=== PATIENT | female | born 1975 | race Caucasian/White ===

== ENCOUNTER 2016-08-25 08:22 | Emergency (ER) | payer BC ==
[2016-08-25] MEDS ORDERED: HYDROmorphone 1 MG/ML 1 ML SYRINGE IVP STA ×2 (08:36→09:08)
[2016-08-25] MEDS ORDERED: ONDANSETRON 4 MG/2 ML VIAL IVP STA (08:36)
[2016-08-25] MEDS ORDERED: RX INFO: IV CONTRAST WAS GIVEN 1 EACH MISC MISCELLANE PRN (08:36)
[2016-08-25] MEDS ORDERED: SODIUM CHLORIDE 0.9% 1,000 ML IV STA (08:36)
--- NOTE | 2016-08-25 08:42 | ED ---
Abdominal Pain HPI - General Chief Complaint: Abdominal Pain Stated Complaint: abdominal pain Time Seen by Provider: 08/25/16 08:30 Source: patient, family, RN notes reviewed Mode of arrival: wheelchair Limitations: no limitations - History of Present Illness Initial Comments: 41-year-old female presents emergency Department chief complaint of abdominal pain that started yesterday. Patient states it's in her low mid abdominal area there it's up to her upper mid abdominal region. Patient states it sharp and feels like increased pressure. She states she does wax and wane. Patient denies any nausea, vomiting diarrhea constipation. Denies any dysuria hematuria. Patient had a prior hernia repair with compilations and states that she has another hernia. Patient's had hysterectomy and left oophorectomy. Patient denies fever, chills. Denies any chest pain or shortness of breath when she does state when she takes deep inspiration she is increased pain in her abdomen. Patient states that her surgeon is Dr. Gerard. Patient states nothing makes the pain feel better at this time. - Related Data Home Medications Medication Instructions Recorded Confirmed DULoxetine HCL [Cymbalta] 60 mg PO DAILY 01/11/14 08/25/16 SUMAtriptan SUCCINATE [Imitrex] 100 mg PO DAILY PRN 01/11/14 08/25/16 clonazePAM [KlonoPIN] 0.5 mg PO DAILY 10/04/15 08/25/16 Losartan/Hydrochlorothiazide 1 tab PO DAILY 12/26/15 08/25/16 [Hyzaar 100-25 Tablet] Hydrocodone/Acetaminophen [Dozier 1 tab PO BID PRN 08/25/16 08/25/16 5-325] Previous Rx's Medication Instructions Recorded Dicyclomine [Bentyl] 20 mg PO TID #30 tablet 08/25/16 HYDROcodone/APAP 7.5-325MG [Dozier 1 tab PO Q6HR PRN #20 tab 08/25/16 7.5-325] Allergies Allergy/AdvReac Type Severity Reaction Status Date / Time doxycycline Allergy Nausea & Verified 08/25/16 08:42 Vomiting hydroxyzine [From Vistaril] Allergy Rash/Hives Verified 08/25/16 08:42 oxybutynin [From Ditropan] Allergy Rapid Verified 08/25/16 08:42 Heart Rate pregabalin [From Lyrica] Allergy SWELLING Verified 08/25/16 08:42 AND HIVES tramadol HCl [From Ultram] Allergy MIGRAINE Verified 08/25/16 08:42 ketorolac tromethamine AdvReac Unknown Verified 08/25/16 08:42 [From Toradol] levofloxacin [From Levaquin] AdvReac Swelling Verified 08/25/16 08:42 morphine AdvReac MIGRAINE Verified 08/25/16 08:42 naproxen sodium [From Aleve] AdvReac Unknown Verified 08/25/16 08:42 Penicillins AdvReac Swelling Verified 08/25/16 08:42 Review of Systems ROS Statement: Those systems with pertinent positive or pertinent negative responses have been documented in the HPI. ROS Other: All systems not noted in ROS Statement are negative. Past Medical History Past Medical History: Pneumonia, Respiratory Disorder Additional Past Medical History / Comment(s): LUNG ABSCESS IS INSIDE THE LUNG. OTHER HX INCLUDES: Migraine headache. CHRONIC ABDOMINAL PAIN, HERNIAS History of Any Multi-Drug Resistant Organisms: None Reported Past Surgical History: Adenoidectomy, Back Surgery, Breast Surgery, Cholecystectomy, Hernia Repair, Hysterectomy, Orthopedic Surgery, Tonsillectomy Additional Past Surgical History / Comment(s): bilateral KNEE arthroscopic, LOW BACK SURGERY, L BREAST LUMPECTOMY that was without evidence of cancer. She' s had a partial hysterectomy, adenoidectomy with tonsillectomy years ago. She also recalls a cholecystectomy. Past Anesthesia/Blood Transfusion Reactions: Postoperative Nausea & Vomiting ( PONV) Additional Past Anesthesia/Blood Transfusion Reaction / Comment(s): PT HAS NEVER RECIEVED BLOOD. Past Psychological History: Anxiety Additional Psychological History / Comment(s): PT LIVES WITH OF 23 YRS AND THEIR 2 CHILDREN AGES 12 AND 15YRS. PT IS A HOMEMAKER. PT DRIVES A CAR. They do live on a farm with which he may have farm animals. In the summer. This past summer they had a cow and 4 sheep. 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 She did help another family with their she also. 1 of the animals did have " pneumonia.". She has no experience. No international travels. she is lifelong nonsmoker with no significant recreational drug use. Smoking Status: Never smoker Past Alcohol Use History: None Reported, Rare Past Drug Use History: None Reported - Past Family History Mother Family Medical History: Cancer Additional Family Medical History / Comment(s): breast ca Father Family Medical History: AFIB General Exam Limitations: no limitations General appearance: alert, in no apparent distress Head exam: Present: atraumatic, normocephalic, normal inspection Neck exam: Present: normal inspection. Absent: tenderness, meningismus, lymphadenopathy Respiratory exam: Present: normal lung sounds bilaterally. Absent: respiratory distress, wheezes, rales, rhonchi, stridor Cardiovascular Exam: Present: normal rhythm, tachycardia, normal heart sounds. Absent: systolic murmur, diastolic murmur, rubs, gallop, clicks GI/Abdominal exam: Present: soft, tenderness (Diffuse tenderness with moderate mid to low abdominal tenderness), normal bowel sounds. Absent: distended, guarding, rebound, rigid Back exam: Absent: CVA tenderness (R), CVA tenderness (L) Neurological exam: Present: alert, oriented X3, CN II-XII intact Skin exam: Present: warm, dry, intact, normal color. Absent: rash Course Vital Signs 08/25/16 08:25 Temperature 98.9 F Pulse Rate 120 H Respiratory 16 Rate Blood Pressure 130/80 O2 Sat by Pulse 97 Oximetry Medical Decision Making - Medical Decision Making 41-year-old female presents emergency from for abdominal pain. Patient has colitis noted on CT. She also has residual seroma from her prior surgery. Patient will follow-up with Dr. Agrawal call her surgeon. Return parameters were discussed. Patiently given pain medication. - Lab Data Result diagrams: 08/25/16 08:45 08/25/16 08:45 Lab Results 08/25/16 08/25/16 08/25/16 Range/Units 08:35 08:45 08:45 WBC 13.6 H (3.8-10.6) k/uL RBC 4.34 (3.80-5.40) m/uL Hgb 12.1 (11.4-16.0) gm/dL Hct 36.5 (34.0-46.0) % MCV 84.0 (80.0-100.0) fL MCH 27.8 (25.0-35.0) pg MCHC 33.1 (31.0-37.0) g/dL RDW 14.1 (11.5-15.5) % Plt Count 298 (150-450) k/uL Neutrophils % 85 % Lymphocytes % 12 % Monocytes % 2 % Eosinophils % 0 % Basophils % 0 % Neutrophils # 11.5 H (1.3-7.7) k/uL Lymphocytes # 1.6 (1.0-4.8) k/uL Monocytes # 0.3 (0-1.0) k/uL Eosinophils # 0.0 (0-0.7) k/uL Basophils # 0.1 (0-0.2) k/uL PT (9.0-12.0) sec INR (<1.1) APTT (22.0-30.0) sec Sodium 139 (137-145) mmol/L Potassium 3.4 L (3.5-5.1) mmol/L Chloride 99 (98-107) mmol/L Carbon Dioxide 28 (22-30) mmol/L Anion Gap 12 mmol/L BUN 10 (7-17) mg/dL Creatinine 0.83 (0.52-1.04) mg/dL Est GFR (MDRD) Af Amer >60 (>60 ml/min/1.73 sqM) Est GFR (MDRD) Non-Af >60 (>60 ml/min/1.73 sqM) Glucose 124 H (74-99) mg/dL Plasma Lactic Acid Kaleb (0.7-2.0) mmol/L Calcium 9.2 (8.4-10.2) mg/dL Total Bilirubin 0.7 (0.2-1.3) mg/dL AST 19 (14-36) U/L ALT 46 (9-52) U/L Alkaline Phosphatase 101 (38-126) U/L Total Protein 7.1 (6.3-8.2) g/dL Albumin 3.9 (3.5-5.0) g/dL Amylase 36 (30-110) U/L Lipase 17 L (23-300) U/L Urine Color Dark Yellow Urine Appearance Cloudy H (Clear) Urine pH 6.5 (5.0-8.0) Ur Specific [place] 1.029 (1.001-1.035) Urine Protein 1+ H (Negative) Urine Glucose (UA) Negative (Negative) Urine Ketones Negative (Negative) Urine Blood Negative (Negative) Urine Nitrite Negative (Negative) Urine Bilirubin 1+ H (Negative) Urine Urobilinogen 3.0 (<2.0) mg/dL Ur Leukocyte Esterase Small H (Negative) Urine RBC 4 (0-5) /hpf Urine WBC 1 (0-5) /hpf Ur Squamous Epith Cells 6 H (0-4) /hpf Urine Bacteria Occasional H (None) /hpf Urine Mucus Rare H (None) /hpf 08/25/16 08/25/16 Range/Units 08:45 08:45 WBC (3.8-10.6) k/uL RBC (3.80-5.40) m/uL Hgb (11.4-16.0) gm/dL Hct (34.0-46.0) % MCV (80.0-100.0) fL MCH (25.0-35.0) pg MCHC (31.0-37.0) g/dL RDW (11.5-15.5) % Plt Count (150-450) k/uL Neutrophils % % Lymphocytes % % Monocytes % % Eosinophils % % Basophils % % Neutrophils # (1.3-7.7) k/uL Lymphocytes # (1.0-4.8) k/uL Monocytes # (0-1.0) k/uL Eosinophils # (0-0.7) k/uL Basophils # (0-0.2) k/uL PT 10.1 (9.0-12.0) sec INR 1.0 (<1.1) APTT 24.8 (22.0-30.0) sec Sodium (137-145) mmol/L Potassium (3.5-5.1) mmol/L Chloride (98-107) mmol/L Carbon Dioxide (22-30) mmol/L Anion Gap mmol/L BUN (7-17) mg/dL Creatinine (0.52-1.04) mg/dL Est GFR (MDRD) Af Amer (>60 ml/min/1.73 sqM) Est GFR (MDRD) Non-Af (>60 ml/min/1.73 sqM) Glucose (74-99) mg/dL Plasma Lactic Acid Kaleb 1.9 (0.7-2.0) mmol/L Calcium (8.4-10.2) mg/dL Total Bilirubin (0.2-1.3) mg/dL AST (14-36) U/L ALT (9-52) U/L Alkaline Phosphatase (38-126) U/L Total Protein (6.3-8.2) g/dL Albumin (3.5-5.0) g/dL Amylase (30-110) U/L Lipase (23-300) U/L Urine Color Urine Appearance (Clear) Urine pH (5.0-8.0) Ur Specific [place] (1.001-1.035) Urine Protein (Negative) Urine Glucose (UA) (Negative) Urine Ketones (Negative) Urine Blood (Negative) Urine Nitrite (Negative) Urine Bilirubin (Negative) Urine Urobilinogen (<2.0) mg/dL Ur Leukocyte Esterase (Negative) Urine RBC (0-5) /hpf Urine WBC (0-5) /hpf Ur Squamous Epith Cells (0-4) /hpf Urine Bacteria (None) /hpf Urine Mucus (None) /hpf Disposition Clinical Impression: Colitis, Seroma Disposition: HOME SELF-CARE Condition: Stable Instructions: Colitis (ED) Additional Instructions: Please return to the Emergency Department if symptoms worsen or any other concerns. Prescriptions: Dicyclomine [Bentyl] 20 mg PO TID #30 tablet HYDROcodone/APAP 7.5-325MG [Dozier 7.5-325] 1 tab PO Q6HR PRN #20 tab PRN Reason: Pain Referrals: Levi Dougherty MD [Primary Care Provider] - 1-2 days Anahy Gerard MD [STAFF PHYSICIAN] - 1-2 days Time of Disposition: 09:47
[2016-08-25 09:11] LABS: Partial Thromboplastin Time 24.8 sec (22.0-30.0); Prothrombin Time 10.1 sec (9.0-12.0)
[2016-08-25 09:14] LABS: Basophils # (A) 0.1 k/uL (0-0.2); Basophils % (A) 0 %; CHCM 33.5; Eosinophils % (A) 0 %; HCT 36.5 % (34.0-46.0); HDW 2.74; HGB 12.1 gm/dL (11.4-16.0); Luc # (Auto) 0.12; Luc % (Auto) 1; Lymphocytes # (A) 1.6 k/uL (1.0-4.8); Lymphocytes % (A) 12 %; MCH 27.8 pg (25.0-35.0); MCHC 33.1 g/dL (31.0-37.0); Mean Platelet Volume 7.1; Monocytes # (A) 0.3 k/uL (0-1.0); Monocytes % (A) 2 %; Neutrophils # (A) 11.5 k/uL (1.3-7.7); Neutrophils % (A) 85 %; RBC 4.34 m/uL (3.80-5.40); RDW 14.1 % (11.5-15.5); WBC 13.6 k/uL (3.8-10.6); WBC (Perox) 13.78
[2016-08-25 09:17] LABS: Appearance,Urine Cloudy (Clear); Bacteria,Urine Occasional /hpf; Bilirubin,Urine 1+ (Negative); Glucose,Urine (UA) Negative (Negative); Ketones,Urine Negative (Negative); Leukocyte Esterase,Urine Small (Negative); Mucus,Urine Rare /hpf; Nitrite,Urine Negative (Negative); PH, Urine 6.5 (5.0-8.0); Particle Count 3450; Protein,Urine 1+ (Negative); RBC,Urine 4 /hpf (0-5); Specific Gravity,Urine 1.029 (1.001-1.035); Squamous Epithelial Cell,Urine 6 /hpf (0-4); UA Billing (MACRO vs. MICRO) MICRO; WBC,Urine 1 /hpf (0-5)
[2016-08-25 09:19] LABS: ALT 46 U/L (9-52); AST 19 U/L (14-36); Alkaline Phosphatase 101 U/L (38-126); Amylase 36 U/L (30-110); Anion Gap 12 mmol/L; Blood Urea Nitrogen 10 mg/dL (7-17); Calcium 9.2 mg/dL (8.4-10.2); Carbon Dioxide 28 mmol/L (22-30); Chloride 99 mmol/L (98-107); Glucose 124 mg/dL (74-99); Non-African American GFR(MDRD) >60 (>60 ml/min/1.73 sqM); Potassium 3.4 mmol/L (3.5-5.1); Sodium 139 mmol/L (137-145); Total Bilirubin 0.7 mg/dL (0.2-1.3); Total Protein 7.1 g/dL (6.3-8.2)
--- NOTE | 2016-08-25 09:38 | CT ---
EXAMINATION TYPE: CT abdomen pelvis w con DATE OF EXAM: 08/25/2016 9:32 AM COMPARISON: NONE HISTORY: Pelvic pain CT DLP: 3734.3 mGycm CONTRAST: CT scan of the abdomen and pelvis is performed without Oral Contrast and with IV Contrast, patient in jected with 100 mL of Omnipaque 300. FINDINGS: LUNG BASES-: No visible nodule. No infiltrate. LIVER/GB: Cholecystectomy clips are in place. No space occupying hepatic lesion. Biliary tree is o f normal caliber. PANCREAS: No inflammation. No distinct mass. SPLEEN: No splenic enlargement. No lesion seen. ADRENALS: No nodule. No thickening. KIDNEYS/BLADDER: No hydronephrosis. No nephrolithiasis. No disctinct renal mass. Urinary bladder g rossly unremarkable. BOWEL: Moderate wall thickening involving the cecum, ascending colon and proximal transverse colon co mpatible with nonspecific colitis. Correlate for infectious and or inflammatory causes and less likel y vascular. Normal appendix. Small bowel is of normal caliber. GENITAL ORGANS: No gross abnormality. LYMPH NODES: No greater than 1cm abdominal or pelvic lymph nodes are appreciated. AORTA: No significant abnormality. OSSEOUS STRUCTURES: No significant abnormality is seen. OTHER: Anterior abdominal wall with seroma measuring 4.5 cm. IMPRESSION: 1. Findings compatible with colitis. 2. Anterior abdominal wall seroma.
[2016-08-25 09:50] VITALS: BP 121/74; PULSE 100; RESP 18; TEMP 98.8
== END 2016-08-25 10:05 | disposition home or self-care (01) ==
LOC: EC 08:22
DX: K91.873 Postprocedural seroma of a digestive system organ or structure following other procedure (principal); K52.9 Noninfective gastroenteritis and colitis, unspecified; F41.9 Anxiety disorder, unspecified; Z79.899 Other long term (current) drug therapy; Z88.6 Allergy status to analgesic agent; Z88.8 Allergy status to other drugs, medicaments and biological substances; Z88.1 Allergy status to other antibiotic agents; Z88.5 Allergy status to narcotic agent; Z88.0 Allergy status to penicillin; Z98.890 Other specified postprocedural states; Z90.49 Acquired absence of other specified parts of digestive tract; Z90.710 Acquired absence of both cervix and uterus; Z90.89 Acquired absence of other organs; Y83.8 Other surgical procedures as the cause of abnormal reaction of the patient, or of later complication, without mention of misadventure at the time of the procedure
CPT/HCPCS: 36415; 80053; 82150; 83605; 83690; 85025; 85610; 85730; 81001; 74177; 99284; 96374; 96375; 96376; J2405; J1170; Q9967

== ENCOUNTER 2016-10-27 08:48 | Day surgery (SDC) | payer BC ==
[2016-10-27 09:11] VITALS: TEMP 98.2
[2016-10-27 10:07] VITALS: BP 128/72; PULSE 68; RESP 16
--- NOTE | 2016-10-27 10:31 | US ---
Therapeutic fine-needle aspiration of anterior abdominal wall subcutaneous seroma DATE OF EXAM: 10/27/2016 CLINICAL HISTORY: Soft tissue seroma anterior subcutaneous tissues request for FNA The procedure was discussed with the patient. The risks, complications, benefits, and alternatives we re discussed and any questions were answered. Informed consent was obtained. The patient was placed s upine on the ultrasound table and prepped and draped in the usual sterile fashion. All elements of maximal barrier and sterile technique were utilized. Under ultrasound guidance, acce ss into the subcutaneous collection was obtained, and there is removal of approximately 5 to 10 cc of yellow serous fluid. The patient was stable throughout the procedure and remained stable upon discharge from Department of Radiology. IMPRESSION: Successful FNA subcutaneous seroma..
== END 2016-10-27 10:00 | disposition home or self-care (01) ==
LOC: RADPROMAIN 08:48
PROVIDERS: ATTEND Surgery Plastic and Reconstructive Surgery
DX: L76.34 Postprocedural seroma of skin and subcutaneous tissue following other procedure (principal)
CPT/HCPCS: 10022; 10030; 76942

== ENCOUNTER → 2016-12-02 | Outpatient (CLI) | payer BC | END | disposition home or self-care (01) | LOC: LABPAT 11:54 | PROVIDERS: ATTEND Surgery Plastic and Reconstructive Surgery | DX: Z01.812 Encounter for preprocedural laboratory examination (principal); I10 Essential (primary) hypertension; K43.2 Incisional hernia without obstruction or gangrene | CPT/HCPCS: 36415; 84132; 86850; 86900; 86901 ==

== ENCOUNTER 2016-12-03 08:36 | Day surgery (SDC) | payer BC ==
[2016-11-25 11:29] VITALS: BMI 47.2
--- NOTE | 2016-12-03 06:50 | P.GSHP ---
History of Present Illness H&P Date: 12/03/16 CHIEF COMPLAINT: Incisional hernia. HISTORY OF PRESENT ILLNESS: The patient is a 41-year-old female who presents with a history of swelling along the upper abdomen from previous ventral hernia. Findings were consistent with recurrent incisional hernia initial presentation. Now she presents for further evaluation and management. PAST MEDICAL HISTORY: Please see list. PAST SURGICAL HISTORY: Please see list. MEDICATIONS: Please see list. ALLERGIES: Please see list. SOCIAL HISTORY: No illicit drug use FAMILY HISTORY: No reports of Crohn disease or ulcerative colitis. REVIEW OF ORGAN SYSTEMS: CONSTITUTIONAL: No reports of fevers or chills. GI: Denies any blood in stools or constipation. PHYSICAL EXAM: VITAL SIGNS: Stable GENERAL: Well-developed pleasant female in no acute distress. HEENT: No scleral icterus. Extraocular movements grossly intact. Moist buccal mucosa. NECK: Supple without lymphadenopathy. CHEST: Unlabored respirations. Equal bilateral excursions. CARDIOVASCULAR: Regular rate and rhythm. Distal 2+ pulses. ABDOMEN: Soft, nondistended. Palpable defect of the epigastrium over 8 cm. MUSCULOSKELETAL: No clubbing, cyanosis, or edema. ASSESSMENT: 1. Incisional ventral hernia, recurrent. PLAN: 1. Recommend proceeding with a robotic assisted laparoscopic ventral hernia repair with mesh possible open. 2. Benefits and risks of surgical intervention was discussed including possibility of open technique. 3. May need overnight observation. 4. DVT prophylaxis. 5. Antibiotic prophylaxis. Past Medical History Past Medical History: Hypertension, Pneumonia, Respiratory Disorder Additional Past Medical History / Comment(s): LUNG ABSCESS 2013. Migraine headache. HX ABD HERNIAS. History of Any Multi-Drug Resistant Organisms: None Reported Past Surgical History: Adenoidectomy, Back Surgery, Breast Surgery, Cholecystectomy, Hernia Repair, Hysterectomy, Orthopedic Surgery, Tonsillectomy Additional Past Surgical History / Comment(s): TYRA KNEE arthroscopic. LOW BACK SURGERY. L BREAST LUMPECTOMY, BENIGN. Colonoscopy-Colitis September 2016. Past Anesthesia/Blood Transfusion Reactions: Postoperative Nausea & Vomiting ( PONV) Additional Past Anesthesia/Blood Transfusion Reaction / Comment(s): PT HAS NEVER RECIEVED BLOOD. Smoking Status: Never smoker - Past Family History Mother Family Medical History: Cancer Additional Family Medical History / Comment(s): breast ca Father Family Medical History: AFIB Medications and Allergies Home Medications Medication Instructions Recorded Confirmed Type DULoxetine HCL [Cymbalta] 60 mg PO DAILY 01/11/14 11/25/16 History SUMAtriptan SUCCINATE [Imitrex] 100 mg PO DAILY PRN 01/11/14 11/25/16 History clonazePAM [KlonoPIN] 0.5 mg PO DAILY 10/04/15 11/25/16 History Losartan/Hydrochlorothiazide 1 tab PO DAILY 12/26/15 11/25/16 History [Hyzaar 100-25 Tablet] Zolpidem [Ambien] 10 mg PO HS 10/27/16 11/25/16 History Acetaminophen Tab [Tylenol Tab] 650 mg PO Q4H PRN 11/25/16 11/25/16 History Ibuprofen [Motrin] 200 - 400 mg PO Q6HR PRN 11/25/16 11/25/16 History Allergies Allergy/AdvReac Type Severity Reaction Status Date / Time doxycycline Allergy Nausea & Verified 11/25/16 10:52 Vomiting hydroxyzine [From Vistaril] Allergy Rash/Hives Verified 11/25/16 10:52 oxybutynin [From Ditropan] Allergy Rapid Verified 11/25/16 10:52 Heart Rate pregabalin [From Lyrica] Allergy SWELLING Verified 11/25/16 10:52 AND HIVES tramadol HCl [From Ultram] Allergy MIGRAINE Verified 11/25/16 10:52 ketorolac tromethamine AdvReac Unknown Verified 11/25/16 10:52 [From Toradol] levofloxacin [From Levaquin] AdvReac Swelling Verified 11/25/16 10:52 morphine AdvReac MIGRAINE Verified 11/25/16 10:52 naproxen sodium [From Aleve] AdvReac Unknown Verified 11/25/16 10:52 Penicillins AdvReac Swelling Verified 11/25/16 10:52
[~2016-12-03 08:36] MED LIST: ACETAMINOPHEN IV (For NPO) 1,000 MG in EMPTY BAG 1 BAG IVPB ONE; CLINDAMYCIN 900 MG in DEXTROSE 5% IN WATER 50 ML IVPB ONE; DEXAMETHASONE SOD PHOSPHATE 10 MG/ML 1 ML VIAL IV ONE; HEPARIN SODIUM,PORCINE 5,000 UNIT/ML 1 ML VIAL SQ ONE; HYDROmorphone 1 MG/ML 1 ML SYRINGE IVP PRN; LACTATED RINGERS 1,000 ML IV SCH; MIDAZOLAM 2 MG/2 ML VIAL IV PRN; ONDANSETRON 4 MG/2 ML VIAL IVP ONE; Pre Op ABX Message 1 EACH MISC MISCELLANE ONE; SCOPOLAMINE 1.5MG/72HR PATCH TRANSDERM ONE; ceFAZolin 3 GM in SODIUM CHLORIDE 0.9% 100 ML IVPB ONE
[2016-12-03 09:16] LABS: Basophils # (A) 0.1 k/uL (0-0.2); Basophils % (A) 1 %; CH 28.9; CHCM 33.8; Eosinophils # (A) 0.2 k/uL (0-0.7); Eosinophils % (A) 2 %; HCT 39.2 % (34.0-46.0); HDW 2.63; HGB 12.6 gm/dL (11.4-16.0); Luc # (Auto) 0.14; Luc % (Auto) 1; Lymphocytes # (A) 3.7 k/uL (1.0-4.8); Lymphocytes % (A) 37 %; MCH 27.7 pg (25.0-35.0); MCHC 32.3 g/dL (31.0-37.0); MCV 85.8 fL (80.0-100.0); Mean Platelet Volume 6.9; Monocytes # (A) 0.4 k/uL (0-1.0); Monocytes % (A) 4 %; Neutrophils # (A) 5.5 k/uL (1.3-7.7); Neutrophils % (A) 55 %; RBC 4.57 m/uL (3.80-5.40); RDW 14.7 % (11.5-15.5); WBC (Perox) 9.92
[2016-12-03] MEDS ORDERED: GLYCOPYRROLATE 0.2 MG/ML 2 ML VIAL ONE (09:29)
[2016-12-03] MEDS ORDERED: fentaNYL (PF) 50 MCG/ML 2 ML AMP ONE (09:29)
[2016-12-03] MEDS ORDERED: PROPOFOL 10 MG/ML 20 ML VIAL IV ONE (09:29)
[2016-12-03] MEDS ORDERED: NEOSTIGMINE 1 MG/ML 10 ML VIAL ONE (09:29)
[2016-12-03] MEDS ORDERED: HYDROmorphone (PF) 1 MG/ML ONE (09:29)
[2016-12-03] MEDS ORDERED: VECURONIUM 10 MG VIAL IV ONE (09:29)
[2016-12-03] MEDS ORDERED: SUCCINYLCHOLINE CHLORIDE 100 MG/5 ML SYR IV ONE (09:29)
[2016-12-03] MEDS ORDERED: LIDOCAINE 1% INJ 10MG/ML (20 ML MDV) ONE (09:29)
[2016-12-03] MEDS ORDERED: BUPIVACAINE (PF) 0.25% 30 ML VIAL SQ ONE (10:03)
[2016-12-03] MEDS ORDERED: LACTATED RINGERS 1,000 ML IV ONE ×2 (10:31→12:20)
--- NOTE | 2016-12-03 11:14 | P.PCN ---
Date of Procedure: 12/03/16 Preoperative Diagnosis: Incarcerated ventral hernia Postoperative Diagnosis: Recurrent incarcerated ventral hernia, 3 cm; left lower pelvic adhesions small bowel to the peritoneal wall Procedure(s) Performed: Laparoscopic repair of incarcerated recurrent ventral hernia, [address] mesh Implants: Anesthesia: GETA, local Surgeon: Charity Upton Estimated Blood Loss (ml): 5 Pathology: other (Incarcerated ventral hernia) Condition: stable Disposition: same day Indications for Procedure: Operative Findings: 1. Severe left lower quadrant peritoneal adhesions small bowel to the lower pelvic wall 2. Incarcerated recurrent ventral hernia 3 cm, epigastrium 3. 9 inches and 6 inch V-LOC used Description of Procedure:
[2016-12-03] MEDS ORDERED: NALOXONE 0.4 MG/ML 1 ML VIAL IV PRN (11:20)
[2016-12-03] MEDS ORDERED: ONDANSETRON 4 MG/2 ML VIAL IVP PRN (11:20)
[2016-12-03] MEDS ORDERED: ACETAMINOPHEN TAB 325 MG TAB PO PRN (11:21)
[2016-12-03] MEDS ORDERED: SUMAtriptan SUCCINATE 50 MG TAB PO PRN (11:21)
[2016-12-03] MEDS: HYDROmorphone 1 MG/ML 1 ML SYRINGE IVP ONE ×2 (11:25→13:52)
[2016-12-03] MEDS ORDERED: HYDROmorphone 1 MG/ML 1 ML SYRINGE IVP ONE ×6 (11:32→14:05)
[2016-12-03] MEDS ORDERED: diphenhydrAMINE 50 MG/ML 1 ML VIAL IVP ONE ×2 (11:33)
[2016-12-03] MEDS ORDERED: MIDAZOLAM 2 MG/2 ML VIAL IVP ONE ×2 (11:45→11:52)
[2016-12-03] MEDS ORDERED: fentaNYL (PF) 50 MCG/ML 2 ML AMP IVP ONE ×4 (12:01→12:45)
[2016-12-03 14:52] VITALS: RESP 12; TEMP 98.9
--- NOTE | 2016-12-03 15:09 | P.PN ---
Progress Note - Text Patient seen and evaluated this afternoon. She reported moderate difficulty with abdominal pain following her surgery. Her pain had been from her poorly filling abdominal binder. After discontinuing her binder, her abdominal pain has moderately improved. She reports taking Percocet and Edon at home. She tolerates Percocet. I discussed with the patient okay for discharge home as long as she is ambulating and her pain is controlled which she was agreeable.
[2016-12-03 16:06] VITALS: BP 116/71; PULSE 76
[2016-12-03] MEDS ORDERED: ZOLPIDEM 5 MG TAB PO PRN (21:00)
[2016-12-04] MEDS ORDERED: DULoxetine HCL 60 MG CAPSULE.DR PO SCH (09:00)
[2016-12-04] MEDS ORDERED: clonazePAM 0.5 MG TAB PO SCH (09:00)
--- NOTE | 2017-01-07 07:56 | P.OP ---
Date of Procedure: 12/03/16 Description of Procedure: SURGEON: TEOFILO UPTON MD MATHEMATICS LECTURER: Kathleen Garzon PREOPERATIVE DIAGNOSES: 1. Incarcerated recurrent umbilical ventral hernia. 2. Morbid obesity due to excess calories. 3. Body mass index 27.2. 4. Chronic abdominal pain. 5. Chronic back pain. 6. Chronic pain syndrome. 7. Personal history of multiple abdominal surgeries. 8. History of peritoneal adhesions. 9. Migraine headaches. 10. Essential hypertension. 11. Personal history of postoperative nausea and vomiting. POSTOPERATIVE DIAGNOSES: 1. Incarcerated recurrent umbilical ventral hernia. 2. Morbid obesity due to excess calories. 3. Body mass index 27.2. 4. Chronic abdominal pain. 5. Chronic back pain. 6. Chronic pain syndrome. 7. Personal history of multiple abdominal surgeries. 8. History of peritoneal adhesions. 9. Migraine headaches. 10. Essential hypertension. 11. Personal history of postoperative nausea and vomiting. 12. Recurrent incarcerated ventral hernia, 3 cm 13. 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 Robotic-assisted laparoscopic reduction of incarcerated recurrent umbilical ventral hernia, 3 cm. 2. Robotic-assisted laparoscopic repair of incarcerated recurrent umbilical hernia repair with Bard Ventralight ST mesh 11.4 cm ANESTHESIA: General with local anesthetic. ESTIMATED BLOOD LOSS: 5 mL. Pathology: other (Incarcerated ventral hernia) COMPLICATIONS: None. Condition: stable Disposition: same day INDICATIONS: The patient is a 41-year-old female who presents with previous history of open abdominal wall ventral hernia repair less than 1 year ago. She had postoperative complications including a large abdominal wall seroma requiring open drainage. She reports a previous history of severe peritoneal adhesions whereby her left ovary was incorporated in her hernia requiring additional surgeries. Since her last surgery, she reports persistent epigastric and periumbilical pain. Additional diagnostic studies were consistent with an incarcerated fat-containing umbilical ventral hernia. Given her symptoms, surgical options were reviewed. As her body habitus is over 40 and to decrease risk of additional adhesions, laparoscopic versus robotic and open techniques were reviewed. Placement of mesh was also reviewed. Benefits and risks were thoroughly described. Informed consent was obtained. DESCRIPTION OF PROCEDURE: The patient was brought into the operating room and laid in supine position. After general induction, the abdomen had been prepped and draped in standard sterile fashion. Ioban draping was also placed. Prior to incision, a timeout protocol was confirmed with surgical team regarding the patient's name including procedures to be performed. The robot was primed prior to the procedure. Initial incision was made with an #11 blade along the left upper quadrant. A 0 degree 5 mm laparoscopic trocar entry was performed. Diagnostic laparoscopy demonstrated an incarcerated hernia along the epigastrium involving the umbilicus. Separately, severe peritoneal adhesions involving the greater omentum including small bowel was found along the left pelvis. The adhesions along the left pelvis were undisturbed. Along the anterior abdominal wall, a defect was identified along the umbilicus. An 8 mm port was placed along the left lower quadrant under direct localization avoiding the adhesions identified. The 5-mm port was exchanged for a 12 mm robotic port. A 8 mm port was placed along the epigastrium. The ports were placed in an inward "C" configuration approximately 15 to 20 cm away from the target anatomy. Placements of the ports were 10 to 12 cm apart. A third robotic arm with 8 mm port was position over the right lateral abdominal wall. Next, an 11.[address] mesh was entered into abdominal cavity under direct visualization with 2-0 VLOC 9-inch sutures placed. The da Srinivas SI robot was previously primed, prepped and draped then docked along the right side of the patient. I then sat at the robot Da Srinivas SI console where working arms of the robot including Bovie cautery connected to robotic scissors and graspers placed by the carpenter assistant. Initial attention was brought to the anterior abdominal wall. Using dissecting grasper as well as scissors connected to electro-Bovie cautery, the peritoneum was scored. Then with downward manual pressure over the abdominal wall provided by the carpenter assistant, an incarcerated fat-containing hernia was delivered from the umbilical ventral hernia. The size of the defect was 3 cm after measurement with a ruler. The fascia was cleaned of peritoneal fat to allow for 3 to 5 cm margin. The hernia defect was resected using a vessel sealer. The peritoneal defect was closed using 0-VLOC suture, 9 inch length. Next, hemostasis was checked with cautery. Ventralight ST 11.4 cm, circular mesh was previously prepared along the back table. The rough side of the mesh was placed toward the anterior abdominal wall. The smooth side was placed towards the bowel. Starting from 12 o'clock position to the 6 o'clock position, 2-0 V-Loc suture was ran in a peritoneum to fascia to the mesh approach. Similarly another V-Loc stitch was run from 6 o'clock to 12 o'clock completely adhering the mesh to the anterior abdominal wall. A final endoscopic imaging was obtained. All instruments and pneumoperitoneum were evacuated from the abdominal cavity. The da Srinivas SI robot was undocked from the patient. I re-scrubbed into the case for closure of incisions. The fascia of the 12-mm port was probed and was closed using 0 Vicryl and Clifford Medina. The incisions were reapproximated using 4-0 Monocryl in an interrupted subcuticular fashion. Dermabond was applied to the skin. At the end of the procedure, needle, sponge, and instrument count had been verified correct by director medical surgical. The patient was taken to the postanesthesia care unit in stable condition with abdominal binder. Operative Findings: 1. Severe left lower quadrant peritoneal adhesions small bowel to the lower pelvic wall 2. Incarcerated recurrent ventral hernia 3 cm, epigastrium 3. 9 inches and 6 inch V-LOC used. 4. Multiport, 3 arm technique. Plan - Discharge Summary New Discharge Prescriptions: No Action SUMAtriptan SUCCINATE [Imitrex] 100 mg PO DAILY PRN PRN Reason: Headache DULoxetine HCL [Cymbalta] 60 mg PO DAILY clonazePAM [KlonoPIN] 0.5 mg PO DAILY PRN PRN Reason: Anxiety Losartan/Hydrochlorothiazide [Hyzaar 100-25 Tablet] 1 tab PO DAILY Zolpidem [Ambien] 10 mg PO HS Ciprofloxacin HCl [Cipro] 500 mg PO Q12HR #20 tablet metroNIDAZOLE [Flagyl] 500 mg PO TID #30 tab oxyCODONE-APAP 5-325MG [Percocet 5-325 mg] 1 tab PO Q6HR PRN PRN Reason: Pain Discharge Medication List DULoxetine HCL [Cymbalta] 60 mg PO DAILY 01/11/14 [History] SUMAtriptan SUCCINATE [Imitrex] 100 mg PO DAILY PRN 01/11/14 [History] clonazePAM [KlonoPIN] 0.5 mg PO DAILY PRN 10/04/15 [History] Losartan/Hydrochlorothiazide [Hyzaar 100-25 Tablet] 1 tab PO DAILY 12/26/15 [ History] Zolpidem [Ambien] 10 mg PO HS 10/27/16 [History] Ciprofloxacin HCl [Cipro] 500 mg PO Q12HR #20 tablet 12/30/16 [Rx] metroNIDAZOLE [Flagyl] 500 mg PO TID #30 tab 12/30/16 [Rx] oxyCODONE-APAP 5-325MG [Percocet 5-325 mg] 1 tab PO Q6HR PRN 01/06/17 [History] Follow up Appointment(s)/Referral(s): Teofilo Upton MD [STAFF PHYSICIAN] - 12/07/16 1:20 pm Patient Instructions/Handouts: *Surgery [facility] - (Anesthesia) Discharge Instructions Outpatient Surgery, Ventral Hernia Repair (GEN) Activity/Diet/Wound Care/Special Instructions: No lifting, pushing, pulling over 4 pounds(gallon of milk) in 4 weeks[address] while taking pain medication. May shower. No bath tub soaks, hot tubs , or pools until instructed by physician. Continue diet as tolerated (small meals more frequently to start out). Call with any questions comments concerns or worsening symptoms, (101.1 fever or higher, not tolerating diet, pain that is not controlled by pain medication prescribed, oozing or foul smelling drainage from incision sites) Discharge Disposition: HOME SELF-CARE
== END 2016-12-03 16:48 | disposition home or self-care (01) ==
LOC: OR 08:36 → 6PED 11:21 → OR 16:48
PROVIDERS: ATTEND Surgery Plastic and Reconstructive Surgery
DX: K43.0 Incisional hernia with obstruction, without gangrene (principal); K42.0 Umbilical hernia with obstruction, without gangrene; N73.6 Female pelvic peritoneal adhesions (postinfective); G89.18 Other acute postprocedural pain; R10.9 Unspecified abdominal pain; I10 Essential (primary) hypertension; J98.9 Respiratory disorder, unspecified; G43.909 Migraine, unspecified, not intractable, without status migrainosus; E66.01 Morbid (severe) obesity due to excess calories; Z68.27 Body mass index [BMI] 27.0-27.9, adult; M54.9 Dorsalgia, unspecified; G89.4 Chronic pain syndrome; Z98.890 Other specified postprocedural states; F41.9 Anxiety disorder, unspecified; F32.9 Major depressive disorder, single episode, unspecified; Z79.899 Other long term (current) drug therapy; Z88.1 Allergy status to other antibiotic agents; Z88.5 Allergy status to narcotic agent; Z88.8 Allergy status to other drugs, medicaments and biological substances
CPT/HCPCS: 49653; 85025; 88302; C1781; J2250; J1200; J1644; J1100; J2710; J0690; J2405; J2001; J3010; J1170; J0131; J0330; J2704; 86850; 86900; 86901

== ENCOUNTER 2016-12-30 11:08 | Emergency (ER) | payer BC ==
[2016-12-30 11:25] VITALS: RESP 18
[2016-12-30] MEDS ORDERED: MORPHINE SULFATE 4 MG/ML SYRINGE IV STA (11:45)
[2016-12-30] MEDS ORDERED: SODIUM CHLORIDE 0.9% 500 ML IV STA (11:45)
[2016-12-30] MEDS ORDERED: ONDANSETRON 4 MG/2 ML VIAL IVP STA (11:45)
[2016-12-30] MEDS ORDERED: RX INFO: IV CONTRAST WAS GIVEN 1 EACH MISC MISCELLANE PRN (11:45)
[2016-12-30] MEDS ORDERED: metroNIDAZOLE-NS PMX 500 MG in SALINE 1 100ML.BAG IVPB STA (11:45)
[2016-12-30 12:23] LABS: Partial Thromboplastin Time 23.4 sec (22.0-30.0); Prothrombin Time 10.1 sec (9.0-12.0)
[2016-12-30] MEDS ORDERED: HYDROmorphone 1 MG/ML 1 ML SYRINGE IVP STA ×2 (12:24→14:36)
[2016-12-30 12:25] LABS: ALT 42 U/L (9-52); AST 25 U/L (14-36); Alkaline Phosphatase 82 U/L (38-126); Amylase <30 U/L (30-110); Anion Gap 13 mmol/L; Blood Urea Nitrogen 21 mg/dL (7-17); Calcium 9.8 mg/dL (8.4-10.2); Carbon Dioxide 20 mmol/L (22-30); Chloride 106 mmol/L (98-107); Glucose 97 mg/dL (74-99); Non-African American GFR(MDRD) 45 (>60 ml/min/1.73 sqM); Potassium 4.3 mmol/L (3.5-5.1); Sodium 139 mmol/L (137-145); Total Bilirubin 0.5 mg/dL (0.2-1.3); Total Protein 7.2 g/dL (6.3-8.2)
[2016-12-30 12:27] LABS: Basophils # (A) 0.1 k/uL (0-0.2); Basophils % (A) 1 %; CH 28.3; Eosinophils # (A) 0.4 k/uL (0-0.7); Eosinophils % (A) 4 %; HCT 38.2 % (34.0-46.0); HDW 2.74; HGB 13.1 gm/dL (11.4-16.0); Luc # (Auto) 0.18; Luc % (Auto) 2; Lymphocytes # (A) 3.4 k/uL (1.0-4.8); Lymphocytes % (A) 40 %; MCH 28.6 pg (25.0-35.0); MCHC 34.1 g/dL (31.0-37.0); MCV 83.8 fL (80.0-100.0); Monocytes # (A) 0.3 k/uL (0-1.0); Monocytes % (A) 4 %; Neutrophils # (A) 4.2 k/uL (1.3-7.7); Neutrophils % (A) 49 %; RBC 4.56 m/uL (3.80-5.40); RDW 13.5 % (11.5-15.5); WBC 8.5 k/uL (3.8-10.6); WBC (Perox) 8.49
[2016-12-30 12:51] LABS: Appearance,Urine Cloudy (Clear); Bilirubin,Urine Negative (Negative); Glucose,Urine (UA) Negative (Negative); Ketones,Urine Negative (Negative); Leukocyte Esterase,Urine Negative (Negative); Mucus,Urine Rare /hpf; Nitrite,Urine Negative (Negative); Particle Count 932; Protein,Urine Negative (Negative); RBC,Urine <1 /hpf (0-5); Specific Gravity,Urine 1.009 (1.001-1.035); Squamous Epithelial Cell,Urine 1 /hpf (0-4); UA Billing (MACRO vs. MICRO) MICRO; Urobilinogen,Urine <2.0 mg/dL (<2.0); WBC,Urine 2 /hpf (0-5)
--- NOTE | 2016-12-30 13:21 | CT ---
EXAMINATION TYPE: CT abdomen pelvis w con DATE OF EXAM: 12/30/2016 HISTORY: LLQ pain, history of recent ventral wall hernia surgical repair CT DLP: 2056mGycm Automated Exposure Control for Dose Reduction was Utilized. CONTRAST: CT scan of the abdomen and pelvis is performed without oral but with IV Contrast, patient injected wi th 80 mL of Visipaque 320. COMPARISON: CT abdomen and pelvis August 25, 2016.. FINDINGS: LUNG BASES: Some linear scarring in the right lower lobe remains present.. LIVER/GB: Cholecystectomy clips are redemonstrated. PANCREAS: No significant abnormality is seen. SPLEEN: No significant abnormality is seen. ADRENALS: No significant abnormality is seen. KIDNEYS: There is symmetric cortical medullary uptake but no visualized excretion in both kidneys. Fi nding could be product of acute renal failure. IV contrast was given by ER doctor against radiologist recommendation. There is stable 1.0 cm simple appearing cyst medially lower pole level left kidney. No hydronephrosis is evident bilaterally. BOWEL: Evaluation bowel is suboptimal secondary to lack of enteric contrast. There is no suspicious d ilatation of stomach or duodenal sweep. There is no suspicious small or large bowel dilatation. Areas of mild wall thickening in the left and sigmoid colon could reflect spasm or product of underdistent ion, mild colitis is felt less likely but not excluded. Appendix is felt within normal limits seen be st on coronal images 39 and 40. UTERUS/ADNEXA: Uterus is surgically absent or markedly atrophic in appearance. Remnant right ovary is seen stable in size on axial image 81. Remnant left ovary is not clearly identified and likely surgi kelsie absent. LYMPH NODES: No greater than 1cm abdominal or pelvic lymph nodes are appreciated. OSSEOUS STRUCTURES: There is postsurgical change in the lower lumbar spine with left-sided laminectom y defects. There is stable posterior soft tissue fluid over the lower lumbar spine, nonspecific findi ng. OTHER: Tiny fat-containing umbilical hernia is less prominent than prior study. There is persistent l ower anterior abdominal fluid collection with irregular wall slightly diminished in size measuring 2. 7 x 0.8 cm on axial image 81 versus prior exam anterior to rectus muscles. There is no suspicious new ventral wall hernia. Just above umbilicus posterior to rectus muscles there is new curvilinear density seen on axial image 54 presumed to reflect mesh type material. Posterior to this there is new thin-walled fluid collecti on extending below level of umbilicus measuring 9.0 cm transversely by 4.0 cm AP diameter on axial im age 59 x 6.8 cm craniocaudal dimension on coronal image 19. This does not layer dependently into the peritoneal cavity. Suspect postsurgical seroma, other etiologies not excluded. IMPRESSION: 1. New moderate sized thin-walled fluid collection centered in the mid abdomen anteriorly posterior t o the rectus muscles and sheath, nonspecific, suspect postsurgical seroma. Other etiologies not exclu ded. No new suspicious ventral wall hernia identified. Otherwise no significant new or acute finding is seen to account for patient's symptoms.
--- NOTE | 2016-12-30 13:58 | ED ---
Abdominal Pain HPI - General Chief Complaint: Abdominal Pain Stated Complaint: lower abdominal pain post op x 3 weeks Time Seen by Provider: 12/30/16 11:36 Source: patient Mode of arrival: wheelchair Limitations: no limitations - History of Present Illness Initial Comments: Patient complains of abdominal pain. She states she was recently diagnosed with diverticulitis. Her pain is in the left lower quadrant. She also recently had a ventral hernia repair. Patient has no chest pain or shortness of breath. She has no lightheadedness or dizziness. She has no neck pain or stiffness. She was prescribed antibiotics for diverticulitis, but has not gone the prescriptions filled it. - Related Data Home Medications Medication Instructions Recorded Confirmed DULoxetine HCL [Cymbalta] 60 mg PO DAILY 01/11/14 12/30/16 SUMAtriptan SUCCINATE [Imitrex] 100 mg PO DAILY PRN 01/11/14 12/30/16 clonazePAM [KlonoPIN] 0.5 mg PO DAILY PRN 10/04/15 12/30/16 Losartan/Hydrochlorothiazide 1 tab PO DAILY 12/26/15 12/30/16 [Hyzaar 100-25 Tablet] Zolpidem [Ambien] 10 mg PO HS 10/27/16 12/30/16 Previous Rx's Medication Instructions Recorded Ciprofloxacin HCl [Cipro] 500 mg PO Q12HR #20 tablet 12/30/16 metroNIDAZOLE [Flagyl] 500 mg PO TID #30 tab 12/30/16 Allergies Allergy/AdvReac Type Severity Reaction Status Date / Time doxycycline Allergy Nausea & Verified 12/30/16 11:58 Vomiting hydroxyzine [From Vistaril] Allergy Rash/Hives Verified 12/30/16 11:58 oxybutynin [From Ditropan] Allergy Rapid Verified 12/30/16 11:58 Heart Rate pregabalin [From Lyrica] Allergy SWELLING Verified 12/30/16 11:58 AND HIVES tramadol HCl [From Ultram] Allergy MIGRAINE Verified 12/30/16 11:58 ketorolac tromethamine AdvReac Unknown Verified 12/30/16 11:58 [From Toradol] levofloxacin [From Levaquin] AdvReac Swelling Verified 12/30/16 11:58 morphine AdvReac MIGRAINE Verified 12/30/16 11:58 naproxen sodium [From Aleve] AdvReac Unknown Verified 12/30/16 11:58 Penicillins AdvReac Swelling Verified 12/30/16 11:58 Review of Systems ROS Statement: Those systems with pertinent positive or pertinent negative responses have been documented in the HPI. ROS Other: All systems not noted in ROS Statement are negative. Past Medical History Past Medical History: Hypertension, Pneumonia, Respiratory Disorder Additional Past Medical History / Comment(s): LUNG ABSCESS 2013. Migraine headache. HX ABD HERNIAS, diverticulitis History of Any Multi-Drug Resistant Organisms: None Reported Past Surgical History: Adenoidectomy, Back Surgery, Breast Surgery, Cholecystectomy, Hernia Repair, Hysterectomy, Orthopedic Surgery, Tonsillectomy Additional Past Surgical History / Comment(s): TYRA KNEE arthroscopic. LOW BACK SURGERY. L BREAST LUMPECTOMY, BENIGN. Colonoscopy-Colitis September 2016. Past Anesthesia/Blood Transfusion Reactions: Postoperative Nausea & Vomiting ( PONV) Additional Past Anesthesia/Blood Transfusion Reaction / Comment(s): PT HAS NEVER RECIEVED BLOOD. Past Psychological History: Anxiety, Depression Smoking Status: Never smoker Past Alcohol Use History: None Reported Past Drug Use History: None Reported - Past Family History Mother Family Medical History: Cancer Additional Family Medical History / Comment(s): breast ca Father Family Medical History: AFIB General Exam Limitations: no limitations General appearance: alert, in no apparent distress Head exam: Present: atraumatic, normocephalic, normal inspection Eye exam: Present: normal appearance, PERRL, EOMI. Absent: scleral icterus, conjunctival injection, periorbital swelling ENT exam: Present: normal exam, mucous membranes moist Neck exam: Present: normal inspection. Absent: tenderness, meningismus, lymphadenopathy Respiratory exam: Present: normal lung sounds bilaterally. Absent: respiratory distress, wheezes, rales, rhonchi, stridor Cardiovascular Exam: Present: regular rate, normal rhythm, normal heart sounds. Absent: systolic murmur, diastolic murmur, rubs, gallop, clicks GI/Abdominal exam: Present: soft, tenderness, normal bowel sounds. Absent: distended, guarding, rebound, rigid Extremities exam: Present: normal inspection, full ROM, normal capillary refill. Absent: tenderness, pedal edema, joint swelling, calf tenderness Back exam: Present: normal inspection Neurological exam: Present: alert, oriented X3, CN II-XII intact Psychiatric exam: Present: normal affect, normal mood Skin exam: Present: warm, dry, intact, normal color. Absent: rash Course Vital Signs 12/30/16 11:18 Temperature 97.3 F L Pulse Rate 52 L Respiratory 18 Rate Blood Pressure 131/78 O2 Sat by Pulse 97 Oximetry Medical Decision Making - Medical Decision Making Patient complains of abdominal pain. Laboratory studies are all normal per my interpretation. I obtained a CT which does not show any evidence of an acute emergency. Patient does have a postsurgical seroma which does not require emergent drainage. She tells me that she had a CAT scan done recently which was consistent with diverticulitis, and I gave her IV ceftriaxone and Flagyl in the emerge department here. I will prescribe these medications as I'm concern for a subclinical diverticulitis and wanted to make sure that she is getting better. At this time she is tolerating oral intake and is stable for outpatient follow-up.I - Lab Data Result diagrams: 12/30/16 11:56 12/30/16 11:56 Lab Results 12/30/16 12/30/16 12/30/16 Range/Units 11:56 11:56 11:56 WBC 8.5 (3.8-10.6) k/uL RBC 4.56 (3.80-5.40) m/uL Hgb 13.1 (11.4-16.0) gm/dL Hct 38.2 (34.0-46.0) % MCV 83.8 (80.0-100.0) fL MCH 28.6 (25.0-35.0) pg MCHC 34.1 (31.0-37.0) g/dL RDW 13.5 (11.5-15.5) % Plt Count 381 (150-450) k/uL Neutrophils % 49 % Lymphocytes % 40 % Monocytes % 4 % Eosinophils % 4 % Basophils % 1 % Neutrophils # 4.2 (1.3-7.7) k/uL Lymphocytes # 3.4 (1.0-4.8) k/uL Monocytes # 0.3 (0-1.0) k/uL Eosinophils # 0.4 (0-0.7) k/uL Basophils # 0.1 (0-0.2) k/uL PT 10.1 (9.0-12.0) sec INR 1.0 (<1.2) APTT 23.4 (22.0-30.0) sec Sodium 139 (137-145) mmol/L Potassium 4.3 (3.5-5.1) mmol/L Chloride 106 (98-107) mmol/L Carbon Dioxide 20 L (22-30) mmol/L Anion Gap 13 mmol/L BUN 21 H (7-17) mg/dL Creatinine 1.30 H (0.52-1.04) mg/dL Est GFR (MDRD) Af Amer 55 (>60 ml/min/1.73 sqM) Est GFR (MDRD) Non-Af 45 (>60 ml/min/1.73 sqM) Glucose 97 (74-99) mg/dL Calcium 9.8 (8.4-10.2) mg/dL Total Bilirubin 0.5 (0.2-1.3) mg/dL AST 25 (14-36) U/L ALT 42 (9-52) U/L Alkaline Phosphatase 82 (38-126) U/L Troponin I (0.000-0.034) ng/mL Total Protein 7.2 (6.3-8.2) g/dL Albumin 4.2 (3.5-5.0) g/dL Amylase <30 L (30-110) U/L Lipase 56 (23-300) U/L Urine Color Urine Appearance (Clear) Urine pH (5.0-8.0) Ur Specific [place] (1.001-1.035) Urine Protein (Negative) Urine Glucose (UA) (Negative) Urine Ketones (Negative) Urine Blood (Negative) Urine Nitrite (Negative) Urine Bilirubin (Negative) Urine Urobilinogen (<2.0) mg/dL Ur Leukocyte Esterase (Negative) Urine RBC (0-5) /hpf Urine WBC (0-5) /hpf Ur Squamous Epith Cells (0-4) /hpf Urine Mucus (None) /hpf 12/30/16 12/30/16 Range/Units 11:56 12:07 WBC (3.8-10.6) k/uL RBC (3.80-5.40) m/uL Hgb (11.4-16.0) gm/dL Hct (34.0-46.0) % MCV (80.0-100.0) fL MCH (25.0-35.0) pg MCHC (31.0-37.0) g/dL RDW (11.5-15.5) % Plt Count (150-450) k/uL Neutrophils % % Lymphocytes % % Monocytes % % Eosinophils % % Basophils % % Neutrophils # (1.3-7.7) k/uL Lymphocytes # (1.0-4.8) k/uL Monocytes # (0-1.0) k/uL Eosinophils # (0-0.7) k/uL Basophils # (0-0.2) k/uL PT (9.0-12.0) sec INR (<1.2) APTT (22.0-30.0) sec Sodium (137-145) mmol/L Potassium (3.5-5.1) mmol/L Chloride (98-107) mmol/L Carbon Dioxide (22-30) mmol/L Anion Gap mmol/L BUN (7-17) mg/dL Creatinine (0.52-1.04) mg/dL Est GFR (MDRD) Af Amer (>60 ml/min/1.73 sqM) Est GFR (MDRD) Non-Af (>60 ml/min/1.73 sqM) Glucose (74-99) mg/dL Calcium (8.4-10.2) mg/dL Total Bilirubin (0.2-1.3) mg/dL AST (14-36) U/L ALT (9-52) U/L Alkaline Phosphatase (38-126) U/L Troponin I <0.012 (0.000-0.034) ng/mL Total Protein (6.3-8.2) g/dL Albumin (3.5-5.0) g/dL Amylase (30-110) U/L Lipase (23-300) U/L Urine Color Light Yellow Urine Appearance Cloudy H (Clear) Urine pH 5.0 (5.0-8.0) Ur Specific [place] 1.009 (1.001-1.035) Urine Protein Negative (Negative) Urine Glucose (UA) Negative (Negative) Urine Ketones Negative (Negative) Urine Blood Negative (Negative) Urine Nitrite Negative (Negative) Urine Bilirubin Negative (Negative) Urine Urobilinogen <2.0 (<2.0) mg/dL Ur Leukocyte Esterase Negative (Negative) Urine RBC <1 (0-5) /hpf Urine WBC 2 (0-5) /hpf Ur Squamous Epith Cells 1 (0-4) /hpf Urine Mucus Rare H (None) /hpf 12/30/16 13:57 Twelve-lead EKG is obtained, interpreted by me as showing ventricular rate 54 bpm, normal MI interval and QRS complex is, no ST elevation or depression, interpreted by me as sinus bradycardia without acute ischemia. Disposition Clinical Impression: Diverticulitis Disposition: HOME SELF-CARE Condition: Good Instructions: Diverticulitis (ED) Prescriptions: Ciprofloxacin HCl [Cipro] 500 mg PO Q12HR #20 tablet metroNIDAZOLE [Flagyl] 500 mg PO TID #30 tab Referrals: Nonstaff,Physician [Primary Care Provider] - 1-2 days
--- NOTE | 2016-12-30 14:38 | P.PN ---
Progress Note - Text Patient seen and reevaluated. Patient was seen in the office one week ago with a computed tomography scan done at an outside institution. She has history of chronic pain where she takes Soma and schedule IV narcotics. A repeat CT of the abdomen pelvis has been obtained and I personally reviewed. Findings consistent with abdominal wall seroma. Separately, patient has underlying history of diverticulitis from previous CT of the abdomen and pelvis 1 week ago at [facility]. A prescription of Cipro and Flagyl has been sent since yesterday to her pharmacy of choice. Recommend outpatient ultrasound guided cyst aspiration of abdominal wall seroma. Patient is scheduled to follow-up in the office next week. All questions were answered and addressed. Referral to pain clinic has been sent from my office. I personally discussed the plan with Dr. Sierra.
[2016-12-30 15:06] VITALS: BP 113/68; PULSE 51; TEMP 97.4
== END 2016-12-30 15:12 | disposition home or self-care (01) ==
LOC: EC 11:08
DX: K57.92 Diverticulitis of intestine, part unspecified, without perforation or abscess without bleeding (principal); I10 Essential (primary) hypertension; F32.9 Major depressive disorder, single episode, unspecified; F41.9 Anxiety disorder, unspecified; Z79.899 Other long term (current) drug therapy; Z88.0 Allergy status to penicillin; Z88.1 Allergy status to other antibiotic agents; Z88.5 Allergy status to narcotic agent; Z88.6 Allergy status to analgesic agent; Z88.8 Allergy status to other drugs, medicaments and biological substances; Z90.49 Acquired absence of other specified parts of digestive tract; Z90.710 Acquired absence of both cervix and uterus
CPT/HCPCS: 36415; 93005; 80053; 82150; 83690; 84484; 85025; 85610; 85730; 81001; 74177; 99284; 96365; 96366; 96367; 96375 ×2; 96376; Q9967; J2405; J0696; J1170

== ENCOUNTER 2017-03-13 12:58 | Emergency (ER) | payer BC ==
[2017-03-13 13:17] LABS: Appearance,Urine Clear (Clear); Bilirubin,Urine Negative (Negative); Glucose,Urine (UA) Negative (Negative); Ketones,Urine Negative (Negative); Leukocyte Esterase,Urine Negative (Negative); Nitrite,Urine Negative (Negative); PH, Urine 5.5 (5.0-8.0); Protein,Urine Negative (Negative); Specific Gravity,Urine 1.011 (1.001-1.035); UA Billing (MACRO vs. MICRO) CHEM; Urobilinogen,Urine <2.0 mg/dL (<2.0)
[2017-03-13] MEDS ORDERED: ONDANSETRON 4 MG/2 ML VIAL IVP STA (13:21)
[2017-03-13] MEDS ORDERED: RX INFO: IV CONTRAST WAS GIVEN 1 EACH MISC MISCELLANE PRN (13:21)
[2017-03-13] MEDS ORDERED: HYDROmorphone 1 MG/ML 1 ML SYRINGE IVP STA ×2 (13:31→16:07)
--- NOTE | 2017-03-13 13:34 | ED ---
General Adult HPI - General Chief complaint: Abdominal Pain Stated complaint: Abd Pain Time Seen by Provider: 03/13/17 13:10 Source: patient Mode of arrival: ambulatory Limitations: no limitations - History of Present Illness Initial comments: Joanne a 42-year-old female with past medical history of diverticulitis as well as multiple abdominal surgeries who presents to the ED today for evaluation of abdominal pain. Patient reports pain began approximately 3 days ago, and sharp, located in the left lower quadrant and suprapubic area. Pain is worse with palpation or movement. Pain improves somewhat with rest. At its worst the pain is 10 out of 10 in severity. It is associated with waves of nausea with no vomiting. As well as nonbloody diarrhea. Patient reports the symptoms are similar to previous episode of diverticulitis which he experienced a few months ago. Patient reports that she has a prescription for Cipro and Flagyl home, because she became concerned that she may be having diverticulitis she started taking the Cipro yesterday and reports that she has taken 2 doses. She has not taken any doses of Flagyl. Patient denies any fevers, chills, chest pain, shortness of breath, palpitations or lightheadedness. She denies any dysuria or hematuria. She is status post hysterectomy. - Related Data Home Medications Medication Instructions Recorded Confirmed DULoxetine HCL [Cymbalta] 60 mg PO DAILY 01/11/14 03/13/17 SUMAtriptan SUCCINATE [Imitrex] 100 mg PO DAILY PRN 01/11/14 03/13/17 clonazePAM [KlonoPIN] 0.5 mg PO DAILY PRN 10/04/15 03/13/17 Losartan/Hydrochlorothiazide 1 tab PO DAILY 12/26/15 03/13/17 [Hyzaar 100-25 Tablet] Zolpidem [Ambien] 10 mg PO HS 10/27/16 03/13/17 oxyCODONE HCL/ACETAMINOPHEN 1 tab PO Q6HR PRN 01/17/17 03/13/17 [Percocet 5-325 mg] Ciprofloxacin HCl [Cipro] 500 mg PO Q12HR 03/13/17 03/13/17 Allergies Allergy/AdvReac Type Severity Reaction Status Date / Time doxycycline Allergy Nausea & Verified 03/13/17 13:45 Vomiting hydroxyzine [From Vistaril] Allergy Rash/Hives Verified 03/13/17 13:45 oxybutynin [From Ditropan] Allergy Rapid Verified 03/13/17 13:45 Heart Rate pregabalin [From Lyrica] Allergy SWELLING Verified 03/13/17 13:45 AND HIVES tramadol HCl [From Ultram] Allergy MIGRAINE Verified 03/13/17 13:45 ketorolac tromethamine AdvReac Unknown Verified 03/13/17 13:45 [From Toradol] levofloxacin [From Levaquin] AdvReac Swelling Verified 03/13/17 13:45 morphine AdvReac MIGRAINE Verified 03/13/17 13:45 naproxen sodium [From Aleve] AdvReac Unknown Verified 03/13/17 13:45 Penicillins AdvReac Swelling Verified 03/13/17 13:45 Review of Systems ROS Statement: Those systems with pertinent positive or pertinent negative responses have been documented in the HPI. ROS Other: All systems not noted in ROS Statement are negative. Constitutional: Denies: fever, chills ENT: Denies: throat pain Respiratory: Denies: cough, dyspnea Cardiovascular: Denies: chest pain, palpitations Endocrine: Reports: fatigue Gastrointestinal: Reports: abdominal pain, nausea, diarrhea. Denies: vomiting, constipation, hematemesis, melena, hematochezia Genitourinary: Denies: urgency, dysuria Musculoskeletal: Denies: back pain Skin: Denies: rash, lesions Neurological: Denies: headache Hematological/Lymphatic: Denies: easy bleeding, easy bruising Past Medical History Past Medical History: Hypertension, Pneumonia, Respiratory Disorder Additional Past Medical History / Comment(s): LUNG ABSCESS 2013. Migraine headache. HX ABD HERNIAS, diverticulitis History of Any Multi-Drug Resistant Organisms: None Reported Past Surgical History: Adenoidectomy, Back Surgery, Breast Surgery, Cholecystectomy, Hernia Repair, Hysterectomy, Orthopedic Surgery, Tonsillectomy Additional Past Surgical History / Comment(s): TYRA KNEE arthroscopic. LOW BACK SURGERY. L BREAST LUMPECTOMY, BENIGN. Colonoscopy-Colitis September 2016. hernia surgery x2 with mesh, diverticulitis Past Anesthesia/Blood Transfusion Reactions: Postoperative Nausea & Vomiting ( PONV) Additional Past Anesthesia/Blood Transfusion Reaction / Comment(s): PT HAS NEVER RECIEVED BLOOD. Past Psychological History: Anxiety, Depression Smoking Status: Never smoker Past Alcohol Use History: None Reported Past Drug Use History: None Reported - Past Family History Mother Family Medical History: Cancer Additional Family Medical History / Comment(s): breast ca Father Family Medical History: AFIB General Exam Limitations: no limitations General appearance: alert, obese, other (appears uncomfortable) Head exam: Present: atraumatic, normocephalic Eye exam: Present: normal appearance, PERRL ENT exam: Present: mucous membranes dry Neck exam: Present: normal inspection Respiratory exam: Present: normal lung sounds bilaterally. Absent: respiratory distress, wheezes Cardiovascular Exam: Present: regular rate, normal rhythm GI/Abdominal exam: Present: soft, tenderness, normal bowel sounds, other ( multiple healed surgical scars over abdomen). Absent: distended, guarding, rebound, rigid, organomegaly Extremities exam: Present: normal inspection, full ROM, normal capillary refill. Absent: pedal edema, calf tenderness Back exam: Present: normal inspection Neurological exam: Present: alert, oriented X3 Psychiatric exam: Present: normal affect, normal mood Skin exam: Present: warm, dry, intact, normal color Course Vital Signs 03/13/17 03/13/17 13:00 14:11 Temperature 97.3 F L Pulse Rate 79 71 Respiratory 16 16 Rate Blood Pressure 132/84 121/67 O2 Sat by Pulse 100 100 Oximetry Medical Decision Making - Medical Decision Making Patient was seen and evaluated, history obtained from patient and review of medical record Patient with history of diverticulitis, most recent 2-3 months ago, presenting with low LLQ and suprapubic abdominal pain similar to previous episode Patient has started partial antibiotics at home, 2 doses of PO Cipro prior to arrival Labs and CT imaging ordered Zofran for nausea, due to patients reported morphine allergy, dilaudid ordered for analgesia Nausea subsided after zofran Patient with no episodes of diarrhea in the ER CT scan reveals recurrent seroma vs hematoma in midline inferior to umbilicus, in addition a right ovarian cyst identified, CT results discussed with patient who states pain is now isolated to RLQ Offered patient an US to evaluate right ovary, patient agreeable. PAtient with continued crampy abdominal pain, reports dilaudid did not help. IM Bentyl ordered. US with simple cyst and good blood flow to ovary Patient re-evalauted, still with pain, no improvement after bentyl. Repeat dose of dilaudid ordered. Patient re-evaluated, reports significant improvement in pain after repeat dose of dilaudid. Patient with no vomiting or diarrhea in ER. Patient requesting discharge home as her pain is managed at this point. Patient was advised to follow up with PCP and surgeon to discuss CT findings or return to the ER for any recurrence or worsening of her symptoms. All questions pertaining to care were answered to the best of my ability and the patient was discharged home in stable condition. - Lab Data Result diagrams: 03/13/17 13:30 03/13/17 13:30 Lab Results 03/13/17 03/13/17 03/13/17 Range/Units 13:09 13:09 13:30 WBC 12.3 H (3.8-10.6) k/uL RBC 4.49 (3.80-5.40) m/uL Hgb 12.8 (11.4-16.0) gm/dL Hct 39.1 (34.0-46.0) % MCV 87.2 (80.0-100.0) fL MCH 28.5 (25.0-35.0) pg MCHC 32.7 (31.0-37.0) g/dL RDW 13.9 (11.5-15.5) % Plt Count 360 (150-450) k/uL Neutrophils % 67 % Lymphocytes % 25 % Monocytes % 4 % Eosinophils % 2 % Basophils % 0 % Neutrophils # 8.3 H (1.3-7.7) k/uL Lymphocytes # 3.1 (1.0-4.8) k/uL Monocytes # 0.5 (0-1.0) k/uL Eosinophils # 0.3 (0-0.7) k/uL Basophils # 0.0 (0-0.2) k/uL Sodium (137-145) mmol/L Potassium (3.5-5.1) mmol/L Chloride (98-107) mmol/L Carbon Dioxide (22-30) mmol/L Anion Gap mmol/L BUN (7-17) mg/dL Creatinine (0.52-1.04) mg/dL Est GFR (MDRD) Af Amer (>60 ml/min/1.73 sqM) Est GFR (MDRD) Non-Af (>60 ml/min/1.73 sqM) Glucose (74-99) mg/dL Calcium (8.4-10.2) mg/dL Total Bilirubin (0.2-1.3) mg/dL AST (14-36) U/L ALT (9-52) U/L Alkaline Phosphatase (38-126) U/L Total Protein (6.3-8.2) g/dL Albumin (3.5-5.0) g/dL Urine Color Light Yellow Urine Appearance Clear (Clear) Urine pH 5.5 (5.0-8.0) Ur Specific [place] 1.011 (1.001-1.035) Urine Protein Negative (Negative) Urine Glucose (UA) Negative (Negative) Urine Ketones Negative (Negative) Urine Blood Negative (Negative) Urine Nitrite Negative (Negative) Urine Bilirubin Negative (Negative) Urine Urobilinogen <2.0 (<2.0) mg/dL Ur Leukocyte Esterase Negative (Negative) Urine HCG, Qual Not Detected (Not Detectd) 03/13/17 Range/Units 13:30 WBC (3.8-10.6) k/uL RBC (3.80-5.40) m/uL Hgb (11.4-16.0) gm/dL Hct (34.0-46.0) % MCV (80.0-100.0) fL MCH (25.0-35.0) pg MCHC (31.0-37.0) g/dL RDW (11.5-15.5) % Plt Count (150-450) k/uL Neutrophils % % Lymphocytes % % Monocytes % % Eosinophils % % Basophils % % Neutrophils # (1.3-7.7) k/uL Lymphocytes # (1.0-4.8) k/uL Monocytes # (0-1.0) k/uL Eosinophils # (0-0.7) k/uL Basophils # (0-0.2) k/uL Sodium 138 (137-145) mmol/L Potassium 3.7 (3.5-5.1) mmol/L Chloride 103 (98-107) mmol/L Carbon Dioxide 24 (22-30) mmol/L Anion Gap 11 mmol/L BUN 21 H (7-17) mg/dL Creatinine 1.20 H (0.52-1.04) mg/dL Est GFR (MDRD) Af Amer 60 (>60 ml/min/1.73 sqM) Est GFR (MDRD) Non-Af 49 (>60 ml/min/1.73 sqM) Glucose 104 H (74-99) mg/dL Calcium 9.9 (8.4-10.2) mg/dL Total Bilirubin 0.4 (0.2-1.3) mg/dL AST 16 (14-36) U/L ALT 37 (9-52) U/L Alkaline Phosphatase 69 (38-126) U/L Total Protein 7.0 (6.3-8.2) g/dL Albumin 4.1 (3.5-5.0) g/dL Urine Color Urine Appearance (Clear) Urine pH (5.0-8.0) Ur Specific [place] (1.001-1.035) Urine Protein (Negative) Urine Glucose (UA) (Negative) Urine Ketones (Negative) Urine Blood (Negative) Urine Nitrite (Negative) Urine Bilirubin (Negative) Urine Urobilinogen (<2.0) mg/dL Ur Leukocyte Esterase (Negative) Urine HCG, Qual (Not Detectd) Disposition Clinical Impression: Abdominal pain Disposition: HOME SELF-CARE Condition: Good Instructions: Abdominal Pain (ED) Referrals: Levi Dougherty MD [Primary Care Provider] - 1-2 days Anahy Willoughby MD [STAFF PHYSICIAN] - 1-2 days Time of Disposition: 17:36
[2017-03-13 13:37] LABS: Basophils % (A) 0 %; CH 29.2; CHCM 33.6; Eosinophils # (A) 0.3 k/uL (0-0.7); Eosinophils % (A) 2 %; HCT 39.1 % (34.0-46.0); HDW 2.62; HGB 12.8 gm/dL (11.4-16.0); Luc # (Auto) 0.12; Luc % (Auto) 1; Lymphocytes # (A) 3.1 k/uL (1.0-4.8); Lymphocytes % (A) 25 %; MCH 28.5 pg (25.0-35.0); MCHC 32.7 g/dL (31.0-37.0); MCV 87.2 fL (80.0-100.0); Mean Platelet Volume 7.4; Monocytes # (A) 0.5 k/uL (0-1.0); Monocytes % (A) 4 %; Neutrophils # (A) 8.3 k/uL (1.3-7.7); Neutrophils % (A) 67 %; RBC 4.49 m/uL (3.80-5.40); RDW 13.9 % (11.5-15.5); WBC 12.3 k/uL (3.8-10.6); WBC (Perox) 12.47
[2017-03-13 13:46] LABS: Calcium 9.9 mg/dL (8.4-10.2); Potassium 3.7 mmol/L (3.5-5.1); Total Bilirubin 0.4 mg/dL (0.2-1.3)
[2017-03-13] MEDS ORDERED: SODIUM CHLORIDE 0.9% 1,000 ML IV ONE (14:04)
--- NOTE | 2017-03-13 14:28 | CT ---
EXAMINATION TYPE: CT abdomen pelvis w con DATE OF EXAM: 03/13/2017 COMPARISON: 12/30/2016 HISTORY: Patient complains of RUQ pain, nausea, and diarrhea. CT DLP: 1863.9 mGycm Automated exposure control for dose reduction was used. TECHNIQUE: Helical acquisition of images was performed from the lung bases through the pelvis. CONTRAST: Performed without Oral Contrast and with IV Contrast, patient injected with 100 mL of Omnipaque 300. FINDINGS: Lung bases are clear. There is no pleural effusion. Heart size is normal. Liver spleen pancreas appear normal. There are clips from cholecystectomy. Bile ducts are not dilated . There is no adrenal mass. Kidneys show satisfactory contrast opacification. There is no hydronephrosi s. I see no retroperitoneal adenopathy. There is a 6 x 4 cm cyst in the pelvis on the right side. The re is no ascites. Bladder distends smoothly. Hysterectomy is noted. I see no bony destructive process . I see no intestinal wall thickening. There are no dilated loops. There is a 5 x 2 cm area of thicke yash on the anterior abdominal wall below the umbilicus that could relate to surgery. Appendix appears normal. IMPRESSION: NEW RIGHT-SIDED CYSTIC PELVIC MASS COMPARED TO OLD EXAM. PROBABLY IS OVARIAN CYST. THICKENING OF THE ANTERIOR ABDOMINAL WALL BELOW THE UMBILICUS COULD RELATE TO RECURRENT VENTRAL HERNI A and COULD BE HEMATOMA OR SEROMA.
[2017-03-13] MEDS ORDERED: DICYCLOMINE 10 MG/ML 2 ML AMP IM STA ×2 (14:49→14:55)
--- NOTE | 2017-03-13 15:36 | US ---
EXAMINATION TYPE: US pelvis complete w/ doppler DATE OF EXAM: 03/13/2017 COMPARISON: 10/25/2014 CLINICAL HISTORY: Pain recently history of endometriosis, ovarian cysts, and diverticulosis. Left oo phorectomy due to adhesions found with hernia surgery and hysterectomy in 2006. TECHNIQUE: Transabdominal (TA) Date of LMP: 2006 (hysterectomy) EXAM MEASUREMENTS: Uterus: SA Endometrial Stripe: SA Right Ovary: 5.9 x 4.8 x 4.9 cm the cyst is new compared to old ultrasound exam of 10/25/2014. Left Ovary: SA Limited due to bowel gas. 1. Uterus: SA 2. Endometrium: SA 3. Right Ovary: Hypoechoic area noted likely simple cyst measuring approximately 4.1 x 3.9 x 3.9 cm 4. Left Ovary: SA Spectral, color and waveform doppler imaging shows good arterial and venous flow within the Right o vary; there is no evidence for ovarian torsion. 5. Bilateral Adnexa: Appears wnl 6. Posterior cul-de-sac: Appears wnl IMPRESSION: There is a simple large right ovarian cyst. No evidence of ovarian torsion. Hysterecto my noted. Cyst is new compared to old exam of 10/25/2014.
[2017-03-13 17:51] VITALS: BP 119/66; PULSE 84; RESP 18; TEMP 98.8
== END 2017-03-13 17:51 | disposition home or self-care (01) ==
LOC: EC 12:58
DX: R10.32 Left lower quadrant pain (principal); R11.0 Nausea; I10 Essential (primary) hypertension; F32.9 Major depressive disorder, single episode, unspecified; F41.9 Anxiety disorder, unspecified; Z87.19 Personal history of other diseases of the digestive system; Z79.899 Other long term (current) drug therapy; Z88.0 Allergy status to penicillin; Z88.1 Allergy status to other antibiotic agents; Z88.5 Allergy status to narcotic agent; Z88.6 Allergy status to analgesic agent; Z88.8 Allergy status to other drugs, medicaments and biological substances; Z90.49 Acquired absence of other specified parts of digestive tract; Z90.710 Acquired absence of both cervix and uterus
CPT/HCPCS: 36415; 80053; 85025; 81003; 81025; 93976; 76856; 74177; 99284; 96374; 96375; 96376; 96361 ×4; 96372; J0500; J2405; J1170; Q9967

== ENCOUNTER 2017-07-02 17:08 | Emergency (ER) | payer BC ==
[2017-07-02 17:20] VITALS: TEMP 97.8
[2017-07-02] MEDS ORDERED: SODIUM CHLORIDE 0.9% 1,000 ML IV STA (18:50)
[2017-07-02] MEDS ORDERED: MORPHINE SULFATE 4 MG/ML SYRINGE IVP STA ×2 (18:50→20:54)
[2017-07-02] MEDS ORDERED: diphenhydrAMINE 50 MG/ML 1 ML VIAL IVP STA (18:50)
[2017-07-02] MEDS ORDERED: RX INFO: IV CONTRAST WAS GIVEN 1 EACH MISC MISCELLANE PRN (18:59)
--- NOTE | 2017-07-02 19:05 | ED ---
Abdominal Pain HPI - General Chief Complaint: Abdominal Pain Stated Complaint: abd pain Time Seen by Provider: 07/02/17 18:33 Source: patient Mode of arrival: ambulatory Limitations: no limitations - History of Present Illness Initial Comments: 42-year-old female patient presents to the emergency department today for complaints of right lower quadrant abdominal pain. Patient states that the pain started yesterday. She states that the pain is constant but does have episodes where the pain becomes severe. She states occasionally the pain will wrap around into her back. Patient states that she has had no appetite today. She denies any fevers or chills. She denies any nausea or vomiting. She denies any constipation or diarrhea. Patient does have a history of diverticulitis, colitis, cholecystectomy, and multiple hernia repairs. She denies any hematemesis, hematochezia, or melena. She denies any hematuria, dysuria, urinary urgency, urinary frequency. Patient denies any recent rash, shortness breath, chest pain, back pain, numbness, tingling, dizziness, weakness , headache, visual changes, or any other complaints. - Related Data Home Medications Medication Instructions Recorded Confirmed DULoxetine HCL [Cymbalta] 60 mg PO DAILY 01/11/14 07/02/17 SUMAtriptan SUCCINATE [Imitrex] 100 mg PO DAILY PRN 01/11/14 07/02/17 clonazePAM [KlonoPIN] 0.5 mg PO DAILY PRN 10/04/15 07/02/17 Losartan/Hydrochlorothiazide 1 tab PO DAILY 12/26/15 07/02/17 [Hyzaar 100-25 Tablet] Zolpidem [Ambien] 10 mg PO HS 10/27/16 07/02/17 Ibuprofen [Motrin Ib] 200 - 400 mg PO Q6H PRN 07/02/17 07/02/17 oxyCODONE-APAP 10-325MG [Percocet 1 tab PO BID PRN 07/02/17 07/02/17 10-325 mg] Previous Rx's Medication Instructions Recorded Hydrocodone/Acetaminophen [[place] 1 tab PO Q6HR PRN #12 tab 07/02/17 5-325] Sulfamethox-Tmp 800-160Mg [Bactrim 1 tab PO Q12HR #20 tab 07/02/17 DS 800-160 mg] Allergies Allergy/AdvReac Type Severity Reaction Status Date / Time doxycycline Allergy Nausea & Verified 07/02/17 18:55 Vomiting hydroxyzine [From Vistaril] Allergy Rash/Hives Verified 07/02/17 18:55 oxybutynin [From Ditropan] Allergy Rapid Verified 07/02/17 18:55 Heart Rate pregabalin [From Lyrica] Allergy SWELLING Verified 03 18:55 AND HIVES tramadol HCl [From Ultram] Allergy MIGRAINE Verified 07/02/17 18:55 ketorolac tromethamine AdvReac Unknown Verified 07/02/17 18:55 [From Toradol] levofloxacin [From Levaquin] AdvReac Swelling Verified 07/02/17 18:55 morphine AdvReac MIGRAINE Verified 07/02/17 18:55 naproxen sodium [From Aleve] AdvReac Unknown Verified 07/02/17 18:55 Penicillins AdvReac Swelling Verified 03 18:55 Review of Systems ROS Statement: Those systems with pertinent positive or pertinent negative responses have been documented in the HPI. ROS Other: All systems not noted in ROS Statement are negative. Past Medical History Past Medical History: Hypertension, Pneumonia, Respiratory Disorder Additional Past Medical History / Comment(s): LUNG ABSCESS 2013. Migraine headache. HX ABD HERNIAS, diverticulitis History of Any Multi-Drug Resistant Organisms: None Reported Past Surgical History: Adenoidectomy, Back Surgery, Breast Surgery, Cholecystectomy, Hernia Repair, Hysterectomy, Orthopedic Surgery, Tonsillectomy Additional Past Surgical History / Comment(s): TYRA KNEE arthroscopic. LOW BACK SURGERY. L BREAST LUMPECTOMY, BENIGN. Colonoscopy-Colitis September 2016. hernia surgery x2 with mesh, diverticulitis Past Anesthesia/Blood Transfusion Reactions: Postoperative Nausea & Vomiting ( PONV) Additional Past Anesthesia/Blood Transfusion Reaction / Comment(s): PT HAS NEVER RECIEVED BLOOD. Past Psychological History: Anxiety, Depression Smoking Status: Never smoker Past Alcohol Use History: None Reported Past Drug Use History: None Reported - Past Family History Mother Family Medical History: Cancer Additional Family Medical History / Comment(s): breast ca Father Family Medical History: AFIB General Exam Limitations: no limitations General appearance: alert, in no apparent distress, other (This is a well- developed, well-nourished, obese female patient in no acute distress signs upon presentation are temperature 97.8F, pulse 84, respirations 20, blood pressure 163/93, pulse ox 96% on room air.) Eye exam: Present: normal appearance, PERRL, EOMI. Absent: scleral icterus, conjunctival injection, periorbital swelling ENT exam: Present: normal exam, normal oropharynx, mucous membranes moist Respiratory exam: Present: normal lung sounds bilaterally. Absent: respiratory distress, wheezes, rales, rhonchi, stridor Cardiovascular Exam: Present: regular rate, normal rhythm, normal heart sounds. Absent: systolic murmur, diastolic murmur, rubs, gallop, clicks GI/Abdominal exam: Present: soft, tenderness (Right lower quadrant abdominal tenderness), normal bowel sounds. Absent: distended, guarding, rebound, rigid Neurological exam: Present: alert, oriented X3, CN II-XII intact Psychiatric exam: Present: normal affect, normal mood Skin exam: Present: warm, dry, intact, normal color. Absent: rash Course Vital Signs 07/02/17 17:19 Temperature 97.8 F Pulse Rate 84 Respiratory 20 Rate Blood Pressure 163/93 O2 Sat by Pulse 96 Oximetry Medical Decision Making - Medical Decision Making 42-year-old female patient presents to the emergency department today for evaluation of right lower quadrant abdominal pain. Physical examination did reveal right lower quadrant tenderness. No rebound tenderness or referred pain. Labs reviewed and did show white blood cell count of 11.7. Potassium was 3.2. Urinalysis was negative. CT of the abdomen and pelvis did show scattered colonic diverticula. A tiny fluid collection in the anterior pelvis, not changed from previous exam. Patient is afebrile. She did have improvement of symptoms with the administration of fluids and pain medication. I did discuss findings with the patient. I did discuss with her that her symptoms could be related to a mild diverticulitis. She'll be given antibiotics and pain medication to take home. She is instructed to follow-up with her primary care physician for recheck in 1-2 days which is instructed to return here immediately for any new, worsening, or concerning symptoms. She verbalizes understanding and agrees this plan. - Lab Data Result diagrams: 07/02/17 19:10 07/02/17 19:10 Lab Results 07/02/17 07/02/17 07/02/17 Range/Units 19:10 19:10 19:10 WBC 11.7 H (3.8-10.6) k/uL RBC 4.04 (3.80-5.40) m/uL Hgb 11.6 (11.4-16.0) gm/dL Hct 34.5 (34.0-46.0) % MCV 85.3 (80.0-100.0) fL MCH 28.6 (25.0-35.0) pg MCHC 33.5 (31.0-37.0) g/dL RDW 13.4 (11.5-15.5) % Plt Count 341 (150-450) k/uL Neutrophils % 63 % Lymphocytes % 30 % Monocytes % 4 % Eosinophils % 2 % Basophils % 0 % Neutrophils # 7.4 (1.3-7.7) k/uL Lymphocytes # 3.5 (1.0-4.8) k/uL Monocytes # 0.5 (0-1.0) k/uL Eosinophils # 0.2 (0-0.7) k/uL Basophils # 0.0 (0-0.2) k/uL Sodium 139 (137-145) mmol/L Potassium 3.2 L (3.5-5.1) mmol/L Chloride 101 (98-107) mmol/L Carbon Dioxide 27 (22-30) mmol/L Anion Gap 11 mmol/L BUN 21 H (7-17) mg/dL Creatinine 0.80 (0.52-1.04) mg/dL Est GFR (CKD-EPI)AfAm >90 (>60 ml/min/1.73 sqM) Est GFR (CKD-EPI)NonAf >90 (>60 ml/min/1.73 sqM) Glucose 102 H (74-99) mg/dL Calcium 9.5 (8.4-10.2) mg/dL Total Bilirubin 0.3 (0.2-1.3) mg/dL AST 17 (14-36) U/L ALT 26 (9-52) U/L Alkaline Phosphatase 70 (38-126) U/L Total Protein 7.0 (6.3-8.2) g/dL Albumin 4.0 (3.5-5.0) g/dL Amylase 42 (30-110) U/L Lipase 45 (23-300) U/L Urine Color Light Yellow Urine Appearance Clear (Clear) Urine pH 6.5 (5.0-8.0) Ur Specific [place] 1.012 (1.001-1.035) Urine Protein Negative (Negative) Urine Glucose (UA) Negative (Negative) Urine Ketones Negative (Negative) Urine Blood Negative (Negative) Urine Nitrite Negative (Negative) Urine Bilirubin Negative (Negative) Urine Urobilinogen <2.0 (<2.0) mg/dL Ur Leukocyte Esterase Negative (Negative) - Radiology Data Radiology results: report reviewed, image reviewed CT of the abdomen and pelvis was obtained with contrast. Report was reviewed in its entirety. Although show suboptimal secondary to lack of enteric contrast. Appendix is within normal limits or bases cecum. There are occasional colonic diverticula. There is no CT evidence for acute diverticulitis. Impression by Dr. Carlson shows no CT evidence for acute appendicitis. No significant new finding is seen to account for patient's clinical symptoms. There was a small tiny fluid collection in the anterior abdominal wall on the upper pelvis with minimal surrounding fat stranding however has not changed from prior study. Patient has had evacuation of seroma in the past. Disposition Clinical Impression: Lower abdominal pain, Diverticulitis Disposition: HOME SELF-CARE Condition: Good Instructions: Diverticulitis (ED), Abdominal Pain (ED) Additional Instructions: Take medications as directed. Follow-up with your primary care physician for recheck in 1-2 days. Return here immediately for any new, worsening, or concerning symptoms. Prescriptions: Hydrocodone/Acetaminophen [[place] 5-325] 1 tab PO Q6HR PRN #12 tab PRN Reason: Pain Sulfamethox-Tmp 800-160Mg [Bactrim DS 800-160 mg] 1 tab PO Q12HR #20 tab Referrals: Levi Dougherty MD [Primary Care Provider] - 1-2 days Time of Disposition: 21:24
[2017-07-02 19:19] LABS: Appearance,Urine Clear (Clear); Bilirubin,Urine Negative (Negative); Blood,Urine Negative (Negative); Color,Urine Light Yellow; Glucose,Urine (UA) Negative (Negative); Ketones,Urine Negative (Negative); Leukocyte Esterase,Urine Negative (Negative); Nitrite,Urine Negative (Negative); PH, Urine 6.5 (5.0-8.0); Protein,Urine Negative (Negative); Specific Gravity,Urine 1.012 (1.001-1.035); Urobilinogen,Urine <2.0 mg/dL (<2.0)
[2017-07-02 19:21] LABS: Basophils % (A) 0 %; Eosinophils # (A) 0.2 k/uL (0-0.7); Eosinophils % (A) 2 %; HCT 34.5 % (34.0-46.0); HGB 11.6 gm/dL (11.4-16.0); Lymphocytes # (A) 3.5 k/uL (1.0-4.8); Lymphocytes % (A) 30 %; MCH 28.6 pg (25.0-35.0); MCHC 33.5 g/dL (31.0-37.0); MCV 85.3 fL (80.0-100.0); Mean Platelet Volume 7.3; Monocytes # (A) 0.5 k/uL (0-1.0); Monocytes % (A) 4 %; Neutrophils # (A) 7.4 k/uL (1.3-7.7); Neutrophils % (A) 63 %; Platelet Count 341 k/uL (150-450); RBC 4.04 m/uL (3.80-5.40); RDW 13.4 % (11.5-15.5); WBC 11.7 k/uL (3.8-10.6)
[2017-07-02 19:29] LABS: ALT 26 U/L (9-52); AST 17 U/L (14-36); Alkaline Phosphatase 70 U/L (38-126); Amylase 42 U/L (30-110); Anion Gap 11 mmol/L; Blood Urea Nitrogen 21 mg/dL (7-17); Calcium 9.5 mg/dL (8.4-10.2); Carbon Dioxide 27 mmol/L (22-30); Chloride 101 mmol/L (98-107); Glucose 102 mg/dL (74-99); Lipase 45 U/L (23-300); Potassium 3.2 mmol/L (3.5-5.1); Sodium 139 mmol/L (137-145); Total Bilirubin 0.3 mg/dL (0.2-1.3)
--- NOTE | 2017-07-02 20:26 | CT ---
EXAMINATION TYPE: CT abdomen pelvis w con DATE OF EXAM: 07/02/2017 HISTORY: RLQ abd pain. CT DLP: 2293.1mGycm Automated Exposure Control for Dose Reduction was Utilized. CONTRAST: CT scan of the abdomen and pelvis is performed without oral but with IV Contrast, patient injected wi th 100ml mL of Omnipaque 300. COMPARISON: CT abdomen and pelvis March 13, 2017 FINDINGS: LUNG BASES: No significant abnormality is appreciated. LIVER/GB: Cholecystectomy clips are redemonstrated. PANCREAS: No significant abnormality is seen. SPLEEN: No significant abnormality is seen. ADRENALS: No significant abnormality is seen. KIDNEYS: There is 1.2 cm simple appearing cyst medially lower pole of the left kidney axial image 42 redemonstrated. BOWEL: Evaluation bowel slightly suboptimal secondary to lack of enteric contrast. Appendix is within normal limits from base of cecum. There are occasional colonic diverticula. There is no CT evidence for acute diverticulitis UTERUS/ADNEXA: Uterus is surgically absent. Right ovary is diminished in size on axial image 77. LYMPH NODES: No greater than 1cm abdominal or pelvic lymph nodes are appreciated. OSSEOUS STRUCTURES: No significant abnormality is seen. OTHER: There is persistent nonspecific tiny fluid collection anterior abdominal wall of the upper pel vis with surrounding fat stranding not significantly changed from prior study Axial image 73. Differe ntial includes abscess, seroma, and/or hematoma. IMPRESSION: No CT evidence for acute appendicitis. No significant new finding is seen to account for patient's clinical symptoms.
[2017-07-02] MEDS ORDERED: DICYCLOMINE 10 MG/ML 2 ML AMP IM STA (20:54)
[2017-07-02] MEDS ORDERED: SULFAMETHOX-TMP 800-160MG 1 EACH TAB PO STA (21:26)
[2017-07-02 21:33] VITALS: BP 123/67; PULSE 72; RESP 18
== END 2017-07-02 21:41 | disposition home or self-care (01) ==
LOC: EC 17:08
DX: K57.92 Diverticulitis of intestine, part unspecified, without perforation or abscess without bleeding (principal); I10 Essential (primary) hypertension; F41.9 Anxiety disorder, unspecified; F32.9 Major depressive disorder, single episode, unspecified; Z87.19 Personal history of other diseases of the digestive system; Z90.49 Acquired absence of other specified parts of digestive tract; Z79.899 Other long term (current) drug therapy; Z88.1 Allergy status to other antibiotic agents; Z88.8 Allergy status to other drugs, medicaments and biological substances; Z88.6 Allergy status to analgesic agent; Z88.5 Allergy status to narcotic agent; Z88.0 Allergy status to penicillin
CPT/HCPCS: 36415; 80053; 82150; 83690; 85025; 81003; 87040; 74177; 99284; 96374; 96375; 96376; 96361; 96372; J2270; J1200; J0500; Q9967

== ENCOUNTER 2017-09-02 18:45 | Emergency (ER) | payer BC ==
[2017-09-02] MEDS ORDERED: KETOROLAC 30 MG/ML 1 ML VIAL IVP ONE (19:56)
[2017-09-02] MEDS ORDERED: SODIUM CHLORIDE 0.9% 1,000 ML IV ONE (20:09)
[2017-09-02] MEDS ORDERED: diphenhydrAMINE 50 MG/ML 1 ML VIAL IVP STA (20:09)
[2017-09-02] MEDS ORDERED: METOCLOPRAMIDE 5 MG/ML 2 ML VIAL IVP STA (20:09)
[2017-09-02 20:30] LABS: Basophils % (A) 0 %; Eosinophils # (A) 0.2 k/uL (0-0.7); Eosinophils % (A) 2 %; HCT 40.4 % (34.0-46.0); HGB 13.2 gm/dL (11.4-16.0); Lymphocytes # (A) 3.5 k/uL (1.0-4.8); Lymphocytes % (A) 36 %; MCH 27.8 pg (25.0-35.0); MCHC 32.7 g/dL (31.0-37.0); MCV 84.9 fL (80.0-100.0); Monocytes # (A) 0.5 k/uL (0-1.0); Monocytes % (A) 5 %; Neutrophils # (A) 5.4 k/uL (1.3-7.7); Neutrophils % (A) 56 %; Platelet Count 330 k/uL (150-450); RBC 4.76 m/uL (3.80-5.40); RDW 12.7 % (11.5-15.5); WBC 9.7 k/uL (3.8-10.6)
[2017-09-02 20:42] LABS: ALT 35 U/L (9-52); AST 33 U/L (14-36); Albumin 4.4 g/dL (3.5-5.0); Alkaline Phosphatase 77 U/L (38-126); Anion Gap 11 mmol/L; Blood Urea Nitrogen 18 mg/dL (7-17); Calcium 9.8 mg/dL (8.4-10.2); Carbon Dioxide 28 mmol/L (22-30); Chloride 101 mmol/L (98-107); Glucose 88 mg/dL (74-99); Potassium 4.2 mmol/L (3.5-5.1); Sodium 140 mmol/L (137-145); Total Bilirubin 0.6 mg/dL (0.2-1.3); Total Protein 7.4 g/dL (6.3-8.2)
[2017-09-02] MEDS ORDERED: MORPHINE SULFATE 4 MG/ML SYRINGE IVP STA (21:59)
--- NOTE | 2017-09-02 22:33 | ED ---
General Adult HPI - General Chief complaint: Headache Stated complaint: Migraine Time Seen by Provider: 09/02/17 19:56 Source: patient Mode of arrival: ambulatory Limitations: no limitations - History of Present Illness Initial comments: Joanne is a 42-year-old obese female with a past medical history of chronic migraines who presents the emergency department today for evaluation of a migraine that she's had for 5 days duration. Patient reports her migraine started late on Tuesday and has persisted since that time. She reports that this migraine is identical in character to previous headaches, however her headaches usually resolve with medications. She states that she has taken one Imitrex daily since Tuesday with no improvement in her migraine. She describes a migraine as a pressure-like sensation, associated with photophobia and phonophobia. She reports a resting in a dark room is the most comfortable position she can be in however she still experiences headache. Patient states she has taken [id number] Tylenol, Motrin, she states she cannot take Excedrin because it makes it worse. She states that she does not usually ingest any caffeine some Excedrin earlier exacerbates her headaches. She is also taking the Imitrex as prescribed with no relief. Patient states that usually when her headaches are this bad she comes the emergency department and gets IV Dilaudid because that the only thing that works for her headaches. Patient denies any fevers, chills, nausea, vomiting, chest pain, palpitations or shortness of breath. She does report decreased appetite, decreased activity level which she attributes to the headache and wanting to lay quietly in a dark room. - Related Data Home Medications Medication Instructions Recorded Confirmed DULoxetine HCL [Cymbalta] 60 mg PO DAILY 01/11/14 09/02/17 SUMAtriptan SUCCINATE [Imitrex] 100 mg PO BID PRN 01/11/14 09/02/17 Losartan/Hydrochlorothiazide 1 tab PO DAILY 12/26/15 09/02/17 [Hyzaar 100-25 Tablet] Zolpidem [Ambien] 10 mg PO HS PRN 09/02/17 09/02/17 clonazePAM [KlonoPIN] 1 mg PO DAILY 09/02/17 09/02/17 Allergies Allergy/AdvReac Type Severity Reaction Status Date / Time doxycycline Allergy Nausea & Verified 09/02/17 19:39 Vomiting hydroxyzine [From Vistaril] Allergy Rash/Hives Verified 09/02/17 19:39 oxybutynin [From Ditropan] Allergy Rapid Verified 09/02/17 19:39 Heart Rate pregabalin [From Lyrica] Allergy SWELLING Verified 09/02/17 19:39 AND HIVES tramadol HCl [From Ultram] Allergy MIGRAINE Verified 09/02/17 19:39 ketorolac tromethamine AdvReac Unknown Verified 09/02/17 19:39 [From Toradol] levofloxacin [From Levaquin] AdvReac Swelling Verified 09/02/17 19:39 morphine AdvReac MIGRAINE Verified 09/02/17 19:39 naproxen sodium [From Aleve] AdvReac Unknown Verified 09/02/17 19:39 Penicillins AdvReac Swelling Verified 09/02/17 19:39 Review of Systems ROS Statement: Those systems with pertinent positive or pertinent negative responses have been documented in the HPI. ROS Other: All systems not noted in ROS Statement are negative. Past Medical History Past Medical History: Hypertension, Pneumonia, Respiratory Disorder Additional Past Medical History / Comment(s): LUNG ABSCESS 2013. Migraine headache. HX ABD HERNIAS, diverticulitis History of Any Multi-Drug Resistant Organisms: None Reported Past Surgical History: Adenoidectomy, Back Surgery, Breast Surgery, Cholecystectomy, Hernia Repair, Hysterectomy, Orthopedic Surgery, Tonsillectomy Additional Past Surgical History / Comment(s): TYRA KNEE arthroscopic. LOW BACK SURGERY. L BREAST LUMPECTOMY, BENIGN. Colonoscopy-Colitis September 2016. hernia surgery x2 with mesh, diverticulitis Past Anesthesia/Blood Transfusion Reactions: Postoperative Nausea & Vomiting ( PONV) Additional Past Anesthesia/Blood Transfusion Reaction / Comment(s): PT HAS NEVER RECIEVED BLOOD. Past Psychological History: Anxiety, Depression Smoking Status: Never smoker Past Alcohol Use History: None Reported Past Drug Use History: None Reported - Past Family History Mother Family Medical History: Cancer Additional Family Medical History / Comment(s): breast ca Father Family Medical History: AFIB General Exam Limitations: no limitations General appearance: alert, other (Appears uncomfortable, resting with a towel over her head in a darkened room with no television on.) Head exam: Present: atraumatic, normocephalic Eye exam: Present: normal appearance, PERRL, EOMI. Absent: scleral icterus, conjunctival injection, nystagmus ENT exam: Present: normal exam, mucous membranes moist Neck exam: Present: normal inspection. Absent: tenderness, meningismus Respiratory exam: Present: normal lung sounds bilaterally. Absent: respiratory distress Cardiovascular Exam: Present: regular rate, normal rhythm GI/Abdominal exam: Absent: soft, distended, tenderness Rectal exam: Present: deferred Neurological exam: Present: alert, oriented X3 Psychiatric exam: Present: normal affect, normal mood Skin exam: Present: warm, dry Course Vital Signs 09/02/17 09/02/17 09/02/17 19:14 20:44 22:12 Temperature 98.5 F 98.3 F Pulse Rate 79 70 64 Respiratory 18 15 18 Rate Blood Pressure 122/83 105/60 100/55 O2 Sat by Pulse 99 98 99 Oximetry 09/02/17 09/02/17 09/02/17 22:37 22:58 23:46 Temperature 98.7 F Pulse Rate 59 L 62 74 Respiratory 15 18 18 Rate Blood Pressure 89/55 91/56 117/63 O2 Sat by Pulse 99 100 98 Oximetry Medical Decision Making - Medical Decision Making Patient was seen and evaluated, history was obtained from the patient as well as her at bedside. Patient with persistent migraine despite being with her [id number] and prescription medications Patient reports history of similar migraines, states that she usually needs to be treated with IV Dilaudid. I advised the patient this time we have a shortage of IV narcotics and we'll attempt to treat her with oral medications as well as Reglan and Benadryl which she usually takes. Patient was reevaluated after Reglan, Benadryl and see within were given. She reports absolutely no improvement in her headache though she appeared to be resting more comfortably. Dose of IV morphine was ordered. Patient was reevaluated after IV morphine and reports complete resolution of her headache and is eager for discharge home. - Lab Data Result diagrams: 09/02/17 20:18 09/02/17 20:18 Lab Results 09/02/17 09/02/17 Range/Units 20:18 20:18 WBC 9.7 (3.8-10.6) k/uL RBC 4.76 (3.80-5.40) m/uL Hgb 13.2 (11.4-16.0) gm/dL Hct 40.4 (34.0-46.0) % MCV 84.9 (80.0-100.0) fL MCH 27.8 (25.0-35.0) pg MCHC 32.7 (31.0-37.0) g/dL RDW 12.7 (11.5-15.5) % Plt Count 330 (150-450) k/uL Neutrophils % 56 % Lymphocytes % 36 % Monocytes % 5 % Eosinophils % 2 % Basophils % 0 % Neutrophils # 5.4 (1.3-7.7) k/uL Lymphocytes # 3.5 (1.0-4.8) k/uL Monocytes # 0.5 (0-1.0) k/uL Eosinophils # 0.2 (0-0.7) k/uL Basophils # 0.0 (0-0.2) k/uL Sodium 140 (137-145) mmol/L Potassium 4.2 (3.5-5.1) mmol/L Chloride 101 (98-107) mmol/L Carbon Dioxide 28 (22-30) mmol/L Anion Gap 11 mmol/L BUN 18 H (7-17) mg/dL Creatinine 0.76 (0.52-1.04) mg/dL Est GFR (CKD-EPI)AfAm >90 (>60 ml/min/1.73 sqM) Est GFR (CKD-EPI)NonAf >90 (>60 ml/min/1.73 sqM) Glucose 88 (74-99) mg/dL Calcium 9.8 (8.4-10.2) mg/dL Total Bilirubin 0.6 (0.2-1.3) mg/dL AST 33 (14-36) U/L ALT 35 (9-52) U/L Alkaline Phosphatase 77 (38-126) U/L Total Protein 7.4 (6.3-8.2) g/dL Albumin 4.4 (3.5-5.0) g/dL Disposition Clinical Impression: Migraine Disposition: HOME SELF-CARE Condition: Good Instructions: Migraine Headache (ED) Is patient prescribed a controlled substance at d/c from ED?: No If prescribed controlled substance>3 days was MAPS reviewed?: No When asked, does pt state using other controlled substances?: No Referrals: Levi Dougherty MD [Primary Care Provider] - 1-2 days Time of Disposition: 23:01
[2017-09-02 23:00] VITALS: RESP 18
[2017-09-02 23:47] VITALS: BP 117/63; PULSE 74; TEMP 98.7
== END 2017-09-02 23:47 | disposition home or self-care (01) ==
LOC: EC 18:45
DX: G43.909 Migraine, unspecified, not intractable, without status migrainosus (principal); I10 Essential (primary) hypertension; F32.9 Major depressive disorder, single episode, unspecified; F41.9 Anxiety disorder, unspecified; E66.9 Obesity, unspecified; Z68.41 Body mass index [BMI] 40.0-44.9, adult; Z79.899 Other long term (current) drug therapy; Z88.0 Allergy status to penicillin; Z88.1 Allergy status to other antibiotic agents; Z88.5 Allergy status to narcotic agent; Z88.6 Allergy status to analgesic agent; Z88.8 Allergy status to other drugs, medicaments and biological substances
CPT/HCPCS: 36415; 80053; 85025; 99283; 96374; 96375; 96376; 96361; J2270; J1200; J2765

== ENCOUNTER 2018-01-22 12:23 | Emergency (ER) | payer BC ==
[2018-01-22] MEDS ORDERED: SODIUM CHLORIDE 0.9% 500 ML IV STA (12:58)
[2018-01-22] MEDS ORDERED: MORPHINE SULFATE 4 MG/ML SYRINGE IVP STA ×2 (12:59→15:05)
--- NOTE | 2018-01-22 13:14 | ED ---
General Adult HPI - General Chief complaint: Abdominal Pain Stated complaint: Abd Pain Time Seen by Provider: 01/22/18 12:51 Source: patient, RN notes reviewed, old records reviewed Mode of arrival: ambulatory Limitations: no limitations - History of Present Illness Initial comments: 42-year-old female presenting with chief complaint of abdominal pain. Patient' s pain has been present for the past several months. It has been steadily worsening. She reports increased urinary frequency, dysuria, and pink urine. She has history of cholecystectomy, hysterectomy, and multiple abdominal surgeries for both hernias as well as surgical complications. She denies vomiting over the past 2 months but has had some nausea. Denies fever. Patient states her bowels fluctuated between diarrhea and constipation. - Related Data Home Medications Medication Instructions Recorded Confirmed DULoxetine HCL [Cymbalta] 60 mg PO DAILY 01/11/14 09/02/17 SUMAtriptan SUCCINATE [Imitrex] 100 mg PO BID PRN 01/11/14 09/02/17 Losartan/Hydrochlorothiazide 1 tab PO DAILY 12/26/15 09/02/17 [Hyzaar 100-25 Tablet] Zolpidem [Ambien] 10 mg PO HS PRN 09/02/17 09/02/17 clonazePAM [KlonoPIN] 1 mg PO DAILY 09/02/17 09/02/17 Allergies Allergy/AdvReac Type Severity Reaction Status Date / Time doxycycline Allergy Nausea & Verified 01/22/18 12:31 Vomiting hydroxyzine [From Vistaril] Allergy Rash/Hives Verified 01/22/18 12:31 oxybutynin [From Ditropan] Allergy Rapid Verified 01/22/18 12:31 Heart Rate pregabalin [From Lyrica] Allergy SWELLING Verified 01/22/18 12:31 AND HIVES tramadol HCl [From Ultram] Allergy MIGRAINE Verified 01/22/18 12:31 ketorolac tromethamine AdvReac Unknown Verified 01/22/18 12:31 [From Toradol] levofloxacin [From Levaquin] AdvReac Swelling Verified 01/22/18 12:31 naproxen sodium [From Aleve] AdvReac Unknown Verified 01/22/18 12:31 Penicillins AdvReac Swelling Verified 01/22/18 12:31 Review of Systems ROS Statement: Those systems with pertinent positive or pertinent negative responses have been documented in the HPI. ROS Other: All systems not noted in ROS Statement are negative. Past Medical History Past Medical History: Hypertension, Pneumonia, Respiratory Disorder Additional Past Medical History / Comment(s): LUNG ABSCESS 2013. Migraine headache. HX ABD HERNIAS, diverticulitis History of Any Multi-Drug Resistant Organisms: None Reported Past Surgical History: Adenoidectomy, Back Surgery, Breast Surgery, Cholecystectomy, Hernia Repair, Hysterectomy, Orthopedic Surgery, Tonsillectomy Additional Past Surgical History / Comment(s): TYRA KNEE arthroscopic. LOW BACK SURGERY. L BREAST LUMPECTOMY, BENIGN. Colonoscopy-Colitis September 2016. hernia surgery x2 with mesh, diverticulitis Past Anesthesia/Blood Transfusion Reactions: Postoperative Nausea & Vomiting ( PONV) Additional Past Anesthesia/Blood Transfusion Reaction / Comment(s): PT HAS NEVER RECIEVED BLOOD. Past Psychological History: Anxiety, Depression Smoking Status: Never smoker Past Alcohol Use History: None Reported Past Drug Use History: None Reported - Past Family History Mother Family Medical History: Cancer Additional Family Medical History / Comment(s): breast ca Father Family Medical History: AFIB General Exam Limitations: no limitations General appearance: alert, in no apparent distress Head exam: Present: atraumatic, normocephalic Eye exam: Present: normal appearance, PERRL ENT exam: Present: normal exam. Absent: normal oropharynx Neck exam: Present: normal inspection. Absent: tenderness, meningismus Respiratory exam: Present: normal lung sounds bilaterally. Absent: respiratory distress, wheezes Cardiovascular Exam: Present: regular rate, normal rhythm GI/Abdominal exam: Present: soft, tenderness (Mild bilateral lower abdominal tenderness). Absent: distended, guarding, rebound Extremities exam: Present: normal inspection, normal capillary refill. Absent: pedal edema Neurological exam: Present: alert, oriented X3, CN II-XII intact. Absent: motor sensory deficit Psychiatric exam: Present: normal affect, normal mood Skin exam: Present: warm, dry, intact. Absent: cyanosis, diaphoretic Course Vital Signs 01/22/18 12:28 Temperature 98.1 F Pulse Rate 80 Respiratory 16 Rate Blood Pressure 108/62 O2 Sat by Pulse 98 Oximetry Medical Decision Making - Medical Decision Making 42-year-old female presenting with 2 months of abdominal pain and dysuria. Patient does have signs of urinary tract infection with large leukocyte esterase , rare bacteria, 21 white cells. Urine culture is pending, patient is started on nitrofurantoin. Regarding her chronic abdominal pain, patient has had multiple abdominal surgeries including ventral hernia hysterectomy, cholecystectomy. CT is obtained in the emergency department, shows concern for an incarcerated ventral hernia, no signs of obstruction. Patient is moving her bowels. No vomiting. No clinical signs of small bowel obstruction. Patient's laboratory studies are within normal limits, normal CBC, normal CMP, case is discussed with the physician covering this patient's general surgeon Dr. Booth, given the duration of symptoms it is advised that the patient follow-up in the next 24-48 hours with her surgeon. This information has been relayed to the patient. She will present with any change in her symptoms, the development of vomiting, lack of flatus or bowel movements, develop a fever, or worsening pain. - Lab Data Result diagrams: 01/22/18 12:52 01/22/18 12:52 Lab Results 01/22/18 01/22/18 01/22/18 Range/Units 12:52 12:52 12:52 WBC 10.4 (3.8-10.6) k/uL RBC 4.31 (3.80-5.40) m/uL Hgb 12.4 (11.4-16.0) gm/dL Hct 37.5 (34.0-46.0) % MCV 87.1 (80.0-100.0) fL MCH 28.7 (25.0-35.0) pg MCHC 33.0 (31.0-37.0) g/dL RDW 12.9 (11.5-15.5) % Plt Count 333 (150-450) k/uL Neutrophils % 61 % Lymphocytes % 31 % Monocytes % 5 % Eosinophils % 2 % Basophils % 1 % Neutrophils # 6.3 (1.3-7.7) k/uL Lymphocytes # 3.2 (1.0-4.8) k/uL Monocytes # 0.5 (0-1.0) k/uL Eosinophils # 0.2 (0-0.7) k/uL Basophils # 0.1 (0-0.2) k/uL PT 9.8 (9.0-12.0) sec INR 1.0 (<1.2) APTT 23.7 (22.0-30.0) sec Sodium 140 (137-145) mmol/L Potassium 3.4 L (3.5-5.1) mmol/L Chloride 102 (98-107) mmol/L Carbon Dioxide 28 (22-30) mmol/L Anion Gap 10 mmol/L BUN 20 H (7-17) mg/dL Creatinine 0.85 (0.52-1.04) mg/dL Est GFR (CKD-EPI)AfAm >90 (>60 ml/min/1.73 sqM) Est GFR (CKD-EPI)NonAf 85 (>60 ml/min/1.73 sqM) Glucose 103 H (74-99) mg/dL Calcium 9.5 (8.4-10.2) mg/dL Total Bilirubin 0.2 (0.2-1.3) mg/dL AST 15 (14-36) U/L ALT 25 (9-52) U/L Alkaline Phosphatase 56 (38-126) U/L Total Protein 7.0 (6.3-8.2) g/dL Albumin 4.0 (3.5-5.0) g/dL Amylase 44 (30-110) U/L Lipase 55 (23-300) U/L Urine Color Urine Appearance (Clear) Urine pH (5.0-8.0) Ur Specific [place] (1.001-1.035) Urine Protein (Negative) Urine Glucose (UA) (Negative) Urine Ketones (Negative) Urine Blood (Negative) Urine Nitrite (Negative) Urine Bilirubin (Negative) Urine Urobilinogen (<2.0) mg/dL Ur Leukocyte Esterase (Negative) Urine RBC (0-5) /hpf Urine WBC (0-5) /hpf Ur Squamous Epith Cells (0-4) /hpf Urine Bacteria (None) /hpf Urine Mucus (None) /hpf 01/22/18 Range/Units 13:02 WBC (3.8-10.6) k/uL RBC (3.80-5.40) m/uL Hgb (11.4-16.0) gm/dL Hct (34.0-46.0) % MCV (80.0-100.0) fL MCH (25.0-35.0) pg MCHC (31.0-37.0) g/dL RDW (11.5-15.5) % Plt Count (150-450) k/uL Neutrophils % % Lymphocytes % % Monocytes % % Eosinophils % % Basophils % % Neutrophils # (1.3-7.7) k/uL Lymphocytes # (1.0-4.8) k/uL Monocytes # (0-1.0) k/uL Eosinophils # (0-0.7) k/uL Basophils # (0-0.2) k/uL PT (9.0-12.0) sec INR (<1.2) APTT (22.0-30.0) sec Sodium (137-145) mmol/L Potassium (3.5-5.1) mmol/L Chloride (98-107) mmol/L Carbon Dioxide (22-30) mmol/L Anion Gap mmol/L BUN (7-17) mg/dL Creatinine (0.52-1.04) mg/dL Est GFR (CKD-EPI)AfAm (>60 ml/min/1.73 sqM) Est GFR (CKD-EPI)NonAf (>60 ml/min/1.73 sqM) Glucose (74-99) mg/dL Calcium (8.4-10.2) mg/dL Total Bilirubin (0.2-1.3) mg/dL AST (14-36) U/L ALT (9-52) U/L Alkaline Phosphatase (38-126) U/L Total Protein (6.3-8.2) g/dL Albumin (3.5-5.0) g/dL Amylase (30-110) U/L Lipase (23-300) U/L Urine Color Yellow Urine Appearance Clear (Clear) Urine pH 7.0 (5.0-8.0) Ur Specific [place] 1.016 (1.001-1.035) Urine Protein Negative (Negative) Urine Glucose (UA) Negative (Negative) Urine Ketones Negative (Negative) Urine Blood Negative (Negative) Urine Nitrite Negative (Negative) Urine Bilirubin Negative (Negative) Urine Urobilinogen <2.0 (<2.0) mg/dL Ur Leukocyte Esterase Large H (Negative) Urine RBC 2 (0-5) /hpf Urine WBC 21 H (0-5) /hpf Ur Squamous Epith Cells 2 (0-4) /hpf Urine Bacteria Rare H (None) /hpf Urine Mucus Rare H (None) /hpf Disposition Clinical Impression: Ventral hernia without obstruction or gangrene, Abdominal pain Disposition: HOME SELF-CARE Condition: Good Instructions: Abdominal Pain (ED), Ventral Hernia (ED) Is patient prescribed a controlled substance at d/c from ED?: No Referrals: Levi Dougherty MD [Primary Care Provider] - 1-2 days Charity Upton MD [STAFF PHYSICIAN] - 1-2 days Time of Disposition: 15:09
[2018-01-22 13:27] LABS: Basophils # (A) 0.1 k/uL (0-0.2); Basophils % (A) 1 %; Eosinophils # (A) 0.2 k/uL (0-0.7); Eosinophils % (A) 2 %; HCT 37.5 % (34.0-46.0); HGB 12.4 gm/dL (11.4-16.0); Lymphocytes # (A) 3.2 k/uL (1.0-4.8); Lymphocytes % (A) 31 %; MCH 28.7 pg (25.0-35.0); MCV 87.1 fL (80.0-100.0); Mean Platelet Volume 6.8; Monocytes # (A) 0.5 k/uL (0-1.0); Monocytes % (A) 5 %; Neutrophils # (A) 6.3 k/uL (1.3-7.7); Neutrophils % (A) 61 %; Platelet Count 333 k/uL (150-450); RBC 4.31 m/uL (3.80-5.40); RDW 12.9 % (11.5-15.5); WBC 10.4 k/uL (3.8-10.6)
[2018-01-22 13:34] LABS: Appearance,Urine Clear (Clear); Bacteria,Urine Rare /hpf; Bilirubin,Urine Negative (Negative); Blood,Urine Negative (Negative); Color,Urine Yellow; Glucose,Urine (UA) Negative (Negative); Ketones,Urine Negative (Negative); Leukocyte Esterase,Urine Large (Negative); Mucus,Urine Rare /hpf; Nitrite,Urine Negative (Negative); Protein,Urine Negative (Negative); RBC,Urine 2 /hpf (0-5); Specific Gravity,Urine 1.016 (1.001-1.035); Squamous Epithelial Cell,Urine 2 /hpf (0-4); Urobilinogen,Urine <2.0 mg/dL (<2.0); WBC,Urine 21 /hpf (0-5)
[2018-01-22 13:41] LABS: ALT 25 U/L (9-52); AST 15 U/L (14-36); Alkaline Phosphatase 56 U/L (38-126); Amylase 44 U/L (30-110); Anion Gap 10 mmol/L; Blood Urea Nitrogen 20 mg/dL (7-17); Calcium 9.5 mg/dL (8.4-10.2); Carbon Dioxide 28 mmol/L (22-30); Chloride 102 mmol/L (98-107); Glucose 103 mg/dL (74-99); Lipase 55 U/L (23-300); Partial Thromboplastin Time 23.7 sec (22.0-30.0); Potassium 3.4 mmol/L (3.5-5.1); Prothrombin Time 9.8 sec (9.0-12.0); Sodium 140 mmol/L (137-145); Total Bilirubin 0.2 mg/dL (0.2-1.3)
--- NOTE | 2018-01-22 13:44 | XR ---
EXAMINATION TYPE: XR KUB , 2 VIEWS DATE OF EXAM ORDERED: 01/22/2018 HISTORY: abdominal pain. COMPARISON: Previous study dated 09/10/2014. FINDINGS: The lung bases are clear. Within the abdomen, the abdominal gas pattern is normal. There is no evidence of obstruction or free air. No unusual calcifications are identified. IMPRESSION: NO ACUTE INTRA-ABDOMINAL ABNORMALITY.
--- NOTE | 2018-01-22 14:31 | CT ---
EXAMINATION TYPE: CT abdomen pelvis w con DATE OF EXAM: 01/22/2018 COMPARISON: 07/02/2017 HISTORY: Abdominal pain for 2-3 months with increasing pain CT DLP: 2047.40 mGycm Automated exposure control for dose reduction was used. TECHNIQUE: Helical acquisition of images was performed from the lung bases through the pelvis. CONTRAST: Performed with Oral Contrast and with IV Contrast, patient injected with 100 ml mL of Isovue 300. FINDINGS: Lung bases are clear. There is no pleural effusion. Liver spleen pancreas appear normal. There are cl ips from cholecystectomy. Bile ducts are not dilated. Stomach appears normal. There is no adrenal mass. Kidneys show satisfactory contrast opacification. There is no hydronephrosi s. There is 1.5 cm cyst lower pole left kidney. There is no retroperitoneal adenopathy. There is no m esenteric adenopathy or edema. There is incarcerated ventral hernia that contains small bowel and ome ntal fat. The opening is 3 cm. I see no evidence of a bowel obstruction. Bladder distends smoothly. There is no free fluid in the pelvis. There is no inguinal hernia or adeno yoko. There is no ascites. There is no sign of free air. The appendix appears normal. I see no bony destructive process. Bony pelvis appears intact. IMPRESSION: INCARCERATED VENTRAL HERNIA HAS INCREASED IN SIZE COMPARED TO LAST EXAM. THIS IS 8 CM BELOW THE UMBIL ICUS. THERE IS MILD FAT STRANDING OF THE SUBCUTANEOUS FAT OVERLYING THE HERNIA ON THE COULD RELATE TO LOCAL IZED INFLAMMATORY PROCESS.
[2018-01-22] MEDS ORDERED: NITROFURANTOIN MONOHYD/M-CRYST 100 MG CAP PO STA (15:05)
[2018-01-22 15:14] VITALS: BP 122/69; PULSE 65; RESP 18; TEMP 98.4
== END 2018-01-22 15:19 | disposition home or self-care (01) ==
LOC: EC 12:23
DX: K43.9 Ventral hernia without obstruction or gangrene (principal); R30.0 Dysuria; R35.0 Frequency of micturition; I10 Essential (primary) hypertension; G43.909 Migraine, unspecified, not intractable, without status migrainosus; F32.9 Major depressive disorder, single episode, unspecified; F41.9 Anxiety disorder, unspecified; Z79.899 Other long term (current) drug therapy; Z88.0 Allergy status to penicillin; Z88.1 Allergy status to other antibiotic agents; Z88.5 Allergy status to narcotic agent; Z88.6 Allergy status to analgesic agent; Z88.8 Allergy status to other drugs, medicaments and biological substances; Z90.49 Acquired absence of other specified parts of digestive tract; Z90.710 Acquired absence of both cervix and uterus
CPT/HCPCS: 36415; 80053; 82150; 83690; 85025; 85610; 85730; 81001; 87086; 74018; 74177; 99285; 96374; 96376; 96361; J2270; Q9967

== ENCOUNTER → 2018-02-16 | Outpatient (CLI) | payer BC ==
[2018-02-16 17:35] LABS: HCT 38.3 % (34.0-46.0); HGB 12.5 gm/dL (11.4-16.0); MCH 28.7 pg (25.0-35.0); MCHC 32.7 g/dL (31.0-37.0); MCV 87.9 fL (80.0-100.0); Mean Platelet Volume 6.9; Platelet Count 406 k/uL (150-450); RBC 4.36 m/uL (3.80-5.40); RDW 13.5 % (11.5-15.5); WBC 12.9 k/uL (3.8-10.6)
[2018-02-16 17:36] LABS: Appearance,Urine Cloudy (Clear); Bacteria,Urine Rare /hpf; Bilirubin,Urine Negative (Negative); Blood,Urine Negative (Negative); Color,Urine Yellow; Glucose,Urine (UA) Negative (Negative); Hyaline Casts,Urine 4 /lpf (0-2); Ketones,Urine Negative (Negative); Leukocyte Esterase,Urine Trace (Negative); Nitrite,Urine Negative (Negative); Protein,Urine Trace (Negative); RBC,Urine <1 /hpf (0-5); Specific Gravity,Urine 1.033 (1.001-1.035); Squamous Epithelial Cell,Urine 2 /hpf (0-4); Urobilinogen,Urine <2.0 mg/dL (<2.0); WBC,Urine 2 /hpf (0-5)
[2018-02-16 17:44] LABS: Potassium 3.7 mmol/L (3.5-5.1)
== END | disposition home or self-care (01) ==
LOC: LABPAT 16:19
PROVIDERS: ATTEND Surgery Plastic and Reconstructive Surgery
DX: Z01.818 Encounter for other preprocedural examination (principal); Z01.812 Encounter for preprocedural laboratory examination; K43.9 Ventral hernia without obstruction or gangrene
CPT/HCPCS: 80051; 81001; 85027; 93005

== ENCOUNTER 2018-02-24 08:40 | Day surgery (SDC) | payer BC ==
[2018-02-16 10:27] VITALS: BMI 44.6
--- NOTE | 2018-02-24 05:32 | P.GSHP ---
History of Present Illness H&P Date: 02/24/18 CHIEF COMPLAINT: Incisional hernia, recurrent HISTORY OF PRESENT ILLNESS: The patient is a 42-year-old female who presents with a history of swelling along the lower abdomen. Findings were consistent with incisional hernia. Now she presents for further evaluation and management. PAST MEDICAL HISTORY: Please see list. PAST SURGICAL HISTORY: Please see list. MEDICATIONS: Please see list. ALLERGIES: Please see list. SOCIAL HISTORY: No illicit drug use FAMILY HISTORY: No reports of Crohn disease or ulcerative colitis. REVIEW OF ORGAN SYSTEMS: CONSTITUTIONAL: No reports of fevers or chills. GI: Denies any blood in stools or constipation. PHYSICAL EXAM: VITAL SIGNS: Stable GENERAL: Well-developed pleasant female in no acute distress. HEENT: No scleral icterus. Extraocular movements grossly intact. Moist buccal mucosa. NECK: Supple without lymphadenopathy. CHEST: Unlabored respirations. Equal bilateral excursions. CARDIOVASCULAR: Regular rate and rhythm. Distal 2+ pulses. ABDOMEN: Soft, nondistended. Tender along the lower abdomen. Protuberant. MUSCULOSKELETAL: No clubbing, cyanosis, or edema. ASSESSMENT: 1. Incisional ventral hernia. 2. Morbid obesity, BMI 44.6 PLAN: 1. Recommend proceeding with robotic ventral hernia repair with mesh. 2. Benefits and risks of surgical intervention was discussed including possibility of open technique. 3. DVT prophylaxis. 4. Antibiotic prophylaxis. Past Medical History Past Medical History: Hypertension, Respiratory Disorder Additional Past Medical History / Comment(s): LUNG ABSCESS 2013. Migraine headache. HX ABD HERNIAS, diverticulitis, PCOS History of Any Multi-Drug Resistant Organisms: None Reported Past Surgical History: Adenoidectomy, Back Surgery, Breast Surgery, Cholecystectomy, Hernia Repair, Hysterectomy, Orthopedic Surgery, Tonsillectomy Additional Past Surgical History / Comment(s): TYRA KNEE arthroscopic. LOW BACK SURGERY. L BREAST LUMPECTOMY, BENIGN. Colonoscopy-Colitis September 2016. hernia surgery x2 with mesh, diverticulitis Past Anesthesia/Blood Transfusion Reactions: Postoperative Nausea & Vomiting ( PONV) Additional Past Anesthesia/Blood Transfusion Reaction / Comment(s): PT HAS NEVER RECIEVED BLOOD. Smoking Status: Never smoker - Past Family History Mother Family Medical History: Cancer Additional Family Medical History / Comment(s): breast ca Father Family Medical History: AFIB Medications and Allergies Home Medications Medication Instructions Recorded Confirmed Type DULoxetine HCL [Cymbalta] 60 mg PO DAILY 01/11/14 02/16/18 History SUMAtriptan SUCCINATE [Imitrex] 100 mg PO BID PRN 01/11/14 02/16/18 History Losartan/Hydrochlorothiazide 1 tab PO DAILY 12/26/15 02/16/18 History [Hyzaar 100-25 Tablet] Zolpidem [Ambien] 10 mg PO HS PRN 09/02/17 02/16/18 History clonazePAM [KlonoPIN] 1 mg PO DAILY 09/02/17 02/16/18 History Allergies Allergy/AdvReac Type Severity Reaction Status Date / Time doxycycline Allergy Nausea & Verified 02/16/18 10:22 Vomiting hydroxyzine [From Vistaril] Allergy Rash/Hives Verified 02/16/18 10:22 oxybutynin [From Ditropan] Allergy Rapid Verified 02/16/18 10:22 Heart Rate pregabalin [From Lyrica] Allergy SWELLING Verified 02/16/18 10:22 AND HIVES tramadol HCl [From Ultram] Allergy MIGRAINE Verified 02/16/18 10:22 ketorolac tromethamine AdvReac MIGRAINE Verified 02/16/18 10:22 [From Toradol] levofloxacin [From Levaquin] AdvReac Swelling Verified 02/16/18 10:22 naproxen sodium [From Aleve] AdvReac MIGRAINES Verified 02/16/18 10:22 Penicillins AdvReac Swelling Verified 02/16/18 10:22
[~2018-02-24 08:40] MED LIST changes: -HYDROmorphone 1 MG/ML 1 ML SYRINGE IVP PRN; -Pre Op ABX Message 1 EACH MISC MISCELLANE ONE; +VANCOMYCIN 1,750 MG in SODIUM CHLORIDE 0.9% 500 ML IVPB ONE; -ceFAZolin 3 GM in SODIUM CHLORIDE 0.9% 100 ML IVPB ONE; +fentaNYL (PF) 50 MCG/ML 2 ML AMP IV PRN
[2018-02-24] MEDS ORDERED: LIDOCAINE 1% 20 ML VIAL (10MG/ML) FOR IV START INTRADERMA ONE (09:17)
--- NOTE | 2018-02-24 10:01 | P.ONQ ---
Anesthesiology Proc Note - PNB - Peripheral Nerve Block Performed Bilateral Rectus Abdominis Single Time Out Performed: Yes Procedure Start Time: :45 Procedure Stop Time: :55 Indication: Acute Post-Operative Pain, Requested by physician Sedation Type: Sedate with meaningful contact maintained Preparation: Sterile Prep Position: Supine Needle Size: 50mm (2") Needle Gauge: 21 Technique: Ultrasound Injectate: 0.5% Ropivacaine (see comment for volume) (ropi .5% 15cc each side) Blood Aspirated: No Pain Paresthesia on Injection Noted: No Resistance on Injection: Normal Events: Uneventful and Well Tolerated
[2018-02-24] MEDS ORDERED: NEOSTIGMINE 1 MG/ML 10 ML VIAL ONE (10:30)
[2018-02-24] MEDS ORDERED: ROCURONIUM BROMIDE 10 MG/ML 10 ML VIAL IV ONE (10:30)
[2018-02-24] MEDS ORDERED: SUCCINYLCHOLINE CHLORIDE 100 MG/5 ML SYR IV ONE (10:30)
[2018-02-24] MEDS ORDERED: PROPOFOL 10 MG/ML 20 ML VIAL IV ONE (10:30)
[2018-02-24] MEDS ORDERED: ROPIVACAINE 5 MG/ML 30 ML VIAL ONE (10:30)
[2018-02-24] MEDS ORDERED: PHENYLEPHRINE-0.9% NACL SYG 1 MG/10 ML SYRINGE ONE (10:30)
[2018-02-24] MEDS ORDERED: LIDOCAINE 1% INJ 10MG/ML (20 ML MDV) ONE (10:30)
[2018-02-24] MEDS ORDERED: GLYCOPYRROLATE 0.2 MG/ML 2 ML VIAL ONE ×2 (10:30)
[2018-02-24] MEDS ORDERED: MIDAZOLAM 2 MG/2 ML VIAL ONE (10:30)
[2018-02-24] MEDS ORDERED: fentaNYL (PF) 50 MCG/ML 2 ML AMP ONE (10:30)
[2018-02-24] MEDS ORDERED: BUPIVACAIN-EPI 0.25%-1:200,000 30 ML VIAL SQ ONE (11:41)
[2018-02-24] MEDS ORDERED: LACTATED RINGERS 1,000 ML IV ONE (12:22)
--- NOTE | 2018-02-24 12:28 | P.OP ---
Date of Procedure: 02/24/18 Description of Procedure: SURGEON: TEOFILO GASPAR MD PREOPERATIVE DIAGNOSES: 1. Multiple recurrent abdominal wall hernias, lower abdomen 2. Morbid obesity due to excess calories, BMI 44.6 3. Chronic abdominal pain 4. Abdominal wall seromas 5. Gastroesophageal reflux disease 6. Multiple drug ALLERGIES 7. Hypertensive heart disease 8. Generalized anxiety disorder 9. Depressive disorder POSTOPERATIVE DIAGNOSES: 1. Multiple recurrent abdominal wall hernias, lower abdomen 2. Morbid obesity due to excess calories, BMI 44.6 3. Chronic abdominal pain 4. Abdominal wall seromas 5. Gastroesophageal reflux disease 6. Multiple drug ALLERGIES 7. Hypertensive heart disease 8. Generalized anxiety disorder 9. Depressive disorder 10. Severe intra-abdominal, pelvic and peritoneal adhesions OPERATION: 1. Robotic-assisted da Srinivas Xi laparoscopic reduction and repair of recurrent incarcerated incisional hernia lower midline without mesh 2. Robotic-assisted da Srinivas Xi laparoscopic lysis of adhesions over 45 minutes Anesthesia: GETA, regional, local Estimated Blood Loss (ml): 5 Pathology: none sent Condition: stable Disposition: same day COMPLICATIONS: None. Operative Findings: 1. Severe intra-abdominal peritoneal adhesions greater omentum to abdominal wall at previous mesh repair at the epigastrium 2. Severe pelvic adhesions involving small bowel and bilateral lower pelvis addressed with sharp lysis of adhesions using scissors without enterotomies 3. Repair performed with fascial imbrication 2 without mesh secondary to severe adhesions from previous mesh repair 4. Patient has history of recurrent abdominal incisional infections hence vancomycin used 5. Double dock technique performed for adhesionolysis from the right abdomen and repair of hernia done from upper abdominal incisions 6. Console time: 57 minutes INDICATIONS: The patient is a 43-year-old female who presents with pain along the mid to lower abdomen. She has history of multiple recurrent abdominal wall hernias including chronic abdominal pain and adhesions. Surgical intervention with laparoscopic versus robotic and open techniques were reviewed. Placement of mesh was also reviewed. Benefits and risks were thoroughly described. Informed consent was obtained. DESCRIPTION OF PROCEDURE: The patient was brought into the operating room and laid in supine position. After general induction, the abdomen had been prepped and draped in standard sterile fashion. Ioban draping was also placed. Prior to incision, a timeout protocol was confirmed with surgical team regarding the patient's name including procedures to be performed. The robot was primed prior to the procedure. A field block using local anesthetic was placed along hernia site including the proposed port sites. Initial incision was made with a #11 blade along the left upper quadrant. A 0 degree 5 mm laparoscopic trocar entry was performed. Diagnostic laparoscopy demonstrated moderate peritoneal adhesions involving the entire abdomen consistent with her previous mesh repair and prior multiple abdominal surgeries. Separately an incarcerated incisional hernia of the lower abdomen was identified at the inferior portion of her prior mesh repair. Three robotic 8-mm ports were initially placed along the right lateral abdominal wall as the 5-mm port of the left upper quadrant was exchanged for an 8 mm port. Additional two 8-mm ports were placed along the epigastrium. Placements of the ports were 15 cm from the target anatomy and approximately 10 cm apart. The [employer] robot was previously primed, prepped and draped then docked along the right side of the patient. I then sat at the robot Da Srinivas Xi console where working arms of the robot including Bovie cautery connected to robotic scissors, needle show horse driver, vessel sealer and graspers were exchanged by the behavioral assistant. She had very dense adhesions of the epigastrium, pelvis, and midline involving the greater omentum to the mesh of the abdominal wall that were addressed with a combination of sharp and blunt dissection. Next the robot was re-docked along the upper abdomen with 8-mm trocars placed at the epigastrium and left upper quadrant. The bed was repositioned in steep Trendelenburg to address the rest of the adhesions of the lower abdomen. Next, additional extensive lysis of adhesions occurred to reduce the small bowel from the abdominal wall and intraloop adhesions without enterotomies. Complete lysis of adhesions occurred for over 45 minutes. The fascial defect of 4 x 5 cm of the lower abdomen was identified. The incarcerated contents was reduced. The hernia defect was oversewn using #1 Stratafix with fascial imbrication x 2 to close and reinforce the defect. Insufflation was adjusted down to 8 mmHg pressure to accommodate repair. Repair was performed with fascial imbrication without mesh secondary to severe adhesions from previous mesh repair. A final endoscopic imaging was obtained. All instruments and pneumoperitoneum were evacuated from the abdominal cavity. The da Srinivas Xi robot was undocked from the patient. I re-scrubbed into the case for closure of incisions. The incisions were reapproximated using 4-0 Monocryl in an interrupted subcuticular fashion. Liquid glue was applied to the skin after cleansing the skin with normal saline and dilute hydrogen peroxide. An abdominal binder was placed. At the end of the procedure, needle, sponge, and instrument count had been verified correct by surgical orderly. The patient was taken to the postanesthesia care unit in stable condition.
[2018-02-24 12:37] VITALS: TEMP 97.4
[2018-02-24] MEDS ORDERED: HYDROmorphone 1 MG/ML 1 ML SYRINGE IVP ONE ×2 (12:48→12:53)
[2018-02-24] MEDS ORDERED: MEPERIDINE 50 MG/ML SYRINGE IVP ONE (13:06)
[2018-02-24 13:14] VITALS: RESP 16
[2018-02-24] MEDS ORDERED: HYDROcodone/APAP 7.5-325MG 1 EACH TAB PO ONE (13:48)
[2018-02-24 13:59] VITALS: BP 99/67; PULSE 82
== END 2018-02-24 14:36 | disposition home or self-care (01) ==
LOC: OR 08:40
PROVIDERS: ATTEND Surgery Plastic and Reconstructive Surgery
DX: K43.0 Incisional hernia with obstruction, without gangrene (principal); K66.0 Peritoneal adhesions (postprocedural) (postinfection); E66.01 Morbid (severe) obesity due to excess calories; Z68.41 Body mass index [BMI] 40.0-44.9, adult; I10 Essential (primary) hypertension; E28.2 Polycystic ovarian syndrome; I11.9 Hypertensive heart disease without heart failure; F41.1 Generalized anxiety disorder; F32.9 Major depressive disorder, single episode, unspecified; Z79.899 Other long term (current) drug therapy; Z88.6 Allergy status to analgesic agent; Z88.1 Allergy status to other antibiotic agents; Z88.5 Allergy status to narcotic agent; Z88.0 Allergy status to penicillin
CPT/HCPCS: 49657; S2900; 64488

== ENCOUNTER 2018-05-01 13:49 | Emergency (ER) | payer BC ==
--- NOTE | 2018-05-01 18:02 | ED ---
General Adult HPI - General Chief complaint: Back Pain/Injury Stated complaint: Back & leg pain Source: patient, RN notes reviewed, old records reviewed Mode of arrival: wheelchair Limitations: no limitations - History of Present Illness Initial comments: 43-year-old female patient past medical history of chronic back pain, lumbar laminectomy, diverticulitis, hysterectomy, presents to ED with exacerbation of chronic back pain. Patient states that she has had chronic back pain for approximately 20 years. Patient chronic back pain is treated by her primary care provider with by mouth analgesic. Patient states that for approximately last month. Chronic back pain has worsened. Patient states that previously her back pain radiated down her left leg, however at times her back pain radiates down the posterior aspect of both legs. Patient states that this is not constant rather episodic. Patient states that pain is worse with exertion. Patient denies any recent trauma. Patient denies IV drug use, fever chills, nausea vomiting diarrhea, lower extremity weakness, loss of bowel or bladder control, saddle anesthesia. Patient is ambulatory. Patient denies all other complaints. Systemic: Pt denies fatigue, fever/chills, rash. Pt denies weakness, night sweats, weight loss. Neuro: Pt denies headache, visual disturbances, syncope or pre-syncope. HEENT: Pt denies ocular discharge or irritation, otalgia, rhinorrhea, pharyngitis or notable lymphadenopathy. Cardiopulmonary: Pt denies chest pain, SOB, heart palpitations, dyspnea on exertion. Abdominal/GI: Pt denies abdominal pain, n/v/d. : Pt denies dysuria, burning w/ urination, frequency/urgency. Denies new onset urinary or bowel incontinence. MSK: Pt denies myalgia, loss of strength or function in extremities. Neuro: Pt denies new onset weakness, paresthesias. - Related Data Home Medications Medication Instructions Recorded Confirmed DULoxetine HCL [Cymbalta] 60 mg PO DAILY 01/11/14 02/16/18 SUMAtriptan SUCCINATE [Imitrex] 100 mg PO BID PRN 01/11/14 02/16/18 Losartan/Hydrochlorothiazide 1 tab PO DAILY 12/26/15 02/16/18 [Hyzaar 100-25 Tablet] Zolpidem [Ambien] 10 mg PO HS PRN 09/02/17 02/16/18 clonazePAM [KlonoPIN] 1 mg PO DAILY 09/02/17 02/16/18 Previous Rx's Medication Instructions Recorded HYDROcodone/APAP 7.5-325MG [[place] 1 tab PO Q4H PRN 3 Days #18 tab 02/24/18 7.5-325] Ibuprofen [Motrin] 600 mg PO Q8HR PRN #30 tab 02/24/18 Allergies Allergy/AdvReac Type Severity Reaction Status Date / Time doxycycline Allergy Nausea & Verified 05/01/18 14:46 Vomiting hydroxyzine [From Vistaril] Allergy Rash/Hives Verified 05/01/18 14:46 oxybutynin [From Ditropan] Allergy Rapid Verified 05/01/18 14:46 Heart Rate pregabalin [From Lyrica] Allergy SWELLING Verified 05/01/18 14:46 AND HIVES tramadol HCl [From Ultram] Allergy MIGRAINE Verified 05/01/18 14:46 ketorolac tromethamine AdvReac MIGRAINE Verified 05/01/18 14:46 [From Toradol] levofloxacin [From Levaquin] AdvReac Swelling Verified 05/01/18 14:46 naproxen sodium [From Aleve] AdvReac MIGRAINES Verified 05/01/18 14:46 Penicillins AdvReac Swelling Verified 05/01/18 14:46 Review of Systems ROS Statement: Those systems with pertinent positive or pertinent negative responses have been documented in the HPI. ROS Other: All systems not noted in ROS Statement are negative. Past Medical History Past Medical History: Hypertension, Respiratory Disorder Additional Past Medical History / Comment(s): LUNG ABSCESS 2013. Migraine headache. HX ABD HERNIAS, diverticulitis, PCOS History of Any Multi-Drug Resistant Organisms: None Reported Past Surgical History: Adenoidectomy, Back Surgery, Breast Surgery, Cholecystectomy, Hernia Repair, Hysterectomy, Orthopedic Surgery, Tonsillectomy Additional Past Surgical History / Comment(s): TYRA KNEE arthroscopic. LOW BACK SURGERY. L BREAST LUMPECTOMY, BENIGN. Colonoscopy-Colitis September 2016. hernia surgery x2 with mesh, diverticulitis Past Anesthesia/Blood Transfusion Reactions: Postoperative Nausea & Vomiting ( PONV) Additional Past Anesthesia/Blood Transfusion Reaction / Comment(s): PT HAS NEVER RECIEVED BLOOD. Past Psychological History: Anxiety, Depression Smoking Status: Never smoker - Past Family History Mother Family Medical History: Cancer Additional Family Medical History / Comment(s): breast ca Father Family Medical History: AFIB General Exam - General Exam Comments Initial Comments: Constitutional: NAD, AOX3, Pt has pleasant affect. HEENT: NC/AT, trachea midline, neck supple, no lymphadenopathy. Posterior pharynx non erythematous, without exudates. External ears appear normal, without discharge. Mucous membranes moist. Eyes PERRLA, EOM intact. There is no scleral icterus. No pallor noted. Cardiopulmonary: RRR, no murmurs, rubs or gallops, no JVD noted. Lungs CTAB in anterior and posterior rhodes. No peripheral edema. Abdominal exam: Abdomen soft and non-distended. Abdomen non-tender to palpation in all 4 quadrants. Bowel sounds active in LLQ. No hepatosplenomegaly. No ecchymosis Neuro: CN II-XII intact. No nuchal rigidity. MSK: Psoas and quadriceps strength 5/5 bilaterally. Achillies and patellar reflex 2/4 bilaterally. Sensation intact. Ambulation intact. No midline cervical , thoracic or lumbar tenderness to palpation. Mild R perilumbar tenderness to palpation. No posterior calf tenderness bilaterally, homans sign negative bilaterally. R straight leg raise positive. Posterior tibialis and radial pulse +2 bilaterally. Sensation intact in upper and lower extremities. Full active ROM in upper and lower extremities, 5/5 stregnth. Limitations: no limitations Course Vital Signs 05/01/18 05/01/18 14:44 21:00 Temperature 98.1 F 97.6 F Pulse Rate 91 88 Respiratory 18 16 Rate Blood Pressure 106/71 112/58 O2 Sat by Pulse 97 98 Oximetry Medical Decision Making - Medical Decision Making 43-year-old female patient past medical history of chronic back pain,lumbar laminectomy, diverticulitis, hysterectomy, presents to ED with exacerbation of chronic back pain. Patient states that for approximately last month. Chronic back pain has worsened. Patient states that previously her back pain radiated down her left leg, however at times her back pain radiates down the posterior aspect of both legs. Patient states that this is not constant rather episodic. Patient states that pain is worse with exertion. Patient denies recent trauma , IV drug use, fever chills, lower extremity weakness, loss of bowel or bladder control, saddle anesthesia. Patient is ambulatory. Pt VSS. Physical exam displayed: Psoas and quadriceps strength 5/5 bilaterally. Achillies and patellar reflex 2/4 bilaterally. Sensation intact. Ambulation intact. No midline cervical, thoracic or lumbar tenderness to palpation. Mild R perilumbar tenderness to palpation. R straight leg raise positive. No posterior calf tenderness bilaterally, homans sign negative bilaterally. Posterior tibialis and radial pulse +2 bilaterally. Sensation intact in upper and lower extremities. Full active ROM in upper and lower extremities, 5/5 stregnth. Laboratory investigations revealed nonimpressive UA, negative hcg. CT of lumbar spine displayed no new fracture or dislocation, redemonstration of post surgical and degenerative change in lower lumbar spine. Patient administered home dose of Percocet in ED. Patient not driving home. Pt dx with exacerbation of chronic lumbar back pain. Findings explained to patient at length. Patient unable to take steroids secondary to ALLERGY. Patient to follow up with PCP for continued evaluation 1-2 days. Patient provided orthopedic consult, to follow-up in 1-2 days. Patient to return to ED if new signs or symptoms develop or if condition worsens in any way. Case discussed in depth with Dr. Mustafa. - Lab Data Lab Results 05/01/18 05/01/18 Range/Units 19:20 19:20 Urine Color Yellow Urine Appearance Cloudy H (Clear) Urine pH 5.5 (5.0-8.0) Ur Specific [place] 1.013 (1.001-1.035) Urine Protein Negative (Negative) Urine Glucose (UA) Negative (Negative) Urine Ketones Negative (Negative) Urine Blood Negative (Negative) Urine Nitrite Negative (Negative) Urine Bilirubin Negative (Negative) Urine Urobilinogen <2.0 (<2.0) mg/dL Ur Leukocyte Esterase Negative (Negative) Urine RBC <1 (0-5) /hpf Urine WBC <1 (0-5) /hpf Ur Squamous Epith Cells 5 H (0-4) /hpf Urine Bacteria Rare H (None) /hpf Urine HCG, Qual Not Detected (Not Detectd) Disposition Clinical Impression: Lumbar back pain Disposition: HOME SELF-CARE Condition: Fair Instructions: Acute Low Back Pain (ED), Chronic Back Pain (ED) Additional Instructions: Patient to adhere to previously discussed treatment plan and will take medication(s) as directed. Patient to follow up with PCP in 1-2 days. Patient to return to ED if symptoms do not improve. Is patient prescribed a controlled substance at d/c from ED?: No Referrals: Levi Dougherty MD [Primary Care Provider] - 1-2 days Renny Carlos MD [Medical Doctor] - 1-2 days Time of Disposition: 20:53
[2018-05-01] MEDS ORDERED: oxyCODONE-APAP 5-325MG 1 EACH TAB PO STA (19:09)
--- NOTE | 2018-05-01 19:18 | CT ---
EXAMINATION TYPE: CT lumbar spine wo con DATE OF EXAM: 05/01/2018 6:43 PM COMPARISON: CT abdomen pelvis January 22, 2018 HISTORY: Low back pain radiating to legs. CT DLP: 1587 mGycm Automated exposure control for dose reduction was used. Unenhanced CT of the lumbar spine was performed. Bone and soft tissue window settings are submitted as well as coronal and sagittal reconstructions. There are 5 lumbar-type vertebra redemonstrated. The re is slight grade 1 anterolisthesis of L3 on L4. There are old vertical fracture deformities through the L4 and L5 spinous processes redemonstrated unchanged from 2017 CT. No new acute fracture or disl ocation is seen. Mild disc space narrowing L3-L4 level is redemonstrated. No large posterior disc her niations are present. Review of axial images show spondylolisthesis with broad-based posterior disc protrusion and moderate facet degenerative changes L3-L4 level. There is effacement of the anterior thecal sac and mild to m oderate bilateral anterior inferior neural foraminal narrowing redemonstrated. Axial images at the L4-L5 level redemonstrated left-sided laminectomy defect. There is moderate facet degenerative changes bilaterally. There is central disc protrusion. There is effacement of anterior thecal sac. There is mild to moderate bilateral anterior inferior neural foraminal narrowing. Axial images at L5-S1 level show mild facet degenerative changes bilaterally. There is left-sided thao inectomy defect. Spinal canal is preserved. Bilateral neural foramina are patent. No suspicious new incidental retroperitoneal findings are seen. IMPRESSION: Redemonstration of postsurgical and degenerative change in the lower lumbar spine. No new acute fracture or dislocation is seen.
[2018-05-01 19:47] LABS: Appearance,Urine Cloudy (Clear); Bacteria,Urine Rare /hpf; Bilirubin,Urine Negative (Negative); Blood,Urine Negative (Negative); Color,Urine Yellow; Glucose,Urine (UA) Negative (Negative); Ketones,Urine Negative (Negative); Leukocyte Esterase,Urine Negative (Negative); Nitrite,Urine Negative (Negative); PH, Urine 5.5 (5.0-8.0); Protein,Urine Negative (Negative); RBC,Urine <1 /hpf (0-5); Specific Gravity,Urine 1.013 (1.001-1.035); Squamous Epithelial Cell,Urine 5 /hpf (0-4); Urobilinogen,Urine <2.0 mg/dL (<2.0)
[2018-05-01 21:03] VITALS: BP 112/58; PULSE 88; RESP 16; TEMP 97.6
== END 2018-05-01 21:00 | disposition home or self-care (01) ==
LOC: EC 13:49
DX: M54.5 Low back pain (principal); M47.816 Spondylosis without myelopathy or radiculopathy, lumbar region; G89.29 Other chronic pain; M79.605 Pain in left leg; M79.604 Pain in right leg; I10 Essential (primary) hypertension; F32.9 Major depressive disorder, single episode, unspecified; F41.9 Anxiety disorder, unspecified; Z88.0 Allergy status to penicillin; Z88.1 Allergy status to other antibiotic agents; Z88.5 Allergy status to narcotic agent; Z88.6 Allergy status to analgesic agent; Z88.8 Allergy status to other drugs, medicaments and biological substances; Z79.899 Other long term (current) drug therapy; Z86.69 Personal history of other diseases of the nervous system and sense organs; Z87.19 Personal history of other diseases of the digestive system; Z98.890 Other specified postprocedural states; Z90.710 Acquired absence of both cervix and uterus
CPT/HCPCS: 72131; 81001; 81025; 99284

== ENCOUNTER 2018-08-05 23:17 | Emergency (ER) | payer BC ==
[2018-08-05] MEDS ORDERED: SODIUM CHLORIDE 0.9% 2,000 ML IV STA (23:35)
[2018-08-06] MEDS ORDERED: MORPHINE SULFATE 4 MG/ML SYRINGE IVP STA (00:09)
[2018-08-06] MEDS ORDERED: ONDANSETRON 4 MG/2 ML VIAL IVP STA (00:10)
[2018-08-06 00:21] LABS: Appearance,Urine Turbid (Clear); Bilirubin,Urine Negative (Negative); Blood,Urine Large (Negative); Color,Urine Light Red; Glucose,Urine (UA) Negative (Negative); Ketones,Urine Negative (Negative); Leukocyte Esterase,Urine Large (Negative); Mucus,Urine Occasional /hpf; Nitrite,Urine Negative (Negative); Protein,Urine 2+ (Negative); RBC,Urine >182 /hpf (0-5); Specific Gravity,Urine 1.034 (1.001-1.035); Squamous Epithelial Cell,Urine 18 /hpf (0-4); Urobilinogen,Urine <2.0 mg/dL (<2.0); WBC,Urine >182 /hpf (0-5)
[2018-08-06 00:23] LABS: Basophils # (A) 0.1 k/uL (0-0.2); Basophils % (A) 1 %; Eosinophils # (A) 0.4 k/uL (0-0.7); Eosinophils % (A) 3 %; HCT 36.3 % (34.0-46.0); HGB 12.3 gm/dL (11.4-16.0); Lymphocytes # (A) 4.1 k/uL (1.0-4.8); Lymphocytes % (A) 33 %; MCH 28.5 pg (25.0-35.0); MCV 83.9 fL (80.0-100.0); Mean Platelet Volume 6.7; Monocytes # (A) 0.5 k/uL (0-1.0); Monocytes % (A) 4 %; Neutrophils # (A) 7.2 k/uL (1.3-7.7); Neutrophils % (A) 58 %; Platelet Count 414 k/uL (150-450); RBC 4.33 m/uL (3.80-5.40); RDW 13.8 % (11.5-15.5); WBC 12.3 k/uL (3.8-10.6)
[2018-08-06 00:27] LABS: Albumin 4.2 g/dL (3.5-5.0); Calcium 9.6 mg/dL (8.4-10.2); Potassium 3.2 mmol/L (3.5-5.1); Total Bilirubin 0.5 mg/dL (0.2-1.3)
[2018-08-06 00:57] LABS: Amylase 43 U/L (30-110); Lipase 91 U/L (23-300)
[2018-08-06] MEDS ORDERED: POTASSIUM CHLORIDE ER 20 MEQ TAB.ER PO STA (01:01)
--- NOTE | 2018-08-06 01:10 | CT ---
EXAM: CT Abdomen and Pelvis Without Intravenous Contrast CLINICAL HISTORY: ITS.REASON CT Reason: Pain TECHNIQUE: Axial computed tomography images of the abdomen and pelvis without intravenous contrast. CTDI is 19 mGy and DLP is 1145 mGy-cm. This CT exam was performed using one or more of the following dose reduction techniques: automated exposure control, adjustment of the mA and/or kV according to patient size, and/or use of iterative reconstruction technique. COMPARISON: No relevant prior studies available. FINDINGS: Lung bases: Unremarkable. No mass. No consolidation. ABDOMEN: Liver: No suspicious mass. Gallbladder and bile ducts: No abnormal ductal dilation or stones. Pancreas: Unremarkable. No ductal dilation. Spleen: Unremarkable. No splenomegaly. Adrenals: Unremarkable. No mass. Kidneys and ureters: No obstructing stones. No hydronephrosis. Stomach and bowel: Fluid levels throughout the colon. No obstruction or wall thickening. PELVIS: Appendix: No findings to suggest acute appendicitis. Bladder: Unremarkable. No stones. Reproductive: Hysterectomy ABDOMEN and PELVIS: Intraperitoneal space: Unremarkable. No free air. No significant fluid collection. Bones/joints: No acute fracture. No dislocation. Soft tissues: Unremarkable. Vasculature: No abdominal aortic aneurysm. Lymph nodes: Unremarkable. No enlarged lymph nodes. IMPRESSION: Fluid levels throughout the colon. No obstruction or wall thickening. Likely mild illness.
--- NOTE | 2018-08-06 01:47 | ED ---
General Adult HPI - General Source: patient, family, RN notes reviewed Mode of arrival: ambulatory Limitations: no limitations <Nino Rivera P - Last Filed: 08/06/18 01:30> <Mey Ramirez P - Last Filed: 08/06/18 21:35> - General Chief complaint: Abdominal Pain Stated complaint: UTI, Kidney pain Time Seen by Provider: 08/05/18 23:34 - History of Present Illness Initial comments: 43-year-old female With a past medical history hypertension, lung abscess, migraine, diverticulitis, PCOS, hysterectomy presents to the emergency department for a chief complaint of right flank pain. Patient states this has been ongoing since yesterday. Patient states she has had increased frequency of urination for about one week. States she has also noticed some blood in her urine. Denies fevers or chills. States she is able to eat and drink. Patient has no other complaints at this time including shortness of breath, chest pain, nausea or vomiting, headache, or visual changes. (Nino Rivera) - Related Data Home Medications Medication Instructions Recorded Confirmed DULoxetine HCL [Cymbalta] 60 mg PO DAILY 01/11/14 02/16/18 SUMAtriptan SUCCINATE [Imitrex] 100 mg PO BID PRN 01/11/14 02/16/18 Losartan/Hydrochlorothiazide 1 tab PO DAILY 12/26/15 02/16/18 [Hyzaar 100-25 Tablet] Zolpidem [Ambien] 10 mg PO HS PRN 09/02/17 02/16/18 clonazePAM [KlonoPIN] 1 mg PO DAILY 09/02/17 02/16/18 Previous Rx's Medication Instructions Recorded HYDROcodone/APAP 7.5-325MG [[place] 1 tab PO Q4H PRN 3 Days #18 tab 02/24/18 7.5-325] Ibuprofen [Motrin] 600 mg PO Q8HR PRN #30 tab 02/24/18 Nystatin 100,000 Unit/gm Powd 1 applic TOPICAL TID 14 Days gm 08/06/18 [Mycostatin Powder] Sulfamethox-Tmp 800-160Mg [Bactrim 1 tab PO Q12HR 14 Days tab 08/06/18 DS 800-160 mg] Allergies Allergy/AdvReac Type Severity Reaction Status Date / Time doxycycline Allergy Nausea & Verified 08/05/18 23:28 Vomiting hydroxyzine [From Vistaril] Allergy Rash/Hives Verified 08/05/18 23:28 oxybutynin [From Ditropan] Allergy Rapid Verified 08/05/18 23:28 Heart Rate pregabalin [From Lyrica] Allergy SWELLING Verified 08/05/18 23:28 AND HIVES tramadol HCl [From Ultram] Allergy MIGRAINE Verified 08/05/18 23:28 ketorolac tromethamine AdvReac MIGRAINE Verified 08/05/18 23:28 [From Toradol] levofloxacin [From Levaquin] AdvReac Swelling Verified 08/05/18 23:28 naproxen sodium [From Aleve] AdvReac MIGRAINES Verified 08/05/18 23:28 Penicillins AdvReac Swelling Verified 08/05/18 23:28 Review of Systems ROS Other: All systems not noted in ROS Statement are negative. <Nino Rivera P - Last Filed: 08/06/18 01:30> ROS Other: All systems not noted in ROS Statement are negative. <Mey Ramirez P - Last Filed: 08/06/18 21:35> ROS Statement: Those systems with pertinent positive or pertinent negative responses have been documented in the HPI. Past Medical History Past Medical History: Hypertension, Respiratory Disorder Additional Past Medical History / Comment(s): LUNG ABSCESS 2013. Migraine headache. HX ABD HERNIAS, diverticulitis, PCOS History of Any Multi-Drug Resistant Organisms: None Reported Past Surgical History: Adenoidectomy, Back Surgery, Breast Surgery, Cholecystectomy, Hernia Repair, Hysterectomy, Orthopedic Surgery, Tonsillectomy Additional Past Surgical History / Comment(s): TYRA KNEE arthroscopic. LOW BACK SURGERY. L BREAST LUMPECTOMY, BENIGN. Colonoscopy-Colitis September 2016. hernia surgery x2 with mesh, diverticulitis Past Anesthesia/Blood Transfusion Reactions: Postoperative Nausea & Vomiting (PONV) Additional Past Anesthesia/Blood Transfusion Reaction / Comment(s): PT HAS NEVER RECIEVED BLOOD. Past Psychological History: Anxiety, Depression Smoking Status: Never smoker Past Alcohol Use History: None Reported Past Drug Use History: None Reported - Past Family History Mother Family Medical History: Cancer Additional Family Medical History / Comment(s): breast ca Father Family Medical History: AFIB <Nino Rivera P - Last Filed: 08/06/18 01:30> General Exam Limitations: no limitations General appearance: alert, in no apparent distress Head exam: Present: atraumatic, normocephalic, normal inspection Eye exam: Present: normal appearance, PERRL, EOMI. Absent: scleral icterus, conjunctival injection, periorbital swelling ENT exam: Present: normal exam, mucous membranes moist Neck exam: Present: normal inspection, full ROM. Absent: tenderness, meningismus, lymphadenopathy Respiratory exam: Present: normal lung sounds bilaterally. Absent: respiratory distress, wheezes, rales, rhonchi, stridor Cardiovascular Exam: Present: regular rate, normal rhythm, normal heart sounds. Absent: systolic murmur, diastolic murmur, rubs, gallop, clicks GI/Abdominal exam: Present: soft, tenderness (minimal suprapubic tenderness without guarding), normal bowel sounds. Absent: distended, guarding, rebound, rigid External exam: Present: lesions (lesions present in the pelvic area with yellow [id number]-ndihdgla discharge noted). Absent: normal external exam Speculum exam: Present: normal speculum exam. Absent: erythema, vaginal discharge, cervical discharge, vaginal bleeding, foreign body, tissue, laceration By manual exam: Present: normal by manual exam. Absent: cervical motion tenderness, adnexal tenderness, adnexal mass, uterine enlargement Neurological exam: Present: alert, oriented X3, CN II-XII intact Psychiatric exam: Present: normal affect, normal mood <Nino Rivera P - Last Filed: 08/06/18 01:30> Course Vital Signs 08/05/18 08/06/18 23:24 02:04 Temperature 97.9 F 98.2 F Pulse Rate 79 71 Respiratory 20 18 Rate Blood Pressure 111/81 110/70 O2 Sat by Pulse 99 100 Oximetry Medical Decision Making - Lab Data Result diagrams: 08/06/18 00:04 08/06/18 00:04 <Nino Rivera P - Last Filed: 08/06/18 01:30> - Lab Data Result diagrams: 08/06/18 00:04 08/06/18 00:04 <Mey Ramirez P - Last Filed: 08/06/18 21:35> - Medical Decision Making 43-year-old female presents to the emergency department for chief cooking of right flank pain. This has been ongoing since yesterday. Patient also has had urinary urgency for the past week. Started on Cipro 24 hours ago. Vitals are stable, patient is afebrile, does not meet sepsis criteria. CBC does show a white count 12.3. Potassium 3.2, given 40 mEq orally. Cranial 1.32, given 2 L of fluids. Patient was given [address] does not show any evidence of renal obstruction. Patient has not been on antibiotics for enough time for improvement of symptoms. She will be discharged home with Bactrim. She is to return here if she has any worsening symptoms. These were discussed in depth with her. (Nino Rivera) I was available for consultation in the emergency department. The history and physical exam were done by the midlevel provider. I was consulted for this patient's care. I reviewed the case with the midlevel provider and based on their presentation of the patient, I agree with the assessment, medical decision making and plan of care as documented. (Mey Ramirez) - Lab Data Lab Results 08/06/18 08/06/18 08/06/18 Range/Units 00:04 00:04 00:04 WBC 12.3 H (3.8-10.6) k/uL RBC 4.33 (3.80-5.40) m/uL Hgb 12.3 (11.4-16.0) gm/dL Hct 36.3 (34.0-46.0) % MCV 83.9 (80.0-100.0) fL MCH 28.5 (25.0-35.0) pg MCHC 34.0 (31.0-37.0) g/dL RDW 13.8 (11.5-15.5) % Plt Count 414 (150-450) k/uL Neutrophils % 58 % Lymphocytes % 33 % Monocytes % 4 % Eosinophils % 3 % Basophils % 1 % Neutrophils # 7.2 (1.3-7.7) k/uL Lymphocytes # 4.1 (1.0-4.8) k/uL Monocytes # 0.5 (0-1.0) k/uL Eosinophils # 0.4 (0-0.7) k/uL Basophils # 0.1 (0-0.2) k/uL Sodium 143 (137-145) mmol/L Potassium 3.2 L (3.5-5.1) mmol/L Chloride 111 H (98-107) mmol/L Carbon Dioxide 20 L (22-30) mmol/L Anion Gap 12 mmol/L BUN 19 H (7-17) mg/dL Creatinine 1.32 H (0.52-1.04) mg/dL Est GFR (CKD-EPI)AfAm 57 (>60 ml/min/1.73 sqM) Est GFR (CKD-EPI)NonAf 50 (>60 ml/min/1.73 sqM) Glucose 102 H (74-99) mg/dL Calcium 9.6 (8.4-10.2) mg/dL Total Bilirubin 0.5 (0.2-1.3) mg/dL AST 22 (14-36) U/L ALT 40 (9-52) U/L Alkaline Phosphatase 78 (38-126) U/L Total Protein 7.0 (6.3-8.2) g/dL Albumin 4.2 (3.5-5.0) g/dL Amylase (30-110) U/L Lipase (23-300) U/L Urine Color Light Red Urine Appearance Turbid H (Clear) Urine pH 6.0 (5.0-8.0) Ur Specific [place] 1.034 (1.001-1.035) Urine Protein 2+ H (Negative) Urine Glucose (UA) Negative (Negative) Urine Ketones Negative (Negative) Urine Blood Large H (Negative) Urine Nitrite Negative (Negative) Urine Bilirubin Negative (Negative) Urine Urobilinogen <2.0 (<2.0) mg/dL Ur Leukocyte Esterase Large H (Negative) Urine RBC >182 H (0-5) /hpf Urine WBC >182 H (0-5) /hpf Ur Squamous Epith Cells 18 H (0-4) /hpf Urine Mucus Occasional H (None) /hpf Trichomonas Ag (Rapid) (Negative) 08/06/18 08/06/18 Range/Units 00:04 01:33 WBC (3.8-10.6) k/uL RBC (3.80-5.40) m/uL Hgb (11.4-16.0) gm/dL Hct (34.0-46.0) % MCV (80.0-100.0) fL MCH (25.0-35.0) pg MCHC (31.0-37.0) g/dL RDW (11.5-15.5) % Plt Count (150-450) k/uL Neutrophils % % Lymphocytes % % Monocytes % % Eosinophils % % Basophils % % Neutrophils # (1.3-7.7) k/uL Lymphocytes # (1.0-4.8) k/uL Monocytes # (0-1.0) k/uL Eosinophils # (0-0.7) k/uL Basophils # (0-0.2) k/uL Sodium (137-145) mmol/L Potassium (3.5-5.1) mmol/L Chloride (98-107) mmol/L Carbon Dioxide (22-30) mmol/L Anion Gap mmol/L BUN (7-17) mg/dL Creatinine (0.52-1.04) mg/dL Est GFR (CKD-EPI)AfAm (>60 ml/min/1.73 sqM) Est GFR (CKD-EPI)NonAf (>60 ml/min/1.73 sqM) Glucose (74-99) mg/dL Calcium (8.4-10.2) mg/dL Total Bilirubin (0.2-1.3) mg/dL AST (14-36) U/L ALT (9-52) U/L Alkaline Phosphatase (38-126) U/L Total Protein (6.3-8.2) g/dL Albumin (3.5-5.0) g/dL Amylase 43 (30-110) U/L Lipase 91 (23-300) U/L Urine Color Urine Appearance (Clear) Urine pH (5.0-8.0) Ur Specific [place] (1.001-1.035) Urine Protein (Negative) Urine Glucose (UA) (Negative) Urine Ketones (Negative) Urine Blood (Negative) Urine Nitrite (Negative) Urine Bilirubin (Negative) Urine Urobilinogen (<2.0) mg/dL Ur Leukocyte Esterase (Negative) Urine RBC (0-5) /hpf Urine WBC (0-5) /hpf Ur Squamous Epith Cells (0-4) /hpf Urine Mucus (None) /hpf Trichomonas Ag (Rapid) Negative (Negative) Disposition Is patient prescribed a controlled substance at d/c from ED?: No Time of Disposition: 01:32 <Nino Rivera P - Last Filed: 08/06/18 01:30> <Mey Ramirez P - Last Filed: 08/06/18 21:35> Clinical Impression: Pyelonephritis Disposition: HOME SELF-CARE Condition: Good Instructions (If sedation given, give patient instructions): Kidney Infection (ED) Additional Instructions: Please take antibiotic as directed. Please use nystatin powder in affected areas. Drink any fluids. Follow-up with primary care and [facility] in 1-2 days. Return here to the emergency department if you have any worsening symptoms. Prescriptions: Sulfamethox-Tmp 800-160Mg [Bactrim DS 800-160 mg] 1 tab PO Q12HR 14 Days tab Nystatin 100,000 Unit/gm Powd [Mycostatin Powder] 1 applic TOPICAL TID 14 Days gm Referrals: Levi Dougherty MD [Primary Care Provider] - 1-2 days
[2018-08-06 02:07] VITALS: BP 110/70; PULSE 71; RESP 18; TEMP 98.2
== END 2018-08-06 02:07 | disposition home or self-care (01) ==
LOC: EC 23:17
DX: N12 Tubulo-interstitial nephritis, not specified as acute or chronic (principal); I10 Essential (primary) hypertension; F41.9 Anxiety disorder, unspecified; F32.9 Major depressive disorder, single episode, unspecified; Z87.19 Personal history of other diseases of the digestive system; Z90.49 Acquired absence of other specified parts of digestive tract; Z90.710 Acquired absence of both cervix and uterus; Z98.890 Other specified postprocedural states; Z79.899 Other long term (current) drug therapy; Z88.1 Allergy status to other antibiotic agents; Z88.8 Allergy status to other drugs, medicaments and biological substances; Z88.5 Allergy status to narcotic agent; Z88.6 Allergy status to analgesic agent; Z88.0 Allergy status to penicillin
CPT/HCPCS: 36415; 80053; 82150; 83690; 85025; 81001; 87040; 87808; 87070; 87086; 87205; 74176; 99284; 96365; 96375 ×2; 96361 ×2; J2270; J2405; J0696

== ENCOUNTER 2019-01-04 13:39 | Emergency (ER) | payer BC ==
[2019-01-04 13:51] VITALS: TEMP 97.8
[2019-01-04] MEDS ORDERED: HYDROmorphone 0.5 MG/0.5 ML SYRINGE IVP STA ×3 (14:32→16:57)
[2019-01-04] MEDS ORDERED: ONDANSETRON 4 MG/2 ML VIAL IVP STA (14:33)
--- NOTE | 2019-01-04 15:09 | ED ---
Headache HPI - General Chief Complaint: Headache Stated Complaint: Migraine, back pain, wound on foot Time Seen by Provider: 01/04/19 13:53 Mode of arrival: ambulatory Limitations: no limitations - History of Present Illness Initial Comments: 43-year-old female presented for multiple complaints. Patient states that she has history of chronic migraines she states that she has a monthly injection as well as Imitrex. She states she has been receiving monthly injection for 2 mon ths as her headaches have been uncontrolled. Patient states she has been evaluated by neurology and has had imaging studies such as MRI outpatient. Patient states she has no known history of aneurysm. Patient states that the headaches are usually right sided behind the right eye she states they're sharp in nature and make her eyes feel like they're going to twitch. Patient states she also gets sensitive light sounds during the migraines and is experiencing this today. Patient denies any changes in characteristic she states she usually Aborted with Imitrex however was not able to today she states that she presented to ER patient other complaints she wanted addressed as well. Patient states that she has had a previous low back surgery. She states that for the past month she has had increasing irritation of the low back. Patient denies a midline tenderness she states is on both sides. Patient denies any urinary symptoms hematuria dysuria urgency frequency. Patient denies any fevers. She denies IV drug use. Patient denies any radiation of the pain down the legs she denies a loss of sensation or muscle weakness of the lower extremities denies any loss of bowel bladder control or direct trauma injury to the low back. Patient states the pain increases with twisting motions. Patient also states that about a week ago she scraped her dorsal aspect of her right foot on the b ottom of the pool she states that she applied Neosporin and bulky rash around it. Patient was unsure if the area was developing an infection. Because of all 3 complaints patient thought as best she presented to the emergency department. Patient denies a chest pain or shortness of breath denies any leg swelling, she denies any flulike symptoms, upper respiratory symptoms or neck stiffness. Mary ining review of system negative. Patient appears well upon arrival - Related Data Home Medications Medication Instructions Recorded Confirmed DULoxetine HCL [Cymbalta] 60 mg PO DAILY 01/11/14 02/16/18 SUMAtriptan SUCCINATE [Imitrex] 100 mg PO BID PRN 01/11/14 02/16/18 Losartan/Hydrochlorothiazide 1 tab PO DAILY 12/26/15 02/16/18 [Hyzaar 100-25 Tablet] Zolpidem [Ambien] 10 mg PO HS PRN 09/02/17 02/16/18 clonazePAM [KlonoPIN] 1 mg PO DAILY 09/02/17 02/16/18 Previous Rx's Medication Instructions Recorded HYDROcodone/APAP 7.5-325MG [[place] 1 tab PO Q4H PRN 3 Days #18 tab 02/24/18 7.5-325] Ibuprofen [Motrin] 600 mg PO Q8HR PRN #30 tab 02/24/18 Nystatin 100,000 Unit/gm Powd 1 applic TOPICAL TID 14 Days gm 08/06/18 [Mycostatin Powder] Sulfamethox-Tmp 800-160Mg [Bactrim 1 tab PO Q12HR 14 Days tab 08/06/18 DS 800-160 mg] Cephalexin [Keflex] 500 mg PO Q6HR 7 Days #28 cap 01/04/19 Allergies Allergy/AdvReac Type Severity Reaction Status Date / Time doxycycline Allergy Nausea & Verified 01/04/19 13:51 Vomiting hydroxyzine [From Vistaril] Allergy Rash/Hives Verified 01/04/19 13:51 oxybutynin [From Ditropan] Allergy Rapid Verified 01/04/19 13:51 Heart Rate pregabalin [From Lyrica] Allergy SWELLING Verified 01/04/19 13:51 AND HIVES tramadol HCl [From Ultram] Allergy MIGRAINE Verified 01/04/19 13:51 ketorolac tromethamine AdvReac MIGRAINE Verified 01/04/19 13:51 [From Toradol] levofloxacin [From Levaquin] AdvReac Swelling Verified 01/04/19 13:51 naproxen sodium [From Aleve] AdvReac MIGRAINES Verified 01/04/19 13:51 Penicillins AdvReac Swelling Verified 01/04/19 13:51 Review of Systems ROS Statement: Those systems with pertinent positive or pertinent negative responses have been documented in the HPI. ROS Other: All systems not noted in ROS Statement are negative. Past Medical History Past Medical History: Hypertension, Respiratory Disorder Additional Past Medical History / Comment(s): LUNG ABSCESS 2014. Migraine headache. HX ABD HERNIAS, diverticulitis, PCOS History of Any Multi-Drug Resistant Organisms: None Reported Past Surgical History: Adenoidectomy, Back Surgery, Breast Surgery, Cholecystectomy, Hernia Repair, Hysterectomy, Orthopedic Surgery, Tonsillectomy Additional Past Surgical History / Comment(s): TYRA KNEE arthroscopic. LOW BACK SURGERY. L BREAST LUMPECTOMY, BENIGN. Colonoscopy-Colitis September 2016. hernia surgery x2 with mesh, diverticulitis Past Anesthesia/Blood Transfusion Reactions: Postoperative Nausea & Vomiting (PONV) Additional Past Anesthesia/Blood Transfusion Reaction / Comment(s): PT HAS NEVER RECIEVED BLOOD. Past Psychological History: Anxiety, Depression Smoking Status: Never smoker Past Alcohol Use History: None Reported Past Drug Use History: None Reported - Past Family History Mother Family Medical History: Cancer Additional Family Medical History / Comment(s): breast ca Father Family Medical History: AFIB General Exam - General Exam Comments Initial Comments: General: The patient is awake and alert, in no distress, and does not appear acutely ill. Eye: +3 mm pupils are equal, round and reactive to light, extra-ocular movements are intact. No nystagmus. There is normal conjunctiva bilaterally. No signs of icterus. Ears, nose, mouth and throat: There are moist mucous membranes and no oral lesions. No nuchal rigidity. Neck: The neck is supple, there is no tenderness or JVD. Cardiovascular: There is a regular rate and rhythm. No murmur, rub or gallop is appreciated. Respiratory: Lungs are clear to auscultation, respirations are non-labored, breath sounds are equal. No wheezes, stridor, rales, or rhonchi. Gastrointestinal: Soft, non-distended, non-tender abdomen without masses or organomegaly noted. There is no rebound or guarding present. Musculoskeletal: Scar located at the upper lumbar spine no evidence of redness. No point localized tenderness midline of the cervical thoracic or lumbar spine. Full range motion of the cervical spine without any difficulty or limitations with the pain. Normal ROM, no tenderness. Strength 5/5 of the upper and lower extremities equal and comparison bilaterally. Sensation intact. Radial pulses equal bilaterally 2+. Neurological: A&O x 3. CN II-XII intact, There are no obvious motor or sensory deficits. Finger to nose, heel to albert smooth and coordinated b/l. Gait normal. No pronator drift. No APD. Speech is normal. Skin: Skin is warm and dry and no rashes or lesions are noted. Psychiatric: Cooperative, appropriate mood & affect, normal judgment. Limitations: no limitations Course Vital Signs 01/04/19 01/04/19 13:48 19:20 Temperature 97.8 F Pulse Rate 71 68 Respiratory 20 18 Rate Blood Pressure 134/88 112/86 O2 Sat by Pulse 99 100 Oximetry Medical Decision Making - Medical Decision Making Very well-appearing 43-year-old female presenting to the emergency department for migraine, abrasion of the right foot, back pain 1 month. Patient has had no history of fever. No midline tenderness on examination. No radicular symptoms or LE weakness. Patient has no focal neurological deficits. She states that there is no changes in characteristic migraine and the Dilaudid usually helps. Patient has no signs of meningeal irritation. I offered Toradol as Dilaudid did not seem to help alleviate symptoms. She states that she was given a tightness sometimes it makes her headache worse. This did increase headache. Patient is then given additional dose of Dilaudid. Patient the patient to the right foot does not appear infected, there is a dermatitis surrounding it most likely secondary to topical antibiotic ointment. No overt signs of cellulitis. No warmth no swelling. No purulent drainage or abscess. Patient has no leukocytosis. Upon reevaluation patient states that her headache is completely gone she is sitting up + stating she is ready to go home. This I do feel patient stable for discharge and discussed the case with him and carotid Dr. Hernandez who is agreeable to this care plan. Patient is to follow-up with her neurologist as well as primary care provider. I discussed return parameters in regards to the abrasion and signs of infection. As well as changing topical ointment from Neosporin to bacitracin. - Lab Data Result diagrams: 01/04/19 15:15 01/04/19 15:15 Lab Results 01/04/19 01/04/19 Range/Units 15:15 15:15 WBC 9.3 (3.8-10.6) k/uL RBC 4.39 (3.80-5.40) m/uL Hgb 12.4 (11.4-16.0) gm/dL Hct 37.8 (34.0-46.0) % MCV 86.1 (80.0-100.0) fL MCH 28.3 (25.0-35.0) pg MCHC 32.9 (31.0-37.0) g/dL RDW 14.9 (11.5-15.5) % Plt Count 389 (150-450) k/uL Neutrophils % 58 % Lymphocytes % 33 % Monocytes % 3 % Eosinophils % 3 % Basophils % 1 % Neutrophils # 5.4 (1.3-7.7) k/uL Lymphocytes # 3.1 (1.0-4.8) k/uL Monocytes # 0.3 (0-1.0) k/uL Eosinophils # 0.3 (0-0.7) k/uL Basophils # 0.1 (0-0.2) k/uL Sodium 140 (137-145) mmol/L Potassium 3.6 (3.5-5.1) mmol/L Chloride 105 (98-107) mmol/L Carbon Dioxide 27 (22-30) mmol/L Anion Gap 8 mmol/L BUN 19 H (7-17) mg/dL Creatinine 0.93 (0.52-1.04) mg/dL Est GFR (CKD-EPI)AfAm 88 (>60 ml/min/1.73 sqM) Est GFR (CKD-EPI)NonAf 76 (>60 ml/min/1.73 sqM) Glucose 94 (74-99) mg/dL Calcium 9.5 (8.4-10.2) mg/dL Total Bilirubin 0.3 (0.2-1.3) mg/dL AST 28 (14-36) U/L ALT 35 (9-52) U/L Alkaline Phosphatase 69 (38-126) U/L Total Protein 7.3 (6.3-8.2) g/dL Albumin 4.1 (3.5-5.0) g/dL Disposition Clinical Impression: Migraine, Abrasion, Acute exacerbation of chronic low back pain Disposition: HOME SELF-CARE Condition: Good Instructions (If sedation given, give patient instructions): Acute Headache (ED), Abrasion (ED) Additional Instructions: Please use medication as discussed. Please follow-up with family doctor in the next 2 days. Please return to emergency room if the symptoms increase or worsen or for any other concerns. Prescriptions: Cephalexin [Keflex] 500 mg PO Q6HR 7 Days #28 cap Is patient prescribed a controlled substance at d/c from ED?: No Referrals: Levi Dougherty MD [Primary Care Provider] - 1-2 days Time of Disposition: 17:54
[2019-01-04 15:30] LABS: Basophils # (A) 0.1 k/uL (0-0.2); Basophils % (A) 1 %; Eosinophils # (A) 0.3 k/uL (0-0.7); Eosinophils % (A) 3 %; HCT 37.8 % (34.0-46.0); HGB 12.4 gm/dL (11.4-16.0); Lymphocytes # (A) 3.1 k/uL (1.0-4.8); Lymphocytes % (A) 33 %; MCH 28.3 pg (25.0-35.0); MCHC 32.9 g/dL (31.0-37.0); MCV 86.1 fL (80.0-100.0); Mean Platelet Volume 7.2; Monocytes # (A) 0.3 k/uL (0-1.0); Monocytes % (A) 3 %; Neutrophils # (A) 5.4 k/uL (1.3-7.7); Neutrophils % (A) 58 %; Platelet Count 389 k/uL (150-450); RBC 4.39 m/uL (3.80-5.40); RDW 14.9 % (11.5-15.5); WBC 9.3 k/uL (3.8-10.6)
[2019-01-04] MEDS ORDERED: KETOROLAC 30 MG/ML 1 ML VIAL IVP STA (15:37)
[2019-01-04 15:43] LABS: Albumin 4.1 g/dL (3.5-5.0); Calcium 9.5 mg/dL (8.4-10.2); Potassium 3.6 mmol/L (3.5-5.1); Total Bilirubin 0.3 mg/dL (0.2-1.3); Total Protein 7.3 g/dL (6.3-8.2)
[2019-01-04] MEDS ORDERED: diphenhydrAMINE 50 MG/ML 1 ML VIAL IVP STA (15:57)
[2019-01-04] MEDS ORDERED: methylPREDNISolone SOD SUCCI 125 MG/2 ML VIAL IV STA (15:57)
[2019-01-04 22:34] VITALS: BP 112/86; PULSE 68; RESP 18
== END 2019-01-04 19:20 | disposition home or self-care (01) ==
LOC: EC 13:39
DX: G43.909 Migraine, unspecified, not intractable, without status migrainosus (principal); G89.29 Other chronic pain; M54.5 Low back pain; S90.811A Abrasion, right foot, initial encounter; F41.9 Anxiety disorder, unspecified; F32.9 Major depressive disorder, single episode, unspecified; I10 Essential (primary) hypertension; Z79.899 Other long term (current) drug therapy; Z88.0 Allergy status to penicillin; Z88.1 Allergy status to other antibiotic agents; Z88.5 Allergy status to narcotic agent; Z88.6 Allergy status to analgesic agent; Z88.8 Allergy status to other drugs, medicaments and biological substances
CPT/HCPCS: 36415; 80053; 85025; 99283; 96374; 96375 ×4; 96376; J1200; J2930; J2405; J1885; J1170

== ENCOUNTER 2019-01-26 11:00 | Emergency (ER) | payer BC ==
[2019-01-26 11:21] VITALS: TEMP 97.9
[2019-01-26] MEDS ORDERED: MORPHINE SULFATE 4 MG/ML SYRINGE IV STA (12:05)
[2019-01-26] MEDS ORDERED: SODIUM CHLORIDE 0.9% 1,000 ML IV STA (12:05)
[2019-01-26] MEDS ORDERED: ONDANSETRON 4 MG/2 ML VIAL IVP STA (12:05)
--- NOTE | 2019-01-26 12:11 | ED ---
Abdominal Pain HPI - General Chief Complaint: Abdominal Pain Stated Complaint: abd pain, nausea, diarrhea Time Seen by Provider: 01/26/19 11:28 Source: patient Mode of arrival: ambulatory Limitations: no limitations - History of Present Illness Initial Comments: Patient is a 43-year-old female presenting to the emergency Department with complaints of lower abdominal pain 3 days. Patient has past medical history of hypertension, lung abscess, migraine, diverticulitis, pCO2 last, hysterectomy, multiple hernia repairs. Patient reports nausea and vomiting that started last night. Patient states her pain started on the left lower quadrant but has now progressed to bilateral lower quadrants. Patient is also having diarrhea for 1 week. Patient had a prescription from Dr. Graves for Flagyl in case she started developing diverticulitis-type symptoms. Patient states she started Flagyl approximately 3 days ago without improvement in her symptoms. Patient states the pain was intermittent to began but now is constant. She is not able to eat or sleep. Patient admits to having fevers yesterday. Patient denies chest pain, shortness of breath, burning with urination, vaginal discharge. Patient has no other complaints at this time. Upon arrival to ER, vital signs are stable. - Related Data Home Medications Medication Instructions Recorded Confirmed DULoxetine HCL [Cymbalta] 60 mg PO DAILY 01/11/14 02/16/18 SUMAtriptan SUCCINATE [Imitrex] 100 mg PO BID PRN 01/11/14 02/16/18 Losartan/Hydrochlorothiazide 1 tab PO DAILY 12/26/15 02/16/18 [Hyzaar 100-25 Tablet] Zolpidem [Ambien] 10 mg PO HS PRN 09/02/17 02/16/18 clonazePAM [KlonoPIN] 1 mg PO DAILY 09/02/17 02/16/18 Previous Rx's Medication Instructions Recorded HYDROcodone/APAP 7.5-325MG [[place] 1 tab PO Q4H PRN 3 Days #18 tab 02/24/18 7.5-325] Ibuprofen [Motrin] 600 mg PO Q8HR PRN #30 tab 02/24/18 Nystatin 100,000 Unit/gm Powd 1 applic TOPICAL TID 14 Days gm 08/06/18 [Mycostatin Powder] Sulfamethox-Tmp 800-160Mg [Bactrim 1 tab PO Q12HR 14 Days tab 08/06/18 DS 800-160 mg] Cephalexin [Keflex] 500 mg PO Q6HR 7 Days #28 cap 01/04/19 Ondansetron Odt [Zofran Odt] 4 mg PO Q8HR PRN #10 tab 01/26/19 Allergies Allergy/AdvReac Type Severity Reaction Status Date / Time doxycycline Allergy Nausea & Verified 01/26/19 11:18 Vomiting hydroxyzine [From Vistaril] Allergy Rash/Hives Verified 01/26/19 11:18 oxybutynin [From Ditropan] Allergy Rapid Verified 01/26/19 11:18 Heart Rate pregabalin [From Lyrica] Allergy SWELLING Verified 01/26/19 11:18 AND HIVES tramadol HCl [From Ultram] Allergy MIGRAINE Verified 01/26/19 11:18 ketorolac tromethamine AdvReac MIGRAINE Verified 01/26/19 11:18 [From Toradol] levofloxacin [From Levaquin] AdvReac Swelling Verified 01/26/19 11:18 naproxen sodium [From Aleve] AdvReac MIGRAINES Verified 01/26/19 11:18 Penicillins AdvReac Swelling Verified 01/26/19 11:18 Review of Systems ROS Statement: Those systems with pertinent positive or pertinent negative responses have been documented in the HPI. ROS Other: All systems not noted in ROS Statement are negative. Past Medical History Past Medical History: Hypertension, Respiratory Disorder Additional Past Medical History / Comment(s): LUNG ABSCESS 2013. Migraine headache. HX ABD HERNIAS, diverticulitis, PCOS History of Any Multi-Drug Resistant Organisms: None Reported Past Surgical History: Adenoidectomy, Back Surgery, Breast Surgery, Cholecystectomy, Hernia Repair, Hysterectomy, Orthopedic Surgery, Tonsillectomy Additional Past Surgical History / Comment(s): TYAR KNEE arthroscopic. LOW BACK SURGERY. L BREAST LUMPECTOMY, BENIGN. Colonoscopy-Colitis September 2016. hernia surgery x2 with mesh, diverticulitis Past Anesthesia/Blood Transfusion Reactions: Postoperative Nausea & Vomiting (PONV) Additional Past Anesthesia/Blood Transfusion Reaction / Comment(s): PT HAS NEVER RECIEVED BLOOD. Past Psychological History: Anxiety, Depression Smoking Status: Never smoker Past Alcohol Use History: None Reported Past Drug Use History: None Reported - Past Family History Mother Family Medical History: Cancer Additional Family Medical History / Comment(s): breast ca Father Family Medical History: AFIB General Exam - General Exam Comments Initial Comments: GENERAL: Well-appearing, well-nourished and in no acute distress, although appears uncomfortable. HEAD: Atraumatic, normocephalic. EYES: Pupils equal round and reactive to light, extraocular movements intact, sclera anicteric, conjunctiva are normal. ENT: TMs normal, nares patent, oropharynx clear without exudates. Moist mucous membranes. NECK: Normal range of motion, supple without lymphadenopathy or JVD. LUNGS: Breath sounds clear to auscultation bilaterally and equal. No wheezes rales or rhonchi. HEART: Regular rate and rhythm without murmurs, rubs or gallops. ABDOMEN: Tender to palpation of the right and left lower quadrants, as well as suprapubic tenderness. Soft, normoactive bowel sounds. No guarding, no rebound. No masses appreciated. : Deferred EXTREMITIES: Normal range of motion, no pitting or edema. No clubbing or cyanosis. NEUROLOGICAL: Cranial nerves II through XII grossly intact. Normal speech, normal gait. PSYCH: Normal mood, normal affect. SKIN: Warm, Dry, normal turgor, no rashes or lesions noted. Limitations: no limitations Course Vital Signs 01/26/19 01/26/19 01/26/19 11:18 13:43 15:22 Temperature 97.9 F Pulse Rate 71 68 58 L Respiratory 16 18 18 Rate Blood Pressure 139/104 124/84 116/88 O2 Sat by Pulse 99 97 99 Oximetry Medical Decision Making - Medical Decision Making Patient is a 43-year-old female presenting with lower abdominal pain, nausea, vomiting, diarrhea 3 days. Upon arrival to ER, vital signs are stable, afebrile. Patient started on Flagyl 3 days ago without improvement in symptoms. Patient has history of hysterectomy and left ovary removal. On exam patient has tenderness suprapubic region as well as left and right lower quadrant. CBC shows slight white count at 13.1, likely reactive. CMP shows potassium 3.2, BUN/creatinine are 18, 1.20, similar to previous. Amylase lipase normal. UA is normal. CT of the abdomen shows possible jejunitis as well as 2.9 cm right ovarian cyst. Transvaginal ultrasound shows a simple right ovarian cyst. No concern for torsion. Patient was given fluids, Zofran, pain control and ports improvement in her symptoms. Patient declined vaginal exam at this time. Patient will be discharged home with Zofran for the nausea. Patient will follow up with [facility]. Patient is agreement with this plan of care. All questions were answered. Return parameters were discussed with the patient and she verbalized understanding. Case discussed with Dr. Kennedy. - Lab Data Result diagrams: 01/26/19 12:05 01/26/19 12:05 Lab Results 01/26/19 01/26/19 01/26/19 Range/Units 12:05 12:05 12:05 WBC 13.1 H (3.8-10.6) k/uL RBC 4.60 (3.80-5.40) m/uL Hgb 13.5 (11.4-16.0) gm/dL Hct 39.3 (34.0-46.0) % MCV 85.6 (80.0-100.0) fL MCH 29.3 (25.0-35.0) pg MCHC 34.3 (31.0-37.0) g/dL RDW 13.5 (11.5-15.5) % Plt Count 375 (150-450) k/uL Neutrophils % 60 % Lymphocytes % 30 % Monocytes % 5 % Eosinophils % 3 % Basophils % 0 % Neutrophils # 7.9 H (1.3-7.7) k/uL Lymphocytes # 3.9 (1.0-4.8) k/uL Monocytes # 0.7 (0-1.0) k/uL Eosinophils # 0.4 (0-0.7) k/uL Basophils # 0.0 (0-0.2) k/uL Sodium 139 (137-145) mmol/L Potassium 3.2 L (3.5-5.1) mmol/L Chloride 101 (98-107) mmol/L Carbon Dioxide 25 (22-30) mmol/L Anion Gap 13 mmol/L BUN 18 H (7-17) mg/dL Creatinine 1.20 H (0.52-1.04) mg/dL Est GFR (CKD-EPI)AfAm 64 (>60 ml/min/1.73 sqM) Est GFR (CKD-EPI)NonAf 56 (>60 ml/min/1.73 sqM) Glucose 108 H (74-99) mg/dL Calcium 10.1 (8.4-10.2) mg/dL Total Bilirubin 0.5 (0.2-1.3) mg/dL AST 24 (14-36) U/L ALT 28 (9-52) U/L Alkaline Phosphatase 64 (38-126) U/L Total Protein 8.2 (6.3-8.2) g/dL Albumin 4.7 (3.5-5.0) g/dL Amylase 58 (30-110) U/L Lipase 173 (23-300) U/L Urine Color Light Yellow Urine Appearance Clear (Clear) Urine pH 5.0 (5.0-8.0) Ur Specific [place] 1.010 (1.001-1.035) Urine Protein Negative (Negative) Urine Glucose (UA) Negative (Negative) Urine Ketones Negative (Negative) Urine Blood Negative (Negative) Urine Nitrite Negative (Negative) Urine Bilirubin Negative (Negative) Urine Urobilinogen <2.0 (<2.0) mg/dL Ur Leukocyte Esterase Negative (Negative) Disposition Clinical Impression: Right ovarian cyst, Diarrhea, Abdominal pain Disposition: HOME SELF-CARE Condition: Stable Instructions (If sedation given, give patient instructions): Ovarian Cyst (ED), Abdominal Pain (ED) Additional Instructions: Please return to the Emergency Department if symptoms worsen or any other concerns. Follow-up with [facility] as discussed. Prescriptions: Ondansetron Odt [Zofran Odt] 4 mg PO Q8HR PRN #10 tab PRN Reason: Nausea Is patient prescribed a controlled substance at d/c from ED?: No Referrals: Levi Dougherty MD [Primary Care Provider] - 1-2 days
[2019-01-26 12:23] LABS: Basophils % (A) 0 %; Eosinophils # (A) 0.4 k/uL (0-0.7); Eosinophils % (A) 3 %; HCT 39.3 % (34.0-46.0); HGB 13.5 gm/dL (11.4-16.0); Lymphocytes # (A) 3.9 k/uL (1.0-4.8); Lymphocytes % (A) 30 %; MCH 29.3 pg (25.0-35.0); MCHC 34.3 g/dL (31.0-37.0); MCV 85.6 fL (80.0-100.0); Mean Platelet Volume 6.3; Monocytes # (A) 0.7 k/uL (0-1.0); Monocytes % (A) 5 %; Neutrophils # (A) 7.9 k/uL (1.3-7.7); Neutrophils % (A) 60 %; Platelet Count 375 k/uL (150-450); RDW 13.5 % (11.5-15.5); WBC 13.1 k/uL (3.8-10.6)
[2019-01-26 12:28] LABS: Appearance,Urine Clear (Clear); Bilirubin,Urine Negative (Negative); Blood,Urine Negative (Negative); Color,Urine Light Yellow; Glucose,Urine (UA) Negative (Negative); Ketones,Urine Negative (Negative); Leukocyte Esterase,Urine Negative (Negative); Nitrite,Urine Negative (Negative); Protein,Urine Negative (Negative); Urobilinogen,Urine <2.0 mg/dL (<2.0)
[2019-01-26 12:54] LABS: Albumin 4.7 g/dL (3.5-5.0); Calcium 10.1 mg/dL (8.4-10.2); Potassium 3.2 mmol/L (3.5-5.1); Total Bilirubin 0.5 mg/dL (0.2-1.3); Total Protein 8.2 g/dL (6.3-8.2)
[2019-01-26 13:44] VITALS: RESP 18
--- NOTE | 2019-01-26 14:26 | CT ---
EXAMINATION TYPE: CT abdomen pelvis w con DATE OF EXAM: 01/26/2019 COMPARISON: 08/06/2018 INDICATION: Abdominal pain, nausea and diarrhea DLP: 2340.9 mGycm, Automated exposure control for dose reduction was used. CONTRAST: 100 ml mL of Isovue 300. Study performed without Oral Contrast TECHNIQUE: Axial images were obtained from above the diaphragm to the pubic rami in the axial plane a t 5 mm thick sections. Reconstructed images are reviewed on the computer in the coronal plane. FINDINGS: Limited CT sections are obtained the lung bases. The lung bases are clear. CT ABDOMEN: Liver: Normal Spleen: Normal Pancreas: Normal Adrenal glands: The adrenal glands are normal. Gallbladder: Surgically absent Kidneys: No masses are evident. No hydronephrosis is present. No cysts are present. Delayed images were obtained through the kidneys, which remain unremarkable. Aorta: Normal Inferior vena cava: Normal. CT PELVIS: Proximal jejunum has some mild thickening of the jejunal rush. No inflammatory changes adjacent. Mid jejunum appears normal and nondilated. Ileum appears unremarkable. Colon is unremarkable. Studies wi thout oral contrast limiting bowel evaluation. Appendix: Normal as visualized. Urinary bladder: Normal. Genitourinary structures: There is a 2.9 cm cyst at the right adnexa. Follow-up with ultrasound is re commended. Osseous structures: No suspicious lytic or sclerotic lesions. There appear to be fractures through th e spinous processes of L5 and L4 easily visualized on the lateral projection. Sclerotic borders are p resent suggesting these may be old. Correlate with location of patient's pain. Prior laminectomy is p resent at L4. IMPRESSIONS: 1. Jejunitis proximal jejunum. Clinical correlation recommended. 2. 2.9 cm right ovarian cyst. Follow-up with ultrasound is recommended. 3. Suspected spinous process fractures of L4 and L5
[2019-01-26 15:23] VITALS: BP 116/88; PULSE 58
[2019-01-26] MEDS ORDERED: HYDROmorphone 0.5 MG/0.5 ML SYRINGE IVP STA (15:24)
--- NOTE | 2019-01-26 15:24 | US ---
EXAMINATION TYPE: US transvaginal DATE OF EXAM: 01/26/2019 COMPARISON: NONE CLINICAL HISTORY: pain. pelvic pain, hysterectomy 16yrs ago, lt oophorectomy TECHNIQUE: TV. Transvaginal sonographic images Date of LMP: 16yrs ago EXAM MEASUREMENTS: Uterus: Surgically absent Endometrial Stripe: Surgically absent Right Ovary: 3.7 x 3.8 x 3.3 cm Left Ovary: Surgically absent 1. Uterus: Surgically absent 2. Endometrium: Surgically absent 3. Right Ovary: 2.9cm simple cyst 4. Left Ovary: Surgically absent Spectral, color and waveform doppler imaging shows good arterial and venous flow within the ovary; there is no evidence for ovarian torsion. 5. Bilateral Adnexa: wnl 6. Posterior cul-de-sac: wnl IMPRESSION: 1. Simple cyst right ovary. Follow-up is recommended.
[2019-01-26] MEDS ORDERED: ACET/COD 300 MG/30 MG STARTER PACK 6 TAB BTL PO STA (16:04)
== END 2019-01-26 16:17 | disposition home or self-care (01) ==
LOC: EC 11:00
DX: N83.201 Unspecified ovarian cyst, right side (principal); R19.7 Diarrhea, unspecified; R10.32 Left lower quadrant pain; R11.2 Nausea with vomiting, unspecified; I10 Essential (primary) hypertension; F32.9 Major depressive disorder, single episode, unspecified; F41.9 Anxiety disorder, unspecified; Z88.0 Allergy status to penicillin; Z88.1 Allergy status to other antibiotic agents; Z88.5 Allergy status to narcotic agent; Z88.6 Allergy status to analgesic agent; Z88.8 Allergy status to other drugs, medicaments and biological substances; Z79.899 Other long term (current) drug therapy; Z90.49 Acquired absence of other specified parts of digestive tract; Z90.710 Acquired absence of both cervix and uterus; Z90.721 Acquired absence of ovaries, unilateral
CPT/HCPCS: 36415; 80053; 82150; 83690; 85025; 81003; 93976; 76830; 74177; 99284; 96374; 96375 ×2; 96361 ×3; J2270; J2405; J1170; Q9967

== ENCOUNTER 2020-05-19 10:35 | Emergency (ER) | payer BC ==
[2020-05-19 10:43] VITALS: TEMP 98.5
[2020-05-19] MEDS ORDERED: ONDANSETRON 4 MG/2 ML VIAL IVP STA (11:07)
[2020-05-19] MEDS ORDERED: SODIUM CHLORIDE 0.9% 1,000 ML IV STA (11:07)
[2020-05-19] MEDS ORDERED: HYDROmorphone 0.5 MG/0.5 ML SYRINGE IVP STA ×2 (11:09→13:46)
--- NOTE | 2020-05-19 11:28 | ED ---
Abdominal Pain HPI - General Chief Complaint: Abdominal Pain Stated Complaint: abd pain Time Seen by Provider: 05/19/20 10:47 Source: patient Mode of arrival: wheelchair Limitations: no limitations - History of Present Illness Initial Comments: Patient is a 45-year-old female presenting to the emergency Department with complaints of left-sided abdominal pain that's been increasing over the past 3 days. She does have history of diverticuli and feels like this could be another flare. She's had many abdominal surgeries in the past including cholecyst ectomy, multiple hernia repairs, hysterectomy and a few laparoscopies. She also complaining of nausea, no vomiting, diarrhea. No hematochezia. She does admit to low-grade fevers in the been intermittent. She did not take any Tylenol or Motrin today. She did take some yesterday which did not help with her pain. She denies being secondary to hysterectomy. She denies any dysuria. She has no further complaints at this time. Upon arrival to the ER, her vital signs are stable. - Related Data Home Medications Medication Instructions Recorded Confirmed DULoxetine HCL [Cymbalta] 60 mg PO DAILY 01/11/14 05/19/20 SUMAtriptan SUCCINATE [Imitrex] 100 mg PO BID PRN 01/11/14 05/19/20 Zolpidem [Ambien] 10 mg PO HS 09/02/17 05/19/20 clonazePAM [KlonoPIN] 1 mg PO DAILY 09/02/17 05/19/20 Gabapentin [Neurontin] 100 mg PO DAILY 05/19/20 05/19/20 Losartan-Hctz 50-12.5 mg [Hyzaar 2 tab PO DAILY 05/19/20 05/19/20 50-12.5] buPROPion HCL [Wellbutrin XL] 150 mg PO DAILY 05/19/20 05/19/20 oxyCODONE-APAP 10-325MG [Percocet 1 tab PO BID PRN 05/19/20 05/19/20 10-325 mg] Allergies Allergy/AdvReac Type Severity Reaction Status Date / Time doxycycline Allergy Nausea & Verified 05/19/20 11:20 Vomiting hydroxyzine [From Vistaril] Allergy Rash/Hives Verified 05/19/20 11:20 oxybutynin [From Ditropan] Allergy Rapid Verified 05/19/20 11:20 Heart Rate pregabalin [From Lyrica] Allergy SWELLING Verified 05/19/20 11:20 AND HIVES tramadol HCl [From Ultram] Allergy MIGRAINE Verified 05/19/20 11:20 ketorolac tromethamine AdvReac MIGRAINE Verified 05/19/20 11:20 [From Toradol] levofloxacin [From Levaquin] AdvReac Swelling Verified 05/19/20 11:20 naproxen sodium [From Aleve] AdvReac MIGRAINES Verified 05/19/20 11:20 Penicillins AdvReac Swelling Verified 05/19/20 11:20 Review of Systems ROS Statement: Those systems with pertinent positive or pertinent negative responses have been documented in the HPI. ROS Other: All systems not noted in ROS Statement are negative. Past Medical History Past Medical History: Hypertension, Respiratory Disorder Additional Past Medical History / Comment(s): LUNG ABSCESS 2013. Migraine he adache. HX ABD HERNIAS, diverticulitis, PCOS History of Any Multi-Drug Resistant Organisms: None Reported Past Surgical History: Adenoidectomy, Back Surgery, Breast Surgery, Cholecystectomy, Hernia Repair, Hysterectomy, Orthopedic Surgery, Tonsillectomy Additional Past Surgical History / Comment(s): TYRA KNEE arthroscopic. LOW BACK SURGERY. L BREAST LUMPECTOMY, BENIGN. Colonoscopy-Colitis September 2016. hernia surgery x2 with mesh, diverticulitis Past Anesthesia/Blood Transfusion Reactions: Postoperative Nausea & Vomiting (PONV) Additional Past Anesthesia/Blood Transfusion Reaction / Comment(s): PT HAS NEVER RECIEVED BLOOD. Past Psychological History: Anxiety, Depression Smoking Status: Never smoker Past Alcohol Use History: None Reported Past Drug Use History: None Reported - Past Family History Mother Family Medical History: Cancer Additional Family Medical History / Comment(s): breast ca Father Family Medical History: AFIB General Exam - General Exam Comments Initial Comments: GENERAL: Patient is well-developed and well-nourished. Patient is nontoxic and in mild distress. HEAD: Atraumatic, normocephalic. EYES: Pupils equal round and reactive to light, extraocular movements intact, sclera anicteric, conjunctiva are normal. Eyelids were unremarkable. ENT: TMs normal, nares patent, oropharynx clear without exudates. Moist mucous membranes. NECK: Normal range of motion, supple without lymphadenopathy or JVD. LUNGS: Unlabored respirations. Breath sounds clear to auscultation bilaterally and equal. No wheezes rales or rhonchi. HEART: Regular rate and rhythm without murmurs, rubs or gallops. ABDOMEN: Tender to palpation of the left lower quadrant and left-sided abdomen. Soft, normoactive bowel sounds. No guarding, no rebound. No masses appreciated. : Deferred MUSCULOSKELETAL: Normal extremities with adequate strength and normal range of motion, no pitting or edema. No clubbing or cyanosis. NEUROLOGICAL: Patient is alert and oriented x 3. Motor and sensory are also intact. Cranial nerves II through XII grossly intact. Symmetrical smile. Normal speech, normal gait. PSYCH: Normal mood, normal affect. SKIN: Warm, Dry, normal turgor, no rashes or lesions noted. Limitations: no limitations Course Vital Signs 05/19/20 05/19/20 10:40 14:22 Temperature 98.5 F 98.5 F Pulse Rate 60 58 L Respiratory 18 19 Rate Blood Pressure 103/73 90/58 O2 Sat by Pulse 100 97 Oximetry Medical Decision Making - Medical Decision Making She is a 45-year-old female here for left lower quadrant pains been increasing the past 3 days. She does have history of diverticuli. She's had multiple abdominal surgeries in the past. Her vital signs are stable upon arrival. Labs show a normal white count, normal hemoglobin, lactic acid is normal. Lipase is also normal. Urine shows no evidence of infection. I did do a CT of the abdomen which showed no evidence for diverticulitis, no other acute abnormalities. There was May note of a right ovarian cyst, she is aware of this. She was given fluids, Zofran and pain medicine. She has been stable in the ER, she does report improvement in her symptoms. I discussed with patient this is most likely viral in nature or gas pains. Recommended following up with her regular physician. She is stable for discharge. She is in agreement with this plan of care. Return parameters were discussed with the patient she verbalized understanding. Case discussed Dr. Dumont. - Lab Data Result diagrams: 05/19/20 11:17 05/19/20 11:17 Lab Results 05/19/20 05/19/20 05/19/20 Range/Units 11:17 11:17 11:17 WBC 6.8 (3.8-10.6) k/uL RBC 4.29 (3.80-5.40) m/uL Hgb 12.6 (11.4-16.0) gm/dL Hct 38.2 (34.0-46.0) % MCV 88.9 (80.0-100.0) fL MCH 29.4 (25.0-35.0) pg MCHC 33.1 (31.0-37.0) g/dL RDW 13.1 (11.5-15.5) % Plt Count 325 (150-450) k/uL MPV 7.5 Neutrophils % 52 % Lymphocytes % 41 % Monocytes % 4 % Eosinophils % 2 % Basophils % 1 % Neutrophils # 3.5 (1.3-7.7) k/uL Lymphocytes # 2.8 (1.0-4.8) k/uL Monocytes # 0.2 (0-1.0) k/uL Eosinophils # 0.1 (0-0.7) k/uL Basophils # 0.0 (0-0.2) k/uL PT 10.0 (9.0-12.0) sec INR 0.9 (<1.2) APTT 22.4 (22.0-30.0) sec Sodium 139 (137-145) mmol/L Potassium 4.0 (3.5-5.1) mmol/L Chloride 101 (98-107) mmol/L Carbon Dioxide 29 (22-30) mmol/L Anion Gap 9 mmol/L BUN 19 H (7-17) mg/dL Creatinine 0.81 (0.52-1.04) mg/dL Est GFR (CKD-EPI)AfAm >90 (>60 ml/min/1.73 sqM) Est GFR (CKD-EPI)NonAf 89 (>60 ml/min/1.73 sqM) Glucose 102 H (74-99) mg/dL Plasma Lactic Acid [place] (0.7-2.0) mmol/L Calcium 9.3 (8.4-10.2) mg/dL Total Bilirubin 0.4 (0.2-1.3) mg/dL AST 23 (14-36) U/L ALT 25 (4-34) U/L Alkaline Phosphatase 53 (38-126) U/L Total Protein 7.0 (6.3-8.2) g/dL Albumin 4.0 (3.5-5.0) g/dL Amylase 68 (30-110) U/L Lipase 73 (23-300) U/L Urine Color Urine Appearance (Clear) Urine pH (5.0-8.0) Ur Specific [place] (1.001-1.035) Urine Protein (Negative) Urine Glucose (UA) (Negative) Urine Ketones (Negative) Urine Blood (Negative) Urine Nitrite (Negative) Urine Bilirubin (Negative) Urine Urobilinogen (<2.0) mg/dL Ur Leukocyte Esterase (Negative) 05/19/20 05/19/20 Range/Units 11:17 13:15 WBC (3.8-10.6) k/uL RBC (3.80-5.40) m/uL Hgb (11.4-16.0) gm/dL Hct (34.0-46.0) % MCV (80.0-100.0) fL MCH (25.0-35.0) pg MCHC (31.0-37.0) g/dL RDW (11.5-15.5) % Plt Count (150-450) k/uL MPV Neutrophils % % Lymphocytes % % Monocytes % % Eosinophils % % Basophils % % Neutrophils # (1.3-7.7) k/uL Lymphocytes # (1.0-4.8) k/uL Monocytes # (0-1.0) k/uL Eosinophils # (0-0.7) k/uL Basophils # (0-0.2) k/uL PT (9.0-12.0) sec INR (<1.2) APTT (22.0-30.0) sec Sodium (137-145) mmol/L Potassium (3.5-5.1) mmol/L Chloride (98-107) mmol/L Carbon Dioxide (22-30) mmol/L Anion Gap mmol/L BUN (7-17) mg/dL Creatinine (0.52-1.04) mg/dL Est GFR (CKD-EPI)AfAm (>60 ml/min/1.73 sqM) Est GFR (CKD-EPI)NonAf (>60 ml/min/1.73 sqM) Glucose (74-99) mg/dL Plasma Lactic Acid [place] 1.5 (0.7-2.0) mmol/L Calcium (8.4-10.2) mg/dL Total Bilirubin (0.2-1.3) mg/dL AST (14-36) U/L ALT (4-34) U/L Alkaline Phosphatase (38-126) U/L Total Protein (6.3-8.2) g/dL Albumin (3.5-5.0) g/dL Amylase (30-110) U/L Lipase (23-300) U/L Urine Color Colorless Urine Appearance Clear (Clear) Urine pH 7.5 (5.0-8.0) Ur Specific [place] 1.050 H (1.001-1.035) Urine Protein Negative (Negative) Urine Glucose (UA) Negative (Negative) Urine Ketones Negative (Negative) Urine Blood Negative (Negative) Urine Nitrite Negative (Negative) Urine Bilirubin Negative (Negative) Urine Urobilinogen <2.0 (<2.0) mg/dL Ur Leukocyte Esterase Negative (Negative) Disposition Clinical Impression: Abdominal pain Disposition: HOME SELF-CARE Condition: Stable Instructions (If sedation given, give patient instructions): Abdominal Pain (ED) Additional Instructions: Please return to the Emergency Department if symptoms worsen or any other concerns. Continue with Tylenol or Motrin for any discomfort. Please follow-up with your regular doctor. Is patient prescribed a controlled substance at d/c from ED?: No Referrals: Levi Dougherty MD [Primary Care Provider] - 1-2 days
[2020-05-19 11:37] LABS: Basophils % (A) 1 %; Eosinophils # (A) 0.1 k/uL (0-0.7); Eosinophils % (A) 2 %; HCT 38.2 % (34.0-46.0); HGB 12.6 gm/dL (11.4-16.0); Lymphocytes # (A) 2.8 k/uL (1.0-4.8); Lymphocytes % (A) 41 %; MCH 29.4 pg (25.0-35.0); MCHC 33.1 g/dL (31.0-37.0); MCV 88.9 fL (80.0-100.0); Mean Platelet Volume 7.5; Monocytes # (A) 0.2 k/uL (0-1.0); Monocytes % (A) 4 %; Neutrophils # (A) 3.5 k/uL (1.3-7.7); Neutrophils % (A) 52 %; Platelet Count 325 k/uL (150-450); RBC 4.29 m/uL (3.80-5.40); RDW 13.1 % (11.5-15.5); WBC 6.8 k/uL (3.8-10.6)
[2020-05-19 11:51] LABS: INR 0.9 (<1.2); Partial Thromboplastin Time 22.4 sec (22.0-30.0)
[2020-05-19 11:53] LABS: ALT 25 U/L (4-34); AST 23 U/L (14-36); African American GFR (CKD) >90 (>60 ml/min/1.73 sqM); Alkaline Phosphatase 53 U/L (38-126); Amylase 68 U/L (30-110); Anion Gap 9 mmol/L; Blood Urea Nitrogen 19 mg/dL (7-17); Calcium 9.3 mg/dL (8.4-10.2); Carbon Dioxide 29 mmol/L (22-30); Chloride 101 mmol/L (98-107); Glucose 102 mg/dL (74-99); Lipase 73 U/L (23-300); Non-African American GFR(CKD) 89 (>60 ml/min/1.73 sqM); Sodium 139 mmol/L (137-145); Total Bilirubin 0.4 mg/dL (0.2-1.3)
--- NOTE | 2020-05-19 12:12 | CT ---
EXAMINATION TYPE: CT abdomen pelvis w con DATE OF EXAM: 05/19/2020 COMPARISON: 06/16/2019 HISTORY: LLQ pain CT DLP: 1588.6 mGycm CONTRAST: CT scan of the abdomen and pelvis is performed without Oral Contrast and with IV Contrast, patient in jected with 100 mL of Isovue 300. FINDINGS: LUNG BASES-: No visible nodule. No infiltrate. LIVER/GB: The gallbladder surgically absent. No space occupying hepatic lesion. Biliary tree is of normal caliber. PANCREAS: No inflammation. No distinct mass. SPLEEN: No splenic enlargement. No lesion seen. ADRENALS: No nodule. No thickening. KIDNEYS/BLADDER: No hydronephrosis. No nephrolithiasis. No distinct renal mass. Urinary bladder g rossly unremarkable. BOWEL: Normal appendix. Normal bowel caliber. No inflammation. GENITAL ORGANS: Right ovarian cystic lesion measuring 3.2 cm enlarged from prior study. Correlate wi th pelvic ultrasound. The uterus is surgically absent. No left ovarian masses seen. LYMPH NODES: No greater than 1cm abdominal or pelvic lymph nodes are appreciated. AORTA: No significant abnormality. OSSEOUS STRUCTURES: No significant abnormality is seen. OTHER: No significant additional abnormality is seen. IMPRESSION: 1. Right ovarian cystic lesion measuring 3.2 cm enlarged from prior study. Correlate with pelvic ultr asound.
[2020-05-19 13:46] LABS: Appearance,Urine Clear (Clear); Bilirubin,Urine Negative (Negative); Blood,Urine Negative (Negative); Color,Urine Colorless; Glucose,Urine (UA) Negative (Negative); Ketones,Urine Negative (Negative); Leukocyte Esterase,Urine Negative (Negative); Nitrite,Urine Negative (Negative); PH, Urine 7.5 (5.0-8.0); Protein,Urine Negative (Negative); Urobilinogen,Urine <2.0 mg/dL (<2.0)
[2020-05-19 14:22] VITALS: BP 90/58; PULSE 58; RESP 19
== END 2020-05-19 14:26 | disposition home or self-care (01) ==
LOC: EC 10:35
DX: R10.9 Unspecified abdominal pain (principal); R50.9 Fever, unspecified; R11.0 Nausea; F41.9 Anxiety disorder, unspecified; F32.9 Major depressive disorder, single episode, unspecified; I10 Essential (primary) hypertension; G43.909 Migraine, unspecified, not intractable, without status migrainosus; Z79.899 Other long term (current) drug therapy; Z88.1 Allergy status to other antibiotic agents; Z88.6 Allergy status to analgesic agent; Z88.0 Allergy status to penicillin; Z88.8 Allergy status to other drugs, medicaments and biological substances; Z90.710 Acquired absence of both cervix and uterus; Z90.49 Acquired absence of other specified parts of digestive tract
CPT/HCPCS: 36415; 80053; 82150; 83605; 83690; 85025; 85610; 85730; 81003; 74177; 99284; 96374; 96375; 96376; 96361 ×3; J2405; J1170; Q9967

== ENCOUNTER 2020-12-12 13:34 | Observation (INO) | payer BC ==
[2020-12-12] MEDS ORDERED: SODIUM CHLORIDE 0.9% 1,000 ML IV STA (15:06)
[2020-12-12] MEDS ORDERED: MORPHINE SULFATE 4 MG/ML SYRINGE IV STA (15:06)
[2020-12-12] MEDS ORDERED: ONDANSETRON 4 MG/2 ML VIAL IVP STA (15:06)
--- NOTE | 2020-12-12 15:28 | ED ---
Abdominal Pain HPI - General Chief Complaint: Abdominal Pain Stated Complaint: abd pain Time Seen by Provider: 12/12/20 15:02 Source: patient Mode of arrival: ambulatory Limitations: no limitations - History of Present Illness Initial Comments: 45 year-old female patient presents to the emergency department for evaluation of lower abdominal pain and nausea. States the pain is radiating through to the back. Patient has history of diverticulosis, right ovary pain, and multiple abdominal surgeries including hysterectomy, cholecystectomy, and seroma dr parker. She denies any fever or chills. States she has been constipated. Denies any hematochezia, melena, hematemesis. Denies any hematuria, dysuria, urinary frequency, urinary urgency. Patient denies any recent rash, cough, shortness of breath, chest pain, numbness, tingling, dizziness, weakness, headache, visual changes, or any other complaints. - Related Data Home Medications Medication Instructions Recorded Confirmed DULoxetine HCL [Cymbalta] 60 mg PO DAILY 01/11/14 05/19/20 SUMAtriptan SUCCINATE [Imitrex] 100 mg PO BID PRN 01/11/14 05/19/20 Zolpidem [Ambien] 10 mg PO HS 09/02/17 05/19/20 clonazePAM [KlonoPIN] 1 mg PO DAILY 09/02/17 05/19/20 Gabapentin [Neurontin] 100 mg PO DAILY 05/19/20 05/19/20 Losartan-Hctz 50-12.5 mg [Hyzaar 2 tab PO DAILY 05/19/20 05/19/20 50-12.5] buPROPion HCL [Wellbutrin XL] 150 mg PO DAILY 05/19/20 05/19/20 oxyCODONE-APAP 10-325MG [Percocet 1 tab PO BID PRN 05/19/20 05/19/20 10-325 mg] Allergies Allergy/AdvReac Type Severity Reaction Status Date / Time doxycycline Allergy Nausea & Verified 12/12/20 14:33 Vomiting hydroxyzine [From Vistaril] Allergy Rash/Hives Verified 12/12/20 14:33 oxybutynin [From Ditropan] Allergy Rapid Verified 12/12/20 14:33 Heart Rate pregabalin [From Lyrica] Allergy SWELLING Verified 12/12/20 14:33 AND HIVES tramadol HCl [From Ultram] Allergy MIGRAINE Verified 12/12/20 14:33 ketorolac tromethamine AdvReac MIGRAINE Verified 12/12/20 14:33 [From Toradol] levofloxacin [From Levaquin] AdvReac Swelling Verified 12/12/20 14:33 naproxen sodium [From Aleve] AdvReac MIGRAINES Verified 12/12/20 14:33 Penicillins AdvReac Swelling Verified 12/12/20 14:33 Review of Systems ROS Statement: Those systems with pertinent positive or pertinent negative responses have been documented in the HPI. ROS Other: All systems not noted in ROS Statement are negative. Past Medical History Past Medical History: Hypertension, Respiratory Disorder Additional Past Medical History / Comment(s): LUNG ABSCESS 2013. Migraine headache. HX ABD HERNIAS, diverticulitis, PCOS History of Any Multi-Drug Resistant Organisms: None Reported Past Surgical History: Adenoidectomy, Back Surgery, Breast Surgery, Cholecystectomy, Hernia Repair, Hysterectomy, Orthopedic Surgery, Tonsillectomy Additional Past Surgical History / Comment(s): TYRA KNEE arthroscopic. LOW BACK SURGERY. L BREAST LUMPECTOMY, BENIGN. Colonoscopy-Colitis September 2016. hernia surgery x2 with mesh, diverticulitis Past Anesthesia/Blood Transfusion Reactions: Postoperative Nausea & Vomiting (PONV) Additional Past Anesthesia/Blood Transfusion Reaction / Comment(s): PT HAS NEVER RECIEVED BLOOD. Past Psychological History: Anxiety, Depression Smoking Status: Never smoker Past Alcohol Use History: None Reported Past Drug Use History: None Reported - Past Family History Mother Family Medical History: Cancer Additional Family Medical History / Comment(s): breast ca Father Family Medical History: AFIB General Exam Limitations: no limitations General appearance: alert, in no apparent distress, other (Physical well- developed, well-nourished adult female patient in mild distress related to pain. Vital signs upon presentation are temperature 98.1F, pulse 76, respirations 20, blood pressure 112/73, pulse ox 98% on room air.) ENT exam: Present: normal exam, normal oropharynx, mucous membranes moist Respiratory exam: Present: normal lung sounds bilaterally. Absent: respiratory distress, wheezes, rales, rhonchi, stridor Cardiovascular Exam: Present: regular rate, normal rhythm, normal heart sounds. Absent: systolic murmur, diastolic murmur, rubs, gallop, clicks GI/Abdominal exam: Present: soft, tenderness (Right upper quadrant, right lower quadrant, suprapubic), normal bowel sounds. Absent: distended, guarding, rebound, rigid Neurological exam: Present: alert, oriented X3, CN II-XII intact Psychiatric exam: Present: normal affect, normal mood Skin exam: Present: warm, dry, intact, normal color. Absent: rash Course Vital Signs 12/12/20 12/12/20 12/12/20 14:30 15:50 18:00 Temperature 98.1 F Pulse Rate 76 78 53 L Respiratory 20 18 20 Rate Blood Pressure 112/73 111/65 105/73 O2 Sat by Pulse 98 100 100 Oximetry Medical Decision Making - Medical Decision Making 45-year-old female patient presents to the emergency department today for evaluation of lower abdominal pain. Did endorse some constipation. Physical examination did reveal lower abdominal tenderness especially over the suprapubic, right lower quadrant, right upper quadrant. Labs reviewed and are unremarkable. CT abdomen and pelvis was obtained and did show evidence for rectal fecal impaction measuring 9 cm. There is also distention of the large bowel consistent with partial mechanical obstruction. Instructions are most likely related to the fecal impaction. She was given a milk and molasses enema did have a large bowel movement. Did report improvement of symptoms. Case was discussed with on-call surgery Dr. Og who also felt that the obstruction was most likely relieved by the bowel movement. He did however offer to admit patient for observation. I discussed option of observation admission with the patient, she would feel more comfortable staying in the hospital. She did agree to see Dr. Og from surgery. Case discussed with my attending Dr. Dumont. - Lab Data Result diagrams: 12/12/20 15:32 12/12/20 15:32 Lab Results 12/12/20 12/12/20 12/12/20 Range/Units 15:32 15:32 15:32 WBC 8.9 (3.8-10.6) k/uL RBC 4.22 (3.80-5.40) m/uL Hgb 13.0 (11.4-16.0) gm/dL Hct 39.0 (34.0-46.0) % MCV 92.4 (80.0-100.0) fL MCH 30.7 (25.0-35.0) pg MCHC 33.3 (31.0-37.0) g/dL RDW 12.8 (11.5-15.5) % Plt Count 288 (150-450) k/uL MPV 8.0 Neutrophils % 68 % Lymphocytes % 26 % Monocytes % 3 % Eosinophils % 1 % Basophils % 0 % Neutrophils # 6.1 (1.3-7.7) k/uL Lymphocytes # 2.3 (1.0-4.8) k/uL Monocytes # 0.3 (0-1.0) k/uL Eosinophils # 0.1 (0-0.7) k/uL Basophils # 0.0 (0-0.2) k/uL Sodium 137 (137-145) mmol/L Potassium 4.0 (3.5-5.1) mmol/L Chloride 104 (98-107) mmol/L Carbon Dioxide 25 (22-30) mmol/L Anion Gap 8 mmol/L BUN 19 H (7-17) mg/dL Creatinine 0.80 (0.52-1.04) mg/dL Est GFR (CKD-EPI)AfAm >90 (>60 ml/min/1.73 sqM) Est GFR (CKD-EPI)NonAf 90 (>60 ml/min/1.73 sqM) Glucose 101 H (74-99) mg/dL Plasma Lactic Acid Kaleb (0.7-2.0) mmol/L Calcium 9.6 (8.4-10.2) mg/dL Total Bilirubin 0.4 (0.2-1.3) mg/dL AST 31 (14-36) U/L ALT 38 H (4-34) U/L Alkaline Phosphatase 50 (38-126) U/L Total Protein 7.0 (6.3-8.2) g/dL Albumin 4.3 (3.5-5.0) g/dL Lipase 55 (23-300) U/L Urine Color Light Yellow Urine Appearance Clear (Clear) Urine pH 6.0 (5.0-8.0) Ur Specific [place] 1.009 (1.001-1.035) Urine Protein Negative (Negative) Urine Glucose (UA) Negative (Negative) Urine Ketones Negative (Negative) Urine Blood Trace (Negative) Urine Nitrite Negative (Negative) Urine Bilirubin Negative (Negative) Urine Urobilinogen 0.0 (<2.0) mg/dL Ur Leukocyte Esterase Negative (Negative) Urine RBC 2 (0-5) /hpf Urine WBC 1 (0-5) /hpf Ur Squamous Epith Cells 1 (0-4) /hpf 12/12/20 Range/Units 15:32 WBC (3.8-10.6) k/uL RBC (3.80-5.40) m/uL Hgb (11.4-16.0) gm/dL Hct (34.0-46.0) % MCV (80.0-100.0) fL MCH (25.0-35.0) pg MCHC (31.0-37.0) g/dL RDW (11.5-15.5) % Plt Count (150-450) k/uL MPV Neutrophils % % Lymphocytes % % Monocytes % % Eosinophils % % Basophils % % Neutrophils # (1.3-7.7) k/uL Lymphocytes # (1.0-4.8) k/uL Monocytes # (0-1.0) k/uL Eosinophils # (0-0.7) k/uL Basophils # (0-0.2) k/uL Sodium (137-145) mmol/L Potassium (3.5-5.1) mmol/L Chloride (98-107) mmol/L Carbon Dioxide (22-30) mmol/L Anion Gap mmol/L BUN (7-17) mg/dL Creatinine (0.52-1.04) mg/dL Est GFR (CKD-EPI)AfAm (>60 ml/min/1.73 sqM) Est GFR (CKD-EPI)NonAf (>60 ml/min/1.73 sqM) Glucose (74-99) mg/dL Plasma Lactic Acid Kaleb 1.0 (0.7-2.0) mmol/L Calcium (8.4-10.2) mg/dL Total Bilirubin (0.2-1.3) mg/dL AST (14-36) U/L ALT (4-34) U/L Alkaline Phosphatase (38-126) U/L Total Protein (6.3-8.2) g/dL Albumin (3.5-5.0) g/dL Lipase (23-300) U/L Urine Color Urine Appearance (Clear) Urine pH (5.0-8.0) Ur Specific [place] (1.001-1.035) Urine Protein (Negative) Urine Glucose (UA) (Negative) Urine Ketones (Negative) Urine Blood (Negative) Urine Nitrite (Negative) Urine Bilirubin (Negative) Urine Urobilinogen (<2.0) mg/dL Ur Leukocyte Esterase (Negative) Urine RBC (0-5) /hpf Urine WBC (0-5) /hpf Ur Squamous Epith Cells (0-4) /hpf - Radiology Data Radiology results: report reviewed, image reviewed CT abdomen and pelvis is obtained with contrast. Report was reviewed in its entirety. Impression by Dr. Delvalle shows rectal fecal impaction. This appears new compared to old exam. There is presacral edema also new compared to old exam. This could relate to some rectal inflammatory changes. Distended large bowel suggestive of partial mechanical obstruction. Disposition Clinical Impression: Partial bowel obstruction, Fecal impaction in rectum Disposition: ADMITTED IP TO THIS [facility] Condition: Serious Decision to Admit Reason: Admit from EC Decision Date: 12/12/20 Decision Time: 20:00
[2020-12-12 15:55] LABS: Basophils % (A) 0 %; Eosinophils # (A) 0.1 k/uL (0-0.7); Eosinophils % (A) 1 %; Lymphocytes # (A) 2.3 k/uL (1.0-4.8); Lymphocytes % (A) 26 %; MCH 30.7 pg (25.0-35.0); MCHC 33.3 g/dL (31.0-37.0); MCV 92.4 fL (80.0-100.0); Monocytes # (A) 0.3 k/uL (0-1.0); Monocytes % (A) 3 %; Neutrophils # (A) 6.1 k/uL (1.3-7.7); Neutrophils % (A) 68 %; Platelet Count 288 k/uL (150-450); RBC 4.22 m/uL (3.80-5.40); RDW 12.8 % (11.5-15.5); WBC 8.9 k/uL (3.8-10.6)
[2020-12-12 16:03] LABS: African American GFR (CKD) >90 (>60 ml/min/1.73 sqM); Anion Gap 8 mmol/L; Blood Urea Nitrogen 19 mg/dL (7-17); Calcium 9.6 mg/dL (8.4-10.2); Carbon Dioxide 25 mmol/L (22-30); Chloride 104 mmol/L (98-107); Glucose 101 mg/dL (74-99); Non-African American GFR(CKD) 90 (>60 ml/min/1.73 sqM); Sodium 137 mmol/L (137-145)
[2020-12-12 16:04] LABS: ALT 38 U/L (4-34); AST 31 U/L (14-36); Albumin 4.3 g/dL (3.5-5.0); Alkaline Phosphatase 50 U/L (38-126); Lipase 55 U/L (23-300); Total Bilirubin 0.4 mg/dL (0.2-1.3)
[2020-12-12 16:27] LABS: Appearance,Urine Clear (Clear); Bilirubin,Urine Negative (Negative); Blood,Urine Trace (Negative); Color,Urine Light Yellow; Glucose,Urine (UA) Negative (Negative); Ketones,Urine Negative (Negative); Protein,Urine Negative (Negative); Specific Gravity,Urine 1.009 (1.001-1.035)
[2020-12-12 16:28] LABS: Leukocyte Esterase,Urine Negative (Negative); Nitrite,Urine Negative (Negative); RBC,Urine 2 /hpf (0-5); Squamous Epithelial Cell,Urine 1 /hpf (0-4); WBC,Urine 1 /hpf (0-5)
--- NOTE | 2020-12-12 16:50 | CT ---
EXAMINATION TYPE: CT abdomen pelvis w con DATE OF EXAM: 12/12/2020 COMPARISON: 05/19/2020 HISTORY: Lower abdominal pain and nausea x2 days. CT DLP: 1441 mGycm Automated exposure control for dose reduction was used. CONTRAST: Performed with IV Contrast, patient injected with 100ml mL of Isovue 300. Images obtained from the diaphragm to the floor the pelvis with IV contrast. Lung bases are clear of infiltrate. There is no pleural effusion. Heart size is normal. There is no p ericardial effusion. Stomach is intact. There are clips from cholecystectomy. Liver spleen pancreas a ppear intact. Intrahepatic bile ducts are not dilated. Common bile duct measures 12 mm. There is no adrenal mass. Kidneys show satisfactory contrast opacification. There is no hydronephrosi s. Delayed images show normal renal excretion. There is no retroperitoneal adenopathy. Bladder disten ds smoothly. There is no inguinal hernia. There is hysterectomy. There is retained fecal material in the rectum. Rectum measures 9 cm. There is some mild presacral edema. There is no free fluid in the pelvis. There is no mesenteric edema. There is no ascites or free air. There is mild distended fluid-filled large bowel in the right abdomen. There is 2.8 cm cystic fluid c ollection in the pelvis on the right side consistent with ovarian cyst and unchanged. There is a mild degenerative first-degree L4-5 spondylolisthesis. There is also minimal subluxation a t L3-4. There is no spondylolysis. There is no lumbar compression fracture. Bony pelvis is intact. Th e hip joints are intact. There is no evidence of a fracture. IMPRESSION: Rectal fecal impaction. This appears new compared to old exam. There is presacral edema also new comp ared to old exam. This could relate to some rectal inflammatory changes. Distended large bowel sugges tive of a partial mechanical obstruction.
[2020-12-12] MEDS ORDERED: HYDROmorphone 1 MG/ML 1 ML SYRINGE IVP STA (17:40)
[2020-12-12] MEDS ORDERED: NALOXONE 0.4 MG/ML 1 ML VIAL IV PRN (19:58)
[2020-12-12] MEDS ORDERED: SUMAtriptan succinate 50 MG TAB PO PRN (22:12)
[2020-12-12] MEDS ORDERED: oxyCODONE-APAP 10-325MG 1 EACH TAB PO PRN (22:12)
[2020-12-12] MEDS: LOSARTAN-HCTZ 50-12.5 MG 1 EACH TAB PO SCH (22:32)
[2020-12-12] MEDS: HYDROmorphone 1 MG/ML 1 ML SYRINGE IVP PRN (22:36)
[2020-12-12] MEDS: SODIUM CHLORIDE 0.9% 1,000 ML IV SCH (22:38)
[2020-12-13] MEDS: clonazePAM 1 MG TAB PO SCH ×2 (00:07→21:36)
[2020-12-13] MEDS: ZOLPIDEM 5 MG TAB PO SCH ×2 (00:07→22:19)
[2020-12-13] MEDS: HYDROmorphone 1 MG/ML 1 ML SYRINGE IVP PRN ×7 (02:18→21:35)
[2020-12-13] MEDS: GABAPENTIN 100 MG CAP PO SCH ×2 (08:23→21:37)
[2020-12-13] MEDS: SODIUM CHLORIDE 0.9% 1,000 ML IV SCH (08:28)
--- NOTE | 2020-12-13 11:45 | P.GSHP ---
History of Present Illness H&P Date: 12/13/20 Chief Complaint: Fecal impaction 45-year-old female comes in the hospital yesterday complaining of lower abdominal pain and nausea. Pain radiates to the back. Patient has history of significant back pain and back issues. She also has history of diverticulosis. The patient says she feels like she has been constipated. She takes chronic narcotics. Normally she does not get constipated and if anything has loose stools. CAT scan was performed. CAT scan shows stool present in the rectal vault with mild rectal wall edema and perirectal inflammatory changes. She has not had good success with enemas thus far. - Review of Systems Comment: The patient denies any acute changes in vision or hearing, no dysphagia or odynophagia, no chest pain or shortness of breath, no dysuria or hematuria, no headache, no runny nose, no rectal bleeding or melena, no unexplained weight loss Past Medical History Past Medical History: Hypertension, Respiratory Disorder Additional Past Medical History / Comment(s): LUNG ABSCESS 2013. Migraine headache. HX ABD HERNIAS, diverticulitis, PCOS History of Any Multi-Drug Resistant Organisms: None Reported Past Surgical History: Adenoidectomy, Back Surgery, Breast Surgery, Chol ecystectomy, Hernia Repair, Hysterectomy, Orthopedic Surgery, Tonsillectomy Additional Past Surgical History / Comment(s): TYRA KNEE arthroscopic. LOW BACK SURGERY. L BREAST LUMPECTOMY, BENIGN. Colonoscopy-Colitis September 2016. hernia surgery x2 with mesh, diverticulitis Past Anesthesia/Blood Transfusion Reactions: Postoperative Nausea & Vomiting ( PONV) Additional Past Anesthesia/Blood Transfusion Reaction / Comment(s): PT HAS NEVER RECIEVED BLOOD. Past Psychological History: Anxiety, Depression Smoking Status: Never smoker Past Alcohol Use History: None Reported Past Drug Use History: None Reported - Past Family History Mother Family Medical History: Cancer Additional Family Medical History / Comment(s): breast ca Father Family Medical History: AFIB Medications and Allergies Home Medications Medication Instructions Recorded Confirmed Type DULoxetine HCL [Cymbalta] 60 mg PO DAILY 01/11/14 12/12/20 History SUMAtriptan SUCCINATE [Imitrex] 100 mg PO BID PRN 01/11/14 12/12/20 History Zolpidem [Ambien] 10 mg PO HS 09/02/17 12/12/20 History clonazePAM [KlonoPIN] 1 mg PO HS 09/02/17 12/12/20 History Gabapentin [Neurontin] 100 mg PO BID 05/19/20 12/12/20 History Losartan-Hctz 50-12.5 mg [Hyzaar 1 tab PO HS 05/19/20 12/12/20 History 50-12.5] oxyCODONE-APAP 10-325MG [Percocet 1 tab PO BID PRN 05/19/20 12/12/20 History 10-325 mg] Ibuprofen [Motrin Ib] 400 mg PO Q4-6H PRN 12/12/20 12/12/20 History Allergies Allergy/AdvReac Type Severity Reaction Status Date / Time doxycycline Allergy Nausea & Verified 12/12/20 14:33 Vomiting hydroxyzine [From Vistaril] Allergy Rash/Hives Verified 12/12/20 14:33 oxybutynin [From Ditropan] Allergy Rapid Verified 12/12/20 14:33 Heart Rate pregabalin [From Lyrica] Allergy SWELLING Verified 12/12/20 14:33 AND HIVES tramadol HCl [From Ultram] Allergy MIGRAINE Verified 12/12/20 14:33 ketorolac tromethamine AdvReac MIGRAINE Verified 12/12/20 14:33 [From Toradol] levofloxacin [From Levaquin] AdvReac Swelling Verified 12/12/20 14:33 naproxen sodium [From Aleve] AdvReac MIGRAINES Verified 12/12/20 14:33 Penicillins AdvReac Swelling Verified 12/12/20 14:33 Surgical - Exam Vital Signs Temp Pulse Resp BP Pulse Ox 98.1 F 76 20 112/73 98 12/12/20 14:30 12/12/20 14:30 12/12/20 14:30 12/12/20 14:30 12/12/20 14:30 Physical exam: General: Well-developed, well-nourished HEENT: Normocephalic, sclerae nonicteric Abdomen: Mild lower abdominal tenderness, nondistended Extremities: No edema Neuro: Alert and oriented Rectal: Firm stool present within the rectal vault, small external hemorrhoids without inflammatory change, patient not tolerating disimpaction Results - Labs 12/12/20 15:32 12/12/20 15:32 Abnormal Lab Results - Last 24 Hours (Table) 12/12/20 Range/Units 15:32 BUN 19 H (7-17) mg/dL Glucose 101 H (74-99) mg/dL ALT 38 H (4-34) U/L Diabetes panel 12/12/20 Range/Units 15:32 Sodium 137 (137-145) mmol/L Potassium 4.0 (3.5-5.1) mmol/L Chloride 104 (98-107) mmol/L Carbon Dioxide 25 (22-30) mmol/L BUN 19 H (7-17) mg/dL Creatinine 0.80 (0.52-1.04) mg/dL Glucose 101 H (74-99) mg/dL Calcium 9.6 (8.4-10.2) mg/dL AST 31 (14-36) U/L ALT 38 H (4-34) U/L Alkaline Phosphatase 50 (38-126) U/L Total Protein 7.0 (6.3-8.2) g/dL Albumin 4.3 (3.5-5.0) g/dL Calcium panel 12/12/20 Range/Units 15:32 Calcium 9.6 (8.4-10.2) mg/dL Albumin 4.3 (3.5-5.0) g/dL Pituitary panel 12/12/20 Range/Units 15:32 Sodium 137 (137-145) mmol/L Potassium 4.0 (3.5-5.1) mmol/L Chloride 104 (98-107) mmol/L Carbon Dioxide 25 (22-30) mmol/L BUN 19 H (7-17) mg/dL Creatinine 0.80 (0.52-1.04) mg/dL Glucose 101 H (74-99) mg/dL Calcium 9.6 (8.4-10.2) mg/dL Adrenal panel 12/12/20 Range/Units 15:32 Sodium 137 (137-145) mmol/L Potassium 4.0 (3.5-5.1) mmol/L Chloride 104 (98-107) mmol/L Carbon Dioxide 25 (22-30) mmol/L BUN 19 H (7-17) mg/dL Creatinine 0.80 (0.52-1.04) mg/dL Glucose 101 H (74-99) mg/dL Calcium 9.6 (8.4-10.2) mg/dL Total Bilirubin 0.4 (0.2-1.3) mg/dL AST 31 (14-36) U/L ALT 38 H (4-34) U/L Alkaline Phosphatase 50 (38-126) U/L Total Protein 7.0 (6.3-8.2) g/dL Albumin 4.3 (3.5-5.0) g/dL Assessment and Plan (1) Fecal impaction in rectum Narrative/Plan: Clinical scenario discussed with patient. She will see if she has any success going to the bathroom today. If not we'll proceed with flexible sigmoidoscopy and disimpaction under anesthesia and endoscopy tomorrow. Continue stool softeners. Current Visit: Yes Status: Acute Code(s): K56.41 - FECAL IMPACTION SNOMED Code(s): 92189762
[2020-12-13] MEDS: LOSARTAN-HCTZ 50-12.5 MG 1 EACH TAB PO SCH (21:36)
[2020-12-13] MEDS: DOCUSATE 100 MG CAP PO SCH (21:37)
[2020-12-14] MEDS: HYDROmorphone 1 MG/ML 1 ML SYRINGE IVP PRN ×8 (00:31→22:45)
[2020-12-14] MEDS: SODIUM CHLORIDE 0.9% 1,000 ML IV SCH ×2 (00:33→12:53)
[2020-12-14] MEDS: polyethylene glycoL 3350 17 GM POWD.PACK PO SCH (07:33)
[2020-12-14] MEDS: GABAPENTIN 100 MG CAP PO SCH ×2 (07:33→21:19)
[2020-12-14] MEDS: DOCUSATE 100 MG CAP PO SCH ×2 (07:33→21:20)
[2020-12-14] MEDS ORDERED: LIDOCAINE 1% INJ 10MG/ML (20 ML MDV) ONE (08:55)
[2020-12-14] MEDS ORDERED: PROPOFOL 10 MG/ML 20 ML VIAL IV ONE (08:55)
[2020-12-14] MEDS ORDERED: IV FLUID CONTINUATION 1,000 ML IV ONE ×2 (08:58)
--- NOTE | 2020-12-14 09:12 | P.PCN ---
Date of Procedure: 12/14/20 Procedure(s) Performed: PREOPERATIVE DIAGNOSIS: Fecal impaction, proctitis POSTOPERATIVE DIAGNOSIS: Same PROCEDURE: Flexible sigmoidoscopy with fecal disimpaction ANESTHESIA: [facility] – [place] SURGEON: Andrea Booth M.D. SPECIMENS: None ENDOSCOPIC PROCEDURE: The patient was placed on the endoscopy table in the left decubitus position. Manually the fecal impaction was evacuated. I would estimate approximately 12-15 ounces of solid stool was removed manually. The rectal vault was completely empty at that point. The flexible sigmoidoscope was inserted into the anus. I was able advanced to the proximal rectum. Additional stool was present there that had a smaller diameter. There were mild inflammatory changes in the rectum without ulceration or active bleeding. No evidence of ischemia. No biopsies were taken. The patient was taken to the recovery room in stable condition per anesthesia guidelines. RECOMMENDATIONS: Resume diet. Begin oral cathartics today.
[2020-12-14] MEDS ORDERED: PEG 3350-NA SULF,BICARB,CL/KCL 4,000 ML BOTTLE PO ONE (09:15)
[2020-12-14] MEDS: LOSARTAN-HCTZ 50-12.5 MG 1 EACH TAB PO SCH (21:19)
[2020-12-14] MEDS: ZOLPIDEM 5 MG TAB PO SCH (21:19)
[2020-12-14] MEDS: clonazePAM 1 MG TAB PO SCH (21:19)
[2020-12-14] MEDS: IBUPROFEN 200 MG TAB PO PRN (21:20)
[2020-12-14 22:14] VITALS: RESP 16
[2020-12-15] MEDS: HYDROmorphone 1 MG/ML 1 ML SYRINGE IVP PRN ×2 (01:57→05:31)
[2020-12-15] MEDS: IBUPROFEN 200 MG TAB PO PRN (01:57)
[2020-12-15 08:27] VITALS: BP 97/65; PULSE 60; TEMP 97.6
[2020-12-15] MEDS: GABAPENTIN 100 MG CAP PO SCH (08:48)
[2020-12-15] MEDS: DOCUSATE 100 MG CAP PO SCH (08:49)
[2020-12-15] MEDS: polyethylene glycoL 3350 17 GM POWD.PACK PO SCH (08:50)
--- NOTE | 2020-12-15 10:58 | P.DS ---
<Sultana Narayan - Last Filed: 12/15/20 10:55> Providers Expected date of discharge: 12/15/20 Hospital Course: Discharge diagnosis 1. Fecal impaction, proctitis. Status post flexible sigmoidoscopy with fecal disimpaction Hospital course This is a 45-year-old female comes in the hospital yesterday complaining of lower abdominal pain and nausea. Pain radiates to the back. Patient has history of significant back pain and back issues. She also has history of diverticulosis. The patient says she feels like she has been constipated. She takes chronic narcotics. Normally she does not get constipated and if anything has loose stools. CAT scan was performed. CAT scan shows stool present in the rectal vault with mild rectal wall edema and perirectal inflammatory changes. Patient is status post flexible sigmoidoscopy with fecal disimpaction. Patient has had multiple bowel movements. She reports improvement in her abdominal pain. She is tolerating diet. Afebrile. She is stable for discharge. Please refer to chart for any further details. Physician Social Psychologist note has been reviewed by physician. Signing provider agrees with the documented findings, assessment, and plan of care. Patient Condition at Discharge: Stable Plan - Discharge Summary Discharge Rx Participant: No New Discharge Prescriptions: New Docusate [Colace] 100 mg PO BID #60 cap Continue SUMAtriptan SUCCINATE [Imitrex] 100 mg PO BID PRN PRN Reason: Headache DULoxetine HCL [Cymbalta] 60 mg PO DAILY clonazePAM [KlonoPIN] 1 mg PO HS Zolpidem [Ambien] 10 mg PO HS Losartan-Hctz 50-12.5 mg [Hyzaar 50-12.5] 1 tab PO HS oxyCODONE-APAP 10-325MG [Percocet 10-325 mg] 1 tab PO BID PRN PRN Reason: Pain Gabapentin [Neurontin] 100 mg PO BID Ibuprofen [Motrin Ib] 400 mg PO Q4-6H PRN PRN Reason: Pain Discharge Medication List DULoxetine HCL [Cymbalta] 60 mg PO DAILY 01/11/14 [History] SUMAtriptan SUCCINATE [Imitrex] 100 mg PO BID PRN 01/11/14 [History] Zolpidem [Ambien] 10 mg PO HS 09/02/17 [History] clonazePAM [KlonoPIN] 1 mg PO HS 09/02/17 [History] Gabapentin [Neurontin] 100 mg PO BID 05/19/20 [History] Losartan-Hctz 50-12.5 mg [Hyzaar 50-12.5] 1 tab PO HS 05/19/20 [History] oxyCODONE-APAP 10-325MG [Percocet 10-325 mg] 1 tab PO BID PRN 05/19/20 [History] Ibuprofen [Motrin Ib] 400 mg PO Q4-6H PRN 12/12/20 [History] Docusate [Colace] 100 mg PO BID #60 cap 12/15/20 [Rx] Follow up Appointment(s)/Referral(s): Nonstaff,Physician [REFERRING] - 1 Week (Please call to schedule an appointment in [address] Steiner at [phone].) Patient Instructions/Handouts: Flexible Sigmoidoscopy (DC), Fecal Impaction (GEN) Discharge Disposition: HOME SELF-CARE <Andrea Booth - Last Filed: 12/15/20 11:58> Providers Date of admission: 12/12/20 20:01 Attending physician: Andrea Booth Primary care physician: Levi Dougherty MD - Discharge Diagnosis(es) (1) Fecal impaction in rectum Current Visit: Yes Status: Acute Hospital Course: As above. Patient doing better today. She is having good bowel function. May discharge. Follow-up with primary care in the next 24-48 hours.
== END 2020-12-15 13:26 | disposition home or self-care (01) ==
LOC: EC 13:34 → INTOOBSV 20:01 → 4SSUR 20:01 → UNDODISIN 12-15 13:26
PROVIDERS: ADMIT Surgery; ATTEND Surgery
PROC: 0DCP7ZZ Extirpation of Matter from Rectum, Via Natural or Artificial Opening (ICD-10-PCS; 2020-12-14)
PROC: 0DJD8ZZ Inspection of Lower Intestinal Tract, Via Natural or Artificial Opening Endoscopic (ICD-10-PCS; principal; 2020-12-14 08:30)
DX: K56.41 Fecal impaction (principal); K62.89 Other specified diseases of anus and rectum; K59.00 Constipation, unspecified; K56.600 Partial intestinal obstruction, unspecified as to cause; K57.90 Diverticulosis of intestine, part unspecified, without perforation or abscess without bleeding; G43.909 Migraine, unspecified, not intractable, without status migrainosus; M43.16 Spondylolisthesis, lumbar region; E28.2 Polycystic ovarian syndrome; F41.9 Anxiety disorder, unspecified; F32.9 Major depressive disorder, single episode, unspecified; Z79.899 Other long term (current) drug therapy; Z88.0 Allergy status to penicillin; Z88.1 Allergy status to other antibiotic agents; Z88.5 Allergy status to narcotic agent; Z88.6 Allergy status to analgesic agent; Z88.8 Allergy status to other drugs, medicaments and biological substances; Z90.49 Acquired absence of other specified parts of digestive tract; Z90.710 Acquired absence of both cervix and uterus; Z87.09 Personal history of other diseases of the respiratory system; Z87.19 Personal history of other diseases of the digestive system; Z98.890 Other specified postprocedural states; Z80.3 Family history of malignant neoplasm of breast; Z82.49 Family history of ischemic heart disease and other diseases of the circulatory system
CPT/HCPCS: 96376 ×3; 96361 ×3; 96374; 96375; 99285; 36415; 80053; 83605; 83690; 85025; 81001; 74177; 45330; G0378 ×4; J2270; J2405; J2001; J1170 ×4; J2704; Q9967

== ENCOUNTER 2021-06-12 15:36 | Emergency (ER) | payer BC ==
[2021-06-12 15:51] VITALS: TEMP 98.5
--- NOTE | 2021-06-12 16:24 | XR ---
EXAMINATION TYPE: XR hand complete RT, XR wrist complete RT DATE OF EXAM: 06/12/2021 COMPARISON: None available INDICATION: 46-year-old female, pain/injury TECHNIQUE: Standard 3 views of the right hand and 4 views of the right wrist joint FINDINGS: Tiny osteophytosis of the first interphalangeal joint. Slight widening at the distal radioulnar artic ulation, underlying mild subluxation or ligamentous injury cannot be excluded, please correlate clini kelsie. Soft tissue swelling at the dorsum of the wrist joint. No definite acute fracture line identif ied. IMPRESSION: No definite fracture line identified. Soft tissue swelling of the dorsum of the wrist joint. Widening at the distal radioulnar articulation as described above, mild subluxation or ligamentous injury can not be excluded.
[2021-06-12] MEDS ORDERED: HYDROcodone/APAP 5-325MG 1 EACH TAB PO STA (16:58)
[2021-06-12] MEDS ORDERED: DIPH,PERTUS(ACELL)TETVAC-LF 0.5 ML VIAL IM ONE (17:28)
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
[2021-06-12 18:00] VITALS: BP 116/72; PULSE 80; RESP 18
== END 2021-06-12 17:58 | disposition home or self-care (01) ==
LOC: EC 15:36
DX: S63.501A Unspecified sprain of right wrist, initial encounter (principal); I10 Essential (primary) hypertension; G43.909 Migraine, unspecified, not intractable, without status migrainosus; F41.9 Anxiety disorder, unspecified; F32.A Depression, unspecified; Z23 Encounter for immunization; W23.0XXA Caught, crushed, jammed, or pinched between moving objects, initial encounter
CPT/HCPCS: 29125; 90471; 90715; 99283

== ENCOUNTER 2021-07-16 08:10 | Inpatient (IN) | payer BC ==
[2021-07-16] MEDS ORDERED: HYDROmorphone 0.5 MG/0.5 ML SYRINGE IVP STA (08:41)
[2021-07-16] MEDS ORDERED: SODIUM CHLORIDE 0.9% 1,000 ML IV STA ×2 (08:41)
[2021-07-16] MEDS: ONDANSETRON 4 MG/2 ML VIAL IVP STA (08:48)
[2021-07-16 09:05] LABS: Basophils # (A) 0.1 k/uL (0-0.2); Basophils % (A) 0 %; Eosinophils # (A) 0.2 k/uL (0-0.7); Eosinophils % (A) 1 %; HCT 39.9 % (34.0-46.0); HGB 13.8 gm/dL (11.4-16.0); Lymphocytes # (A) 4.1 k/uL (1.0-4.8); Lymphocytes % (A) 32 %; MCH 30.5 pg (25.0-35.0); MCHC 34.5 g/dL (31.0-37.0); MCV 88.4 fL (80.0-100.0); Mean Platelet Volume 7.5; Monocytes # (A) 0.4 k/uL (0-1.0); Monocytes % (A) 4 %; Neutrophils # (A) 7.7 k/uL (1.3-7.7); Neutrophils % (A) 61 %; Platelet Count 409 k/uL (150-450); RBC 4.52 m/uL (3.80-5.40); WBC 12.6 k/uL (3.8-10.6)
[2021-07-16 09:16] LABS: ALT 15 U/L (4-34); African American GFR (CKD) >90 (>60 ml/min/1.73 sqM); Amylase 54 U/L (30-110); Anion Gap 9 mmol/L; Blood Urea Nitrogen 23 mg/dL (7-17); Calcium 9.9 mg/dL (8.4-10.2); Carbon Dioxide 20 mmol/L (22-30); Chloride 107 mmol/L (98-107); Glucose 112 mg/dL (74-99); Lipase 50 U/L (23-300); Non-African American GFR(CKD) >90 (>60 ml/min/1.73 sqM); Sodium 136 mmol/L (137-145); Total Bilirubin 0.8 mg/dL (0.2-1.3)
[2021-07-16 09:19] LABS: AST 25 U/L (14-36); Albumin 4.4 g/dL (3.5-5.0); Alkaline Phosphatase 39 U/L (38-126); Potassium 4.5 mmol/L (3.5-5.1); Total Protein 7.9 g/dL (6.3-8.2)
[2021-07-16 09:36] LABS: Partial Thromboplastin Time 24.8 sec (22.0-30.0); Prothrombin Time 10.5 sec (9.0-12.0)
--- NOTE | 2021-07-16 09:43 | ED ---
Abdominal Pain HPI - General Source: patient, RN notes reviewed Mode of arrival: wheelchair Limitations: no limitations <Deborah Suarez - Last Filed: 07/16/21 11:22> <Allison Bustos - Last Filed: 07/19/21 10:36> - General Chief Complaint: Abdominal Pain Stated Complaint: Abd Pain Time Seen by Provider: 07/16/21 08:15 - History of Present Illness Initial Comments: 46-year-old female presents to the ER for 15 hours of epigastric abdominal pain rating to bilateral lower quadrants. Patient reports that symptoms started in the evening. Patient reports also having vomiting this morning. Denies diarrhea. Last bowel movement was yesterday and was soft, but she has not passed gas since then. Denies bloody stools. Denies dysuria or hematuria. Patient's had a history of diverticulitis. She said history of bowel obstruction, hernias [place] [address] Upton. (Deborah Suarez) - Related Data Home Medications Medication Instructions Recorded Confirmed DULoxetine HCL [Cymbalta] 60 mg PO DAILY 01/11/14 07/16/21 SUMAtriptan SUCCINATE [Imitrex] 100 mg PO TID PRN 01/11/14 07/16/21 Zolpidem [Ambien] 10 mg PO HS 09/02/17 07/16/21 clonazePAM [KlonoPIN] 1 mg PO HS 09/02/17 07/16/21 Gabapentin [Neurontin] 100 mg PO DAILY 05/19/20 07/16/21 Losartan-Hctz 50-12.5 mg [Hyzaar 1 tab PO DAILY 05/19/20 07/16/21 50-12.5] oxyCODONE-APAP 10-325MG [Percocet 1 tab PO BID 05/19/20 07/16/21 10-325 mg] Albuterol Sulfate [Albuterol 2 puff INHALATION RT-Q4H PRN 07/16/21 07/16/21 Sulfate Hfa] Azithromycin [Zithromax Z-pack (6 See Taper PO DIRECTED 07/16/21 07/16/21 tabs)] Allergies Allergy/AdvReac Type Severity Reaction Status Date / Time hydroxyzine [From Vistaril] Allergy Rash/Hives Verified 07/17/21 09:12 ketorolac tromethamine Allergy Rash/Hives Verified 07/17/21 09:12 [From Toradol] & Migraines naproxen sodium [From Aleve] Allergy Rash/Hives Verified 07/17/21 09:12 & Migraines Penicillins Allergy Swelling Verified 07/17/21 09:12 at suture site pregabalin [From Lyrica] Allergy Swelling Verified 07/17/21 09:12 from knees to feet & hives tramadol HCl [From Ultram] Allergy Rash/Hives Verified 07/17/21 09:12 & Migraines acetaminophen [From Ofirmev] AdvReac Rash/Hives Verified 07/17/21 09:12 doxycycline AdvReac Nausea & Verified 07/17/21 09:12 Vomiting levofloxacin [From Levaquin] AdvReac Swelling Verified 07/17/21 09:12 from knees to feet morphine AdvReac Lowers BP Verified 07/17/21 09:12 oxybutynin [From Ditropan] AdvReac Rapid Verified 07/17/21 09:12 Heart Rate Review of Systems ROS Other: All systems not noted in ROS Statement are negative. <Deborah Suarez - Last Filed: 07/16/21 11:22> ROS Other: All systems not noted in ROS Statement are negative. <Allison Bustos - Last Filed: 07/19/21 10:36> ROS Statement: Those systems with pertinent positive or pertinent negative responses have been documented in the HPI. Past Medical History Past Medical History: Hypertension, Respiratory Disorder Additional Past Medical History / Comment(s): LUNG ABSCESS 2013. Migraine headache. HX ABD HERNIAS, diverticulitis, PCOS History of Any Multi-Drug Resistant Organisms: None Reported Past Surgical History: Adenoidectomy, Back Surgery, Breast Surgery, Cholecystectomy, Hernia Repair, Hysterectomy, Orthopedic Surgery, Tonsillectomy Additional Past Surgical History / Comment(s): TYRA KNEE arthroscopic. LOW BACK SURGERY. L BREAST LUMPECTOMY, BENIGN. Colonoscopy-Colitis September 2016. hernia surgery x2 with mesh, diverticulitis Past Anesthesia/Blood Transfusion Reactions: Postoperative Nausea & Vomiting (PONV) Additional Past Anesthesia/Blood Transfusion Reaction / Comment(s): PT HAS NEVER RECIEVED BLOOD. Past Psychological History: Anxiety, Depression Smoking Status: Never smoker Past Alcohol Use History: None Reported Past Drug Use History: None Reported - Past Family History Mother Family Medical History: Cancer Additional Family Medical History / Comment(s): breast ca Father Family Medical History: AFIB <KiahDeborah lombardo - Last Filed: 07/16/21 11:22> General Exam Limitations: no limitations General appearance: alert, in no apparent distress Head exam: Present: atraumatic, normocephalic, normal inspection Eye exam: Present: normal appearance, PERRL, EOMI. Absent: scleral icterus, conjunctival injection, periorbital swelling ENT exam: Present: normal exam, mucous membranes moist Neck exam: Present: normal inspection. Absent: tenderness, meningismus, lymphadenopathy Respiratory exam: Present: normal lung sounds bilaterally. Absent: respiratory distress, wheezes, rales, rhonchi, stridor Cardiovascular Exam: Present: regular rate, normal rhythm, normal heart sounds. Absent: systolic murmur, diastolic murmur, rubs, gallop, clicks GI/Abdominal exam: Present: soft, tenderness (periumbilcal tenderness to RLQ and LLQ ), normal bowel sounds. Absent: distended, guarding, rebound, rigid Back exam: Present: normal inspection Neurological exam: Present: alert, oriented X3, CN II-XII intact Psychiatric exam: Present: normal affect, normal mood Skin exam: Present: warm, dry, intact, normal color. Absent: rash <ErickDeborah - Last Filed: 07/16/21 11:22> - General Exam Comments Initial Comments: 46 year old female, moderate discomfort. (Deborah Suarez) Course Vital Signs 07/16/21 07/16/21 07/16/21 08:11 10:15 16:30 Temperature 97.2 F L 97.7 F 97.7 F Pulse Rate 78 66 66 Respiratory 18 18 18 Rate Blood Pressure 150/90 127/90 127/90 O2 Sat by Pulse 98 100 100 Oximetry Medical Decision Making - Lab Data Result diagrams: 07/16/21 08:54 07/16/21 08:54 - Radiology Data Radiology results: report reviewed <Deborah Suarez - Last Filed: 07/16/21 11:22> - Lab Data Result diagrams: 07/18/21 05:37 07/19/21 04:55 <Allison Bustos - Last Filed: 07/19/21 10:36> - Medical Decision Making 46-year-old female presents emergency department today with 15 hours of lower abdominal pain leading from the periumbilical area to bilateral lower quadrants. Patient had episodes of vomiting. History of ventral hernia repair in 2017. History small bowel instructions. Patient at this time was given IV fluids labwork obtained. Laboratory was reviewed and otherwise unremarkable. Computed tomography scan was completed due to significant abdominal tenderness. CT r eading shows concern for small bowel obstruction and possible early small bowel ischemia. I discussed the case Dr. Upton who agrees to admission. Patient has had no further active vomiting in the ER after nausea medication. (Deborah Suarez) I was available for consultation in the emergency department. The history and physical exam were done by the midlevel provider. I was consulted for this patients care. I reviewed the case with the midlevel provider and based on their presentation of the patient, I agree with the assessment, medical decision making and plan of care as documented. Chart was dictated using [employer] dictation software. Attempts were made to freya ect any dictation errors however some typographical errors may persist. Patient was seen during a national state of emergency due to the Covid-19 pandemic. (Allison Bustos) - Lab Data Lab Results 07/16/21 07/16/21 07/16/21 Range/Units 08:54 08:54 08:54 WBC 12.6 H (3.8-10.6) k/uL RBC 4.52 (3.80-5.40) m/uL Hgb 13.8 (11.4-16.0) gm/dL Hct 39.9 (34.0-46.0) % MCV 88.4 (80.0-100.0) fL MCH 30.5 (25.0-35.0) pg MCHC 34.5 (31.0-37.0) g/dL RDW 13.0 (11.5-15.5) % Plt Count 409 (150-450) k/uL MPV 7.5 Neutrophils % 61 % Lymphocytes % 32 % Monocytes % 4 % Eosinophils % 1 % Basophils % 0 % Neutrophils # 7.7 (1.3-7.7) k/uL Lymphocytes # 4.1 (1.0-4.8) k/uL Monocytes # 0.4 (0-1.0) k/uL Eosinophils # 0.2 (0-0.7) k/uL Basophils # 0.1 (0-0.2) k/uL PT 10.5 (9.0-12.0) sec INR 1.0 (<1.2) APTT 24.8 (22.0-30.0) sec Sodium (137-145) mmol/L Potassium (3.5-5.1) mmol/L Chloride (98-107) mmol/L Carbon Dioxide (22-30) mmol/L Anion Gap mmol/L BUN (7-17) mg/dL Creatinine (0.52-1.04) mg/dL Est GFR (CKD-EPI)AfAm (>60 ml/min/1.73 sqM) Est GFR (CKD-EPI)NonAf (>60 ml/min/1.73 sqM) Glucose (74-99) mg/dL Plasma Lactic Acid Kaleb (0.7-2.0) mmol/L Calcium (8.4-10.2) mg/dL Total Bilirubin (0.2-1.3) mg/dL AST (14-36) U/L ALT (4-34) U/L Alkaline Phosphatase (38-126) U/L Total Protein (6.3-8.2) g/dL Albumin (3.5-5.0) g/dL Amylase (30-110) U/L Lipase (23-300) U/L Urine Color Yellow Urine Appearance Clear (Clear) Urine pH 6.0 (5.0-8.0) Ur Specific [place] 1.046 H (1.001-1.035) Urine Protein Trace H (Negative) Urine Glucose (UA) Negative (Negative) Urine Ketones Negative (Negative) Urine Blood Negative (Negative) Urine Nitrite Negative (Negative) Urine Bilirubin Negative (Negative) Urine Urobilinogen <2.0 (<2.0) mg/dL Ur Leukocyte Esterase Negative (Negative) 07/16/21 07/16/21 Range/Units 08:54 08:54 WBC (3.8-10.6) k/uL RBC (3.80-5.40) m/uL Hgb (11.4-16.0) gm/dL Hct (34.0-46.0) % MCV (80.0-100.0) fL MCH (25.0-35.0) pg MCHC (31.0-37.0) g/dL RDW (11.5-15.5) % Plt Count (150-450) k/uL MPV Neutrophils % % Lymphocytes % % Monocytes % % Eosinophils % % Basophils % % Neutrophils # (1.3-7.7) k/uL Lymphocytes # (1.0-4.8) k/uL Monocytes # (0-1.0) k/uL Eosinophils # (0-0.7) k/uL Basophils # (0-0.2) k/uL PT (9.0-12.0) sec INR (<1.2) APTT (22.0-30.0) sec Sodium 136 L (137-145) mmol/L Potassium 4.5 (3.5-5.1) mmol/L Chloride 107 (98-107) mmol/L Carbon Dioxide 20 L (22-30) mmol/L Anion Gap 9 mmol/L BUN 23 H (7-17) mg/dL Creatinine 0.68 (0.52-1.04) mg/dL Est GFR (CKD-EPI)AfAm >90 (>60 ml/min/1.73 sqM) Est GFR (CKD-EPI)NonAf >90 (>60 ml/min/1.73 sqM) Glucose 112 H (74-99) mg/dL Plasma Lactic Acid Kaleb 1.7 (0.7-2.0) mmol/L Calcium 9.9 (8.4-10.2) mg/dL Total Bilirubin 0.8 (0.2-1.3) mg/dL AST 25 (14-36) U/L ALT 15 (4-34) U/L Alkaline Phosphatase 39 (38-126) U/L Total Protein 7.9 (6.3-8.2) g/dL Albumin 4.4 (3.5-5.0) g/dL Amylase 54 (30-110) U/L Lipase 50 (23-300) U/L Urine Color Urine Appearance (Clear) Urine pH (5.0-8.0) Ur Specific [place] (1.001-1.035) Urine Protein (Negative) Urine Glucose (UA) (Negative) Urine Ketones (Negative) Urine Blood (Negative) Urine Nitrite (Negative) Urine Bilirubin (Negative) Urine Urobilinogen (<2.0) mg/dL Ur Leukocyte Esterase (Negative) - Radiology Data The above-described findings are suggestive of acute mechanical small bowel obstruction likely secondary to pelvic adhesions a transition point in the pelvis. Early bowel ischemia cannot be excluded. Endometriosis cannot be excluded. No evidence of pneumonitis. Free peritoneal air or portal venous gas. Recommended surgical consultation. (Deborah Suarez) Disposition Is patient prescribed a controlled substance at d/c from ED?: No Time of Disposition: 11:25 <Deborah Suarez - Last Filed: 07/16/21 11:22> <Allison Bustos - Last Filed: 07/19/21 10:36> Clinical Impression: SBO (small bowel obstruction), Abdominal pain Disposition: ADMITTED IP TO THIS HOSP Condition: Stable
[2021-07-16 09:46] LABS: Appearance,Urine Clear (Clear); Bilirubin,Urine Negative (Negative); Blood,Urine Negative (Negative); Color,Urine Yellow; Glucose,Urine (UA) Negative (Negative); Ketones,Urine Negative (Negative); Leukocyte Esterase,Urine Negative (Negative); Nitrite,Urine Negative (Negative); Protein,Urine Trace (Negative); Urobilinogen,Urine <2.0 mg/dL (<2.0)
[2021-07-16 09:59] LABS: Specific Gravity,Urine 1.046 (1.001-1.035)
--- NOTE | 2021-07-16 10:03 | CT ---
EXAMINATION TYPE: CT abdomen pelvis w con DATE OF EXAM: 07/16/2021 COMPARISON: CT dated 12/12/2020 HISTORY: Epigastric lower abdominal pain, history of diverticulitis CT DLP: 1427.5 mGycm Automated exposure control for dose reduction was used. TECHNIQUE: Helical acquisition of images was performed from the lung bases through the pelvis. CONTRAST: Performed without Oral Contrast and with IV Contrast, patient injected with 100 ml mL of Isovue 300. FINDINGS: LUNG BASES: No significant abnormality is appreciated. LIVER/GB: Previous cholecystectomy. Dilated central intrahepatic biliary tree and CBD likely related to post cholecystectomy status and stable. No definite hepatic focal lesion. PANCREAS: No significant abnormality is seen. SPLEEN: No significant abnormality is seen. ADRENALS: No significant abnormality is seen. KIDNEYS: No significant abnormality is seen. FREE AIR: No free air is visualized. RETROPERITONEAL ADENOPATHY: None visualized REPRODUCTIVE ORGANS: Previous hysterectomy. Right ovarian/adnexal cyst measuring 5.7 cm compared to 2 .8 cm previously. No left adnexal mass. URINARY BLADDER: Nondistended. PELVIC ADENOPATHY: None visualized. OSSEOUS STRUCTURES: Grade 1 anterolisthesis of L4 over L5, likely degenerative. No aggressive bone l esion. BOWEL: Dependent density seen within the gastric fundus, please correlate with recent food intake. U nremarkable remainder of the stomach and duodenum. Dilated proximal and mid jejunal loops measuring u p to 3 mm with multiple air-fluid level. Thickened edematous small bowel loop is seen in the pelvis f orming a [place] with sharp angulation just proximal to a definite transition point (image #[id number], series 202). This is suggestive of mechanical small bowel obstruction possibly secondary to adhesion at silvio t location. The small bowel loops distal to the transition point are completely collapsed. The transi tion point is seen close to the right ovarian/adnexal cyst. No evidence of oscar pneumatosis, free pe ritoneal air or portal venous gas. Bowel ischemia cannot be excluded. Small amount of fluid is seen a round the liver and the spleen. Small amount of pelvic fluid is also noted. OTHER: Unremarkable abdominal aorta and IVC. Soft tissue thickening and surgical scar is seen along t he inferior aspect of the anterior abdominal wall. IMPRESSION: The above-described findings are suggestive of acute mechanical small bowel obstruction likely second alexandra to pelvic adhesions at a transition point in the pelvis as described above. Early bowel ischemia cannot be excluded. Endometriosis is also can't be excluded. No evidence of pneumatosis, free periton eal air or portal venous gas. Recommend surgical consultation. Other findings as detailed above.
[2021-07-16] MEDS ORDERED: HYDROmorphone 1 MG/ML 1 ML SYRINGE IVP STA (10:58)
[2021-07-16] MEDS ORDERED: NALOXONE 0.4 MG/ML 1 ML VIAL IV PRN (10:58)
[2021-07-16] MEDS: SODIUM CHLORIDE 0.9% 1,000 ML IV SCH ×2 (11:23→17:20)
--- NOTE | 2021-07-16 11:48 | XR ---
EXAMINATION TYPE: XR chest 1V confirm line [facility] DATE OF EXAM: 07/16/2021 COMPARISON: NONE HISTORY: NG tube placement TECHNIQUE: Single frontal view of the chest is obtained. FINDINGS: NG tube is seen extending into the abdomen likely within the gastric body. Only the lower lung rhodes are included with Limited inspiration and no obvious consolidation or pleural effusion. H eart size normal. IMPRESSION: NG tube is seen coursing the abdomen likely within the gastric body
[2021-07-16] MEDS: ACETAMINOPHEN IV (For NPO) 1,000 MG in EMPTY BAG 1 BAG IVPB SCH ×4 (13:33→22:23)
--- NOTE | 2021-07-16 14:09 | P.GSCN ---
History of Present Illness Consult date: 07/16/21 History of present illness: CHIEF COMPLAINT: Abdominal pain, nausea and vomiting HISTORY OF PRESENT ILLNESS: Is a 46-year-old female who presented to the emergency department with complaints of abdominal pain with nausea and vomiting. She has a past medical history of hypertension and migraines. Significant surgical history including adenoidectomy, back surgery, breast surgery, cholecystectomy, recurrent hernia with repairs, hysterectomy, orthopedic surgery, tonsillectomy, and lysis of adhesions Patient states he abdominal pain started yesterday at 5 PM and progressively has gotten worse been leading to nausea and vomiting. Patient had a CT of the abdomen and pelvis that showed acute mechanical obstruction. Patient has had a history of multiple recurrent abdominal wall hernias with last repair done February 2018 as well as lysis of a dhesions at that time to him by Dr. Upton. She is also underwent flexible sigmoidoscopy with fecal disimpaction on 12/14/[address] Booth for constipation. She states she still has abdominal pain although somewhat better than when she came in. She had a NG tube placed and has had no further vomiting. Approximately 100 ml bilous output. States last bowel movement was yesterday, however has not passed any gas today. States that is not unusual for her not to pass flatus. WBC 12.6 hemoglobin 13.8, she is afebrile. PAST MEDICAL HISTORY: See list. PAST SURGICAL HISTORY: See list. MEDICATIONS: See list. ALLERGIES: See list. SOCIAL HISTORY: No illicit drug use. REVIEW OF SYSTEMS: CONSTITUTIONAL: Denies fever or chills. HEENT: Denies blurred vision, vision changes, or eye pain. Denies hemoptysis ENDOCRINE: Denies heat or cold intolerance. CARDIOVASCULAR: Denies chest pain or pressure. RESPIRATORY: No shortness of breath. GASTROINTESTINAL: Abdominal pain mostly periumbilical, nausea with vomiting. No hematemesis. History of constipation. NEURO: Denies history of seizures. PSYCH: No depression or suicidal ideation HEMATOLOGIC: Denies bleeding disorders. LYMPHATIC: The patient denies any lumps and bumps around the neck. GENITOURINARY: Denies any blood in urine or increased urinary frequency. MUSCULOSKELETAL: Denies myalgias. Denies joint swelling. Denies decreased range of motion beyond patients baseline. SKIN: Denies pruitis. Denies rash. PHYSICAL EXAM: VITAL SIGNS: Reviewed GENERAL: Well-developed in no acute distress. HEENT: No sclera icterus. Extraocular movements grossly intact. Moist buccal mucosa. Head is atraumatic, normocephalic. Hears conversational speech. No nasal drainage. NECK: Supple without lymphadenopathy. CHEST: Non-labored respirations and equal bilateral excursions. CARDIOVASCULAR: Palpable 2+ radial pulses. ABDOMEN: Soft. Mildly distended, tender to palpation. MUSCULOSKELETAL: No clubbing or cyanosis. NEUROLOGIC: No focal or lateralizing signs. Cranial nerves II through XII grossly intact. PSYCH: Appropriate affect. Alert and oriented to person, place and time. SKIN: Well perfused. Good skin turgor. LABORATORY DATA: WBC 12.6 hemoglobin 13.8 hematocrit 39 platelet count 409,000 INR 1.0 Sodium 136 potassium 4.5 BUN 23 creatinine 0.68 glucose 112 total bilirubin 0.8 AST 25 and 5015 alk phos 39 amylase 54 lipase 50 IMAGING: CT abdomen and pelvis without contrast reports dependent density seen within the gastric fundus correlate with recent food intake. Unremarkable remainder of stomach and duodenum. Dilated proximal and mid jejunal loops measuring up to 3 mm with multiple air-fluid level. Thickened edematous small bowel loop seen in the pelvis forming a pala with sharp angulation just proximal to a definite transition point. This is suggestive of mechanical small bowel obstruction possibly secondary to adhesions at that location. The small bowel loops distal to the transition point are completely collapsed. No evidence of oscar pneumatosis, free peritoneal air or portal venous gas. Bowel ischemia cannot be excluded. Small amount of fluid seen around the liver and spleen. Small amount of pelvic fluid also noted. ASSESSMENT: 1. Small bowel obstruction 2. Abdominal pain 3. Nausea and vomiting 4. History of multiple abdominal surgeries 5. Hypertension PLAN: 1. Keep nothing by mouth 2. Continue NG tube with intermittent suction 3. Continue pain medication as needed 4. Acetaminophen IV every 6 hours scheduled added for pain 5. Tentatively scheduled for robotic lysis of adhesions tomorrow 6. Repeat CBC, BMP in the morning 7. Protonix GI prophylaxis Thank you for this consultation, we will continue to follow. The impression and plan of care has been dictated as directed. I performed a history and examination of this patient, discussed the same with the dictator. I agree with the dictator's note ,documented as a scribe. Any additional findings or plans will be noted. Please see separate history and physical exam performed by me with additional documentation provided Past Medical History Past Medical History: Hypertension, Respiratory Disorder Additional Past Medical History / Comment(s): LUNG ABSCESS 2013. Migraine headache. HX ABD HERNIAS, diverticulitis, PCOS History of Any Multi-Drug Resistant Organisms: None Reported Past Surgical History: Adenoidectomy, Back Surgery, Breast Surgery, Cholecystectomy, Hernia Repair, Hysterectomy, Orthopedic Surgery, Tonsillectomy Additional Past Surgical History / Comment(s): TYRA KNEE arthroscopic. LOW BACK SURGERY. L BREAST LUMPECTOMY, BENIGN. Colonoscopy-Colitis September 2016. hernia surgery x2 with mesh, diverticulitis Past Anesthesia/Blood Transfusion Reactions: Postoperative Nausea & Vomiting (PONV) Additional Past Anesthesia/Blood Transfusion Reaction / Comm: PT HAS NEVER RECIEVED BLOOD. Past Psychological History: Anxiety, Depression Smoking Status: Never smoker Past Alcohol Use History: None Reported Past Drug Use History: None Reported - Past Family History Mother Family Medical History: Cancer Additional Family Medical History / Comment(s): breast ca Father Family Medical History: AFIB Medications and Allergies Home Medications Medication Instructions Recorded Confirmed Type DULoxetine HCL [Cymbalta] 60 mg PO DAILY 01/11/14 07/16/21 History SUMAtriptan SUCCINATE [Imitrex] 100 mg PO TID PRN 01/11/14 07/16/21 History Zolpidem [Ambien] 10 mg PO HS 09/02/17 07/16/21 History clonazePAM [KlonoPIN] 1 mg PO HS 09/02/17 07/16/21 History Gabapentin [Neurontin] 100 mg PO DAILY 05/19/20 07/16/21 History Losartan-Hctz 50-12.5 mg [Hyzaar 1 tab PO DAILY 05/19/20 07/16/21 History 50-12.5] oxyCODONE-APAP 10-325MG [Percocet 1 tab PO BID 05/19/20 07/16/21 History 10-325 mg] Albuterol Sulfate [Albuterol 2 puff INHALATION RT-Q4H PRN 07/16/21 07/16/21 History Sulfate Hfa] Azithromycin [Zithromax Z-pack (6 See Taper PO DIRECTED 07/16/21 07/16/21 History tabs)] Allergies Allergy/AdvReac Type Severity Reaction Status Date / Time hydroxyzine [From Vistaril] Allergy Rash/Hives Verified 07/16/21 11:06 ketorolac tromethamine Allergy Rash/Hives Verified 07/16/21 11:06 [From Toradol] & Migraines naproxen sodium [From Aleve] Allergy Rash/Hives Verified 07/16/21 11:06 & Migraines Penicillins Allergy Swelling Verified 07/16/21 11:06 at suture site pregabalin [From Lyrica] Allergy Swelling Verified 07/16/21 11:06 from knees to feet & hives tramadol HCl [From Ultram] Allergy Rash/Hives Verified 07/16/21 11:06 & Migraines doxycycline AdvReac Nausea & Verified 07/16/21 11:06 Vomiting levofloxacin [From Levaquin] AdvReac Swelling Verified 07/16/21 11:06 from knees to feet morphine AdvReac Lowers BP Verified 07/16/21 11:06 oxybutynin [From Ditropan] AdvReac Rapid Verified 07/16/21 11:06 Heart Rate Surgical - Exam Vital Signs Temp Pulse Resp BP Pulse Ox 97.2 F L 78 18 150/90 98 07/16/21 08:11 07/16/21 08:11 07/16/21 08:11 07/16/21 08:11 07/16/21 08:11 Results - Labs 07/16/21 08:54 07/16/21 08:54 Abnormal Lab Results - Last 24 Hours (Table) 07/16/21 07/16/21 07/16/21 Range/Units 08:54 08:54 08:54 WBC 12.6 H (3.8-10.6) k/uL Sodium 136 L (137-145) mmol/L Carbon Dioxide 20 L (22-30) mmol/L BUN 23 H (7-17) mg/dL Glucose 112 H (74-99) mg/dL Ur Specific [place] 1.046 H (1.001-1.035) Urine Protein Trace H (Negative) Diabetes panel 07/16/21 Range/Units 08:54 Sodium 136 L (137-145) mmol/L Potassium 4.5 (3.5-5.1) mmol/L Chloride 107 (98-107) mmol/L Carbon Dioxide 20 L (22-30) mmol/L BUN 23 H (7-17) mg/dL Creatinine 0.68 (0.52-1.04) mg/dL Glucose 112 H (74-99) mg/dL Calcium 9.9 (8.4-10.2) mg/dL AST 25 (14-36) U/L ALT 15 (4-34) U/L Alkaline Phosphatase 39 (38-126) U/L Total Protein 7.9 (6.3-8.2) g/dL Albumin 4.4 (3.5-5.0) g/dL Calcium panel 07/16/21 Range/Units 08:54 Calcium 9.9 (8.4-10.2) mg/dL Albumin 4.4 (3.5-5.0) g/dL Pituitary panel 07/16/21 Range/Units 08:54 Sodium 136 L (137-145) mmol/L Potassium 4.5 (3.5-5.1) mmol/L Chloride 107 (98-107) mmol/L Carbon Dioxide 20 L (22-30) mmol/L BUN 23 H (7-17) mg/dL Creatinine 0.68 (0.52-1.04) mg/dL Glucose 112 H (74-99) mg/dL Calcium 9.9 (8.4-10.2) mg/dL Adrenal panel 07/16/21 Range/Units 08:54 Sodium 136 L (137-145) mmol/L Potassium 4.5 (3.5-5.1) mmol/L Chloride 107 (98-107) mmol/L Carbon Dioxide 20 L (22-30) mmol/L BUN 23 H (7-17) mg/dL Creatinine 0.68 (0.52-1.04) mg/dL Glucose 112 H (74-99) mg/dL Calcium 9.9 (8.4-10.2) mg/dL Total Bilirubin 0.8 (0.2-1.3) mg/dL AST 25 (14-36) U/L ALT 15 (4-34) U/L Alkaline Phosphatase 39 (38-126) U/L Total Protein 7.9 (6.3-8.2) g/dL Albumin 4.4 (3.5-5.0) g/dL
[2021-07-16] MEDS: HYDROmorphone 0.5 MG/0.5 ML SYRINGE IVP PRN ×3 (14:40→20:53)
[2021-07-16] MEDS: ONDANSETRON 4 MG/2 ML VIAL IVP PRN (17:19)
--- NOTE | 2021-07-16 20:18 | P.GSHP ---
History of Present Illness H&P Date: 07/16/21 CHIEF COMPLAINT: Abdominal pain HISTORY OF PRESENT ILLNESS: The patient is a 46 year old female with long- standing chronic abdominal pain including chronic pain syndrome. She had multiple abdominal surgeries including previous ventral hernia in 2017 followed by extensive lysis of adhesions in 2018. Her last hospitalization include 7 months ago for fecal impaction. Patient reports minimal passage of flatus chronically. She was reports chronic lower abdominal pain. Yesterday, she reports moderate to severe lower abdominal pain that started yesterday. She had additional diagnostic studies demonstrating bowel obstruction. Patient is admitted due to bowel obstruction and abdominal pain. PAST MEDICAL HISTORY: See list and reviewed PAST SURGICAL HISTORY: See list and reviewed MEDICATIONS: See list and reviewed ALLERGIES: See list and reviewed SOCIAL HISTORY: See list and reviewed FAMILY HISTORY: See list and reviewed REVIEW OF ORGAN SYSTEMS: CONSTITUTIONAL: No fevers or chills. Obesity, BMI 32.6. EYES: Denies any trouble with vision. No glasses. HEENT: No difficulties with hearing. No nosebleeds. No difficulty swallowing. RESPIRATORY: Has asthma. CARDIOVASCULAR: Has hypertensive heart disease. GASTROINTESTINAL: Has chronic constipation including chronic abdominal pain. History of diverticulitis. History of colitis and fecal impaction. Has postoperative nausea and vomiting. GENITOURINARY: Denies any blood in urine or increased urinary frequency. NEUROLOGICAL: Denies any numbness or tingling along the distal extremities. Has headaches. MUSCULOSKELETAL: Has back pain, stiffness or joint arthritis. Has chronic pain syndrome. SKIN: No current skin cancer. No rash. PSYCHIATRIC: Has depressive disorder. Has generalized anxiety disorder. ENDOCRINE: Denies current thyroid disorders. Denies any blood sugar glucose intolerance. HEME/LYMPHATIC: Denies any lumps and bumps around the neck. No recent deep venous thrombosis. ALLERGY/IMMUNOLOGY: No immunoglobulin therapy. No immune deficiencies. BREAST: Denies current breast lumps, pain or nipple discharge. PHYSICAL EXAM: VITALS: Reviewed CONSTITUTIONAL: Well developed. EYES: Conjuctivae without sclera icterus. Extraocular movements grossly intact. HEAD, EARS, NOSE, THROAT: Moist buccal mucosa. Head is atraumatic, normocephalic. Hears conversational speech. No nasal drainage. NECK: Supple. No JV distention. No thyroidomegaly. RESPIRATORY: Non-labored respirations and equal bilateral excursions. No gross wheezes. CARDIOVASCULAR: Regular rate and rhythm. Extremities without moderate edema. Palpable 2+ radial pulses. ABDOMEN: Tender lower abdomen. LYMPH: No neck lymphadenopathy. MUSCULOSKELETAL: No clubbing cyanosis or edema. SKIN: Warm and well perfused with good skin turgor. NEUROLOGIC: Cranial nerves II through XII grossly intact. No focal or lateralizing signs. PSYCH: Alert and oriented to person, place and time. CLINCAL LABS: Reviewed. WBC elevated at 12.6. IMAGING: Independently reviewed CT of the abdomen and pelvis demonstrating small bowel mildly distended to the mid lower abdomen. Gas and air within colon. No moderate free fluid. No pneumoperitoneum. This is my independent interpretation. RADIOLOGY: Report reviewed a CT of the abdomen and pelvis demonstrates a transition point along right lower quadrant at ovary. Presence of mechanical small bowel obstruction with dilation of small bowel 3 cm. RECORDS: Previous old records reviewed from November 2016 with colonoscopy and fecal impaction. Prior operative reports from 2017 in 2018 reviewed with moderate lesions of the lower pelvis. ASSESSMENT: 1. Small bowel obstruction due to peritoneal adhesions 2. Chronic pain syndrome 3. Obesity due to excess calories, BMI 32.6 4. History of peritoneal adhesions 5. Generalized anxiety disorder 6. Depressive disorder 7. Leukocytosis 8. Chronic narcotic use PLAN: 1. Recommend IV fluid hydration 2. Placement of nasogastric tube to low intermittent wall suction 3. Surgical intervention with lysis of adhesions described and possible bowel resection due to mechanical bowel obstruction identified. 4. Scheduled nonnarcotic pain management also reviewed with intravenous Tylenol 5. Inpatient hospitalization described for over 2 nights ADVANCE DIRECTIVE: Past Medical History Past Medical History: Hypertension, Respiratory Disorder Additional Past Medical History / Comment(s): Bowel obstructions, diverticulitis, colitis, fecal impaction, abdominal hernias, pneumonia/lung abscess, chronic low back pain, FALLS, PCOS History of Any Multi-Drug Resistant Organisms: None Reported Past Surgical History: Adenoidectomy, Back Surgery, Breast Surgery, Cholecystectomy, Hernia Repair, Hysterectomy, Orthopedic Surgery, Tonsillectomy Additional Past Surgical History / Comment(s): Ventral hernia repairs/lysis of adhesions then seroma and surgery for that, colonoscopy, sigmoidoscopy, bro nchoscopy, low back surgery, bilateral knee arthroscopies, L berast benign lumpectomy. Past Anesthesia/Blood Transfusion Reactions: Postoperative Nausea & Vomiting (PONV) Additional Past Anesthesia/Blood Transfusion Reaction / Comment(s): PT HAS NEVER RECIEVED BLOOD. Smoking Status: Never smoker - Past Family History Mother Family Medical History: Cancer Additional Family Medical History / Comment(s): breast ca Father Family Medical History: AFIB Medications and Allergies Home Medications Medication Instructions Recorded Confirmed Type DULoxetine HCL [Cymbalta] 60 mg PO DAILY 01/11/14 07/16/21 History SUMAtriptan SUCCINATE [Imitrex] 100 mg PO TID PRN 01/11/14 07/16/21 History Zolpidem [Ambien] 10 mg PO HS 09/02/17 07/16/21 History clonazePAM [KlonoPIN] 1 mg PO HS 09/02/17 07/16/21 History Gabapentin [Neurontin] 100 mg PO DAILY 05/19/20 07/16/21 History Losartan-Hctz 50-12.5 mg [Hyzaar 1 tab PO DAILY 05/19/20 07/16/21 History 50-12.5] oxyCODONE-APAP 10-325MG [Percocet 1 tab PO BID 05/19/20 07/16/21 History 10-325 mg] Albuterol Sulfate [Albuterol 2 puff INHALATION RT-Q4H PRN 07/16/21 07/16/21 History Sulfate Hfa] Azithromycin [Zithromax Z-pack (6 See Taper PO DIRECTED 07/16/21 07/16/21 History tabs)] Allergies Allergy/AdvReac Type Severity Reaction Status Date / Time hydroxyzine [From Vistaril] Allergy Rash/Hives Verified 07/16/21 11:06 ketorolac tromethamine Allergy Rash/Hives Verified 07/16/21 11:06 [From Toradol] & Migraines naproxen sodium [From Aleve] Allergy Rash/Hives Verified 07/16/21 11:06 & Migraines Penicillins Allergy Swelling Verified 07/16/21 11:06 at suture site pregabalin [From Lyrica] Allergy Swelling Verified 07/16/21 11:06 from knees to feet & hives tramadol HCl [From Ultram] Allergy Rash/Hives Verified 07/16/21 11:06 & Migraines doxycycline AdvReac Nausea & Verified 07/16/21 11:06 Vomiting levofloxacin [From Levaquin] AdvReac Swelling Verified 07/16/21 11:06 from knees to feet morphine AdvReac Lowers BP Verified 07/16/21 11:06 oxybutynin [From Ditropan] AdvReac Rapid Verified 07/16/21 11:06 Heart Rate Surgical - Exam Vital Signs Temp Pulse Resp BP Pulse Ox 97.2 F L 78 18 150/90 98 07/16/21 08:11 07/16/21 08:11 07/16/21 08:11 07/16/21 08:11 07/16/21 08:11 Results - Labs 07/16/21 08:54 07/16/21 08:54 Abnormal Lab Results - Last 24 Hours (Table) 07/16/21 07/16/21 07/16/21 Range/Units 08:54 08:54 08:54 WBC 12.6 H (3.8-10.6) k/uL Sodium 136 L (137-145) mmol/L Carbon Dioxide 20 L (22-30) mmol/L BUN 23 H (7-17) mg/dL Glucose 112 H (74-99) mg/dL Ur Specific [place] 1.046 H (1.001-1.035) Urine Protein Trace H (Negative) Diabetes panel 07/16/21 Range/Units 08:54 Sodium 136 L (137-145) mmol/L Potassium 4.5 (3.5-5.1) mmol/L Chloride 107 (98-107) mmol/L Carbon Dioxide 20 L (22-30) mmol/L BUN 23 H (7-17) mg/dL Creatinine 0.68 (0.52-1.04) mg/dL Glucose 112 H (74-99) mg/dL Calcium 9.9 (8.4-10.2) mg/dL AST 25 (14-36) U/L ALT 15 (4-34) U/L Alkaline Phosphatase 39 (38-126) U/L Total Protein 7.9 (6.3-8.2) g/dL Albumin 4.4 (3.5-5.0) g/dL Calcium panel 07/16/21 Range/Units 08:54 Calcium 9.9 (8.4-10.2) mg/dL Albumin 4.4 (3.5-5.0) g/dL Pituitary panel 07/16/21 Range/Units 08:54 Sodium 136 L (137-145) mmol/L Potassium 4.5 (3.5-5.1) mmol/L Chloride 107 (98-107) mmol/L Carbon Dioxide 20 L (22-30) mmol/L BUN 23 H (7-17) mg/dL Creatinine 0.68 (0.52-1.04) mg/dL Glucose 112 H (74-99) mg/dL Calcium 9.9 (8.4-10.2) mg/dL Adrenal panel 07/16/21 Range/Units 08:54 Sodium 136 L (137-145) mmol/L Potassium 4.5 (3.5-5.1) mmol/L Chloride 107 (98-107) mmol/L Carbon Dioxide 20 L (22-30) mmol/L BUN 23 H (7-17) mg/dL Creatinine 0.68 (0.52-1.04) mg/dL Glucose 112 H (74-99) mg/dL Calcium 9.9 (8.4-10.2) mg/dL Total Bilirubin 0.8 (0.2-1.3) mg/dL AST 25 (14-36) U/L ALT 15 (4-34) U/L Alkaline Phosphatase 39 (38-126) U/L Total Protein 7.9 (6.3-8.2) g/dL Albumin 4.4 (3.5-5.0) g/dL Assessment and Plan (1) Chronic pain syndrome Current Visit: Yes Status: Acute Code(s): G89.4 - CHRONIC PAIN SYNDROME SNOMED Code(s): 075148927 (2) Obesity Current Visit: Yes Status: Acute Code(s): E66.9 - OBESITY, UNSPECIFIED SNOMED Code(s): 977858374 (3) Narcotic drug use Current Visit: Yes Status: Acute Code(s): F11.90 - OPIOID USE, UNSPECIFIED, UNCOMPLICATED SNOMED Code(s): 25292986 (4) Peritoneal adhesions Current Visit: Yes Status: Acute Code(s): K66.0 - PERITONEAL ADHESIONS (POSTPROCEDURAL) (POSTINFECTION) SNOMED Code(s): 51458049 (5) Peritoneal adhesions with obstruction Current Visit: Yes Status: Acute Code(s): K56.50 - INTESTNL ADHESIONS, UNSP TO PARTIAL VERSUS COMPLETE OBST SNOMED Code(s): 91568167 (6) SBO (small bowel obstruction) Current Visit: Yes Status: Acute Code(s): K56.609 - UNSP INTESTNL OBST, UNSP TO PARTIAL VERSUS COMPLETE OBST SNOMED Code(s): 162150375
[2021-07-17] MEDS: HYDROmorphone 0.5 MG/0.5 ML SYRINGE IVP PRN ×5 (00:07→23:44)
[2021-07-17] MEDS: ONDANSETRON 4 MG/2 ML VIAL IVP PRN (00:10)
[2021-07-17] MEDS: SODIUM CHLORIDE 0.9% 1,000 ML IV SCH ×3 (02:25→19:44)
[2021-07-17] MEDS: ACETAMINOPHEN IV (For NPO) 1,000 MG in EMPTY BAG 1 BAG IVPB SCH (08:02)
[2021-07-17 09:04] LABS: Basophils # (A) 0.04 X 10*3/uL (0.00-0.10); Basophils % (A) 0.3 %; Eosinophils # (A) 0.12 X 10*3/uL (0.04-0.35); HCT 33.4 % (37.2-46.3); HGB 11.1 g/dL (12.0-15.0); Immature Grans, Automated 0.3 %; Lymphocytes # (A) 2.28 X 10*3/uL (0.90-5.00); Lymphocytes % (A) 19.5 %; MCH 29.6 pg (27.0-32.0); MCHC 33.2 g/dL (32.0-37.0); MCV 89.1 fL (80.0-97.0); Mean Platelet Volume 10.5 fL (9.5-12.2); NRBC Per 100 WBC 0 /100 WBCS (0.0-0.0); Neutrophils # (A) 8.55 X 10*3/uL (1.80-7.70); Neutrophils % (A) 72.9 %; Platelet Count 307 X 10*3/uL (140-440); RBC 3.75 X 10*6/uL (4.10-5.20); RDW 12.2 % (11.5-14.5); WBC 11.72 X 10*3/uL (4.50-10.00)
[2021-07-17] MEDS ORDERED: LACTATED RINGERS 1,000 ML IV ONE ×3 (09:09→16:33)
[2021-07-17 09:23] LABS: African American GFR (CKD) 126.7 (60.0-200.0); Albumin 3.8 g/dL (3.8-4.9); Albumin/Globulin Ratio 1.81 (1.60-3.17); Anion Gap 10.3 mmol/L (10.00-18.00); BUN/Creat Ratio 27.33 Ratio (12.00-20.00); Blood Urea Nitrogen 16.4 mg/dL (9.0-27.0); Calcium 8.6 mg/dL (8.7-10.3); Carbon Dioxide 20.7 mmol/L (20.0-27.5); Globulin 2.1 g/dL (1.6-3.3); Magnesium 2.1 mg/dL (1.5-2.4); Non-African American GFR(CKD) 109.3 (60.0-200.0); Potassium 3.7 mmol/L (3.5-5.5); Total Bilirubin 0.3 mg/dL (0.30-1.20); Total Protein 5.9 g/dL (6.2-8.2)
[2021-07-17] MEDS ORDERED: SCOPOLAMINE 1.5MG/72HR PATCH TRANSDERM ONE (10:09)
[2021-07-17] MEDS ORDERED: DEXAMETHASONE SOD PHOSPHATE 4 MG/ML 1 ML VIAL IV ONE (10:09)
[2021-07-17] MEDS: ONDANSETRON 4 MG/2 ML VIAL IVP STA (10:10)
[2021-07-17] MEDS ORDERED: MIDAZOLAM 2 MG/2 ML VIAL IV ONE (10:11)
[2021-07-17 12:00] VITALS: BMI 32.5
[2021-07-17] MEDS ORDERED: fentaNYL (PF) 50 MCG/ML 2 ML AMP IV ONE (13:43)
[2021-07-17] MEDS ORDERED: PROPOFOL 10 MG/ML 20 ML VIAL IV ONE (16:07)
[2021-07-17] MEDS ORDERED: LIDOCAINE 1% INJ 10MG/ML (20 ML MDV) ONE (16:07)
[2021-07-17] MEDS ORDERED: fentaNYL (PF) 50 MCG/ML 2 ML AMP ONE (16:07)
[2021-07-17] MEDS ORDERED: SUCCINYLCHOLINE CHLORIDE 100 MG/5 ML SYR IV ONE (16:07)
[2021-07-17] MEDS ORDERED: GLYCOPYRROLATE 0.2 MG/ML 2 ML VIAL ONE (16:07)
[2021-07-17] MEDS ORDERED: MIDAZOLAM 2 MG/2 ML VIAL ONE (16:07)
[2021-07-17] MEDS ORDERED: HYDROmorphone (PF) 1 MG/ML ONE (16:07)
[2021-07-17] MEDS ORDERED: ROCURONIUM 10 MG/ML (5 ML VIAL) IV ONE (16:07)
[2021-07-17] MEDS ORDERED: NEOSTIGMINE 1 MG/ML 10 ML VIAL ONE (16:07)
[2021-07-17] MEDS ORDERED: BUPIVACAIN-EPI 0.25%-1:200,000 30 ML VIAL SQ ONE (16:32)
[2021-07-17] MEDS ORDERED: PROMETHAZINE 25 MG TAB PO PRN (17:53)
[2021-07-17] MEDS ORDERED: SUMAtriptan succinate 50 MG TAB PO PRN (17:55)
[2021-07-17] MEDS ORDERED: ALBUTEROL NEBULIZED 2.5 MG/3 ML INHALATION PRN (17:55)
[2021-07-17] MEDS ORDERED: SUMAtriptan succinate 6 MG/0.5 ML VIAL SQ STA (18:07)
--- NOTE | 2021-07-17 18:07 | P.OP ---
Date of Procedure: 07/17/21 Description of Procedure: SURGEON: TEOFILO GASPAR MD PREOPERATIVE DIAGNOSES: 1. Mechanical small bowel obstruction adhesion 2. Chronic pain syndrome 3. Migraine headache 4. Obesity due to excess calories, BMI 32.7 5. Hypertensive heart disease 6. Gastroesophageal reflux disease 7. History of multiple abdominal surgeries 8. Chronic obstructive pulmonary disease with asthma 9. Generalized anxiety disorder 10. Depressive disorder POSTOPERATIVE DIAGNOSES: 1. Mechanical small bowel obstruction adhesion 2. Chronic pain syndrome 3. Migraine headache 4. Obesity due to excess calories, BMI 32.7 5. Hypertensive heart disease 6. Gastroesophageal reflux disease 7. History of multiple abdominal surgeries 8. Chronic obstructive pulmonary disease with asthma 9. Generalized anxiety disorder 10. Depressive disorder 11. Closed loop small bowel obstruction, left lower quadrant 12. Internal hernin pelvis 13. Intra-abdominal pelvic adhesions 14. Abdominal ascites OPERATION: 1. Robotic-assisted da Srinivas Xi laparoscopic with lysis of adhesions over 1 hour with excision of internal hernias 5 ESTIMATED BLOOD LOSS: 5 mL. SPECIMENS REMOVED: None. COMPLICATIONS: None. OPERATIVE FINDINGS: 1. Closed loop obstruction caused by internal hernia involving jejunum, left lower quadrant at sigmoid colon 2. Multiple epiploic with internal hernia 3 lysed. 3. Multiple pelvic adhesions from prior hysterectomy with internal hernia hernia 1 lysed 4. Omentum to abdominal wall adhesions from prior hernia surgery lysed 5. Small bowel viable after release from closed loop obstruction involving jejunum 6. Abdominal CT section. INDICATIONS: The patient is a 46-year-old female who presents with small bowel obstruction. A nasogastric tube was present. She has history of multiple abdominal procedures. Surgical intervention with diagnostic laparoscopy, lysis of adhesions and possible bowel resection were described. Informed consent was obtained. Robotic assisted laparoscopic approach was described. Benefits and risks of the procedure including but not limited to bleeding, infection, injury to the intestine was described. Informed consent was obtained. DESCRIPTION OF PROCEDURE: Patient was brought to the operating room, placed in supine position. After general induction, the abdomen had been prepped and draped in standard sterile fashion. The robotic da Srinivas XI system was primed. After a timeout protocol was performed, the patient had been prepped and draped in standard sterile fashion. The robot was docked along the left lateral abdomen. Please note prior to docking of the robot; however, a 5 mm 0 degrees laparoscopic trocar entry was performed along the left upper quadrant. Next, three 8 mm and one 12 mm robotic ports were placed along the left lateral abdominal wall. Please note that the ports were placed at least 10 to 15 cm away from the target anatomy. Instruments including graspers, vessel sealer and scissors with cautery were interchanged by the certified surgical tech/first assistant. The robot was docked along the right side of the patient. The bed was positioned 7 Trendelenburg. I had sat at the console. Greater omental adhesion to the ventral abdominal wall hernia was identified and lysed sharply using vessel sealer including scissors. Attention was now brought to investigation of small bowel where the distal small bowel was decompressed. Starting from the cecum, proximally the small bowel was investigated where at the distal to mid jejunum, a closed loop bowel obstruction was identified involving the left pelvis and epiploic of the sigmoid colon. The adhesions were lysed demonstrating an internal hernia from the epiploica. Next, omental adhesion to the pelvis was found with another internal hernia also lysed. Investigation to the ligament of Treitz was found. Distally the small bowel was investigated again were another adhesions involving the distal jejunum was identified to the left pelvic wall and similarly lysed using vessel sealer. The sigmoid colon was further investigated identifying additional internal hernias involving the sigmoid colon which were similarly lysed of the right pelvic wall. The small bowel was viable and decompressed following release of closed loop obstruction. Abdominal physes was irrigated and aspirated from the abdominal cavity. No enterotomy or colotomy had occurred during the case. The robot was undocked. All pneumoperitoneum and instruments were evacuated from the abdominal cavity. The incisions were reapproximated using 4-0 Monocryl in an interrupted subcuticular fashion. Please note along the trocar sites, local anesthetic was placed as a field block prior to insertion of all instruments. Exofin was applied to the skin. At the end of the procedure needle, sponge, and instrument count had been verified correct by the surgical rn. The patient was transferred to postanesthesia care unit in stable condition. Intraoperative findings were discussed with the patient's .
[2021-07-17] MEDS ORDERED: HYDROmorphone 0.5 MG/0.5 ML SYRINGE IVP ONE ×2 (18:09→18:30)
[2021-07-17] MEDS: oxyCODONE-APAP 10-325MG 1 EACH TAB PO SCH (21:51)
[2021-07-17] MEDS: clonazePAM 1 MG TAB PO SCH (21:52)
[2021-07-17] MEDS: ZOLPIDEM 10 MG TAB PO PRN (23:39)
[2021-07-18] MEDS: SODIUM CHLORIDE 0.9% 1,000 ML IV SCH ×3 (04:19→17:38)
[2021-07-18] MEDS: HYDROmorphone 0.5 MG/0.5 ML SYRINGE IVP PRN ×5 (04:51→21:19)
[2021-07-18 06:47] LABS: Basophils % (A) 0 %; Eosinophils # (A) 0.1 k/uL (0-0.7); Eosinophils % (A) 1 %; HCT 36.5 % (34.0-46.0); HGB 11.8 gm/dL (11.4-16.0); Lymphocytes # (A) 1.3 k/uL (1.0-4.8); Lymphocytes % (A) 14 %; MCH 30.6 pg (25.0-35.0); MCHC 32.4 g/dL (31.0-37.0); MCV 94.3 fL (80.0-100.0); Monocytes # (A) 0.5 k/uL (0-1.0); Monocytes % (A) 5 %; Neutrophils # (A) 7.4 k/uL (1.3-7.7); Neutrophils % (A) 79 %; Platelet Count 295 k/uL (150-450); RBC 3.87 m/uL (3.80-5.40); RDW 12.8 % (11.5-15.5); WBC 9.4 k/uL (3.8-10.6)
[2021-07-18] MEDS: GABAPENTIN 100 MG CAP PO SCH (07:49)
[2021-07-18] MEDS: ENOXAPARIN 30 MG/0.3 ML SYRINGE SQ SCH (07:49)
[2021-07-18] MEDS: LOSARTAN-HCTZ 50-12.5 MG 1 EACH TAB PO SCH (07:50)
[2021-07-18] MEDS: oxyCODONE-APAP 10-325MG 1 EACH TAB PO SCH ×2 (07:50→20:17)
[2021-07-18] MEDS: ONDANSETRON 4 MG/2 ML VIAL IVP PRN ×2 (08:11→17:15)
[2021-07-18] MEDS: MAGNESIUM SULFATE-D5W PMX 1 GM in DEXTROSE/WATER 1 100ML.BAG IVPB SCH ×3 (14:05→23:41)
[2021-07-18] MEDS ORDERED: SCOPOLAMINE 1.5MG/72HR PATCH TRANSDERM ONE (14:15)
--- NOTE | 2021-07-18 14:18 | P.PN ---
Subjective Progress Note Date: 07/18/21 CHIEF COMPLAINT: Abdominal pain HISTORY OF PRESENT ILLNESS: The patient is a 46-year-old female admitted with bowel obstruction. She is status post lysis of adhesions, 07/17/2021. From surgical standpoint, her abdominal pain resolved. She is passing flatus. Patient reports severe migraines today. ROS: She is passing flatus. She reports migraines, worse. No chest pain. No fevers or chills. PHYSICAL EXAM: VITAL SIGNS: Reviewed CONSTITUTIONAL: Well developed and in no acute distress. EYES: Conjuctivae without sclera icterus. Extraocular movements grossly intact. HEAD, EARS, NOSE, THROAT: Moist buccal mucosa. Head is atraumatic, normocephalic. Hears conversational speech. No nasal drainage. RESPIRATORY: Non-labored respirations and equal bilateral excursions. CARDIOVASCULAR: Palpable 2+ radial pulses. ABDOMEN: Incisions clean dry and intact. No peritonitis. MUSCULOSKELETAL: No gross deformity of the lower extremities noted. No clubbing. No cyanosis. SKIN: Good skin turgor. Well perfused. NEUROLOGIC: Cranial nerves II through XII grossly intact. No focal or lateralizing signs. PSYCH: Appropriate affect. Alert and oriented to person, place and time. CLINICAL LABS: Reviewed. WBC normal. Magnesium low 1.4 down from 2.1. ASSESSMENT: 1. Small bowel obstructions due to adhesions 2. Low magnesium 3. Migraines 4. Chronic pain syndrome PLAN: 1. From surgical standpoint, abdominal pain resolved. 2. Patient reports new severe migraines. Review of labs, magnesium low at 1.4. Recommend magnesium correction intravenously of 4 g IV. 3. Advance diet to low fiber. 4. Repeat labs in the morning. 5. Possible discharge tomorrow pending clinical improvement. Objective - Vital Signs Vital signs: Vital Signs Temp 98.3 F 07/18/21 08:00 Pulse 86 07/18/21 08:00 Resp 16 07/18/21 08:00 BP 105/69 07/18/21 08:00 Pulse Ox 99 07/18/21 08:00 Intake & Output 07/17/21 07/18/21 07/18/21 18:59 06:59 18:59 Intake Total 1350 350 Output Total 5 Balance 1345 350 Weight 86.183 kg Intake: IV 1350 350 Output: Estimated Blood Loss 5 Other: # Voids 2 - Labs CBC & Chem 7: 07/18/21 05:37 07/18/21 16:44 Labs: Abnormal Lab Results - Last 24 Hours (Table) 07/18/21 Range/Units 05:37 Magnesium 1.4 L (1.6-2.3) mg/dL Assessment and Plan (1) Hypomagnesemia Current Visit: Yes Status: Acute Code(s): E83.42 - HYPOMAGNESEMIA SNOMED Code(s): 776130014 (2) Migraines Current Visit: Yes Status: Acute Code(s): G43.909 - MIGRAINE, UNSP, NOT INTRACTABLE, WITHOUT STATUS MIGRAINOSUS SNOMED Code(s): 31327426 (3) Chronic pain syndrome Current Visit: Yes Status: Acute Code(s): G89.4 - CHRONIC PAIN SYNDROME SNOMED Code(s): 453808554 (4) Obesity Current Visit: Yes Status: Acute Code(s): E66.9 - OBESITY, UNSPECIFIED SNOMED Code(s): 469782336 (5) Peritoneal adhesions with obstruction Current Visit: Yes Status: Acute Code(s): K56.50 - INTESTNL ADHESIONS, UNSP TO PARTIAL VERSUS COMPLETE OBST SNOMED Code(s): 93568309 (6) SBO (small bowel obstruction) Current Visit: Yes Status: Acute Code(s): K56.609 - UNSP INTESTNL OBST, UNSP TO PARTIAL VERSUS COMPLETE OBST SNOMED Code(s): 994319071
[2021-07-18 17:06] LABS: ALT 11 U/L (4-34); AST 18 U/L (14-36); African American GFR (CKD) >90 (>60 ml/min/1.73 sqM); Albumin 3.3 g/dL (3.5-5.0); Albumin/Globulin Ratio 1.3; Alkaline Phosphatase 37 U/L (38-126); Anion Gap 7 mmol/L; Blood Urea Nitrogen 8 mg/dL (7-17); Calcium 8.1 mg/dL (8.4-10.2); Carbon Dioxide 22 mmol/L (22-30); Chloride 107 mmol/L (98-107); Globulin 2.6 g/dL; Glucose 126 mg/dL (74-99); Non-African American GFR(CKD) >90 (>60 ml/min/1.73 sqM); Potassium 3.5 mmol/L (3.5-5.1); Sodium 136 mmol/L (137-145); Total Bilirubin 0.7 mg/dL (0.2-1.3); Total Protein 5.9 g/dL (6.3-8.2)
[2021-07-18] MEDS: clonazePAM 1 MG TAB PO SCH (20:17)
[2021-07-18] MEDS: ZOLPIDEM 10 MG TAB PO PRN (23:41)
[2021-07-19] MEDS: HYDROmorphone 0.5 MG/0.5 ML SYRINGE IVP PRN ×4 (01:01→10:30)
[2021-07-19] MEDS: ONDANSETRON 4 MG/2 ML VIAL IVP PRN (01:07)
[2021-07-19] MEDS: MAGNESIUM SULFATE-D5W PMX 1 GM in DEXTROSE/WATER 1 100ML.BAG IVPB SCH (02:06)
[2021-07-19] MEDS: SODIUM CHLORIDE 0.9% 1,000 ML IV SCH ×2 (03:17→09:54)
[2021-07-19 05:50] LABS: African American GFR (CKD) >90 (>60 ml/min/1.73 sqM); Anion Gap 8 mmol/L; Blood Urea Nitrogen 5 mg/dL (7-17); Calcium 8.1 mg/dL (8.4-10.2); Carbon Dioxide 23 mmol/L (22-30); Chloride 104 mmol/L (98-107); Glucose 131 mg/dL (74-99); Non-African American GFR(CKD) >90 (>60 ml/min/1.73 sqM); Sodium 135 mmol/L (137-145)
[2021-07-19] MEDS: oxyCODONE-APAP 10-325MG 1 EACH TAB PO SCH (08:05)
[2021-07-19] MEDS: GABAPENTIN 100 MG CAP PO SCH (08:05)
[2021-07-19] MEDS: ENOXAPARIN 30 MG/0.3 ML SYRINGE SQ SCH (08:06)
[2021-07-19 08:08] VITALS: BP 99/64; PULSE 83
[2021-07-19] MEDS ORDERED: Potassium Replacement Protocol 1 EACH MISC MISCELLANE PRN (09:39)
[2021-07-19 09:48] VITALS: RESP 14; TEMP 98.6
[2021-07-19] MEDS: POTASSIUM CHLORIDE ER 20 MEQ TAB.ER PO SCH ×3 (10:29→11:56)
[2021-07-19] MEDS: LOSARTAN-HCTZ 50-12.5 MG 1 EACH TAB PO SCH (10:38)
--- NOTE | 2021-07-19 12:42 | P.DS ---
Providers Date of admission: 07/16/21 11:40 Expected date of discharge: 07/19/21 Attending physician: Charity Upton Primary care physician: Physician Nonstaff - Discharge Diagnosis(es) (1) Hypomagnesemia Current Visit: Yes Status: Acute (2) Migraines Current Visit: Yes Status: Acute (3) Chronic pain syndrome Current Visit: Yes Status: Acute (4) Obesity Current Visit: Yes Status: Acute (5) Peritoneal adhesions with obstruction Current Visit: Yes Status: Acute (6) SBO (small bowel obstruction) Current Visit: Yes Status: Acute Hospital Course: Clinically resolved bowel obstruction. Correction of magnesium and potassium completed. She feels much better today. Discharge instructions reviewed. Patient Condition at Discharge: Stable Plan - Discharge Summary Discharge Rx Participant: No New Discharge Prescriptions: New Simethicone [Gas-X] 125 mg PO AC-TID PRN #20 capsule PRN Reason: Pain Continue SUMAtriptan SUCCINATE [Imitrex] 100 mg PO TID PRN PRN Reason: Migraine Headache DULoxetine HCL [Cymbalta] 60 mg PO DAILY clonazePAM [KlonoPIN] 1 mg PO HS Zolpidem [Ambien] 10 mg PO HS Losartan-Hctz 50-12.5 mg [Hyzaar 50-12.5] 1 tab PO DAILY oxyCODONE-APAP 10-325MG [Percocet 10-325 mg] 1 tab PO BID Gabapentin [Neurontin] 100 mg PO DAILY Albuterol Sulfate [Albuterol Sulfate Hfa] 2 puff INHALATION RT-Q4H PRN PRN Reason: Shortness Of Breath Discontinued Azithromycin [Zithromax Z-pack (6 tabs)] See Taper PO DIRECTED Discharge Medication List DULoxetine HCL [Cymbalta] 60 mg PO DAILY 01/11/14 [History] SUMAtriptan SUCCINATE [Imitrex] 100 mg PO TID PRN 01/11/14 [History] Zolpidem [Ambien] 10 mg PO HS 09/02/17 [History] clonazePAM [KlonoPIN] 1 mg PO HS 09/02/17 [History] Gabapentin [Neurontin] 100 mg PO DAILY 05/19/20 [History] Losartan-Hctz 50-12.5 mg [Hyzaar 50-12.5] 1 tab PO DAILY 05/19/20 [History] oxyCODONE-APAP 10-325MG [Percocet 10-325 mg] 1 tab PO BID 05/19/20 [History] Albuterol Sulfate [Albuterol Sulfate Hfa] 2 puff INHALATION RT-Q4H PRN 07/16/21 [History] Simethicone [Gas-X] 125 mg PO AC-TID PRN #20 capsule 07/19/21 [Rx] Follow up Appointment(s)/Referral(s): Nonstaff,Physician [Primary Care Provider] - 1-2 days Patient Instructions/Handouts: Lysis of Abdominal Adhesions (GEN), Bowel Obstruction (GEN), *[facility]gery [facility] - Managing Your Pain After Surgery Without Opioids Activity/Diet/Wound Care/Special Instructions: CONTACT YOUR PAIN PROVIDER FOR ADDITIONAL NARCOTICS. No lifting for 10 pounds in 2 weeks, July 31August shower. No bathtub soaks for 2 weeks, July 31. Wear abdominal binder daily for comfort except for showering. DO NOT TAKE NORCO AND XANAX TOGETHER. Using antibacterial soap. Use ice along incisions for today to prevent swelling. Discharge Disposition: HOME SELF-CARE
== END 2021-07-19 13:34 | disposition home or self-care (01) | DRG 336 ==
LOC: EC 08:10 → 5NMEDONC 11:40 → 4SSUR 17:48
PROVIDERS: ADMIT Surgery Plastic and Reconstructive Surgery; ATTEND Surgery Plastic and Reconstructive Surgery
PROC: 0D9670Z Drainage of Stomach with Drainage Device, Via Natural or Artificial Opening (ICD-10-PCS; 2021-07-16)
PROC: 0DNU4ZZ Release Omentum, Percutaneous Endoscopic Approach (ICD-10-PCS; 2021-07-17)
PROC: 8E0W4CZ Robotic Assisted Procedure of Trunk Region, Percutaneous Endoscopic Approach (ICD-10-PCS; 2021-07-17)
PROC: 0DNA4ZZ Release Jejunum, Percutaneous Endoscopic Approach (ICD-10-PCS; principal; 2021-07-17 14:50)
DX: K56.50 Intestinal adhesions [bands], unspecified as to partial versus complete obstruction (principal); K46.0 Unspecified abdominal hernia with obstruction, without gangrene; R18.8 Other ascites; D72.829 Elevated white blood cell count, unspecified; E66.09 Other obesity due to excess calories; Z68.32 Body mass index [BMI] 32.0-32.9, adult; E83.42 Hypomagnesemia; F32.A Depression, unspecified; F41.1 Generalized anxiety disorder; G43.909 Migraine, unspecified, not intractable, without status migrainosus; G89.4 Chronic pain syndrome; I11.9 Hypertensive heart disease without heart failure; J44.9 Chronic obstructive pulmonary disease, unspecified; K21.9 Gastro-esophageal reflux disease without esophagitis; N73.6 Female pelvic peritoneal adhesions (postinfective); Z79.891 Long term (current) use of opiate analgesic; Z79.899 Other long term (current) drug therapy; Z80.3 Family history of malignant neoplasm of breast; Z90.710 Acquired absence of both cervix and uterus
CPT/HCPCS: 36415; 74177; 80048; 80053; 81003; 82150; 83605; 83690; 83735; 85025; 85610; 85730; 96361; 96374; 96375; 96376; 99285

== ENCOUNTER 2021-07-23 09:10 | Emergency (ER) | payer BC ==
[2021-07-23 09:14] VITALS: BP 135/83; PULSE 104; RESP 18; TEMP 98.7
[2021-07-23] MEDS ORDERED: SODIUM CHLORIDE 0.9% 500 ML 500 ML IV STA (09:41)
[2021-07-23] MEDS ORDERED: SODIUM CHLORIDE 0.9% 1,000 ML IV STA (09:41)
[2021-07-23] MEDS ORDERED: ONDANSETRON 4 MG/2 ML VIAL IVP STA (09:42)
[2021-07-23] MEDS ORDERED: HYDROmorphone 0.5 MG/0.5 ML SYRINGE IVP STA ×2 (09:42→10:49)
[2021-07-23 10:16] LABS: Basophils % (A) 0 %; Eosinophils # (A) 0.4 k/uL (0-0.7); Eosinophils % (A) 4 %; HGB 12.5 gm/dL (11.4-16.0); Lymphocytes # (A) 2.3 k/uL (1.0-4.8); Lymphocytes % (A) 24 %; MCH 30.4 pg (25.0-35.0); MCHC 33.8 g/dL (31.0-37.0); MCV 89.8 fL (80.0-100.0); Mean Platelet Volume 7.3; Monocytes # (A) 0.5 k/uL (0-1.0); Monocytes % (A) 5 %; Neutrophils # (A) 6.1 k/uL (1.3-7.7); Neutrophils % (A) 65 %; Platelet Count 484 k/uL (150-450); RBC 4.12 m/uL (3.80-5.40); WBC 9.4 k/uL (3.8-10.6)
[2021-07-23 10:28] LABS: Appearance,Urine Clear (Clear); Bilirubin,Urine Negative (Negative); Blood,Urine Negative (Negative); Color,Urine Yellow; Glucose,Urine (UA) Negative (Negative); Ketones,Urine 1+ (Negative); Leukocyte Esterase,Urine Negative (Negative); Nitrite,Urine Negative (Negative); Protein,Urine Negative (Negative); Specific Gravity,Urine 1.015 (1.001-1.035); Urobilinogen,Urine <2.0 mg/dL (<2.0)
[2021-07-23 10:30] LABS: INR 0.9 (<1.2); Prothrombin Time 10.2 sec (9.0-12.0)
--- NOTE | 2021-07-23 10:42 | ED ---
Abdominal Pain HPI - General Chief Complaint: Abdominal Pain Stated Complaint: Post surgery complications Time Seen by Provider: 07/23/21 09:21 Source: patient, RN notes reviewed Mode of arrival: ambulatory Limitations: no limitations - History of Present Illness Initial Comments: This a 46-year-old female presents emergency Department chief complaint of increased abdominal pain. Patient states she had surgery 6 days ago for a mild obstruction which she had adhesions. Patient states she's had multiple abdominal surgeries. She is discharged 4 days ago and has been in contact with her surgeon Dr. Upton regarding her symptoms. She states that she's been slowly having increasing pain especially overnight along with increasing nausea vomiting. Patient states the pain is in the lower abdomen though she had surgery primarily in the left upper she reports. Patient denies any chest pain shortness of breath no noted fever or night sweats. No dysuria no hematuria she did have a small amount of liquid stool 3 days ago but said no recent bowel movement. - Related Data Home Medications Medication Instructions Recorded Confirmed DULoxetine HCL [Cymbalta] 60 mg PO DAILY 01/11/14 07/23/21 SUMAtriptan SUCCINATE [Imitrex] 100 mg PO TID PRN 01/11/14 07/23/21 Zolpidem [Ambien] 10 mg PO HS 09/02/17 07/23/21 clonazePAM [KlonoPIN] 1 mg PO HS 09/02/17 07/23/21 Gabapentin [Neurontin] 100 mg PO DAILY 05/19/20 07/23/21 Losartan-Hctz 50-12.5 mg [Hyzaar 1 tab PO DAILY 05/19/20 07/23/21 50-12.5] oxyCODONE-APAP 10-325MG [Percocet 1 tab PO BID 05/19/20 07/23/21 10-325 mg] Albuterol Sulfate [Albuterol 2 puff INHALATION RT-Q4H PRN 07/16/21 07/23/21 Sulfate Hfa] Previous Rx's Medication Instructions Recorded Simethicone [Gas-X] 125 mg PO AC-TID PRN #20 capsule 07/19/21 Ondansetron Odt [Zofran Odt] 4 mg PO Q8HR PRN #10 tab 07/23/21 Allergies Allergy/AdvReac Type Severity Reaction Status Date / Time hydroxyzine [From Vistaril] Allergy Rash/Hives Verified 07/23/21 10:25 ketorolac tromethamine Allergy Rash/Hives Verified 07/23/21 10:25 [From Toradol] & Migraines naproxen sodium [From Aleve] Allergy Rash/Hives Verified 07/23/21 10:25 & Migraines Penicillins Allergy Swelling Verified 07/23/21 10:25 at suture site pregabalin [From Lyrica] Allergy Swelling Verified 07/23/21 10:25 from knees to feet & hives tramadol HCl [From Ultram] Allergy Rash/Hives Verified 07/23/21 10:25 & Migraines acetaminophen [From Ofirmev] AdvReac Rash/Hives Verified 07/23/21 10:25 from liquid only doxycycline AdvReac Nausea & Verified 07/23/21 10:25 Vomiting levofloxacin [From Levaquin] AdvReac Swelling Verified 07/23/21 10:25 from knees to feet morphine AdvReac Lowers BP Verified 07/23/21 10:25 oxybutynin [From Ditropan] AdvReac Rapid Verified 07/23/21 10:25 Heart Rate Review of Systems ROS Statement: Those systems with pertinent positive or pertinent negative responses have been documented in the HPI. ROS Other: All systems not noted in ROS Statement are negative. Past Medical History Past Medical History: Hypertension, Respiratory Disorder Additional Past Medical History / Comment(s): LUNG ABSCESS 2013. Migraine headache. HX ABD HERNIAS, diverticulitis, PCOS History of Any Multi-Drug Resistant Organisms: None Reported Past Surgical History: Adenoidectomy, Back Surgery, Breast Surgery, Cholecystectomy, Hernia Repair, Hysterectomy, Orthopedic Surgery, Tonsillectomy Additional Past Surgical History / Comment(s): TYRA KNEE arthroscopic. LOW BACK SURGERY. L BREAST LUMPECTOMY, BENIGN. Colonoscopy-Colitis September 2016. hernia surgery x2 with mesh, diverticulitis Past Anesthesia/Blood Transfusion Reactions: Postoperative Nausea & Vomiting (PONV) Additional Past Anesthesia/Blood Transfusion Reaction / Comment(s): PT HAS NEVER RECIEVED BLOOD. Past Psychological History: Anxiety, Depression Smoking Status: Never smoker Past Alcohol Use History: None Reported Past Drug Use History: None Reported - Past Family History Mother Family Medical History: Cancer Additional Family Medical History / Comment(s): breast ca Father Family Medical History: AFIB General Exam Limitations: no limitations General appearance: alert, in no apparent distress Head exam: Present: atraumatic, normocephalic, normal inspection Eye exam: Present: normal appearance, PERRL, EOMI. Absent: scleral icterus, conjunctival injection, periorbital swelling ENT exam: Present: normal exam, mucous membranes moist Neck exam: Present: normal inspection, full ROM. Absent: tenderness, mening ismus, lymphadenopathy Respiratory exam: Present: normal lung sounds bilaterally. Absent: respiratory distress, wheezes, rales, rhonchi, stridor Cardiovascular Exam: Present: regular rate, normal rhythm, normal heart sounds. Absent: systolic murmur, diastolic murmur, rubs, gallop, clicks GI/Abdominal exam: Present: soft, tenderness, normal bowel sounds. Absent: distended, guarding, rebound, rigid Back exam: Absent: CVA tenderness (R), CVA tenderness (L) Neurological exam: Present: alert Skin exam: Present: warm, dry, intact, normal color. Absent: rash Course Vital Signs 07/23/21 09:12 Temperature 98.7 F Pulse Rate 104 H Respiratory 18 Rate Blood Pressure 135/83 O2 Sat by Pulse 99 Oximetry Medical Decision Making - Medical Decision Making 46-year-old presented from it for abdominal pain increasing after surgery, post mild obstruction. Patient had labs and CT CT was reviewed and patient evaluated in emergency department by Dr. Rodriguez recommends patient has an ileus patient may be discharged with abdominal binder, Zofran, scopolamine patch return parameters were discussed. - Lab Data Result diagrams: 07/23/21 10:03 07/23/21 11:00 Lab Results 07/23/21 07/23/21 07/23/21 Range/Units 10:03 10:03 10:03 WBC 9.4 (3.8-10.6) k/uL RBC 4.12 (3.80-5.40) m/uL Hgb 12.5 (11.4-16.0) gm/dL Hct 37.0 (34.0-46.0) % MCV 89.8 (80.0-100.0) fL MCH 30.4 (25.0-35.0) pg MCHC 33.8 (31.0-37.0) g/dL RDW 13.0 (11.5-15.5) % Plt Count 484 H (150-450) k/uL MPV 7.3 Neutrophils % 65 % Lymphocytes % 24 % Monocytes % 5 % Eosinophils % 4 % Basophils % 0 % Neutrophils # 6.1 (1.3-7.7) k/uL Lymphocytes # 2.3 (1.0-4.8) k/uL Monocytes # 0.5 (0-1.0) k/uL Eosinophils # 0.4 (0-0.7) k/uL Basophils # 0.0 (0-0.2) k/uL PT 10.2 (9.0-12.0) sec INR 0.9 (<1.2) APTT 26.0 (22.0-30.0) sec Sodium (137-145) mmol/L Potassium (3.5-5.1) mmol/L Chloride (98-107) mmol/L Carbon Dioxide (22-30) mmol/L Anion Gap mmol/L BUN (7-17) mg/dL Creatinine (0.52-1.04) mg/dL Est GFR (CKD-EPI)AfAm (>60 ml/min/1.73 sqM) Est GFR (CKD-EPI)NonAf (>60 ml/min/1.73 sqM) Glucose (74-99) mg/dL Plasma Lactic Acid Kaleb (0.7-2.0) mmol/L Calcium (8.4-10.2) mg/dL Total Bilirubin (0.2-1.3) mg/dL AST (14-36) U/L ALT (4-34) U/L Alkaline Phosphatase (38-126) U/L Total Protein (6.3-8.2) g/dL Albumin (3.5-5.0) g/dL Lipase (23-300) U/L Urine Color Yellow Urine Appearance Clear (Clear) Urine pH 6.0 (5.0-8.0) Ur Specific [place] 1.015 (1.001-1.035) Urine Protein Negative (Negative) Urine Glucose (UA) Negative (Negative) Urine Ketones 1+ H (Negative) Urine Blood Negative (Negative) Urine Nitrite Negative (Negative) Urine Bilirubin Negative (Negative) Urine Urobilinogen <2.0 (<2.0) mg/dL Ur Leukocyte Esterase Negative (Negative) 07/23/21 07/23/21 Range/Units 11:00 11:00 WBC (3.8-10.6) k/uL RBC (3.80-5.40) m/uL Hgb (11.4-16.0) gm/dL Hct (34.0-46.0) % MCV (80.0-100.0) fL MCH (25.0-35.0) pg MCHC (31.0-37.0) g/dL RDW (11.5-15.5) % Plt Count (150-450) k/uL MPV Neutrophils % % Lymphocytes % % Monocytes % % Eosinophils % % Basophils % % Neutrophils # (1.3-7.7) k/uL Lymphocytes # (1.0-4.8) k/uL Monocytes # (0-1.0) k/uL Eosinophils # (0-0.7) k/uL Basophils # (0-0.2) k/uL PT (9.0-12.0) sec INR (<1.2) APTT (22.0-30.0) sec Sodium 133 L (137-145) mmol/L Potassium 4.5 (3.5-5.1) mmol/L Chloride 103 (98-107) mmol/L Carbon Dioxide 25 (22-30) mmol/L Anion Gap 5 mmol/L BUN 5 L (7-17) mg/dL Creatinine 0.54 (0.52-1.04) mg/dL Est GFR (CKD-EPI)AfAm >90 (>60 ml/min/1.73 sqM) Est GFR (CKD-EPI)NonAf >90 (>60 ml/min/1.73 sqM) Glucose 94 (74-99) mg/dL Plasma Lactic Acid Kaleb <0.5 L (0.7-2.0) mmol/L Calcium 7.9 L (8.4-10.2) mg/dL Total Bilirubin 0.6 (0.2-1.3) mg/dL AST 26 (14-36) U/L ALT 28 (4-34) U/L Alkaline Phosphatase 67 (38-126) U/L Total Protein 6.0 L (6.3-8.2) g/dL Albumin 3.2 L (3.5-5.0) g/dL Lipase 64 (23-300) U/L Urine Color Urine Appearance (Clear) Urine pH (5.0-8.0) Ur Specific [place] (1.001-1.035) Urine Protein (Negative) Urine Glucose (UA) (Negative) Urine Ketones (Negative) Urine Blood (Negative) Urine Nitrite (Negative) Urine Bilirubin (Negative) Urine Urobilinogen (<2.0) mg/dL Ur Leukocyte Esterase (Negative) Disposition Clinical Impression: Ileus, Abdominal pain Disposition: HOME SELF-CARE Instructions (If sedation given, give patient instructions): Ileus (ED) Additional Instructions: Please return to the Emergency Department if symptoms worsen or any other concerns. Prescriptions: Ondansetron Odt [Zofran Odt] 4 mg PO Q8HR PRN #10 tab PRN Reason: Nausea Is patient prescribed a controlled substance at d/c from ED?: No Referrals: Nonstaff,Physician [Primary Care Provider] - 1-2 days Time of Disposition: 12:55
[2021-07-23 11:28] LABS: ALT 28 U/L (4-34); AST 26 U/L (14-36); African American GFR (CKD) >90 (>60 ml/min/1.73 sqM); Albumin 3.2 g/dL (3.5-5.0); Alkaline Phosphatase 67 U/L (38-126); Anion Gap 5 mmol/L; Blood Urea Nitrogen 5 mg/dL (7-17); Calcium 7.9 mg/dL (8.4-10.2); Carbon Dioxide 25 mmol/L (22-30); Chloride 103 mmol/L (98-107); Glucose 94 mg/dL (74-99); Lipase 64 U/L (23-300); Non-African American GFR(CKD) >90 (>60 ml/min/1.73 sqM); Potassium 4.5 mmol/L (3.5-5.1); Sodium 133 mmol/L (137-145); Total Bilirubin 0.6 mg/dL (0.2-1.3)
--- NOTE | 2021-07-23 11:37 | CT ---
EXAMINATION TYPE: CT abdomen pelvis w con DATE OF EXAM: 07/23/2021 COMPARISON: CT dated 07/16/2021 HISTORY: Abdominal pain, bloating and nausea and vomiting since abdominal surgery 6 days ago. Surgery included scar tissue removal and fixing "kink" in intestine. CT DLP: 1362.2 mGycm Automated exposure control for dose reduction was used. TECHNIQUE: Helical acquisition of images was performed from the lung bases through the pelvis. CONTRAST: Performed without Oral Contrast and with IV Contrast, patient injected with 100 mL of Isovue 300. FINDINGS: LUNG BASES: No significant abnormality is appreciated. LIVER/GB: Previous cholecystectomy. No definite hepatic focal lesion. Stable biliary tree dilatation. PANCREAS: No significant abnormality is seen. SPLEEN: No significant abnormality is seen. ADRENALS: No significant abnormality is seen. KIDNEYS: Left lower pole simple renal cyst, otherwise unremarkable kidneys. FREE AIR: No free air is visualized. RETROPERITONEAL ADENOPATHY: None visualized REPRODUCTIVE ORGANS: Previous hysterectomy. Smaller right ovarian/adnexal cyst measuring 2.8 cm mia red to 5.6 cm previously. URINARY BLADDER: No significant abnormality is seen. PELVIC ADENOPATHY: None visualized. OSSEOUS STRUCTURES: Mild anterolisthesis of L4 over L5 and to a lesser extent L3 over L4, likely deg enerative. No aggressive bone lesion. BOWEL: Nondistended stomach. Dilated duodenum and small bowel loops measuring up to 4.4 cm, most nancy dent involving the proximal jejunal loops with multiple small bowel segments of fecalization alternat ing with short segments of small bowel thickening/nondistention. There is no definite transition poin t with a gradual tapering towards the ileocecal junction. No evidence of pneumatosis or portal venous gas. Tiny air bubbles are seen in the left lower quadrant, probably related to the recent surgery. F at stranding is seen in the lower abdomen with adjacent peritoneal reflection thickening likely relat ed to the recent surgical intervention. [id number] fecal loading of the colon without evidence of colonic obstruction. Normal appendix. OTHER: Anterior abdominal wall subcutaneous fat stranding and reactive fluid, possibly related to the recent surgical intervention. Small amount of fluid is seen in the pelvis. IMPRESSION: Diffuse dilatation of the small bowel loops most evident proximally with a gradual tapering down to t he ileocecal junction as described above. No definite transition point with the described changes in the lower abdomen could be related to the recent surgical intervention. This could be related to ileu s however underlying mechanical obstruction secondary to adhesion or endometriosis can't be excluded. No pneumatosis or portal venous gas. Bowel ischemia cannot be excluded. Recommend clinical correlati on and surgical consultation. Other interval changes and incidental findings as described above.
[2021-07-23] MEDS ORDERED: SCOPOLAMINE 1.5MG/72HR PATCH TRANSDERM STA (11:56)
== END 2021-07-23 13:02 | disposition home or self-care (01) ==
LOC: EC 09:10
DX: K91.30 Postprocedural intestinal obstruction, unspecified as to partial versus complete (principal); I10 Essential (primary) hypertension; F32.A Depression, unspecified; F41.9 Anxiety disorder, unspecified; Z79.899 Other long term (current) drug therapy
CPT/HCPCS: 36415; 80053; 83605; 83690; 85025; 85610; 85730; 81003; 74177; 99284; 96374; 96375; 96376; 96361; J2405; J1170; Q9967

== ENCOUNTER 2021-08-05 15:04 | Observation (INO) | payer BC ==
[2021-08-05 15:14] LABS: Glucose,Whole Blood 106 mg/dL (75-99)
[2021-08-05] MEDS ORDERED: SODIUM CHLORIDE 0.9% 1,000 ML IV STA ×2 (15:23→15:26)
[2021-08-05] MEDS ORDERED: IOPAMIDOL CONTRAST (ORAL USE) VIAL PO PRN (15:27)
--- NOTE | 2021-08-05 15:32 | ED ---
Weakness HPI - General Chief complaint: Weakness Stated complaint: Weakness, Lethargic, light headed Time Seen by Provider: 08/05/21 15:18 Source: patient, family, RN notes reviewed Mode of arrival: wheelchair Limitations: physical limitation - History of Present Illness Initial comments: This is a 46-year-old female who presents to the emergency department for progressive weakness. On 07/17/2021 she had lysis of adhesions with Dr. Upton after being admitted for a SBO. Since then she has continued to have weakness and pain. She had an outpatient computed tomography scan scheduled for today, however she was noted to be significantly weak and was unable to keep down the oral contarst. She was advised to come to the emergency department for further evaluation and completion of the CT scan. She reports associated nausea with left lower quadrant pain. I spoke with Dr. Upton, who advised the patient have a CT with both IV and oral contrast. MD Complaint: generalized weakness, lack of energy Onset/Timin -: week(s) Location: generalized Consistency: constant - Related Data Home Medications Medication Instructions Recorded Confirmed DULoxetine HCL [Cymbalta] 60 mg PO DAILY 01/11/14 08/05/21 SUMAtriptan SUCCINATE [Imitrex] 100 mg PO TID PRN 01/11/14 08/05/21 Zolpidem [Ambien] 10 mg PO HS 09/02/17 08/05/21 clonazePAM [KlonoPIN] 1 mg PO HS 09/02/17 08/05/21 Gabapentin [Neurontin] 100 mg PO DAILY 05/19/20 08/05/21 Losartan-Hctz 50-12.5 mg [Hyzaar 1 tab PO DAILY 05/19/20 08/05/21 50-12.5] oxyCODONE-APAP 10-325MG [Percocet 1 tab PO BID 05/19/20 08/05/21 10-325 mg] Albuterol Sulfate [Albuterol 2 puff INHALATION RT-Q4H PRN 07/16/21 08/05/21 Sulfate Hfa] Previous Rx's Medication Instructions Recorded Simethicone [Gas-X] 125 mg PO AC-TID PRN #20 capsule 07/19/21 Ondansetron Odt [Zofran Odt] 4 mg PO Q8HR PRN #10 tab 07/23/21 Allergies Allergy/AdvReac Type Severity Reaction Status Date / Time hydroxyzine [From Vistaril] Allergy Rash/Hives Verified 08/05/21 16:03 ketorolac tromethamine Allergy Rash/Hives Verified 08/05/21 16:03 [From Toradol] & Migraines naproxen sodium [From Aleve] Allergy Rash/Hives Verified 08/05/21 16:03 & Migraines Penicillins Allergy Swelling Verified 08/05/21 16:03 at suture site pregabalin [From Lyrica] Allergy Swelling Verified 08/05/21 16:03 from knees to feet & hives tramadol HCl [From Ultram] Allergy Rash/Hives Verified 08/05/21 16:03 & Migraines acetaminophen [From Ofirmev] AdvReac Rash/Hives Verified 08/05/21 16:03 from liquid only doxycycline AdvReac Nausea & Verified 08/05/21 16:03 Vomiting levofloxacin [From Levaquin] AdvReac Swelling Verified 08/05/21 16:03 from knees to feet morphine AdvReac Lowers BP Verified 08/05/21 16:03 oxybutynin [From Ditropan] AdvReac Rapid Verified 08/05/21 16:03 Heart Rate Review of Systems ROS Statement: Those systems with pertinent positive or pertinent negative responses have been documented in the HPI. ROS Other: All systems not noted in ROS Statement are negative. Constitutional: Denies: fever, chills ENT: Denies: ear pain, throat pain Respiratory: Denies: cough, dyspnea Cardiovascular: Denies: chest pain, palpitations Endocrine: Reports: fatigue Gastrointestinal: Reports: abdominal pain, nausea. Denies: vomiting, diarrhea, constipation Genitourinary: Denies: urgency, dysuria Skin: Denies: rash Neurological: Reports: weakness Past Medical History Past Medical History: Hypertension, Respiratory Disorder Additional Past Medical History / Comment(s): LUNG ABSCESS 2013. Migraine headache. HX ABD HERNIAS, diverticulitis, PCOS History of Any Multi-Drug Resistant Organisms: None Reported Past Surgical History: Adenoidectomy, Back Surgery, Breast Surgery, Cholecystectomy, Hernia Repair, Hysterectomy, Orthopedic Surgery, Tonsillectomy Additional Past Surgical History / Comment(s): TYRA KNEE arthroscopic. LOW BACK SURGERY. L BREAST LUMPECTOMY, BENIGN. Colonoscopy-Colitis September 2016. hernia surgery x2 with mesh, diverticulitis, Recent lysis of adhesions Past Anesthesia/Blood Transfusion Reactions: Postoperative Nausea & Vomiting (PONV) Additional Past Anesthesia/Blood Transfusion Reaction / Comment(s): PT HAS NEVER RECIEVED BLOOD. Past Psychological History: Anxiety, Depression Smoking Status: Never smoker Past Alcohol Use History: None Reported Past Drug Use History: None Reported - Past Family History Mother Family Medical History: Cancer Additional Family Medical History / Comment(s): breast ca Father Family Medical History: AFIB General Exam Limitations: physical limitation General appearance: alert, in distress Head exam: Present: atraumatic, normocephalic, normal inspection Respiratory exam: Present: normal lung sounds bilaterally. Absent: respiratory distress, wheezes, rales, rhonchi, stridor Cardiovascular Exam: Present: regular rate, normal rhythm, normal heart sounds. Absent: systolic murmur, diastolic murmur, rubs, gallop, clicks GI/Abdominal exam: Present: soft, tenderness (LLQ), normal bowel sounds. Absent: distended Neurological exam: Present: alert, oriented X3, CN II-XII intact Psychiatric exam: Present: normal affect, normal mood Skin exam: Present: warm, dry, intact, normal color, other (Well healing surgical incisions on the abdomen). Absent: rash Course Vital Signs 08/05/21 08/05/21 08/05/21 15:07 16:24 17:30 Temperature 97.7 F Pulse Rate 84 83 82 Respiratory 16 20 18 Rate Blood Pressure 108/78 109/92 125/86 O2 Sat by Pulse 100 99 100 Oximetry 08/05/21 08/05/21 08/05/21 18:00 20:05 21:11 Temperature Pulse Rate 88 84 88 Respiratory 18 22 18 Rate Blood Pressure 125/86 131/97 135/90 O2 Sat by Pulse 100 96 96 Oximetry EKG Findings - EKG Comments: EKG Findings:: Normal sinus rhythm, ventricular rate 82 bpm, [place] interval 164 ms, QRS duration 87 ms, QTC 409 ms. Medical Decision Making - Medical Decision Making This is a 46-year-old female who presents the emergency department for progressive weakness after surgery. Lab work was unremarkable and did not reveal any signs of infection or severe electrolyte irregularities. She was given 2L of IV fluids. Pain and nausea were controlled, and the patient was able to drink the oral contrast. CT of the abd/pelvis did not identify any acute concerns and revealed clearing of a dilated small bowel compared with prior exam. Dr. Upton evaluated the patient and requested she be admitted for observation. This case was discussed in detail with the attending ED physician. Presentation, findings, and treatment plan discussed in detail as well. - Lab Data Result diagrams: 08/05/21 15:57 08/05/21 15:57 Lab Results 08/05/21 08/05/21 08/05/21 Range/Units 15:13 15:57 15:57 WBC 9.9 (3.8-10.6) k/uL RBC 4.51 (3.80-5.40) m/uL Hgb 13.4 (11.4-16.0) gm/dL Hct 40.3 (34.0-46.0) % MCV 89.4 (80.0-100.0) fL MCH 29.8 (25.0-35.0) pg MCHC 33.3 (31.0-37.0) g/dL RDW 12.7 (11.5-15.5) % Plt Count 356 (150-450) k/uL MPV 7.8 Neutrophils % 63 % Lymphocytes % 28 % Monocytes % 4 % Eosinophils % 3 % Basophils % 1 % Neutrophils # 6.2 (1.3-7.7) k/uL Lymphocytes # 2.8 (1.0-4.8) k/uL Monocytes # 0.4 (0-1.0) k/uL Eosinophils # 0.2 (0-0.7) k/uL Basophils # 0.1 (0-0.2) k/uL PT 10.7 (9.0-12.0) sec INR 1.0 (<1.2) APTT 25.5 (22.0-30.0) sec Sodium (137-145) mmol/L Potassium (3.5-5.1) mmol/L Chloride (98-107) mmol/L Carbon Dioxide (22-30) mmol/L Anion Gap mmol/L BUN (7-17) mg/dL Creatinine (0.52-1.04) mg/dL Est GFR (CKD-EPI)AfAm (>60 ml/min/1.73 sqM) Est GFR (CKD-EPI)NonAf (>60 ml/min/1.73 sqM) Glucose (74-99) mg/dL POC Glucose (mg/dL) 106 H (75-99) mg/dL POC Glu Contract Agent ID Linda Ellis Plasma Lactic Acid Kaleb (0.7-2.0) mmol/L Calcium (8.4-10.2) mg/dL Phosphorus (2.5-4.5) mg/dL Magnesium (1.6-2.3) mg/dL Total Bilirubin (0.2-1.3) mg/dL AST (14-36) U/L ALT (4-34) U/L Alkaline Phosphatase (38-126) U/L Troponin I (0.000-0.034) ng/mL Total Protein (6.3-8.2) g/dL Albumin (3.5-5.0) g/dL Urine Color Urine Appearance (Clear) Urine pH (5.0-8.0) Ur Specific [place] (1.001-1.035) Urine Protein (Negative) Urine Glucose (UA) (Negative) Urine Ketones (Negative) Urine Blood (Negative) Urine Nitrite (Negative) Urine Bilirubin (Negative) Urine Urobilinogen (<2.0) mg/dL Ur Leukocyte Esterase (Negative) Coronavirus (PCR) (Not Detectd) Influenza Type A RNA (Not Detectd) Influenza Type B (PCR) (Not Detectd) 08/05/21 08/05/21 08/05/21 Range/Units 15:57 15:57 15:57 WBC (3.8-10.6) k/uL RBC (3.80-5.40) m/uL Hgb (11.4-16.0) gm/dL Hct (34.0-46.0) % MCV (80.0-100.0) fL MCH (25.0-35.0) pg MCHC (31.0-37.0) g/dL RDW (11.5-15.5) % Plt Count (150-450) k/uL MPV Neutrophils % % Lymphocytes % % Monocytes % % Eosinophils % % Basophils % % Neutrophils # (1.3-7.7) k/uL Lymphocytes # (1.0-4.8) k/uL Monocytes # (0-1.0) k/uL Eosinophils # (0-0.7) k/uL Basophils # (0-0.2) k/uL PT (9.0-12.0) sec INR (<1.2) APTT (22.0-30.0) sec Sodium 135 L (137-145) mmol/L Potassium 4.2 (3.5-5.1) mmol/L Chloride 106 (98-107) mmol/L Carbon Dioxide 22 (22-30) mmol/L Anion Gap 7 mmol/L BUN 23 H (7-17) mg/dL Creatinine 0.66 (0.52-1.04) mg/dL Est GFR (CKD-EPI)AfAm >90 (>60 ml/min/1.73 sqM) Est GFR (CKD-EPI)NonAf >90 (>60 ml/min/1.73 sqM) Glucose 100 H (74-99) mg/dL POC Glucose (mg/dL) (75-99) mg/dL POC Glu Contract Agent ID Plasma Lactic Acid Kaleb 1.1 (0.7-2.0) mmol/L Calcium 8.9 (8.4-10.2) mg/dL Phosphorus 3.4 (2.5-4.5) mg/dL Magnesium 1.7 (1.6-2.3) mg/dL Total Bilirubin 0.9 (0.2-1.3) mg/dL AST 25 (14-36) U/L ALT 17 (4-34) U/L Alkaline Phosphatase 48 (38-126) U/L Troponin I (0.000-0.034) ng/mL Total Protein 7.3 (6.3-8.2) g/dL Albumin 4.1 (3.5-5.0) g/dL Urine Color Yellow Urine Appearance Clear (Clear) Urine pH 5.5 (5.0-8.0) Ur Specific [place] 1.022 (1.001-1.035) Urine Protein Negative (Negative) Urine Glucose (UA) Negative (Negative) Urine Ketones 1+ H (Negative) Urine Blood Negative (Negative) Urine Nitrite Negative (Negative) Urine Bilirubin Negative (Negative) Urine Urobilinogen <2.0 (<2.0) mg/dL Ur Leukocyte Esterase Negative (Negative) Coronavirus (PCR) (Not Detectd) Influenza Type A RNA (Not Detectd) Influenza Type B (PCR) (Not Detectd) 08/05/21 08/05/21 08/05/21 Range/Units 15:57 15:57 15:57 WBC (3.8-10.6) k/uL RBC (3.80-5.40) m/uL Hgb (11.4-16.0) gm/dL Hct (34.0-46.0) % MCV (80.0-100.0) fL MCH (25.0-35.0) pg MCHC (31.0-37.0) g/dL RDW (11.5-15.5) % Plt Count (150-450) k/uL MPV Neutrophils % % Lymphocytes % % Monocytes % % Eosinophils % % Basophils % % Neutrophils # (1.3-7.7) k/uL Lymphocytes # (1.0-4.8) k/uL Monocytes # (0-1.0) k/uL Eosinophils # (0-0.7) k/uL Basophils # (0-0.2) k/uL PT (9.0-12.0) sec INR (<1.2) APTT (22.0-30.0) sec Sodium (137-145) mmol/L Potassium (3.5-5.1) mmol/L Chloride (98-107) mmol/L Carbon Dioxide (22-30) mmol/L Anion Gap mmol/L BUN (7-17) mg/dL Creatinine (0.52-1.04) mg/dL Est GFR (CKD-EPI)AfAm (>60 ml/min/1.73 sqM) Est GFR (CKD-EPI)NonAf (>60 ml/min/1.73 sqM) Glucose (74-99) mg/dL POC Glucose (mg/dL) (75-99) mg/dL POC Glu Contract Agent ID Plasma Lactic Acid Kaleb (0.7-2.0) mmol/L Calcium (8.4-10.2) mg/dL Phosphorus (2.5-4.5) mg/dL Magnesium (1.6-2.3) mg/dL Total Bilirubin (0.2-1.3) mg/dL AST (14-36) U/L ALT (4-34) U/L Alkaline Phosphatase (38-126) U/L Troponin I <0.012 (0.000-0.034) ng/mL Total Protein (6.3-8.2) g/dL Albumin (3.5-5.0) g/dL Urine Color Urine Appearance (Clear) Urine pH (5.0-8.0) Ur Specific [place] (1.001-1.035) Urine Protein (Negative) Urine Glucose (UA) (Negative) Urine Ketones (Negative) Urine Blood (Negative) Urine Nitrite (Negative) Urine Bilirubin (Negative) Urine Urobilinogen (<2.0) mg/dL Ur Leukocyte Esterase (Negative) Coronavirus (PCR) Not Detected (Not Detectd) Influenza Type A RNA Not Detected (Not Detectd) Influenza Type B (PCR) Not Detected (Not Detectd) - Radiology Data Radiology results: report reviewed, image reviewed Disposition Clinical Impression: Weakness generalized, Abdominal pain, Nausea Disposition: ADMITTED IP TO THIS HOSP
[2021-08-05] MEDS ORDERED: ONDANSETRON 4 MG/2 ML VIAL IVP STA ×2 (15:34→17:40)
[2021-08-05] MEDS ORDERED: HYDROmorphone 0.5 MG/0.5 ML SYRINGE IVP STA ×3 (15:35→20:13)
[2021-08-05 16:28] LABS: Appearance,Urine Clear (Clear); Basophils # (A) 0.1 k/uL (0-0.2); Basophils % (A) 1 %; Bilirubin,Urine Negative (Negative); Blood,Urine Negative (Negative); Color,Urine Yellow; Eosinophils # (A) 0.2 k/uL (0-0.7); Eosinophils % (A) 3 %; Glucose,Urine (UA) Negative (Negative); HCT 40.3 % (34.0-46.0); HGB 13.4 gm/dL (11.4-16.0); Ketones,Urine 1+ (Negative); Leukocyte Esterase,Urine Negative (Negative); Lymphocytes # (A) 2.8 k/uL (1.0-4.8); Lymphocytes % (A) 28 %; MCH 29.8 pg (25.0-35.0); MCHC 33.3 g/dL (31.0-37.0); MCV 89.4 fL (80.0-100.0); Mean Platelet Volume 7.8; Monocytes # (A) 0.4 k/uL (0-1.0); Monocytes % (A) 4 %; Neutrophils # (A) 6.2 k/uL (1.3-7.7); Neutrophils % (A) 63 %; Nitrite,Urine Negative (Negative); PH, Urine 5.5 (5.0-8.0); Platelet Count 356 k/uL (150-450); Protein,Urine Negative (Negative); RBC 4.51 m/uL (3.80-5.40); RDW 12.7 % (11.5-15.5); Specific Gravity,Urine 1.022 (1.001-1.035); Urobilinogen,Urine <2.0 mg/dL (<2.0); WBC 9.9 k/uL (3.8-10.6)
[2021-08-05 16:36] LABS: ALT 17 U/L (4-34); African American GFR (CKD) >90 (>60 ml/min/1.73 sqM); Albumin 4.1 g/dL (3.5-5.0); Anion Gap 7 mmol/L; Blood Urea Nitrogen 23 mg/dL (7-17); Calcium 8.9 mg/dL (8.4-10.2); Carbon Dioxide 22 mmol/L (22-30); Chloride 106 mmol/L (98-107); Glucose 100 mg/dL (74-99); Non-African American GFR(CKD) >90 (>60 ml/min/1.73 sqM); Sodium 135 mmol/L (137-145); Total Bilirubin 0.9 mg/dL (0.2-1.3); Total Protein 7.3 g/dL (6.3-8.2)
[2021-08-05 16:38] LABS: Partial Thromboplastin Time 25.5 sec (22.0-30.0); Prothrombin Time 10.7 sec (9.0-12.0)
[2021-08-05 17:00] LABS: AST 25 U/L (14-36); Alkaline Phosphatase 48 U/L (38-126); Phosphorus 3.4 mg/dL (2.5-4.5); Potassium 4.2 mmol/L (3.5-5.1)
[2021-08-05 17:01] LABS: Magnesium 1.7 mg/dL (1.6-2.3)
[2021-08-05] MEDS ORDERED: NALOXONE 0.4 MG/ML 1 ML VIAL IV PRN (19:23)
--- NOTE | 2021-08-05 19:32 | CT ---
EXAMINATION TYPE: CT abdomen pelvis w con DATE OF EXAM: 08/05/2021 COMPARISON: 07/23/2021 HISTORY: Abd pain, obstruction, vomiting CT DLP: 1407.9 mGycm Automated exposure control for dose reduction was used. CONTRAST: Performed with IV Contrast, patient injected with 100ml mL of Isovue 300. Images obtained from the diaphragm to the floor the pelvis with oral and IV contrast. The lung bases are clear. There is no pleural effusion. Heart size is normal. There is no pericardial effusion. Liver spleen stomach pancreas appear intact. There is mild ectasia of the biliary tree whi ch is stable compared to old exam and consistent with cholecystectomy. There are clips from cholecyst ectomy. There is no adrenal mass. Kidneys show satisfactory contrast opacification. There is no hydronephrosi s. The ureters are not dilated. There is no retroperitoneal adenopathy. There is contrast in the appe ndix which appears normal. Bladder distends smoothly. There is some subcutaneous fluid over the anter ior lower abdomen consistent with surgery. There is no mesenteric edema. No ascites or free air. No sign of a bowel obstruction. There is oral c ontrast material extending through the splenic flexure of the colon. There is a mild first-degree L4-5 spondylolisthesis. There is no evidence of spondylolysis. There is apparent ununited fracture of the spinous process of L4. There is left-sided multilevel laminectomy d efect noted. The bony pelvis is intact. Hip joints are intact. Sacroiliac joints are intact. There is hysterectomy. There is 2.5 cm cyst on the right ovary. No free fluid in the pelvis. IMPRESSION: No acute abnormality of the abdomen and pelvis. There is clearing of a dilated small bowel compared t o old exam. No evidence of bowel obstruction.
[2021-08-05] MEDS ORDERED: ONDANSETRON ODT 4 MG TAB PO PRN (21:05)
[2021-08-05] MEDS ORDERED: ALBUTEROL NEBULIZED 2.5 MG/3 ML INHALATION PRN (21:05)
[2021-08-05] MEDS ORDERED: ZOLPIDEM 5 MG TAB PO SCH (21:15)
[2021-08-05] MEDS ORDERED: clonazePAM 1 MG TAB PO SCH (21:30)
[2021-08-05] MEDS: SUMAtriptan succinate 50 MG TAB PO PRN (22:07)
[2021-08-05] MEDS: ONDANSETRON 4 MG/2 ML VIAL IVP SCH (22:52)
[2021-08-05] MEDS: HYDROmorphone 1 MG/ML 1 ML SYRINGE IVP PRN (22:52)
[2021-08-05] MEDS ORDERED: SCOPOLAMINE 1 MG/72 HR PATCH TRANSDERM SCH (23:00)
[2021-08-05] MEDS: MAGNESIUM SULFATE-D5W PMX 1 GM in DEXTROSE/WATER 1 100ML.BAG IVPB SCH (23:57)
[2021-08-06] MEDS ORDERED: ACETAMINOPHEN IV (For NPO) 1,000 MG in EMPTY BAG 1 BAG IVPB SCH
[2021-08-06] MEDS ORDERED: PROMETHAZINE 25 MG TAB PO PRN
[2021-08-06] MEDS: HYDROmorphone 1 MG/ML 1 ML SYRINGE IVP PRN ×6 (01:47→17:43)
[2021-08-06] MEDS: MAGNESIUM SULFATE-D5W PMX 1 GM in DEXTROSE/WATER 1 100ML.BAG IVPB SCH (02:00)
[2021-08-06 08:34] VITALS: RESP 20
[2021-08-06] MEDS: ONDANSETRON 4 MG/2 ML VIAL IVP SCH ×2 (08:39→11:47)
[2021-08-06] MEDS ORDERED: oxyCODONE-APAP 10-325MG 1 EACH TAB PO SCH (09:00)
[2021-08-06] MEDS ORDERED: ENOXAPARIN 30 MG/0.3 ML SYRINGE SQ SCH (09:00)
[2021-08-06] MEDS ORDERED: ENOXAPARIN 40 MG/0.4 ML SYRINGE SQ SCH (09:00)
[2021-08-06] MEDS ORDERED: DULoxetine HCL 60 MG CAPSULE.DR PO SCH (09:00)
[2021-08-06] MEDS ORDERED: LOSARTAN-HCTZ 50-12.5 MG 1 EACH TAB PO SCH (09:00)
[2021-08-06] MEDS ORDERED: GABAPENTIN 100 MG CAP PO SCH (09:00)
[2021-08-06] MEDS ORDERED: PANTOPRAZOLE 40 MG/10 ML VIAL IV SCH (09:00)
--- NOTE | 2021-08-06 13:58 | P.GSHP ---
History of Present Illness H&P Date: 08/05/21 CHIEF COMPLAINT: Generalized weakness with acute abdominal pain HISTORY OF PRESENT ILLNESS: The patient is a 46 year old female with long- standing chronic abdominal pain including chronic pain syndrome. She is status post lysis of adhesions 07/17/2021, over 2 weeks ago. She was discharged home after tolerating diet and reportedly felt well. Five days later she reported developing new onset abdominal pain. Patient was brought to the emergency room. Computed tomography scan at that time demonstrated ileus versus bowel obstruction. She had gone home after IV fluids and scopolamine patches. Yesterday, patient was contacted at home and reported worsening abdominal pain. She was arranged for outpatient IV fluids and computed tomography scan. Upon further discussion with the at bedside, he reports she was doing very well including after discharge from the hospital. Patient then complained of minimal diet. He reports that she has had persistent low appetite for many months. Upon return from computed tomography scan, patient reports last 2 days developing a sharp left upper quadrant pain after twisting of her torso. She had intractable nausea and vomiting. She no longer has lower abdominal pain consistent with her prior hospitalization. She reports weakness and fainting in the computed tomography scan area requiring a sternal rub. She reports decreased passage of flatus and bowel movements. Patient is admitted due to severe generalized weakness, syncope, abdominal pain. She has history of chronically low electrolytes. PAST MEDICAL HISTORY: See list and reviewed PAST SURGICAL HISTORY: See list and reviewed MEDICATIONS: See list and reviewed ALLERGIES: See list and reviewed SOCIAL HISTORY: See list and reviewed FAMILY HISTORY: See list and reviewed REVIEW OF ORGAN SYSTEMS: CONSTITUTIONAL: No fevers or chills. Obesity, BMI 32.6. EYES: Denies any trouble with vision. No glasses. HEENT: No difficulties with hearing. No nosebleeds. No difficulty swallowing. RESPIRATORY: Has asthma. CARDIOVASCULAR: Has hypertensive heart disease. GASTROINTESTINAL: Has chronic constipation including chronic abdominal pain. History of diverticulitis. History of colitis and fecal impaction. Has postoperative nausea and vomiting. Recently seen adhesions. GENITOURINARY: Denies any blood in urine or increased urinary frequency. NEUROLOGICAL: Denies any numbness or tingling along the distal extremities. Has headaches. Recent syncopal event. MUSCULOSKELETAL: Has back pain, stiffness or joint arthritis. Has chronic pain syndrome. SKIN: No current skin cancer. No rash. PSYCHIATRIC: Has depressive disorder. Has generalized anxiety disorder. ENDOCRINE: Denies current thyroid disorders. Denies any blood sugar glucose intolerance. HEME/LYMPHATIC: Denies any lumps and bumps around the neck. No recent deep venous thrombosis. ALLERGY/IMMUNOLOGY: No immunoglobulin therapy. No immune deficiencies. BREAST: Denies current breast lumps, pain or nipple discharge. PHYSICAL EXAM: VITALS: Reviewed CONSTITUTIONAL: Well developed. EYES: Conjuctivae without sclera icterus. Extraocular movements grossly intact. HEAD, EARS, NOSE, THROAT: Moist buccal mucosa. Head is atraumatic, normocephalic. Hears conversational speech. No nasal drainage. NECK: Supple. No JV distention. No thyroidomegaly. RESPIRATORY: Non-labored respirations and equal bilateral excursions. No gross wheezes. CARDIOVASCULAR: Regular rate and rhythm. Palpable 2+ radial pulses. ABDOMEN: Tender left upper quadrant. LYMPH: No neck lymphadenopathy. MUSCULOSKELETAL: No clubbing cyanosis or edema. SKIN: Warm and well perfused with poor skin turgor. NEUROLOGIC: Cranial nerves II through XII grossly intact. No focal or lateralizing signs. PSYCH: Alert and oriented to person, place and time. CLINCAL LABS: Reviewed. WBC normal 9.9. IMAGING: Independently reviewed CT of the abdomen and pelvis demonstrating no free air, no free fluid. Complete resolution of prior small bowel distention for ileus. This is my independent interpretation. RADIOLOGY: Report reviewed a CT of the abdomen and pelvis demonstrates resolution of small bowel distention. ASSESSMENT: 1. Ileus with generalized weakness 2. Intractable nausea and vomiting 3. Left upper quadrant abdominal pain 4. Chronic pain syndrome 5. High risk for admission PLAN: 1. Recommend IV fluid hydration 2. Scopolamine patch for intractable nausea and vomiting 3. Recheck of magnesium for a prior history of persistent low potassium and low magnesium 4. Recommend check of thiamine deficiency which may exacerbate her present symptoms and generalized malaise 5. Admission advised for acute on chronic abdominal pain, intractable nausea and vomiting and severe syncopal episode Past Medical History Past Medical History: Hypertension, Respiratory Disorder Additional Past Medical History / Comment(s): LUNG ABSCESS 2013. Migraine headache. HX ABD HERNIAS, diverticulitis, PCOS History of Any Multi-Drug Resistant Organisms: None Reported Past Surgical History: Adenoidectomy, Back Surgery, Breast Surgery, Cholecystectomy, Hernia Repair, Hysterectomy, Orthopedic Surgery, Tonsillectomy Additional Past Surgical History / Comment(s): TYRA KNEE arthroscopic. LOW BACK SURGERY. L BREAST LUMPECTOMY, BENIGN. Colonoscopy-Colitis September 2016. hernia surgery x2 with mesh, diverticulitis, Recent lysis of adhesions Past Anesthesia/Blood Transfusion Reactions: Postoperative Nausea & Vomiting (PONV) Additional Past Anesthesia/Blood Transfusion Reaction / Comment(s): PT HAS NEVER RECIEVED BLOOD. Past Psychological History: Anxiety, Depression Smoking Status: Never smoker Past Alcohol Use History: None Reported Past Drug Use History: None Reported - Past Family History Mother Family Medical History: Cancer Additional Family Medical History / Comment(s): breast ca Father Family Medical History: AFIB Medications and Allergies Home Medications Medication Instructions Recorded Confirmed Type DULoxetine HCL [Cymbalta] 60 mg PO DAILY 01/11/14 08/05/21 History SUMAtriptan SUCCINATE [Imitrex] 100 mg PO TID PRN 01/11/14 08/05/21 History Zolpidem [Ambien] 10 mg PO HS 09/02/17 08/05/21 History clonazePAM [KlonoPIN] 1 mg PO HS 09/02/17 08/05/21 History Gabapentin [Neurontin] 100 mg PO DAILY 05/19/20 08/05/21 History Losartan-Hctz 50-12.5 mg [Hyzaar 1 tab PO DAILY 05/19/20 08/05/21 History 50-12.5] oxyCODONE-APAP 10-325MG [Percocet 1 tab PO BID 05/19/20 08/05/21 History 10-325 mg] Albuterol Sulfate [Albuterol 2 puff INHALATION RT-Q4H PRN 07/16/21 08/05/21 History Sulfate Hfa] Simethicone [Gas-X] 125 mg PO AC-TID PRN #20 capsule 07/19/21 08/05/21 Rx Ondansetron Odt [Zofran Odt] 4 mg PO Q8HR PRN #10 tab 07/23/21 08/05/21 Rx Allergies Allergy/AdvReac Type Severity Reaction Status Date / Time hydroxyzine [From Vistaril] Allergy Rash/Hives Verified 08/05/21 16:03 ketorolac tromethamine Allergy Rash/Hives Verified 08/05/21 16:03 [From Toradol] & Migraines naproxen sodium [From Aleve] Allergy Rash/Hives Verified 08/05/21 16:03 & Migraines Penicillins Allergy Swelling Verified 08/05/21 16:03 at suture site pregabalin [From Lyrica] Allergy Swelling Verified 08/05/21 16:03 from knees to feet & hives tramadol HCl [From Ultram] Allergy Rash/Hives Verified 08/05/21 16:03 & Migraines acetaminophen [From Ofirmev] AdvReac Rash/Hives Verified 08/05/21 16:03 from liquid only doxycycline AdvReac Nausea & Verified 08/05/21 16:03 Vomiting levofloxacin [From Levaquin] AdvReac Swelling Verified 08/05/21 16:03 from knees to feet morphine AdvReac Lowers BP Verified 08/05/21 16:03 oxybutynin [From Ditropan] AdvReac Rapid Verified 08/05/21 16:03 Heart Rate Surgical - Exam Vital Signs Temp Pulse Resp BP Pulse Ox 97.7 F 84 16 108/78 100 08/05/21 15:07 08/05/21 15:07 08/05/21 15:07 08/05/21 15:07 08/05/21 15:07 Results - Labs 08/05/21 15:57 08/05/21 15:57 Abnormal Lab Results - Last 24 Hours (Table) 08/05/21 08/05/21 08/05/21 Range/Units 15:13 15:57 15:57 Sodium 135 L (137-145) mmol/L BUN 23 H (7-17) mg/dL Glucose 100 H (74-99) mg/dL POC Glucose (mg/dL) 106 H (75-99) mg/dL Urine Ketones 1+ H (Negative) Diabetes panel 08/05/21 Range/Units 15:57 Sodium 135 L (137-145) mmol/L Potassium 4.2 (3.5-5.1) mmol/L Chloride 106 (98-107) mmol/L Carbon Dioxide 22 (22-30) mmol/L BUN 23 H (7-17) mg/dL Creatinine 0.66 (0.52-1.04) mg/dL Glucose 100 H (74-99) mg/dL Calcium 8.9 (8.4-10.2) mg/dL AST 25 (14-36) U/L ALT 17 (4-34) U/L Alkaline Phosphatase 48 (38-126) U/L Total Protein 7.3 (6.3-8.2) g/dL Albumin 4.1 (3.5-5.0) g/dL Calcium panel 08/05/21 Range/Units 15:57 Calcium 8.9 (8.4-10.2) mg/dL Phosphorus 3.4 (2.5-4.5) mg/dL Albumin 4.1 (3.5-5.0) g/dL Pituitary panel 08/05/21 Range/Units 15:57 Sodium 135 L (137-145) mmol/L Potassium 4.2 (3.5-5.1) mmol/L Chloride 106 (98-107) mmol/L Carbon Dioxide 22 (22-30) mmol/L BUN 23 H (7-17) mg/dL Creatinine 0.66 (0.52-1.04) mg/dL Glucose 100 H (74-99) mg/dL Calcium 8.9 (8.4-10.2) mg/dL Adrenal panel 08/05/21 Range/Units 15:57 Sodium 135 L (137-145) mmol/L Potassium 4.2 (3.5-5.1) mmol/L Chloride 106 (98-107) mmol/L Carbon Dioxide 22 (22-30) mmol/L BUN 23 H (7-17) mg/dL Creatinine 0.66 (0.52-1.04) mg/dL Glucose 100 H (74-99) mg/dL Calcium 8.9 (8.4-10.2) mg/dL Total Bilirubin 0.9 (0.2-1.3) mg/dL AST 25 (14-36) U/L ALT 17 (4-34) U/L Alkaline Phosphatase 48 (38-126) U/L Total Protein 7.3 (6.3-8.2) g/dL Albumin 4.1 (3.5-5.0) g/dL
[2021-08-06 14:13] VITALS: BP 96/57; PULSE 98; TEMP 97.8
--- NOTE | 2021-08-06 16:24 | P.PN ---
Subjective Progress Note Date: 08/06/21 CHIEF COMPLAINT: Generalized weakness and acute abdominal pain HISTORY OF PRESENT ILLNESS: Patient reports that her pain is less than yesterday. She was able to tolerate clear liquids. She denies any further vomiting. She actually reports that the Zofran had made the vomiting worse. She has stopped taking the Zofran. Patient reports overall she is feeling better today. I'm she does report still some left-sided abdominal pain. She is asking to be of the ED a baked potato. Afebrile. Magnesium 1.7 potassium 4.2 PHYSICAL EXAM: VITAL SIGNS: Reviewed GENERAL: Well-developed in no acute distress. HEENT: No sclera icterus. Extraocular movements grossly intact. Moist buccal mucosa. Head is atraumatic, normocephalic. Hears conversational speech. No nasal drainage. NECK: Supple without lymphadenopathy. CHEST: Non-labored respirations and equal bilateral excursions. CARDIOVASCULAR: Palpable 2+ radial pulses. ABDOMEN: Soft. Nondistended. MUSCULOSKELETAL: No clubbing or cyanosis. NEUROLOGIC: No focal or lateralizing signs. Cranial nerves II through XII grossly intact. PSYCH: Appropriate affect. Alert and oriented to person, place and time. SKIN: Well perfused. Good skin turgor. ASSESSMENT: 1. Ileus with generalized weakness 2. Intractable nausea and vomiting 3. Left upper quadrant abdominal pain 4. Chronic pain syndrome 5. High risk for admission PLAN: -Advance diet to regular -Continue with IV fluid hydration -Recommend check of thiamine deficiency which may exacerbate her present symptoms and generalized malaise -Admission advised for acute on chronic abdominal pain, intractable nausea and vomiting and severe syncopal episode -Anticipate discharge possibly tomorrow Physician Rn Practitioner note has been reviewed by physician. Signing provider agrees with the documented findings, assessment, and plan of care. As above. Patient seen and evaluated. Review of lab work demonstrates severe vitamin D deficiency. Upon an additional questioning, patient demonstrates features of thiamine deficiency with troubles with memory, numbness and tingling along the fingertips and toes, ataxia. Thiamine blood were still pending. Patient reports moderate improvement of her appetite. Patient stable for discharge. Objective - Vital Signs Vital signs: Vital Signs Temp 97.8 F 08/06/21 14:13 Pulse 98 08/06/21 14:13 Resp 20 08/06/21 14:13 BP 96/57 08/06/21 14:13 Pulse Ox 99 08/06/21 14:13 Intake & Output 08/05/21 08/06/21 08/06/21 18:59 06:59 18:59 Intake Total 236 Balance 236 Weight 81.647 kg 81.647 kg Intake: Oral 236 Other: # Voids 0 # Bowel Movements 0 - Labs CBC & Chem 7: 08/05/21 15:57 08/05/21 15:57 Labs: Abnormal Lab Results - Last 24 Hours (Table) 08/05/21 08/05/21 08/06/21 Range/Units 15:57 15:57 06:59 Sodium 135 L (137-145) mmol/L BUN 23 H (7-17) mg/dL Glucose 100 H (74-99) mg/dL Vitamin D 25-Hydroxy 6.6 L (30.0-100.0) ng/mL Urine Ketones 1+ H (Negative)
[2021-08-06] MEDS: SUMAtriptan succinate 50 MG TAB PO PRN (17:47)
[2021-08-07 12:42] LABS: Zinc, Serum 74 ug/dL (60-130)
[2021-08-11 07:42] LABS: Vit B1(Thiamine) 59 ug/L (38-122)
== END 2021-08-06 18:47 | disposition home or self-care (01) ==
LOC: EC 15:04 → 6NMEDSUR 19:53
PROVIDERS: ADMIT Surgery Plastic and Reconstructive Surgery; ATTEND Surgery Plastic and Reconstructive Surgery
DX: K56.7 Ileus, unspecified (principal); R53.1 Weakness; G89.4 Chronic pain syndrome; E66.9 Obesity, unspecified; Z68.32 Body mass index [BMI] 32.0-32.9, adult; I10 Essential (primary) hypertension; R55 Syncope and collapse; G43.909 Migraine, unspecified, not intractable, without status migrainosus; E28.2 Polycystic ovarian syndrome; F41.9 Anxiety disorder, unspecified; F32.A Depression, unspecified; R53.83 Other fatigue; E55.9 Vitamin D deficiency, unspecified; E51.9 Thiamine deficiency, unspecified; Z20.822 Contact with and (suspected) exposure to COVID-19; Z90.710 Acquired absence of both cervix and uterus; Z90.49 Acquired absence of other specified parts of digestive tract; Z79.899 Other long term (current) drug therapy; Z79.891 Long term (current) use of opiate analgesic; Z88.8 Allergy status to other drugs, medicaments and biological substances; Z88.0 Allergy status to penicillin; Z88.5 Allergy status to narcotic agent; Z88.6 Allergy status to analgesic agent; Z88.1 Allergy status to other antibiotic agents; Z80.3 Family history of malignant neoplasm of breast
CPT/HCPCS: 96376 ×3; 96372; 96375 ×2; 96361; 96365; 96366; 99285; 36415 ×2; 93005; 97162; 97166; 84425; 80053; 82607; 82525; 83605; 83735; 84100; 84484; 84630; 85025; 85610; 85730; 81003; 82306; 87502; 87635; 74177; G0378 ×2; J2405; J1650; J1170 ×3; J3475 ×2; C9113; Q9967; 96367

== ENCOUNTER → 2021-08-05 | Outpatient (CLI) | payer BC ==
[2021-08-05] MEDS: SODIUM CHLORIDE 0.9% 1,000 ML IV SCH ×2 (11:35→12:40)
[2021-08-05 11:47] VITALS: BP 102/74; PULSE 101; TEMP 98.4
== END ==
LOC: PROCWHC3 11:11
PROVIDERS: ATTEND Surgery Plastic and Reconstructive Surgery
DX: E86.0 Dehydration (principal); Z88.0 Allergy status to penicillin; Z88.1 Allergy status to other antibiotic agents; Z88.5 Allergy status to narcotic agent; Z88.6 Allergy status to analgesic agent; Z88.8 Allergy status to other drugs, medicaments and biological substances
CPT/HCPCS: 96360; 96361

== ENCOUNTER → 2021-08-05 | Outpatient (CLI) | payer BC | LOC: RADCTMAIN 10:59 | PROVIDERS: ATTEND Surgery Plastic and Reconstructive Surgery | DX: Z53.9 Procedure and treatment not carried out, unspecified reason (principal) ==

== ENCOUNTER 2021-08-28 19:00 | Emergency (ER) | payer BC ==
[2021-08-28 19:04] VITALS: TEMP 98
[2021-08-28] MEDS ORDERED: HYDROmorphone 0.5 MG/0.5 ML SYRINGE IVP STA (23:05)
[2021-08-28] MEDS ORDERED: LIDOCAINE 2% GEL 30 ML TUBE TOPICAL ONE (23:08)
[2021-08-28] MEDS ORDERED: SODIUM CHLORIDE 0.9% 1,000 ML IV STA (23:10)
--- NOTE | 2021-08-28 23:34 | ED ---
Abdominal Pain HPI - General Chief Complaint: Abdominal Pain Stated Complaint: Abd Pain Time Seen by Provider: 08/28/21 22:47 Source: patient Mode of arrival: ambulatory Limitations: no limitations - History of Present Illness Initial Comments: Patient is a 46-year-old female with extensive abdominal history presenting to the emergency department with a chief complaint of abdominal pain. Her abdominal surgical history significant for ventral hernia repair in 2017, extensive lysis of adhesions in 2018, and recent small bowel obstruction with lysis adhesions on 07/17/[address] Upton. Patient tolerated her recent surgery well and was discharged home. Less than one week after patient had new onset abdominal pain were CT in the emergency room demonstrated ileus versus bowel obstruction. She was sent home after IV fluids with scopolamine patches. At home patient continued to have worsening abdominal pain. Outpatient computed tomography scan was arranged for 08/05/21 however during her computed tomography scan patient was significantly weak and unable to keep down oral contrast. Patient was then sent to the emergency department again for completion of her computed tomography scan. At this time patient was nausea and left lower quadrant pain. CT was negative for acute process. Patient presents today with a one-week history of worsening abdominal pain. Patient states her pain has moved from the lower abdomen to the right upper quadrant. She does have history of cholecystectomy. Patient took her ascribe Percocet for her chronic back pain with no relief of abdominal pain. She denies nausea and vomiting. Has been tolerating oral intake but has decreased appetite. She states she feels constipated and her external hemorrhoids have been very painful. Last bowel movement was 3 days ago. Has history of chronic constipation. Patient states there is some red streaking on the toilet paper. No diarrhea. No fever or chills. No urinary symptoms. - Related Data Home Medications Medication Instructions Recorded Confirmed DULoxetine HCL [Cymbalta] 60 mg PO DAILY 01/11/14 08/05/21 SUMAtriptan SUCCINATE [Imitrex] 100 mg PO TID PRN 01/11/14 08/05/21 Zolpidem [Ambien] 10 mg PO HS 09/02/17 08/05/21 clonazePAM [KlonoPIN] 1 mg PO HS 09/02/17 08/05/21 Gabapentin [Neurontin] 100 mg PO DAILY 05/19/20 08/05/21 Losartan-Hctz 50-12.5 mg [Hyzaar 1 tab PO DAILY 05/19/20 08/05/21 50-12.5] oxyCODONE-APAP 10-325MG [Percocet 1 tab PO BID 05/19/20 08/05/21 10-325 mg] Albuterol Sulfate [Albuterol 2 puff INHALATION RT-Q4H PRN 07/16/21 08/05/21 Sulfate Hfa] Ergocalciferol [Vitamin D2 (1250 1,250 mcg PO Q7D 08/28/21 08/28/21 Mcg = 36663 Iu)] Scopolamine 1 mg/72 Hr Patch 1 patch TRANSDERM Q72H PRN 08/28/21 08/28/21 [TransDerm Scop] Previous Rx's Medication Instructions Recorded Magnesium Gluconate [Magonate] 500 mg PO DAILY #30 tablet 08/06/21 Simethicone [Gas-X] 125 mg PO AC-TID PRN #30 capsule 08/06/21 Docusate [Colace] 100 mg PO DAILY #7 capsule 08/29/21 HYDROcodone/APAP 10-325MG [[place] 1 tab PO Q4HR PRN 3 Days #18 tab 08/29/21 10-325] Allergies Allergy/AdvReac Type Severity Reaction Status Date / Time hydroxyzine [From Vistaril] Allergy Rash/Hives Verified 08/28/21 23:14 ketorolac tromethamine Allergy Rash/Hives Verified 08/28/21 23:14 [From Toradol] & Migraines naproxen sodium [From Aleve] Allergy Rash/Hives Verified 08/28/21 23:14 & Migraines Penicillins Allergy Swelling Verified 08/28/21 23:14 at suture site pregabalin [From Lyrica] Allergy Swelling Verified 08/28/21 23:14 from knees to feet & hives tramadol HCl [From Ultram] Allergy Rash/Hives Verified 08/28/21 23:14 & Migraines acetaminophen [From Ofirmev] AdvReac Rash/Hives Verified 08/28/21 23:14 from liquid only doxycycline AdvReac Nausea & Verified 08/28/21 23:14 Vomiting levofloxacin [From Levaquin] AdvReac Swelling Verified 08/28/21 23:14 from knees to feet morphine AdvReac Lowers BP Verified 08/28/21 23:14 ondansetron [From Zofran] AdvReac Nausea & Verified 08/28/21 23:14 Vomiting oxybutynin [From Ditropan] AdvReac Rapid Verified 08/28/21 23:14 Heart Rate Review of Systems ROS Statement: Those systems with pertinent positive or pertinent negative responses have been documented in the HPI. ROS Other: All systems not noted in ROS Statement are negative. Past Medical History Past Medical History: Hypertension, Respiratory Disorder Additional Past Medical History / Comment(s): LUNG ABSCESS 2013. Migraine headache. HX ABD HERNIAS, diverticulitis, PCOS History of Any Multi-Drug Resistant Organisms: None Reported Past Surgical History: Adenoidectomy, Back Surgery, Breast Surgery, Cholecystectomy, Hernia Repair, Hysterectomy, Orthopedic Surgery, Tonsillectomy Additional Past Surgical History / Comment(s): TYRA KNEE arthroscopic. LOW BACK SURGERY. L BREAST LUMPECTOMY, BENIGN. Colonoscopy-Colitis September 2016. hernia surgery x2 with mesh, diverticulitis, Recent lysis of adhesions, colon surgery 2021 Past Anesthesia/Blood Transfusion Reactions: Postoperative Nausea & Vomiting (PONV) Additional Past Anesthesia/Blood Transfusion Reaction / Comment(s): PT HAS NEVER RECIEVED BLOOD. Past Psychological History: Anxiety, Depression Smoking Status: Never smoker Past Alcohol Use History: None Reported Past Drug Use History: None Reported - Past Family History Mother Family Medical History: Cancer Additional Family Medical History / Comment(s): breast ca Father Family Medical History: AFIB General Exam Limitations: no limitations General appearance: alert, in distress (Due to pain) Head exam: Present: atraumatic, normocephalic, normal inspection Eye exam: Present: normal appearance, PERRL, EOMI. Absent: scleral icterus, conjunctival injection, periorbital swelling Respiratory exam: Present: normal lung sounds bilaterally. Absent: respiratory distress, wheezes, rales, rhonchi, stridor Cardiovascular Exam: Present: regular rate, normal rhythm, normal heart sounds. Absent: systolic murmur, diastolic murmur, rubs, gallop, clicks GI/Abdominal exam: Present: soft, tenderness (Right upper quadrant), normal bowel sounds. Absent: distended, guarding, rebound, rigid Rectal exam: Present: hemorrhoids (non-thrombosed) Back exam: Absent: CVA tenderness (R), CVA tenderness (L) Neurological exam: Present: alert, oriented X3, CN II-XII intact Psychiatric exam: Present: normal affect, normal mood Skin exam: Present: warm, dry, intact, normal color. Absent: rash Course Vital Signs 08/28/21 08/28/21 08/28/21 19:01 22:51 23:45 Temperature 98 F Pulse Rate 80 72 71 Respiratory 20 16 18 Rate Blood Pressure 116/79 117/86 121/82 O2 Sat by Pulse 99 100 100 Oximetry Medical Decision Making - Medical Decision Making This is a 46-year-old female who presents with 1 week of worsening abdominal pain status post lysis of adhesions on 07/17/[address] Upton. Thorough history and examination were performed. Patient has been evaluated in the emergency department for severe abdominal pain twice since her surgery. Patient typically has endorsed lower abdominal pain but describes the pain now in the right upper quadrant. No nausea or vomiting. No fever or chills. The abdomen is soft. There is tenderness in the right upper quadrant. Patient has history of cholecystectomy. Rectal exam reveals 2 external hemorrhoids consistent with p atient's surrounding skin color. There is no concern for thrombosis. Laboratory studies are normal. KUB x-ray was obtained which showed no obstruction and normal fecal pattern. Abdominal pain controlled with Dilaudid. Patient given topical lidocaine for her hemorrhoid pain with significant relief. Case discussed with patient. At this time there are no diagnostic studies to explain patient's symptoms. Patient I discussed observation for pain control versus outpatient management. Patient is comfortable going home with a short course of [place] for pain. Patient states [place] has helped her pain before. I will prescribed her Colace as well. She will follow-up with Dr. Upton on Tuesday. Return parameters discussed. Patient and her verbalize understanding and are agreeable to this plan. Dr. Ramirez is my attending. - Lab Data Result diagrams: 08/28/21 23:18 08/28/21 23:18 Lab Results 08/28/21 08/28/21 08/29/21 Range/Units 23:18 23:18 23:58 WBC 9.5 (3.8-10.6) k/uL RBC 4.43 (3.80-5.40) m/uL Hgb 13.8 (11.4-16.0) gm/dL Hct 39.7 (34.0-46.0) % MCV 89.6 (80.0-100.0) fL MCH 31.1 (25.0-35.0) pg MCHC 34.7 (31.0-37.0) g/dL RDW 12.8 (11.5-15.5) % Plt Count 416 (150-450) k/uL MPV 7.0 Neutrophils % 49 % Lymphocytes % 42 % Monocytes % 4 % Eosinophils % 3 % Basophils % 1 % Neutrophils # 4.6 (1.3-7.7) k/uL Lymphocytes # 3.9 (1.0-4.8) k/uL Monocytes # 0.4 (0-1.0) k/uL Eosinophils # 0.3 (0-0.7) k/uL Basophils # 0.1 (0-0.2) k/uL Sodium 137 (137-145) mmol/L Potassium 3.9 (3.5-5.1) mmol/L Chloride 104 (98-107) mmol/L Carbon Dioxide 25 (22-30) mmol/L Anion Gap 8 mmol/L BUN 15 (7-17) mg/dL Creatinine 0.86 (0.52-1.04) mg/dL Est GFR (CKD-EPI)AfAm >90 (>60 ml/min/1.73 sqM) Est GFR (CKD-EPI)NonAf 82 (>60 ml/min/1.73 sqM) Glucose 95 (74-99) mg/dL Calcium 9.4 (8.4-10.2) mg/dL Total Bilirubin 0.5 (0.2-1.3) mg/dL AST 23 (14-36) U/L ALT 18 (4-34) U/L Alkaline Phosphatase 59 (38-126) U/L Total Protein 7.9 (6.3-8.2) g/dL Albumin 4.6 (3.5-5.0) g/dL Lipase 83 (23-300) U/L Urine Color Light Yellow Urine Appearance Clear (Clear) Urine pH 5.5 (5.0-8.0) Ur Specific [place] 1.009 (1.001-1.035) Urine Protein Negative (Negative) Urine Glucose (UA) Negative (Negative) Urine Ketones Negative (Negative) Urine Blood Negative (Negative) Urine Nitrite Negative (Negative) Urine Bilirubin Negative (Negative) Urine Urobilinogen <2.0 (<2.0) mg/dL Ur Leukocyte Esterase Negative (Negative) Disposition Clinical Impression: Abdominal pain, H/O abdominal surgery, Constipation Disposition: HOME SELF-CARE Condition: Fair Instructions (If sedation given, give patient instructions): Constipation (ED), Abdominal Pain (ED) Additional Instructions: Please take medication as directed. Please do not take your Percocet and [place] at the same time. Please follow up with Dr. Upton at earliest available appointment. Return to emergency department if you experience new, concerning, or worsening symptoms. Prescriptions: Docusate [Colace] 100 mg PO DAILY #7 capsule HYDROcodone/APAP 10-325MG [[place] 10-325] 1 tab PO Q4HR PRN 3 Days #18 tab PRN Reason: Pain Is patient prescribed a controlled substance at d/c from ED?: Yes If prescribed controlled substance>3 days was MAPS reviewed?: Prescribed <3 Days Referrals: Levi Dougherty MD [Primary Care Provider] - 1-2 days Time of Disposition: 00:31
[2021-08-28 23:47] VITALS: BP 121/82; PULSE 71; RESP 18
[2021-08-28 23:53] LABS: Basophils # (A) 0.1 k/uL (0-0.2); Basophils % (A) 1 %; Eosinophils # (A) 0.3 k/uL (0-0.7); Eosinophils % (A) 3 %; HCT 39.7 % (34.0-46.0); HGB 13.8 gm/dL (11.4-16.0); Lymphocytes # (A) 3.9 k/uL (1.0-4.8); Lymphocytes % (A) 42 %; MCH 31.1 pg (25.0-35.0); MCHC 34.7 g/dL (31.0-37.0); MCV 89.6 fL (80.0-100.0); Monocytes # (A) 0.4 k/uL (0-1.0); Monocytes % (A) 4 %; Neutrophils # (A) 4.6 k/uL (1.3-7.7); Neutrophils % (A) 49 %; Platelet Count 416 k/uL (150-450); RBC 4.43 m/uL (3.80-5.40); RDW 12.8 % (11.5-15.5); WBC 9.5 k/uL (3.8-10.6)
[2021-08-28 23:55] LABS: ALT 18 U/L (4-34); AST 23 U/L (14-36); African American GFR (CKD) >90 (>60 ml/min/1.73 sqM); Albumin 4.6 g/dL (3.5-5.0); Alkaline Phosphatase 59 U/L (38-126); Anion Gap 8 mmol/L; Blood Urea Nitrogen 15 mg/dL (7-17); Calcium 9.4 mg/dL (8.4-10.2); Carbon Dioxide 25 mmol/L (22-30); Chloride 104 mmol/L (98-107); Glucose 95 mg/dL (74-99); Lipase 83 U/L (23-300); Non-African American GFR(CKD) 82 (>60 ml/min/1.73 sqM); Potassium 3.9 mmol/L (3.5-5.1); Sodium 137 mmol/L (137-145); Total Bilirubin 0.5 mg/dL (0.2-1.3); Total Protein 7.9 g/dL (6.3-8.2)
--- NOTE | 2021-08-29 00:02 | XR ---
EXAMINATION TYPE: XR KUB DATE OF EXAM: 08/28/2021 COMPARISON: 06/16/2019 HISTORY: Abdominal pain TECHNIQUE: 2 views upright FINDINGS: There is no sign of intestinal obstruction or pneumoperitoneum. Fecal pattern is normal. Th ere are clips from cholecystectomy. There is no evidence of a mass. There is slight lumbar dextroscol iosis. There is laminectomy at L4 and L5. No calcification seen over the kidneys. Lung bases are ananya r. IMPRESSION: Nonacute abdomen. No adverse change.
[2021-08-29] MEDS ORDERED: DOCUSATE 100 MG CAP PO STA (00:25)
[2021-08-29] MEDS ORDERED: HYDROmorphone 1 MG/ML 1 ML SYRINGE IVP STA (00:26)
[2021-08-29 00:58] LABS: Appearance,Urine Clear (Clear); Bilirubin,Urine Negative (Negative); Blood,Urine Negative (Negative); Color,Urine Light Yellow; Glucose,Urine (UA) Negative (Negative); Ketones,Urine Negative (Negative); Leukocyte Esterase,Urine Negative (Negative); Nitrite,Urine Negative (Negative); PH, Urine 5.5 (5.0-8.0); Protein,Urine Negative (Negative); Specific Gravity,Urine 1.009 (1.001-1.035); Urobilinogen,Urine <2.0 mg/dL (<2.0)
== END 2021-08-29 00:54 | disposition home or self-care (01) ==
LOC: EC 19:00
DX: R10.11 Right upper quadrant pain (principal); K59.00 Constipation, unspecified; I10 Essential (primary) hypertension; F32.A Depression, unspecified; F41.9 Anxiety disorder, unspecified; Z88.0 Allergy status to penicillin; Z88.1 Allergy status to other antibiotic agents; Z88.5 Allergy status to narcotic agent; Z88.6 Allergy status to analgesic agent; Z90.49 Acquired absence of other specified parts of digestive tract; Z79.51 Long term (current) use of inhaled steroids; Z79.899 Other long term (current) drug therapy
CPT/HCPCS: 36415; 80053; 83690; 85025; 81003; 74018; 99284; 96374; 96376; J1170 ×2

== ENCOUNTER 2021-11-04 14:10 | Emergency (ER) | payer BC ==
[2021-11-04 14:47] VITALS: TEMP 98.4
[2021-11-04 15:46] LABS: Appearance,Urine Clear (Clear); Bilirubin,Urine Negative (Negative); Blood,Urine Negative (Negative); Color,Urine Yellow; Glucose,Urine (UA) Negative (Negative); Ketones,Urine Negative (Negative); Leukocyte Esterase,Urine Negative (Negative); Nitrite,Urine Negative (Negative); Protein,Urine Negative (Negative); Specific Gravity,Urine 1.018 (1.001-1.035); Urobilinogen,Urine <2.0 mg/dL (<2.0)
[2021-11-04] MEDS ORDERED: HYDROmorphone 0.5 MG/0.5 ML SYRINGE IVP STA (16:30)
--- NOTE | 2021-11-04 16:33 | ED ---
Abdominal Pain HPI - General Chief Complaint: Abdominal Pain Stated Complaint: Abdominal Pain Time Seen by Provider: 11/04/21 16:21 Source: patient, RN notes reviewed Mode of arrival: ambulatory Limitations: no limitations - History of Present Illness Initial Comments: Patient is a 46 year old female presents the emergency room response with complaints of severe lower abdominal pain ongoing for 3 days with loose watery diarrhea. She reports that she has hemorrhoids and has bright red blood in her stool at times. She has some nausea but denies any emesis. She reports poor appetite over the last few days. She does report feeling warm but has not checked her temperature and denies any overt chills. She denies any shortness of breath or chest pain. She reports that she is has a history of diverticuliti and multiple abdominal surgeries which were primarily completed by Dr. Rodriguez. Patient's past medical history also significant for hypertension, migraines, PCO S and a lung abscess in 2013. - Related Data Home Medications Medication Instructions Recorded Confirmed DULoxetine HCL [Cymbalta] 60 mg PO DAILY 01/11/14 08/28/21 SUMAtriptan succinate [Imitrex] 100 mg PO TID PRN 01/11/14 08/28/21 Zolpidem [Ambien] 10 mg PO HS 09/02/17 08/28/21 clonazePAM [KlonoPIN] 1 mg PO HS 09/02/17 08/28/21 Gabapentin [Neurontin] 100 mg PO DAILY 05/19/20 08/28/21 Losartan-Hctz 50-12.5 mg [Hyzaar 1 tab PO DAILY 05/19/20 08/28/21 50-12.5] oxyCODONE-APAP 10-325MG [Percocet 1 tab PO BID 05/19/20 08/28/21 10-325 mg] Albuterol Sulfate [Albuterol 2 puff INHALATION RT-Q4H PRN 07/16/21 08/28/21 Sulfate Hfa] Ergocalciferol [Vitamin D2 (1250 1,250 mcg PO Q7D 08/28/21 08/28/21 Mcg = 27430 Iu)] Scopolamine 1 mg/72 Hr Patch 1 patch TRANSDERM Q72H PRN 08/28/21 08/28/21 [TransDerm Scop] Previous Rx's Medication Instructions Recorded Magnesium Gluconate [Magonate] 500 mg PO DAILY #30 tablet 08/06/21 Simethicone [Gas-X] 125 mg PO AC-TID PRN #30 capsule 08/06/21 Docusate [Colace] 100 mg PO DAILY #7 capsule 08/29/21 HYDROcodone/APAP 10-325MG [Union 1 tab PO Q4HR PRN 3 Days #18 tab 08/29/21 10-325] Allergies Allergy/AdvReac Type Severity Reaction Status Date / Time hydroxyzine [From Vistaril] Allergy Rash/Hives Verified 11/04/21 14:47 ketorolac tromethamine Allergy Rash/Hives Verified 11/04/21 14:47 [From Toradol] & Migraines naproxen sodium [From Aleve] Allergy Rash/Hives Verified 11/04/21 14:47 & Migraines Penicillins Allergy Swelling Verified 11/04/21 14:47 at suture site pregabalin [From Lyrica] Allergy Swelling Verified 11/04/21 14:47 from knees to feet & hives tramadol HCl [From Ultram] Allergy Rash/Hives Verified 11/04/21 14:47 & Migraines acetaminophen [From Ofirmev] AdvReac Rash/Hives Verified 11/04/21 14:47 from liquid only doxycycline AdvReac Nausea & Verified 11/04/21 14:47 Vomiting levofloxacin [From Levaquin] AdvReac Swelling Verified 11/04/21 14:47 from knees to feet morphine AdvReac Lowers BP Verified 11/04/21 14:47 ondansetron [From Zofran] AdvReac Nausea & Verified 11/04/21 14:47 Vomiting oxybutynin [From Ditropan] AdvReac Rapid Verified 11/04/21 14:47 Heart Rate Review of Systems ROS Statement: Those systems with pertinent positive or pertinent negative responses have been documented in the HPI. ROS Other: All systems not noted in ROS Statement are negative. Past Medical History Past Medical History: Hypertension, Respiratory Disorder Additional Past Medical History / Comment(s): LUNG ABSCESS 2013. Migraine headache. HX ABD HERNIAS, diverticulitis, PCOS History of Any Multi-Drug Resistant Organisms: None Reported Past Surgical History: Adenoidectomy, Back Surgery, Breast Surgery, Cholecystectomy, Hernia Repair, Hysterectomy, Orthopedic Surgery, Tonsillectomy Additional Past Surgical History / Comment(s): TYRA KNEE arthroscopic. LOW BACK SURGERY. L BREAST LUMPECTOMY, BENIGN. Colonoscopy-Colitis September 2016. hernia surgery x2 with mesh, diverticulitis, Recent lysis of adhesions, colon surgery 2021 Past Anesthesia/Blood Transfusion Reactions: Postoperative Nausea & Vomiting (PONV) Additional Past Anesthesia/Blood Transfusion Reaction / Comment(s): PT HAS NEVER RECIEVED BLOOD. Past Psychological History: Anxiety, Depression Smoking Status: Never smoker Past Alcohol Use History: None Reported Past Drug Use History: None Reported - Past Family History Mother Family Medical History: Cancer Additional Family Medical History / Comment(s): breast ca Father Family Medical History: AFIB General Exam Limitations: no limitations General appearance: alert, in no apparent distress, obese Head exam: Present: atraumatic, normocephalic, normal inspection Eye exam: Present: normal appearance, PERRL, EOMI. Absent: scleral icterus, conjunctival injection, periorbital swelling ENT exam: Present: normal exam, mucous membranes moist Neck exam: Present: normal inspection. Absent: tenderness, meningismus, lymphadenopathy Respiratory exam: Present: normal lung sounds bilaterally. Absent: respiratory distress, wheezes, rales, rhonchi, stridor Cardiovascular Exam: Present: regular rate, normal rhythm, normal heart sounds. Absent: systolic murmur, diastolic murmur, rubs, gallop, clicks GI/Abdominal exam: Present: soft, tenderness (generalized prior to palpation), normal bowel sounds Rectal exam: Present: deferred Extremities exam: Absent: pedal edema, joint swelling Neurological exam: Present: alert, oriented X3, CN II-XII intact Psychiatric exam: Present: normal affect, normal mood Skin exam: Present: warm, dry, intact, normal color. Absent: rash Course Vital Signs 11/04/21 11/04/21 14:45 18:15 Temperature 98.4 F Pulse Rate 91 78 Respiratory 16 18 Rate Blood Pressure 129/90 127/95 O2 Sat by Pulse 100 100 Oximetry Medical Decision Making - Medical Decision Making She has a history of multiple GI surgeries will proceed with computed tomography scan to evaluate underlying etiology of abdominal pain. Will check CBC along with lactic acid, stool cultures and CMP, amylase, lipase. Patient with multiple medication ALLERGIES per reports that she has tolerated Dilaudid well in the past for pain, will give Dilaudid. She denies any anti-emetics needs. Will keep nothing by mouth at this time and continue to monitor. CMP without significant anomalies except for a potassium level of 3.4. CBC normal. Amylase and lipase normal. Computed tomography scan without significant findings and not indicative for current pain in abdomen. Patient reports no response to Dilaudid. She states that "usually she gets IV fluids with the Dilaudid and that makes it work better. She reports that she is unable to take Zofran as it causes her to vomit. Case discussed with Dr. Sanchez. Will call Dr. Rodriguez to review CT scans to evaluate for any other concerning etiology as she knows the patient. Will give 500 L fluid bolus and Reglan. Will not provide further doses of Dilaudid at this time. Pending Dr. Rodriguez's evaluation will plan for discharge home with follow-up with her primary care provider. Dr. Rodriguez paged without response. No concerning findings warranting continuing to hold patient and further pages to Dr. Rodriguez. Patient complaining of a migraine after administration of Reglan and requesting Imitrex; no need for diagnostic imaging of her brain as she has a known past medical history of migraines. Will give Imitrex. Patient continues to be adamant that she needs a second dose of IV Dilaudid along with a Union prescription to take home for her abdominal pain stating that she received 2 doses of nor Dilaudid now instead of her previously stated 1 dose with her last visit here in the emergency room 6 weeks ago. Discussed at length the use of IV narcotics and oral narcotics for abdominal pain. Pain disproportionate to studies. Case discussed at length with Dr. Sanchez again. We will give no further narcotics at this time. Will give a dose of oral Bentyl. No indication for admission or further workup at this time. Will plan for discharge home with recommended further workup with her primary care provider. - Lab Data Result diagrams: 11/04/21 17:03 11/04/21 17:03 Lab Results 11/04/21 11/04/21 11/04/21 Range/Units 14:55 17:03 17:03 WBC 9.2 (3.8-10.6) k/uL RBC 4.23 (3.80-5.40) m/uL Hgb 12.5 (11.4-16.0) gm/dL Hct 37.1 (34.0-46.0) % MCV 87.7 (80.0-100.0) fL MCH 29.5 (25.0-35.0) pg MCHC 33.7 (31.0-37.0) g/dL RDW 12.8 (11.5-15.5) % Plt Count 340 (150-450) k/uL MPV 7.6 Neutrophils % 58 % Lymphocytes % 34 % Monocytes % 4 % Eosinophils % 2 % Basophils % 1 % Neutrophils # 5.3 (1.3-7.7) k/uL Lymphocytes # 3.1 (1.0-4.8) k/uL Monocytes # 0.4 (0-1.0) k/uL Eosinophils # 0.2 (0-0.7) k/uL Basophils # 0.1 (0-0.2) k/uL Sodium 137 (137-145) mmol/L Potassium 3.4 L (3.5-5.1) mmol/L Chloride 103 (98-107) mmol/L Carbon Dioxide 26 (22-30) mmol/L Anion Gap 8 mmol/L BUN 16 (7-17) mg/dL Creatinine 0.74 (0.52-1.04) mg/dL Est GFR (CKD-EPI)AfAm >90 (>60 ml/min/1.73 sqM) Est GFR (CKD-EPI)NonAf >90 (>60 ml/min/1.73 sqM) Glucose 102 H (74-99) mg/dL Plasma Lactic Acid Kaleb (0.7-2.0) mmol/L Calcium 9.5 (8.4-10.2) mg/dL Total Bilirubin 0.5 (0.2-1.3) mg/dL AST 23 (14-36) U/L ALT 15 (4-34) U/L Alkaline Phosphatase 60 (38-126) U/L Total Protein 7.4 (6.3-8.2) g/dL Albumin 4.4 (3.5-5.0) g/dL Amylase 53 (30-110) U/L Lipase 74 (23-300) U/L Urine Color Yellow Urine Appearance Clear (Clear) Urine pH 7.0 (5.0-8.0) Ur Specific Empire 1.018 (1.001-1.035) Urine Protein Negative (Negative) Urine Glucose (UA) Negative (Negative) Urine Ketones Negative (Negative) Urine Blood Negative (Negative) Urine Nitrite Negative (Negative) Urine Bilirubin Negative (Negative) Urine Urobilinogen <2.0 (<2.0) mg/dL Ur Leukocyte Esterase Negative (Negative) 11/04/21 Range/Units 17:03 WBC (3.8-10.6) k/uL RBC (3.80-5.40) m/uL Hgb (11.4-16.0) gm/dL Hct (34.0-46.0) % MCV (80.0-100.0) fL MCH (25.0-35.0) pg MCHC (31.0-37.0) g/dL RDW (11.5-15.5) % Plt Count (150-450) k/uL MPV Neutrophils % % Lymphocytes % % Monocytes % % Eosinophils % % Basophils % % Neutrophils # (1.3-7.7) k/uL Lymphocytes # (1.0-4.8) k/uL Monocytes # (0-1.0) k/uL Eosinophils # (0-0.7) k/uL Basophils # (0-0.2) k/uL Sodium (137-145) mmol/L Potassium (3.5-5.1) mmol/L Chloride (98-107) mmol/L Carbon Dioxide (22-30) mmol/L Anion Gap mmol/L BUN (7-17) mg/dL Creatinine (0.52-1.04) mg/dL Est GFR (CKD-EPI)AfAm (>60 ml/min/1.73 sqM) Est GFR (CKD-EPI)NonAf (>60 ml/min/1.73 sqM) Glucose (74-99) mg/dL Plasma Lactic Acid Kaleb 0.9 (0.7-2.0) mmol/L Calcium (8.4-10.2) mg/dL Total Bilirubin (0.2-1.3) mg/dL AST (14-36) U/L ALT (4-34) U/L Alkaline Phosphatase (38-126) U/L Total Protein (6.3-8.2) g/dL Albumin (3.5-5.0) g/dL Amylase (30-110) U/L Lipase (23-300) U/L Urine Color Urine Appearance (Clear) Urine pH (5.0-8.0) Ur Specific [place] (1.001-1.035) Urine Protein (Negative) Urine Glucose (UA) (Negative) Urine Ketones (Negative) Urine Blood (Negative) Urine Nitrite (Negative) Urine Bilirubin (Negative) Urine Urobilinogen (<2.0) mg/dL Ur Leukocyte Esterase (Negative) Disposition Clinical Impression: Abdominal pain Disposition: HOME SELF-CARE Condition: Stable Instructions (If sedation given, give patient instructions): Abdominal Pain (ED) Additional Instructions: Please follow-up with your primary care provider for further testing and treatment plan for abdominal pain. Please return to the Emergency Department if symptoms worsen or any other concerns. Is patient prescribed a controlled substance at d/c from ED?: No Referrals: Levi Dougherty MD [Primary Care Provider] - 1-2 days Decision Time: 19:08
[2021-11-04 17:24] LABS: ALT 15 U/L (4-34); AST 23 U/L (14-36); African American GFR (CKD) >90 (>60 ml/min/1.73 sqM); Albumin 4.4 g/dL (3.5-5.0); Alkaline Phosphatase 60 U/L (38-126); Amylase 53 U/L (30-110); Anion Gap 8 mmol/L; Blood Urea Nitrogen 16 mg/dL (7-17); Calcium 9.5 mg/dL (8.4-10.2); Carbon Dioxide 26 mmol/L (22-30); Chloride 103 mmol/L (98-107); Glucose 102 mg/dL (74-99); Lipase 74 U/L (23-300); Non-African American GFR(CKD) >90 (>60 ml/min/1.73 sqM); Potassium 3.4 mmol/L (3.5-5.1); Sodium 137 mmol/L (137-145); Total Bilirubin 0.5 mg/dL (0.2-1.3); Total Protein 7.4 g/dL (6.3-8.2)
[2021-11-04 17:27] LABS: Basophils # (A) 0.1 k/uL (0-0.2); Basophils % (A) 1 %; Eosinophils # (A) 0.2 k/uL (0-0.7); Eosinophils % (A) 2 %; HCT 37.1 % (34.0-46.0); HGB 12.5 gm/dL (11.4-16.0); Lymphocytes # (A) 3.1 k/uL (1.0-4.8); Lymphocytes % (A) 34 %; MCH 29.5 pg (25.0-35.0); MCHC 33.7 g/dL (31.0-37.0); MCV 87.7 fL (80.0-100.0); Mean Platelet Volume 7.6; Monocytes # (A) 0.4 k/uL (0-1.0); Monocytes % (A) 4 %; Neutrophils # (A) 5.3 k/uL (1.3-7.7); Neutrophils % (A) 58 %; Platelet Count 340 k/uL (150-450); RBC 4.23 m/uL (3.80-5.40); RDW 12.8 % (11.5-15.5); WBC 9.2 k/uL (3.8-10.6)
--- NOTE | 2021-11-04 17:31 | CT ---
EXAMINATION TYPE: CT abdomen pelvis wo con CT DLP: 987.5 mGycm, Automated exposure control for dose reduction was used. DATE OF EXAM: 11/04/2021 5:23 PM COMPARISON: CT abdomen pelvis most recent from 08/05/2021 CLINICAL INDICATION:Female, 46 years old with history of abdominal pain; abdominal/flank pain TECHNIQUE: Standard CT of the abdomen and pelvis following the administration of 100 cc of Isovue 3 00 IV contrast material. Coronal and sagittal reformats were performed. FINDINGS: LOWER CHEST: Unremarkable ABDOMEN LIVER: Unremarkable GALLBLADDER AND BILE DUCTS: The gallbladder is surgically absent. PANCREAS: Unremarkable. SPLEEN: Small splenule is present. ADRENAL GLANDS: Unremarkable. KIDNEYS AND URETERS: No evidence of hydronephrosis or renal calculus. The ureters are unremarkable. PELVIS BLADDER: Nondistended. Small urachal remnant noted. REPRODUCTIVE: Unremarkable. ABDOMEN & PELVIS STOMACH AND BOWEL: No evidence of bowel obstruction. No evidence of bowel wall thickening. Few scatte red clonic diverticula are present. PERITONEUM: No evidence of pneumoperitoneum or free fluid. VASCULATURE: No evidence of aortic aneurysm. MUSCULOSKELETAL: No acute osseous abnormalities. There is grade 1 anterolisthesis of L4 on L5 without spondylolysis. LYMPH NODES: No gross evidence for lymphadenopathy. SOFT TISSUE/ABDOMINAL WALL: Hernia repair changes are present. Postsurgical changes to the anterior a bdominal wall. IMPRESSION: 1. There is post hernia repair changes with mesentery with slightly pamela just deep. This is seen on immediate prior. Unclear whether this is the cause of patient's pain. No additional finding within t he abdomen or pelvis to to correlate with patient's pain. 2. Clonic diverticulosis.
[2021-11-04] MEDS ORDERED: METOCLOPRAMIDE 5 MG/ML 2 ML VIAL IVP STA (17:54)
[2021-11-04] MEDS ORDERED: SODIUM CHLORIDE 0.9% 500 ML 500 ML IV STA (17:54)
[2021-11-04 18:16] VITALS: BP 127/95; PULSE 78; RESP 18
[2021-11-04] MEDS ORDERED: SUMAtriptan succinate 50 MG TAB PO STA (18:31)
[2021-11-04] MEDS ORDERED: DICYCLOMINE 20 MG TAB PO STA (18:49)
== END 2021-11-04 19:42 | disposition home or self-care (01) ==
LOC: EC 14:10
DX: R10.9 Unspecified abdominal pain (principal); I10 Essential (primary) hypertension; Z88.0 Allergy status to penicillin; Z88.5 Allergy status to narcotic agent; Z88.3 Allergy status to other anti-infective agents; Z88.8 Allergy status to other drugs, medicaments and biological substances
CPT/HCPCS: 80053; 82150; 83605; 83690; 85025; 81003; 74176; 99284; 96374; 96375; 96361; J2765; J1170; 36415

== ENCOUNTER 2022-10-08 22:50 | Emergency (ER) | payer BC, OTHER ==
[2022-10-09 00:03] VITALS: BP 155/100; PULSE 84; RESP 16; TEMP 98
[2022-10-09] MEDS ORDERED: HYDROmorphone 0.5 MG/0.5 ML SYRINGE IM STA ×2 (00:52→02:46)
--- NOTE | 2022-10-09 01:51 | ED ---
General Adult HPI - General Chief complaint: Neuro Symptoms/Deficit Stated complaint: Right Arm Pain Time Seen by Provider: 10/09/22 00:37 Source: patient, RN notes reviewed Mode of arrival: ambulatory - History of Present Illness Initial comments: 47-year-old female with no significant past medical history presents the emergency department with a chief complaint of right arm problem. Patient reports neck pain that radiates down her right arm. She reports having some numbness and tingling that is intermittent. She reports no injury or trauma. She denies any weakness to the extremity. She reports that she's had this problem intermittently for the past 4 weeks. - Related Data Home Medications Medication Instructions Recorded Confirmed DULoxetine HCL [Cymbalta] 60 mg PO DAILY 01/11/14 06/18/22 SUMAtriptan succinate [Imitrex] 100 mg PO TID PRN 01/11/14 06/18/22 Zolpidem [Ambien] 10 mg PO HS 09/02/17 06/18/22 Gabapentin [Neurontin] 100 mg PO DAILY 05/19/20 06/18/22 Losartan-Hctz 50-12.5 mg [Hyzaar 1 tab PO DAILY 05/19/20 06/18/22 50-12.5] oxyCODONE-APAP 10-325MG [Percocet 1 tab PO BID PRN 05/19/20 06/18/22 10-325 mg] Scopolamine 1 mg/72 Hr Patch 1 patch TRANSDERM Q72H PRN 08/28/21 06/18/22 [TransDerm Scop] clonazePAM [Clonazepam] 0.5 mg PO DAILY 06/18/22 06/18/22 clonazePAM [KlonoPIN] 0.5 mg PO DAILY 06/18/22 06/18/22 Allergies Allergy/AdvReac Type Severity Reaction Status Date / Time acetaminophen [From Ofirmev] Allergy Rash/Hives Verified 06/18/22 18:20 from IV only hydroxyzine [From Vistaril] Allergy Rash/Hives Verified 06/18/22 18:20 ketorolac tromethamine Allergy Rash/Hives Verified 06/18/22 18:20 [From Toradol] & Migraines naproxen sodium [From Aleve] Allergy Rash/Hives Verified 06/18/22 18:20 & Migraines Penicillins Allergy Swelling Verified 06/18/22 18:20 at suture site pregabalin [From Lyrica] Allergy Swelling Verified 06/18/22 18:20 from knees to feet & hives tramadol HCl [From Ultram] Allergy Rash/Hives Verified 06/18/22 18:20 & Migraines doxycycline AdvReac Nausea & Verified 06/18/22 18:20 Vomiting levofloxacin [From Levaquin] AdvReac Swelling Verified 06/18/22 18:20 from knees to feet morphine AdvReac Lowers BP Verified 06/18/22 18:20 ondansetron [From Zofran] AdvReac Nausea & Verified 06/18/22 18:20 Vomiting oxybutynin [From Ditropan] AdvReac Rapid Verified 06/18/22 18:20 Heart Rate Review of Systems ROS Statement: Those systems with pertinent positive or pertinent negative responses have been documented in the HPI. ROS Other: All systems not noted in ROS Statement are negative. Past Medical History Past Medical History: Hypertension, Respiratory Disorder Additional Past Medical History / Comment(s): LUNG ABSCESS 2013. Migraine headache. HX ABD HERNIAS, diverticulitis, PCOS History of Any Multi-Drug Resistant Organisms: None Reported Past Surgical History: Adenoidectomy, Back Surgery, Breast Surgery, Cholecystectomy, Hernia Repair, Hysterectomy, Orthopedic Surgery Additional Past Surgical History / Comment(s): TYRA KNEE arthroscopic. LOW BACK SURGERY. L BREAST LUMPECTOMY, BENIGN. Colonoscopy-Colitis September 2016. hernia surgery x2 with mesh, diverticulitis, Recent lysis of adhesions, colon surgery 2021 Past Anesthesia/Blood Transfusion Reactions: Postoperative Nausea & Vomiting (PONV) Additional Past Anesthesia/Blood Transfusion Reaction / Comment(s): PT HAS NEVER RECIEVED BLOOD. Past Psychological History: Anxiety, Depression Smoking Status: Never smoker Past Alcohol Use History: None Reported Past Drug Use History: None Reported, Marijuana - Past Family History Mother Family Medical History: Cancer Additional Family Medical History / Comment(s): breast ca Father Family Medical History: AFIB General Exam - General Exam Comments Initial Comments: General: Alert, in no acute distress Head: atraumatic normocephalic. Eyes PERRL, EOMI intact, mucous membranes moist Respiratory: Lungs clear to auscultation bilaterally Cardiovascular: Rate regular rate and rhythm Abdominal: Soft without guarding or rebound Extremities: Normal inspection with full range of motion and normal capillary refill, full range of motion, 5 out of 5 strength, 2+ radial pulses bilaterally Neuroogic: alert and oriented 3, CN II-XII intact, able to ambulate with steady gait Skin: warm dry and intact with normal color Course Vital Signs 10/08/22 23:57 Temperature 98.0 F Pulse Rate 84 Respiratory 16 Rate Blood Pressure 155/100 O2 Sat by Pulse 100 Oximetry Medical Decision Making - Medical Decision Making Was pt. sent in by a medical professional or institution (JEANCARLOS Roy, ENTRY LEVEL INSTALLATION TECHNICIAN, urgent care, hospital, or fpc...) When possible be specific @ -[No] Did you speak to anyone other than the patient for history (EMS, parent, family, police, friend...)? What history was obtained from this source @ -[No] Did you review nursing and triage notes (agree or disagree)? Why? @ -[I reviewed and agree with nursing and triage notes] Were old charts reviewed (outside hosp., previous admission, EMS record, old EKG, old radiological studies, urgent care reports/EKG's, fpc records)? Report findings @ -[No old charts were reviewed] Differential Diagnosis (chest pain, altered mental status, abdominal pain women, abdominal pain men, vaginal bleeding, weakness, fever, dyspnea, syncope, headache, dizziness, GI bleed, back pain, seizure, CVA, palpatations, mental health, musculoskeletal)? @ -[not applicable] EKG interpreted by me (3pts min.). @ -[As above] X-rays interpreted by me (1pt min.). @ X-ray negative for any evidence of fracture dislocation CT interpreted by me (1pt min.). @ -[None done] U/S interpreted by me (1pt. min.). @ -[None done] What testing was considered but not performed or refused? (CT, X-rays, U/S, labs)? Why? @ -[None] What meds were considered but not given or refused? Why? @ -[None] Did you discuss the management of the patient with other professionals (professionals i.e. JEANCARLOS Roy, ENTRY LEVEL INSTALLATION TECHNICIAN, lab, RT, psych nurse, social media editor, eligibility specialist, teacher, public information officer, cyanide case hardener)? Give summary @ -[No] Was smoking cessation discussed for >3mins.? @ -[No] Was critical care preformed (if so, how long)? @ -[No] Were there social determinants of health that impacted care today? How? (Homelessness, low income, unemployed, alcoholism, drug addiction, transportation, low edu. Level, literacy, decrease access to med. care, penitentiary, rehab)? @ -[No] Was there de-escalation of care discussed even if they declined (Discuss DNR or withdrawal of care, Hospice)? DNR status @ -[No] What co-morbidities impacted this encounter? (DM, HTN, Smoking, COPD, CAD, Cancer, CVA, ARF, Chemo, Hep., AIDS, mental health diagnosis, sleep apnea, morbid obesity)? @ -[None] Was patient admitted / discharged? Hospital course, mention meds given and route, prescriptions, significant lab abnormalities, going to OR and other pertinent info. @ Discharged. 47-year-old female who presents the emergency department with right arm problem. Patient had a thorough history and physical exam performed on the ED. Physical exam is essentially unremarkable heart rate regular rate and rhythm, lungs clear to auscultation bilaterally, abdomen soft and non-tender. Right upper extremity with full range of motion, 5 out of 5 strength, 2+ pulses bilaterally. Patient able to move the extremity while distracted. Patient had imaging performed which was negative. I discussed the results in detail with the patient verbalized understanding and all questions were addressed. Return precautions were discussed at length. Patient discharged in stable condition. Case discussed with TEO Landry who agrees with plan of care. Undiagnosed new problem with uncertain prognosis? @ -[No] Drug Therapy requiring intensive monitoring for toxicity (Heparin, Nitro, Insulin, Cardizem)? @ -[No] Were any procedures done? @ -[No] Diagnosis/symptom? @ - Right arm problem Acute, or Chronic, or Acute on Chronic? @ -Acute Uncomplicated (without systemic symptoms) or Complicated (systemic symptoms)? @ -Uncomplicated Side effects of treatment? @ -[No] Exacerbation, Progression, or Severe Exacerbation? @ -[No] Poses a threat to life or bodily function? How? (Chest pain, [place], [place], pneumonia, PE, COPD, DKA, ARF, appy, cholecystitis, CVA, Diverticulitis, Homicidal, Suicidal, threat to staff... and all critical care pts) @ -Low likelihood Disposition Clinical Impression: Problem of right upper extremity Disposition: HOME SELF-CARE Condition: Stable Additional Instructions: Please return to the nearest emergency department symptoms worsen or persist Is patient prescribed a controlled substance at d/c from ED?: No Referrals: Levi Dougherty MD [Primary Care Provider] - 1-2 days Time of Disposition: 01:51
--- NOTE | 2022-10-09 04:31 | XR ---
EXAM: XR Cervical Spine, 2 or 3 Views CLINICAL HISTORY: ITS.REASON XR Reason: neck/right arm problem TECHNIQUE: Frontal and lateral views of the cervical spine. COMPARISON: No relevant prior studies available. FINDINGS: Vertebrae: No acute fracture. Normal sagittal alignment. Disc spaces: No significant narrowing. Soft tissues: Unremarkable. No significant foraminal stenosis IMPRESSION: No acute osseous findings.
== END 2022-10-09 03:55 | disposition home or self-care (01) ==
LOC: EC 22:50
DX: M99.07 Segmental and somatic dysfunction of upper extremity (principal); I10 Essential (primary) hypertension; F41.9 Anxiety disorder, unspecified; F32.A Depression, unspecified; F12.90 Cannabis use, unspecified, uncomplicated; Z79.899 Other long term (current) drug therapy; Z88.0 Allergy status to penicillin; Z88.1 Allergy status to other antibiotic agents; Z88.5 Allergy status to narcotic agent; Z88.6 Allergy status to analgesic agent; Z88.8 Allergy status to other drugs, medicaments and biological substances
CPT/HCPCS: 99283; 96372 ×2; 72050; J1170

== ENCOUNTER 2023-12-11 20:00 | Observation (INO) | payer OTHER ==
[~2023-12-11 20:00] MED LIST changes: -ACETAMINOPHEN IV (For NPO) 1,000 MG in EMPTY BAG 1 BAG IVPB ONE; -CLINDAMYCIN 900 MG in DEXTROSE 5% IN WATER 50 ML IVPB ONE; -DEXAMETHASONE SOD PHOSPHATE 10 MG/ML 1 ML VIAL IV ONE; -HEPARIN SODIUM,PORCINE 5,000 UNIT/ML 1 ML VIAL SQ ONE; +HYDROmorphone 1 MG/ML 1 ML SYRINGE ONE; -LACTATED RINGERS 1,000 ML IV SCH; -MIDAZOLAM 2 MG/2 ML VIAL IV PRN; -ONDANSETRON 4 MG/2 ML VIAL IVP ONE; +SCOPOLAMINE 1 MG/72 HR PATCH TRANSDERM ONE; -SCOPOLAMINE 1.5MG/72HR PATCH TRANSDERM ONE; +SODIUM CHLORIDE 0.9% 1,000 ML BAG ONE; -VANCOMYCIN 1,750 MG in SODIUM CHLORIDE 0.9% 500 ML IVPB ONE; -fentaNYL (PF) 50 MCG/ML 2 ML AMP IV PRN
[2023-12-11] MEDS ORDERED: HYDROmorphone 1 MG/ML 1 ML SYRINGE ONE (21:41)
[2023-12-12] MEDS ORDERED: HYDROmorphone 1 MG/ML 1 ML SYRINGE ONE ×6 (00:16→15:59)
[2023-12-12] MEDS ORDERED: METOCLOPRAMIDE 5 MG/ML 2 ML VIAL ONE (18:43)
[2023-12-12] MEDS ORDERED: HEPARIN SODIUM,PORCINE 5,000 UNIT/ML 1 ML VIAL ONE (20:22)
[2023-12-12] MEDS ORDERED: PANTOPRAZOLE 40 MG/10 ML VIAL ONE (20:23)
[2023-12-12] MEDS ORDERED: ZOLPIDEM 5 MG TAB ONE (20:25)
[2023-12-12] MEDS ORDERED: HYDROmorphone 0.5 MG/0.5 ML SYRINGE ONE (20:25)
[2023-12-13] MEDS ORDERED: HYDROmorphone 0.5 MG/0.5 ML SYRINGE ONE ×7 (01:23→21:52)
[2023-12-13] MEDS ORDERED: METOCLOPRAMIDE 5 MG/ML 2 ML VIAL ONE ×3 (04:32→18:10)
[2023-12-13] MEDS ORDERED: PANTOPRAZOLE 40 MG/10 ML VIAL ONE ×2 (08:40→21:50)
[2023-12-13] MEDS ORDERED: clonazePAM 0.5 MG TAB ONE (08:41)
[2023-12-13] MEDS ORDERED: LOSARTAN 50 MG TAB ONE (08:41)
[2023-12-13] MEDS ORDERED: HEPARIN SODIUM,PORCINE 5,000 UNIT/ML 1 ML VIAL ONE (21:50)
[2023-12-13] MEDS ORDERED: ZOLPIDEM 5 MG TAB ONE (21:51)
[2023-12-14] MEDS ORDERED: METOCLOPRAMIDE 5 MG/ML 2 ML VIAL ONE ×3 (01:40→14:55)
[2023-12-14] MEDS ORDERED: HYDROmorphone 0.5 MG/0.5 ML SYRINGE ONE ×7 (01:40→21:53)
[2023-12-14] MEDS ORDERED: clonazePAM 0.5 MG TAB ONE (08:29)
[2023-12-14] MEDS ORDERED: PANTOPRAZOLE 40 MG/10 ML VIAL ONE ×2 (08:29→21:52)
[2023-12-14] MEDS ORDERED: HEPARIN SODIUM,PORCINE 5,000 UNIT/ML 1 ML VIAL ONE ×2 (08:30→21:52)
[2023-12-14] MEDS ORDERED: LOSARTAN 50 MG TAB ONE (08:30)
[2023-12-14] MEDS ORDERED: ZOLPIDEM 5 MG TAB ONE (21:52)
[2023-12-14] MEDS ORDERED: oxyCODONE-APAP 10-325MG 1 EACH TAB ONE (22:49)
[2023-12-14] MEDS ORDERED: SCOPOLAMINE 1 MG/72 HR PATCH TRANSDERM ONE (23:59)
[2023-12-15] MEDS ORDERED: HYDROmorphone 0.5 MG/0.5 ML SYRINGE ONE ×11 (00:16→23:18)
[2023-12-15] MEDS ORDERED: METOCLOPRAMIDE 5 MG/ML 2 ML VIAL ONE ×3 (05:02→23:27)
[2023-12-15] MEDS ORDERED: HEPARIN SODIUM,PORCINE 5,000 UNIT/ML 1 ML VIAL ONE ×2 (07:24→19:52)
[2023-12-15] MEDS ORDERED: clonazePAM 0.5 MG TAB ONE (07:25)
[2023-12-15] MEDS ORDERED: LOSARTAN 50 MG TAB ONE (07:25)
[2023-12-15] MEDS ORDERED: oxyCODONE-APAP 10-325MG 1 EACH TAB ONE ×3 (08:07→19:54)
[2023-12-15] MEDS ORDERED: PANTOPRAZOLE 40 MG/10 ML VIAL ONE (19:53)
[2023-12-15] MEDS ORDERED: ZOLPIDEM 5 MG TAB ONE (21:19)
[2023-12-16] MEDS ORDERED: HYDROmorphone 0.5 MG/0.5 ML SYRINGE ONE ×8 (01:26→17:14)
[2023-12-16] MEDS ORDERED: oxyCODONE-APAP 10-325MG 1 EACH TAB ONE ×3 (04:30→16:39)
[2023-12-16] MEDS ORDERED: PANTOPRAZOLE 40 MG/10 ML VIAL ONE (08:14)
[2023-12-16] MEDS ORDERED: HEPARIN SODIUM,PORCINE 5,000 UNIT/ML 1 ML VIAL ONE ×2 (08:14→09:00)
[2023-12-16] MEDS ORDERED: clonazePAM 0.5 MG TAB ONE (08:15)
[2023-12-16] MEDS ORDERED: LOSARTAN 50 MG TAB ONE (08:15)
[2023-12-16] MEDS ORDERED: tiZANidine 4 MG TAB ONE (09:00)
--- NOTE | 2024-01-02 17:03 | CT ---
Patient Joanne Torres ID [id number] Order # EXAMINATION TYPE: CT lumbar spine wo con DATE OF EXAM: 12/11/2023 COMPARISON: No comparison available on downtime PACS. HISTORY: Low back pain CT DLP: 2786.2 mGycm CONTRAST: None TECHNIQUE: CT of the lumbar spine is performed on a spiral scan at 3 mm thick sections. Reconstructed images are performed in the coronal and sagittal planes. FINDINGS: T12-L1: No focal disc herniation or significant disc bulge is evident. No spinal canal stenosis or neural foraminal stenosis is present. L1-L2: No focal disc herniation or significant disc bulge is evident. No spinal canal stenosis or n eural foraminal stenosis is present L2-L3: A based disc bulge is present with mild to moderate anterior thecal sac flattening. No AP spin al canal stenosis present. Ligamentum flavum laxity is present. Moderate right and moderate to severe left foraminal stenosis is present. L3-L4: No significant disc bulge is evident. Marked facet hypertrophy is present there is moderate to severe bilateral foraminal narrowing. Laminectomy appears to have been performed. Beam hardening art ifact limits evaluation. Spinal canal narrowing cannot be well evaluated. L4-L5: Disc spacers present. Grade 1 spondylolisthesis of L4 anteriorly on L5 is present. No spinal c anal stenosis is evident. There is some limitation due to beam hardening artifact from pedicle screws . Neural foramen appear widely patent L5-S1: Mild disc space narrowing is present. No focal disc herniation or significant disc bulge. No s saad canal stenosis. Grade 1 spondylolisthesis of L4 anteriorly on L5 is present. Disc spacer is present at L4-5. IMPRESSION: 1. Grade 1 spondylolisthesis of L4 anterior to L5. 2. Marked facet hypertrophy causing moderate to severe bilateral foraminal narrowing at L3-4. The maximo m hardening artifact limits evaluation of this level, spinal canal stenosis cannot be well evaluated. 3. Additional foraminal narrowing is noted to be severe on the left at L2-3
--- NOTE | 2024-01-02 17:03 | CT ---
Patient Joanne Torres ID [id number] Order # EXAMINATION TYPE: CT abdomen pelvis wo con DATE OF EXAM: 12/11/2023 COMPARISON: CT abdomen and pelvis INDICATION: Nausea vomiting constipation DLP: 2786.2 mGycm, Automated exposure control for dose reduction was used. CONTRAST: 0 mL of Isovue 300. Study performed without Oral Contrast TECHNIQUE: Axial images were obtained from above the diaphragm to the pubic rami in the axial plane a t 5 mm thick sections. Reconstructed images are reviewed on the computer in the coronal plane. FINDINGS: Limited CT sections are obtained the lung bases. The lung bases are clear. CT ABDOMEN: Liver: Normal Spleen: Normal Pancreas: Normal Adrenal glands: The adrenal glands are normal. Gallbladder: Surgically absent Kidneys: No masses are evident. No hydronephrosis is present. No cysts are present. Delayed images were obtained through the kidneys, which remain unremarkable. Aorta: Normal Inferior vena cava: Normal. CT PELVIS: Loops of bowel within the abdomen and pelvis are normal. This study is without oral contrast limi ting bowel evaluation. Appendix: Normal as visualized. Urinary bladder: Normal. Genitourinary structures: There is a 2.4 cm cyst on the right ovary. Left adnexa appears normal. Uter us is not identified. Osseous structures: No suspicious lytic or sclerotic lesions. IMPRESSION: 1. 2.4 cm right ovarian cyst. Cyst was present previously, follow-up is recommended. 2. No suspicious abnormalities or nausea vomiting. No significant fecal retention is evident
== END 2023-12-16 17:38 | disposition home or self-care (01) ==
LOC: EC 20:00 → 6NMEDSUR 20:16
PROVIDERS: ADMIT Emergency Medicine; ATTEND Emergency Medicine
DX: M43.16 Spondylolisthesis, lumbar region (principal); M47.26 Other spondylosis with radiculopathy, lumbar region; M48.061 Spinal stenosis, lumbar region without neurogenic claudication; R11.2 Nausea with vomiting, unspecified; E66.9 Obesity, unspecified; Z98.1 Arthrodesis status
CPT/HCPCS: 72131; 74176

== ENCOUNTER 2024-02-08 22:54 | Observation (INO) | payer OTHER ==
[2024-02-09 00:45] LABS: Basophils % (A) 0 %; Eosinophils # (A) 0.2 k/uL (0-0.7); Eosinophils % (A) 2 %; HGB 12.2 gm/dL (11.4-16.0); Lymphocytes # (A) 2.9 k/uL (1.0-4.8); Lymphocytes % (A) 23 %; MCH 28.3 pg (25.0-35.0); MCV 85.8 fL (80.0-100.0); Mean Platelet Volume 7.6; Monocytes # (A) 0.7 k/uL (0-1.0); Monocytes % (A) 6 %; Neutrophils # (A) 8.7 k/uL (1.3-7.7); Neutrophils % (A) 68 %; Platelet Count 598 k/uL (150-450); RBC 4.31 m/uL (3.80-5.40); RDW 15.5 % (11.5-15.5); WBC 12.8 k/uL (3.8-10.6)
--- NOTE | 2024-02-09 00:46 | ED ---
General Adult HPI - General Chief complaint: Abdominal Pain Stated complaint: ABD Pain Time Seen by Provider: 02/08/24 23:02 Source: patient, family, RN notes reviewed, old records reviewed Mode of arrival: ambulatory Limitations: no limitations - History of Present Illness Initial comments: 48 female presenting for evaluation of epigastric abdominal pain. This is associated with nausea and vomiting. Patient describes this as a burning sensation. She has had similar symptoms in the past. She has had previous cholecystectomy. She denies fever. Denies lower abdominal pain. Denies dysuria or hematuria. - Related Data Home Medications Medication Instructions Recorded Confirmed DULoxetine HCL [Cymbalta] 60 mg PO DAILY 01/11/14 06/18/22 SUMAtriptan succinate [Imitrex] 100 mg PO TID PRN 01/11/14 06/18/22 Zolpidem [Ambien] 10 mg PO HS 09/02/17 06/18/22 Gabapentin [Neurontin] 100 mg PO DAILY 05/19/20 06/18/22 Losartan-Hctz 50-12.5 mg [Hyzaar 1 tab PO DAILY 05/19/20 06/18/22 50-12.5] oxyCODONE-APAP 10-325MG [Percocet 1 tab PO BID PRN 05/19/20 06/18/22 10-325 mg] Scopolamine 1 mg/72 Hr Patch 1 patch TRANSDERM Q72H PRN 08/28/21 06/18/22 [TransDerm Scop] clonazePAM [Clonazepam] 0.5 mg PO DAILY 06/18/22 06/18/22 clonazePAM [KlonoPIN] 0.5 mg PO DAILY 06/18/22 06/18/22 Allergies Allergy/AdvReac Type Severity Reaction Status Date / Time acetaminophen [From Ofirmev] Allergy Rash/Hives Verified 06/18/22 18:20 from IV only hydroxyzine [From Vistaril] Allergy Rash/Hives Verified 06/18/22 18:20 ketorolac tromethamine Allergy Rash/Hives Verified 06/18/22 18:20 [From Toradol] & Migraines naproxen sodium [From Aleve] Allergy Rash/Hives Verified 06/18/22 18:20 & Migraines Penicillins Allergy Swelling Verified 06/18/22 18:20 at suture site pregabalin [From Lyrica] Allergy Swelling Verified 06/18/22 18:20 from knees to feet & hives tramadol HCl [From Ultram] Allergy Rash/Hives Verified 06/18/22 18:20 & Migraines doxycycline AdvReac Nausea & Verified 06/18/22 18:20 Vomiting levofloxacin [From Levaquin] AdvReac Swelling Verified 06/18/22 18:20 from knees to feet morphine AdvReac Lowers BP Verified 06/18/22 18:20 ondansetron [From Zofran] AdvReac Nausea & Verified 06/18/22 18:20 Vomiting oxybutynin [From Ditropan] AdvReac Rapid Verified 06/18/22 18:20 Heart Rate Review of Systems ROS Statement: Those systems with pertinent positive or pertinent negative responses have been documented in the HPI. ROS Other: All systems not noted in ROS Statement are negative. Past Medical History Past Medical History: Hypertension, Respiratory Disorder Additional Past Medical History / Comment(s): LUNG ABSCESS 2013. Migraine headache. HX ABD HERNIAS, diverticulitis, PCOS History of Any Multi-Drug Resistant Organisms: None Reported Past Surgical History: Adenoidectomy, Back Surgery, Breast Surgery, Cholecystectomy, Hernia Repair, Hysterectomy, Orthopedic Surgery Additional Past Surgical History / Comment(s): TYRA KNEE arthroscopic. LOW BACK SURGERY. L BREAST LUMPECTOMY, BENIGN. Colonoscopy-Colitis September 2016. hernia surgery x2 with mesh, diverticulitis, Recent lysis of adhesions, colon surgery 2021 Past Anesthesia/Blood Transfusion Reactions: Postoperative Nausea & Vomiting (PONV) Additional Past Anesthesia/Blood Transfusion Reaction / Comment(s): PT HAS NEVER RECIEVED BLOOD. Past Psychological History: Anxiety, Depression Smoking Status: Never smoker Past Alcohol Use History: None Reported Past Drug Use History: None Reported, Marijuana - Past Family History Mother Family Medical History: Cancer Additional Family Medical History / Comment(s): breast ca Father Family Medical History: AFIB General Exam Limitations: no limitations General appearance: alert, in no apparent distress Head exam: Present: atraumatic, normocephalic Eye exam: Present: normal appearance, PERRL ENT exam: Present: normal exam Neck exam: Present: normal inspection. Absent: tenderness, meningismus Respiratory exam: Present: normal lung sounds bilaterally. Absent: respiratory distress Cardiovascular Exam: Present: regular rate, normal rhythm GI/Abdominal exam: Present: soft, tenderness (Epigastric). Absent: distended Extremities exam: Present: normal inspection, normal capillary refill Neurological exam: Present: alert, oriented X3, CN II-XII intact. Absent: motor sensory deficit Psychiatric exam: Present: normal affect, normal mood Skin exam: Present: warm, dry, intact. Absent: cyanosis, diaphoretic Course Vital Signs 02/08/24 02/08/24 02/09/24 22:56 22:58 01:58 Temperature 97.8 F Pulse Rate 82 74 80 Respiratory 20 18 20 Rate Blood Pressure 93/62 122/78 115/71 O2 Sat by Pulse 98 98 97 Oximetry 02/09/24 03:00 Temperature Pulse Rate 78 Respiratory 18 Rate Blood Pressure 115/67 O2 Sat by Pulse 98 Oximetry Medical Decision Making - Medical Decision Making Was pt. sent in by a medical professional or institution (, PA, MANAGER SEMICONDUCTOR, urgent care, hospital, or residential...) When possible be specific @ -No Did you speak to anyone other than the patient for history (EMS, parent, family, police, friend...)? What history was obtained from this source @ -No Did you review nursing and triage notes (agree or disagree)? Why? @ -I reviewed and agree with nursing and triage notes Were old charts reviewed (outside hosp., previous admission, EMS record, old EKG, old radiological studies, urgent care reports/EKG's, residential records)? Report findings @ -No old charts were reviewed Differential Abdominal Pain Women: Appendicitis, Cholecystitis, diverticulosis, ischemic bowel, pancreatitis, hepatitis, UTI, gastroenteritis, AAA, incarcerated hernia, bowel obstruction, constipation, inflammatory bowel, hepatitis, peptic ulcer disease, splenic in farction, perforated viscus, vulvitis, ovarian torsion, PID, kidney stone, placenta abruption, this is not meant to be an all-inclusive list EKG interpreted by me (3pts min.). @Sinus rhythm rate of 87, OH interval 157, QRS duration 97, QTc [address] segment changes. X-rays interpreted by me (1pt min.). @ -Chest x-ray negative for acute cardiopulmonary findings, abdominal x-ray showing mild small bowel dilatation without oscar obstruction no intraperitoneal free air. CT interpreted by me (1pt min.). @ -None done U/S interpreted by me (1pt. min.). @ -None done What testing was considered but not performed or refused? (CT, X-rays, U/S, labs)? Why? @ -None What meds were considered but not given or refused? Why? @ -None Did you discuss the management of the patient with other professionals (professionals i.e. , PA, MANAGER SEMICONDUCTOR, lab, RT, psych nurse, social work supervisor, tapeman, teacher, hospital chief executive officer, case supervisor)? Give summary @ -Admitted to Dr. Marte with Dr. Upton on consult. Was smoking cessation discussed for >3mins.? @ -No Was critical care preformed (if so, how long)? @ -No Were there social determinants of health that impacted care today? How? (Homelessness, low income, unemployed, alcoholism, drug addiction, transportation, low edu. Level, literacy, decrease access to med. care, half-way, rehab)? @ -No Was there de-escalation of care discussed even if they declined (Discuss DNR or withdrawal of care, Hospice)? DNR status @ -No What co-morbidities impacted this encounter? (DM, HTN, Smoking, COPD, CAD, Cancer, CVA, ARF, Chemo, Hep., AIDS, mental health diagnosis, sleep apnea, morbid obesity)? @ -Chronic abdominal pain, cholecystectomy. Was patient admitted / discharged? Hospital course, mention meds given and route, prescriptions, significant lab abnormalities, going to OR and other pertinent info. @ -48-year-old female with epigastric abdominal pain, nausea vomiting. Patient has a mild leukocytosis and mild thrombocytosis. She has a potassium of 2.7 which is replaced. Patient remained symptomatic in the emergency department. She will be admitted for symptom control. Urinalysis is pending. Undiagnosed new problem with uncertain prognosis? @ -No Drug Therapy requiring intensive monitoring for toxicity (Heparin, Nitro, Insulin, Cardizem)? @ -No Were any procedures done? @ -No Diagnosis/symptom? @Nausea vomiting, hypokalemia, abdominal pain Acute, or Chronic, or Acute on Chronic? @ -Acute on chronic Uncomplicated (without systemic symptoms) or Complicated (systemic symptoms)? @ -Default Side effects of treatment? @ -No Exacerbation, Progression, or Severe Exacerbation? @ -No Poses a threat to life or bodily function? How? (Chest pain, USA, DC, pneumonia, PE, COPD, DKA, ARF, appy, cholecystitis, CVA, Diverticulitis, Homicidal, Suicid al, threat to staff... and all critical care pts) @ -Moderate risk, small bowel obstruction - Lab Data Result diagrams: 02/09/24 00:10 02/09/24 00:10 Lab Results 02/09/24 02/09/24 02/09/24 Range/Units 00:10 00:10 00:10 WBC 12.8 H (3.8-10.6) k/uL RBC 4.31 (3.80-5.40) m/uL Hgb 12.2 (11.4-16.0) gm/dL Hct 37.0 (34.0-46.0) % MCV 85.8 (80.0-100.0) fL MCH 28.3 (25.0-35.0) pg MCHC 33.0 (31.0-37.0) g/dL RDW 15.5 (11.5-15.5) % Plt Count 598 H (150-450) k/uL MPV 7.6 Neutrophils % 68 % Lymphocytes % 23 % Monocytes % 6 % Eosinophils % 2 % Basophils % 0 % Neutrophils # 8.7 H (1.3-7.7) k/uL Lymphocytes # 2.9 (1.0-4.8) k/uL Monocytes # 0.7 (0-1.0) k/uL Eosinophils # 0.2 (0-0.7) k/uL Basophils # 0.0 (0-0.2) k/uL Sodium 137 (137-145) mmol/L Potassium 2.7 L* (3.5-5.1) mmol/L Chloride 102 (98-107) mmol/L Carbon Dioxide 28 (22-30) mmol/L Anion Gap 7 mmol/L BUN 17 (7-17) mg/dL Creatinine 0.80 (0.52-1.04) mg/dL Est GFR (CKD-EPI)AfAm >90 (>60 ml/min/1.73 sqM) Est GFR (CKD-EPI)NonAf 88 (>60 ml/min/1.73 sqM) Glucose 127 H (74-99) mg/dL Plasma Lactic Acid Kaleb 1.5 (0.7-2.0) mmol/L Calcium 9.9 (8.4-10.2) mg/dL Total Bilirubin 0.5 (0.2-1.3) mg/dL AST 29 (14-36) U/L ALT 30 (4-34) U/L Alkaline Phosphatase 89 (38-126) U/L Troponin I (0.000-0.034) ng/mL Total Protein 7.3 (6.3-8.2) g/dL Albumin 4.4 (3.5-5.0) g/dL Amylase 44 (30-110) U/L Lipase 186 (23-300) U/L 02/09/24 Range/Units 00:10 WBC (3.8-10.6) k/uL RBC (3.80-5.40) m/uL Hgb (11.4-16.0) gm/dL Hct (34.0-46.0) % MCV (80.0-100.0) fL MCH (25.0-35.0) pg MCHC (31.0-37.0) g/dL RDW (11.5-15.5) % Plt Count (150-450) k/uL MPV Neutrophils % % Lymphocytes % % Monocytes % % Eosinophils % % Basophils % % Neutrophils # (1.3-7.7) k/uL Lymphocytes # (1.0-4.8) k/uL Monocytes # (0-1.0) k/uL Eosinophils # (0-0.7) k/uL Basophils # (0-0.2) k/uL Sodium (137-145) mmol/L Potassium (3.5-5.1) mmol/L Chloride (98-107) mmol/L Carbon Dioxide (22-30) mmol/L Anion Gap mmol/L BUN (7-17) mg/dL Creatinine (0.52-1.04) mg/dL Est GFR (CKD-EPI)AfAm (>60 ml/min/1.73 sqM) Est GFR (CKD-EPI)NonAf (>60 ml/min/1.73 sqM) Glucose (74-99) mg/dL Plasma Lactic Acid Kaleb (0.7-2.0) mmol/L Calcium (8.4-10.2) mg/dL Total Bilirubin (0.2-1.3) mg/dL AST (14-36) U/L ALT (4-34) U/L Alkaline Phosphatase (38-126) U/L Troponin I 0.013 (0.000-0.034) ng/mL Total Protein (6.3-8.2) g/dL Albumin (3.5-5.0) g/dL Amylase (30-110) U/L Lipase (23-300) U/L Disposition Clinical Impression: Abdominal pain, Nausea & vomiting, Hypokalemia Disposition: ADMITTED IP TO THIS HOSP Condition: Stable Is patient prescribed a controlled substance at d/c from ED?: No Time of Disposition: 02:17
--- NOTE | 2024-02-09 01:07 | XR ---
EXAM: XR Chest, 2 Views CLINICAL HISTORY: ITS.REASON XR Reason: cough TECHNIQUE: Frontal and lateral views of the chest. COMPARISON: No relevant prior studies available. FINDINGS: Lungs: Unremarkable. No consolidation. Pleural space: Unremarkable. No pneumothorax. Heart: Unremarkable. No cardiomegaly. Mediastinum: Unremarkable. Normal mediastinal contour. Bones/joints: Unremarkable. No acute fracture. IMPRESSION: Normal chest x-rays.
--- NOTE | 2024-02-09 01:10 | XR ---
EXAM: XR Abdomen, 1 View CLINICAL HISTORY: ITS.REASON XR Reason: ab pain TECHNIQUE: Frontal supine view of the abdomen/pelvis. COMPARISON: No relevant prior studies available. FINDINGS: Gastrointestinal tract: Dilated small bowel measuring up to 2.3 cm. Correlate for early/partial bowel obstruction. Organs: Cholecystectomy. Bones/joints: Posterior fusion at L4-5. No acute fracture. IMPRESSION: 1. Cholecystectomy. 2. Dilated small bowel measuring up to 2.3 cm. Correlate for early/partial bowel obstruction.
[2024-02-09 01:41] LABS: ALT 30 U/L (4-34); AST 29 U/L (14-36); African American GFR (CKD) >90 (>60 ml/min/1.73 sqM); Albumin 4.4 g/dL (3.5-5.0); Alkaline Phosphatase 89 U/L (38-126); Amylase 44 U/L (30-110); Anion Gap 7 mmol/L; Blood Urea Nitrogen 17 mg/dL (7-17); Calcium 9.9 mg/dL (8.4-10.2); Carbon Dioxide 28 mmol/L (22-30); Chloride 102 mmol/L (98-107); Glucose 127 mg/dL (74-99); Lipase 186 U/L (23-300); Non-African American GFR(CKD) 88 (>60 ml/min/1.73 sqM); Sodium 137 mmol/L (137-145); Total Bilirubin 0.5 mg/dL (0.2-1.3); Total Protein 7.3 g/dL (6.3-8.2)
[2024-02-09 01:48] LABS: Potassium 2.7 mmol/L (3.5-5.1)
[2024-02-09] MEDS: PANTOPRAZOLE 40 MG/10 ML VIAL IVP STA (02:00)
[2024-02-09] MEDS: METOCLOPRAMIDE 5 MG/ML 2 ML VIAL IVP STA (02:00)
[2024-02-09] MEDS: HYDROmorphone 0.5 MG/0.5 ML SYRINGE IVP STA (02:01)
[2024-02-09] MEDS: SODIUM CHLORIDE 0.9% 1,000 ML IV STA (02:01)
[2024-02-09] MEDS ORDERED: NALOXONE 0.4 MG/ML 1 ML VIAL IV PRN (02:11)
[2024-02-09] MEDS ORDERED: METOCLOPRAMIDE 5 MG/ML 2 ML VIAL IVP PRN (02:13)
[2024-02-09] MEDS: diphenhydrAMINE 50 MG/ML 1 ML VIAL IVP STA (02:20)
[2024-02-09] MEDS: POTASSIUM CHLORIDE 10 MEQ in WATER FOR INJECTION 1 100ML.BAG IVPB SCH ×2 (02:43→15:18)
[2024-02-09] MEDS: 0.9% NACL WITH KCL 20 MEQ/L 1,000 ML IV SCH (03:47)
[2024-02-09 03:53] LABS: Appearance,Urine Cloudy (Clear); Bilirubin,Urine Negative (Negative); Blood,Urine Negative (Negative); Color,Urine Yellow; Glucose,Urine (UA) Negative (Negative); Ketones,Urine Negative (Negative); Leukocyte Esterase,Urine Trace (Negative); Mucus,Urine Rare /hpf; Nitrite,Urine Negative (Negative); PH, Urine 6.5 (5.0-8.0); Protein,Urine Trace (Negative); RBC,Urine 1 /hpf (0-5); Specific Gravity,Urine 1.022 (1.001-1.035); Squamous Epithelial Cell,Urine 8 /hpf (0-4); WBC,Urine 5 /hpf (0-5)
[2024-02-09] MEDS: HYDROmorphone 0.5 MG/0.5 ML SYRINGE IVP PRN (04:05)
[2024-02-09] MEDS: PANTOPRAZOLE 40 MG/10 ML VIAL IV SCH (09:04)
[2024-02-09] MEDS: clonazePAM 1 MG TAB PO SCH (09:05)
[2024-02-09] MEDS ORDERED: IOPAMIDOL CONTRAST (ORAL USE) VIAL PO PRN (10:05)
--- NOTE | 2024-02-09 12:50 | P.GSCN ---
History of Present Illness Consult date: 02/09/24 History of present illness: CHIEF COMPLAINT: Abdominal pain HISTORY OF PRESENT ILLNESS: This is a 48-year-old female who presented with epigastric pain with nausea and vomiting x 1 week. Patient reports mostly she has been having dry heaves. She reports she has had similar symptoms with prior bowel obstruction. She reports her last bowel obstruction was about 3 years ago and she had lysis of adhesions at that time. Patient reports it been several days since her last bowel movement. This morning however she did have a very small sticky stool. She denies any blood in her stools. Her KUB x-ray had reported dilated small bowel early versus partial small bowel obstruction. Patient has had multiple abdominal surgeries including cholecystectomy hernia repair x 2 with mesh, hysterectomy and lysis of adhesions and excision of internal hernias in June 2021. PAST MEDICAL HISTORY: See list. PAST SURGICAL HISTORY: See list. MEDICATIONS: See list. ALLERGIES: See list. SOCIAL HISTORY: No illicit drug use. REVIEW OF SYSTEMS: CONSTITUTIONAL: Denies fever or chills. HEENT: Denies blurred vision, vision changes, or eye pain. Denies hemoptysis ENDOCRINE: Denies heat or cold intolerance. CARDIOVASCULAR: Denies chest pain or pressure. RESPIRATORY: No shortness of breath. GASTROINTESTINAL: Denies abdominal pain. Denies nausea or vomiting. NEURO: Denies history of seizures. PSYCH: No depression or suicidal ideation HEMATOLOGIC: Denies bleeding disorders. LYMPHATIC: The patient denies any lumps and bumps around the neck. GENITOURINARY: Denies any blood in urine or increased urinary frequency. MUSCULOSKELETAL: Denies myalgias. Denies joint swelling. Denies decreased range of motion beyond patients baseline. SKIN: Denies pruitis. Denies rash. PHYSICAL EXAM: VITAL SIGNS: Reviewed GENERAL: Well-developed in no acute distress. HEENT: No sclera icterus. Extraocular movements grossly intact. Moist buccal mucosa. Head is atraumatic, normocephalic. Hears conversational speech. No nasal drainage. NECK: Supple without lymphadenopathy. CHEST: Non-labored respirations and equal bilateral excursions. CARDIOVASCULAR: Palpable 2+ radial pulses. ABDOMEN: Soft. Nondistended. Tenderness with palpation epigastric area. No guarding or rebound noted. MUSCULOSKELETAL: No clubbing or cyanosis. NEUROLOGIC: No focal or lateralizing signs. Cranial nerves II through XII grossly intact. PSYCH: Appropriate affect. Alert and oriented to person, place and time. SKIN: Well perfused. Good skin turgor. LABORATORY DATA: WBC 12.8 Hgb 12.2 platelets 598 Sodium 137 potassium is 2.7 creatinine 0.80 Lactic acid 1.5 LFTs normal lipase 186 IMAGING: KUB x-ray reports cholecystectomy. Dilated small bowel measuring up to 2.3 cm. Correlate for early/partial bowel obstruction ASSESSMENT: 1. Epigastric abdominal pain with nausea and vomiting and concerns for partial/early small bowel obstruction 2. Multiple abdominal surgeries 3. Hypokalemia PLAN: -CT scan abdomen pelvis with contrast ordered for further evaluation of bowel obstruction -Hypokalemia being corrected in the ER -Repeat potassium level this afternoon and check a magnesium level -Keep patient n.p.o. -Continue IV fluids Physician Cylinder Devalver note has been reviewed by physician. Signing provider agrees with the documented findings, assessment, and plan of care. Please see additional documentation below. Patient reevaluated by the surgical team at 1246 CHIEF COMPLAINT: Epigastric pain HISTORY OF PRESENT ILLNESS: The patient is a 48-year-old female with pre- existing history of chronic abdominal pain. Patient reports in the last 4 to 6 weeks, she has severe pain of the epigastrium including tractable nausea and vomiting. Surgical history significant for prior ventral hernia repair. She reports inability keep food down including liquids. She reports of burning suture of the epigastrium. She has had prior CT scans demonstrating unremarkabl e findings. Patient had been admitted due to clinical symptoms of bowel obstruction. Additionally, patient reports having a dark small stool less than 1 to 2 inches. She has had chronic constipation. Patient reports that she has been taking ibuprofen. PAST MEDICAL HISTORY: See list and reviewed PAST SURGICAL HISTORY: See list and reviewed MEDICATIONS: See list and reviewed ALLERGIES: See list and reviewed SOCIAL HISTORY: See list and reviewed FAMILY HISTORY: See list and reviewed REVIEW OF ORGAN SYSTEMS: CONSTITUTIONAL: No fevers or chills. Morbid obesity, BMI 37.8 EYES: Denies any trouble with vision. No glasses. HEENT: No difficulties with hearing. No nosebleeds. No difficulty swallowing. RESPIRATORY: Denies pneumonia. Denies any troubles with breathing or dyspnea on exertion. CARDIOVASCULAR: Has hypertensive heart disease GASTROINTESTINAL: Has gastroesophageal reflux disease. History of diverticulitis and multiple abdominal wall hernias. GENITOURINARY: Denies any blood in urine or increased urinary frequency. NEUROLOGICAL: Has migraine headaches. Has chronic pain syndrome. MUSCULOSKELETAL: Denies any back pain, stiffness or joint arthritis. SKIN: No current skin cancer. No rash. PSYCHIATRIC: History of anxiety disorder and generalized depression. ENDOCRINE: Denies current thyroid disorders. Denies any blood sugar glucose intolerance. HEME/LYMPHATIC: Denies any lumps and bumps around the neck. No recent deep venous thrombosis. ALLERGY/IMMUNOLOGY: No immunoglobulin therapy. No immune deficiencies. BREAST: Denies current breast lumps, pain or nipple discharge. PHYSICAL EXAM: VITALS: Reviewed CONSTITUTIONAL: Well developed and in no acute distress. EYES: Conjuctivae without sclera icterus. Extraocular movements grossly intact. HEAD, EARS, NOSE, THROAT: Moist buccal mucosa. Head is atraumatic, normocephalic. Hears conversational speech. No nasal drainage. NECK: Supple. No JV distention. No thyroidomegaly. RESPIRATORY: Non-labored respirations and equal bilateral excursions. No gross wheezes. CARDIOVASCULAR: Palpable 2+ radial pulses. ABDOMEN: Focal tenderness of the epigastrium. No diffuse peritonitis. LYMPH: No neck lymphadenopathy. MUSCULOSKELETAL: No clubbing cyanosis or edema SKIN: Warm and well perfused with good skin turgor. NEUROLOGIC: Cranial nerves II through XII grossly intact. No focal or lateralizing signs. PSYCH: Appropriate affect. Alert and oriented to person, place and time. Displays appropriate insight. CLINCAL LABS: Reviewed. WBC elevated over 12,000. Potassium low under 2.7. IMAGING: Independently reviewed. CT of the abdomen pelvis independently reviewed demonstrates no signs of bowel obstruction. No free air. No active diverticulitis. No large hiatal hernia. This is my independent interpretation. RADIOLOGY: Report from CT scan not available at time of this dictation. RECORDS: previous old records reviewed with multiple abdominal wall hernia surgeries 2020 2021. ASSESSMENT: 1. Intractable epigastric abdominal pain 2. Intractable nausea and vomiting. 3. Morbid obesity due to excess calories, BMI 37.8 4. Chronic pain syndrome 5. Gastroesophageal reflux disease 6. History of diverticulitis 7. Hypokalemia PLAN: 1. She has intractable nausea and vomiting and do recommend at least 2 to 3 L bolus due to severity of nausea and extensive timeframe of poor oral intake. 2. I have ordered 2 L normal saline bolus on top of her prior 1 L bolus. 3. She reports dark stools with intractable nausea vomiting epigastric pain highly suspicious for gastritis or gastric ulcers. Emergent upper endoscopy described. 4. Correction of severe hypokalemia including magnesium replacement described 5. Agree with admission for observation. ADVANCE DIRECTIVE: CODE STATUS in chart Thank you for this kind consultation. Past Medical History Past Medical History: Hypertension, Respiratory Disorder Additional Past Medical History / Comment(s): LUNG ABSCESS 2013. Migraine headache. HX ABD HERNIAS, diverticulitis, PCOS History of Any Multi-Drug Resistant Organisms: None Reported Past Surgical History: Adenoidectomy, Back Surgery, Breast Surgery, Cholecystectomy, Hernia Repair, Hysterectomy, Orthopedic Surgery Additional Past Surgical History / Comment(s): TYRA KNEE arthroscopic. LOW BACK SURGERY. L BREAST LUMPECTOMY, BENIGN. Colonoscopy-Colitis September 2016. hernia surgery x2 with mesh, diverticulitis, Recent lysis of adhesions, colon surgery 2021 Past Anesthesia/Blood Transfusion Reactions: Postoperative Nausea & Vomiting (PONV) Additional Past Anesthesia/Blood Transfusion Reaction / Comm: PT HAS NEVER RECIEVED BLOOD. Past Psychological History: Anxiety, Depression Smoking Status: Never smoker Past Alcohol Use History: None Reported Past Drug Use History: None Reported, Marijuana - Past Family History Mother Family Medical History: Cancer Additional Family Medical History / Comment(s): breast ca Father Family Medical History: AFIB Medications and Allergies Home Medications Medication Instructions Recorded Confirmed Type Zolpidem [Ambien] 10 mg PO HS 09/02/17 02/09/24 History Gabapentin [Neurontin] 100 mg PO DAILY 05/19/20 02/09/24 History Losartan-Hctz 50-12.5 mg [Hyzaar 1 tab PO DAILY 05/19/20 02/09/24 History 50-12.5] oxyCODONE-APAP 10-325MG [Percocet 1 tab PO BID PRN 05/19/20 02/09/24 History 10-325 mg] Scopolamine 1 mg/72 Hr Patch 1 patch TRANSDERM Q72H PRN 08/28/21 02/09/24 History [TransDerm Scop] clonazePAM [KlonoPIN] 0.5 mg PO DAILY 06/18/22 02/09/24 History Desvenlafaxine Succinate [Pristiq 50 mg PO DAILY 02/09/24 02/09/24 History ER] Galcanezumab-Gnlm [Emgality Pen] 120 mg SQ QMONTHLY 02/09/24 02/09/24 History Metoclopramide [Reglan] 5 mg PO BID PRN 02/09/24 02/09/24 History SUMAtriptan succinate [Imitrex] 100 mg PO BID PRN 02/09/24 02/09/24 History tiZANidine HCL 2 mg PO TID PRN 02/09/24 02/09/24 History Allergies Allergy/AdvReac Type Severity Reaction Status Date / Time acetaminophen [From Ofirmev] Allergy Rash/Hives Verified 02/09/24 07:55 from IV only hydroxyzine [From Vistaril] Allergy Rash/Hives Verified 02/09/24 07:55 ketorolac tromethamine Allergy Rash/Hives Verified 02/09/24 07:55 [From Toradol] & Migraines naproxen sodium [From Aleve] Allergy Rash/Hives Verified 02/09/24 07:55 & Migraines Penicillins Allergy Swelling Verified 02/09/24 07:55 at suture site pregabalin [From Lyrica] Allergy Swelling Verified 02/09/24 07:55 from knees to feet & hives tramadol HCl [From Ultram] Allergy Rash/Hives Verified 02/09/24 07:55 & Migraines doxycycline AdvReac Nausea & Verified 02/09/24 07:55 Vomiting levofloxacin [From Levaquin] AdvReac Swelling Verified 02/09/24 07:55 from knees to feet morphine AdvReac Lowers BP Verified 02/09/24 07:55 ondansetron [From Zofran] AdvReac Nausea & Verified 02/09/24 07:55 Vomiting oxybutynin [From Ditropan] AdvReac Rapid Verified 02/09/24 07:55 Heart Rate Surgical - Exam Vital Signs Temp Pulse Resp BP Pulse Ox 97.8 F 82 20 93/62 98 02/08/24 22:56 02/08/24 22:56 02/08/24 22:56 02/08/24 22:56 02/08/24 22:56 Results - Labs 02/09/24 00:10 02/09/24 00:10 Abnormal Lab Results - Last 24 Hours (Table) 02/09/24 02/09/24 02/09/24 Range/Units 00:10 00:10 03:30 WBC 12.8 H (3.8-10.6) k/uL Plt Count 598 H (150-450) k/uL Neutrophils # 8.7 H (1.3-7.7) k/uL Potassium 2.7 L* (3.5-5.1) mmol/L Glucose 127 H (74-99) mg/dL Urine Appearance Cloudy H (Clear) Urine Protein Trace H (Negative) Ur Leukocyte Esterase Trace H (Negative) Ur Squamous Epith Cells 8 H (0-4) /hpf Urine Mucus Rare H (None) /hpf Diabetes panel 02/09/24 Range/Units 00:10 Sodium 137 (137-145) mmol/L Potassium 2.7 L* (3.5-5.1) mmol/L Chloride 102 (98-107) mmol/L Carbon Dioxide 28 (22-30) mmol/L BUN 17 (7-17) mg/dL Creatinine 0.80 (0.52-1.04) mg/dL Glucose 127 H (74-99) mg/dL Calcium 9.9 (8.4-10.2) mg/dL AST 29 (14-36) U/L ALT 30 (4-34) U/L Alkaline Phosphatase 89 (38-126) U/L Total Protein 7.3 (6.3-8.2) g/dL Albumin 4.4 (3.5-5.0) g/dL Calcium panel 02/09/24 Range/Units 00:10 Calcium 9.9 (8.4-10.2) mg/dL Albumin 4.4 (3.5-5.0) g/dL Pituitary panel 02/09/24 Range/Units 00:10 Sodium 137 (137-145) mmol/L Potassium 2.7 L* (3.5-5.1) mmol/L Chloride 102 (98-107) mmol/L Carbon Dioxide 28 (22-30) mmol/L BUN 17 (7-17) mg/dL Creatinine 0.80 (0.52-1.04) mg/dL Glucose 127 H (74-99) mg/dL Calcium 9.9 (8.4-10.2) mg/dL Adrenal panel 02/09/24 Range/Units 00:10 Sodium 137 (137-145) mmol/L Potassium 2.7 L* (3.5-5.1) mmol/L Chloride 102 (98-107) mmol/L Carbon Dioxide 28 (22-30) mmol/L BUN 17 (7-17) mg/dL Creatinine 0.80 (0.52-1.04) mg/dL Glucose 127 H (74-99) mg/dL Calcium 9.9 (8.4-10.2) mg/dL Total Bilirubin 0.5 (0.2-1.3) mg/dL AST 29 (14-36) U/L ALT 30 (4-34) U/L Alkaline Phosphatase 89 (38-126) U/L Total Protein 7.3 (6.3-8.2) g/dL Albumin 4.4 (3.5-5.0) g/dL
[2024-02-09] MEDS ORDERED: SCOPOLAMINE 1 MG/72 HR PATCH TRANSDERM SCH (13:00)
[2024-02-09] MEDS: SCOPOLAMINE 1 MG/72 HR PATCH TRANSDERM SCH ×2 (13:04→13:59)
[2024-02-09] MEDS: SODIUM CHLORIDE 0.9% 2,000 ML IV ONE (13:13)
[2024-02-09 13:37] LABS: ALT 25 U/L (4-34); AST 27 U/L (14-36); African American GFR (CKD) >90 (>60 ml/min/1.73 sqM); Albumin/Globulin Ratio 1.6; Alkaline Phosphatase 87 U/L (38-126); Anion Gap 8 mmol/L; Blood Urea Nitrogen 16 mg/dL (7-17); Calcium 9.1 mg/dL (8.4-10.2); Carbon Dioxide 24 mmol/L (22-30); Chloride 104 mmol/L (98-107); Globulin 2.5 g/dL; Glucose 122 mg/dL (74-99); Non-African American GFR(CKD) >90 (>60 ml/min/1.73 sqM); Sodium 136 mmol/L (137-145); Total Bilirubin 0.5 mg/dL (0.2-1.3); Total Protein 6.5 g/dL (6.3-8.2)
--- NOTE | 2024-02-09 13:38 | HP ---
HISTORY AND PHYSICAL HISTORY OF PRESENT ILLNESS: A 48-year-old female came with epigastric pain, nausea, vomiting for the past week, dry heaves. She has had similar symptoms with a bowel obstruction in the past. She 3 years ago had lysis of adhesions several days since her last bowel movement. KUB shows partial small-bowel obstruction. PAST MEDICAL HISTORY: As mentioned above. PAST SURGICAL HISTORY: As mentioned above. MEDICATIONS: See list. SOCIAL HISTORY: No drug use. REVIEW OF SYSTEMS: A 14-point review of systems negative except for abdominal symptoms as mentioned above. Otherwise, 14-point review of systems negative. PHYSICAL EXAMINATION: VITAL SIGNS: Stable. No acute distress. HEENT: Pupils equal, round, reactive. Normal. NECK: Supple. CHEST: Decreased breath sounds. Mild wheeze at the bases. CARDIOVASCULAR: S1, S2. NEUROLOGIC: Alert and oriented x3. HEMATOLOGY: Negative Homans. ASSESSMENT: Small-bowel obstruction. Surgical consult. Replace electrolytes with severe hypokalemia. Wait for surgical recommendations. Fix possible constipation. Her white count is 12.8, hemoglobin 12.2, platelets 598. Lactic acid 1.5 and lipase is normal. We will evaluate with a CAT scan. Please see further orders. Replace electrolytes. MMODL / IJN: [id number] /
[2024-02-09] MEDS ORDERED: PROPOFOL 10 MG/ML 20 ML VIAL IV ONE (14:19)
[2024-02-09] MEDS ORDERED: LIDOCAINE 2% (PF) 20 MG/ML 5 ML VIAL ONE (14:19)
[2024-02-09] MEDS: SODIUM CHLORIDE 0.9% 1,000 ML IV ONE (14:23)
--- NOTE | 2024-02-09 14:50 | P.PCN ---
Date of Procedure: 02/09/24 Description of Procedure: PREOPERATIVE DIAGNOSIS: Chronic NSAID use Intractable nausea and vomiting Intractable epigastric abdominal pain POSTOPERATIVE DIAGNOSIS: Multiple acute on chronic gastric ulcers without active bleeding Acute duodenitis Acute gastritis Acute erosive esophagitis with ulceration OPERATION: Esophagogastroduodenoscopy with biopsies along esophagus, antrum and duodenum SURGEON: Charity Upton MD ANESTHESIA: MAC. INDICATIONS: The patient is a 48-year-old female who presents with intractable nausea and vomiting including severe epigastric Hernandez pain and chronic NSAID use. Benefits and risks of the procedure were described. Informed consent was obtained. DESCRIPTION: The patient was brought into the endoscopy suite and laid in the left lateral decubitus position. An Olympus gastroscope was passed along the posterior oropharynx down to the distal esophagus where the squamocolumnar junction was encountered at 35 cm from the incisors. The stomach was entered and no bile reflux was found. Additional findings are listed below. Biopsies with cold forceps were obtained of the antrum. The first through third portion of the duodenum was examined. Retroflexion of the scope confirmed Hill grade 1 lower esophageal valve. The squamocolumnar junction demonstrated LA grade B erosive esophagitis. The stomach was desufflated. The patient tolerated the procedure well. FINDINGS: Squamocolumnar junction 35 cm from the incisors. Diaphragmatic hiatus at 35 cm. Multiple acute and chronic gastric ulcers without bleeding with deep ulcerations, 1 cm x 2, 5 mm x 5, post angularis incisura/antrum Hill grade 1 lower esophageal valve. LA grade B erosive esophagitis with acute ulcerations Biopsies obtained of the duodenum with acute duodenitis without bleeding Chronic gastritis without bleeding with biopsies obtained. RECOMMENDATIONS: Discontinue NSAID use. Protonix 40 mg twice daily prescribed Carafate 1 g 3 times daily Follow-up biopsies for H. pylori gastritis
--- NOTE | 2024-02-09 14:56 | CT ---
EXAMINATION TYPE: CT abdomen pelvis w con DATE OF EXAM: 02/09/2024 COMPARISON: 11/15/2022 HISTORY: Abdominal pain CT DLP: 1769.4 mGycm Automated exposure control for dose reduction was used. TECHNIQUE: Helical acquisition of images was performed from the lung bases through the pelvis. CONTRAST: Performed with Oral Contrast and with IV Contrast, patient injected with 100 ml mL of Isovue 370. FINDINGS: The lung bases are clear. There is surgical absence of the gallbladder. There is no biliary ductal dilatation. There is no focal mass or organomegaly involving the liver, pancreas, spleen or adrenal glands. There is no solid renal mass or hydronephrosis and there is homogeneous contrast enhancement of the r enal parenchyma. The caliber the abdominal aorta is normal is no retroperitoneal adenopathy or hemorr vickie. The bowel loops are normal in caliber and there is no evidence of dilatation or obstruction. No infla mmatory changes are identified in the bowel wall or mesentery. There is no free intraperitoneal air or fluid. No pelvic mass, free fluid, abscess or adenopathy. There is surgical absence of the uterus. There are postsurgical changes of L4-5 fusion. IMPRESSION: No significant abnormality seen. [facility], , 02/09/2024 12:16 PM
[2024-02-09] MEDS: SUCRALFATE 1 GM TAB PO SCH (17:12)
[2024-02-09] MEDS: PANTOPRAZOLE 40 MG/10 ML VIAL IVP SCH (22:24)
[2024-02-09] MEDS: ZOLPIDEM 5 MG TAB PO SCH (22:26)
--- NOTE | 2024-02-10 02:26 | HP ---
HISTORY AND PHYSICAL She had a preoperative diagnoses of nausea, vomiting, and epigastric pain. She has acute on chronic gastric ulcer without bleeding, acute blindness, gastritis, acute erosive esophagitis with ulceration. Biopsies were done. She had nausea and vomiting. Discussed with her recommendations. Home medicines were reviewed with the patient. Patient is ambulating, has nausea and vomiting, does not feel well. PHYSICAL EXAMINATION: VITAL SIGNS: Temperature 97.8, pulse 92, respiratory rate 16 to 18, blood pressure 106/72, and O2 100 on room air. GI: She is obese. She has tenderness to palpation in the epigastric. CARDIOVASCULAR: S1 and S2. LUNGS: Transmitted upper sounds. PLAN: Continue current treatments. She has abdominal pain, nausea, vomiting, and hypokalemia. Continue current treatment. Follow up in the next 24 to 48 hours. Wait for biopsies. etc. Prognosis guarded. GUY / ADRIANAN: [id number] /
[2024-02-10] MEDS: DESVENLAFAXINE SUCCINATE 50 MG TAB.ER.24H PO SCH (07:50)
[2024-02-10] MEDS: LOSARTAN-HCTZ 50-12.5 MG 1 EACH TAB PO SCH (07:50)
[2024-02-10] MEDS: GABAPENTIN 100 MG CAP PO SCH (07:51)
[2024-02-10 07:58] VITALS: PULSE 80; RESP 18; TEMP 97.5
[2024-02-10 10:18] LABS: Basophils # (A) 0.08 X 10*3/uL (0.00-0.10); Basophils % (A) 0.9 %; Eosinophils # (A) 0.35 X 10*3/uL (0.04-0.35); Eosinophils % (A) 3.9 %; HCT 27.3 % (37.2-46.3); HGB 9.1 g/dL (12.0-15.0); Lymphocytes # (A) 3.87 X 10*3/uL (0.90-5.00); Lymphocytes % (A) 42.7 %; MCH 28.8 pg (27.0-32.0); MCHC 33.3 g/dL (32.0-37.0); MCV 86.4 FL (80.0-97.0); Mean Platelet Volume 10.6 FL (9.5-12.2); Monocytes # (A) 0.67 X 10*3/uL (0.20-1.00); Monocytes % (A) 7.4 %; NRBC Per 100 WBC 0.02 X 10*3/uL (0.00-0.01); Neutrophils # (A) 4.08 X 10*3/uL (1.80-7.70); Neutrophils % (A) 44.9 %; Platelet Count 410 X 10*3/uL (140-440); RBC 3.16 X 10*6/uL (4.10-5.20); RDW 15.8 % (11.5-14.5); WBC 9.07 X 10*3/uL (4.50-10.00)
[2024-02-10 10:42] LABS: ALT 20 U/L (8-44); AST 21 U/L (13-35); Albumin 3.2 g/dL (3.8-4.9); Albumin/Globulin Ratio 1.68 Ratio (1.60-3.17); Alkaline Phosphatase 59 U/L (41-126); BUN/Creat Ratio 13.75 Ratio (12.00-20.00); Calcium 8.3 mg/dL (8.7-10.3); Carbon Dioxide 22.1 mmol/L (21.6-31.8); Chloride 107 mmol/L (96-109); Globulin 1.9 g/dL (1.6-3.3); Glucose 117 mg/dL (70-110); Potassium 3.3 mmol/L (3.5-5.5); Sodium 141 mmol/L (135-145); Total Bilirubin 0.2 mg/dL (0.3-1.2); Total Protein 5.1 g/dL (6.2-8.2)
--- NOTE | 2024-02-10 13:18 | P.PN ---
Subjective Progress Note Date: 02/10/24 CHIEF COMPLAINT: Epigastric abdominal pain HISTORY OF PRESENT ILLNESS: Patient is status post EGD which revealed multiple acute on chronic gastric ulcers without active bleeding, duodenitis, gastritis and erosive esophagitis with ulceration. Patient is tolerating diet. She does continue to have epigastric pain. She reports having bowel movements. Afebrile. WBC is down from 12.8-9.07 Hgb 12.2 down to 9.[address] Rios is covering for Dr. Upton PHYSICAL EXAM: VITAL SIGNS: Reviewed. GENERAL: Well-developed in no acute distress. ABDOMEN: Soft. Nondistended. Epigastric tenderness with palpation NEUROLOGIC: Alert and oriented. Cranial nerves II through XII grossly intact. ASSESSMENT: Multiple acute on chronic gastric ulcers without active bleeding Acute duodenitis Acute gastritis Acute erosive esophagitis with ulceration PLAN: Patient can be discharged from surgical standpoint Discontinue NSAID use. Protonix 40 mg twice daily prescribed Carafate 1 g 3 times daily Follow-up biopsies for H. pylori gastritis Physician Enterprise Security Architect note has been reviewed by physician. Signing provider agrees with the documented findings, assessment, and plan of care. Objective - Vital Signs Vital signs: Vital Signs Temp 97.5 F L 02/10/24 07:25 Pulse 80 02/10/24 07:25 Resp 18 02/10/24 07:25 BP 110/73 02/10/24 07:25 Pulse Ox 100 02/10/24 07:25 FiO2 Intake & Output 02/09/24 02/10/24 02/10/24 18:59 06:59 18:59 Intake Total 100 Balance 100 Weight 99.79 kg Intake: IV 100 Other: # Voids 2 4 - Labs CBC & Chem 7: 02/10/24 02:52 02/10/24 02:52 Labs: Abnormal Lab Results - Last 24 Hours (Table) 02/09/24 02/10/24 02/10/24 Range/Units 13:00 02:52 02:52 RBC 3.16 L (4.10-5.20) X 10*6/uL Hgb 9.1 L (12.0-15.0) g/dL Hct 27.3 L (37.2-46.3) % RDW 15.8 H (11.5-14.5) % NRBC/100 WBC Diff 0.02 H (0.00-0.01) X 10*3/uL Sodium 136 L (137-145) mmol/L Potassium 3.0 L 3.3 L (3.5-5.1) mmol/L Glucose 122 H 117 H (74-99) mg/dL Calcium 8.3 L (8.7-10.3) mg/dL Total Bilirubin 0.2 L (0.3-1.2) mg/dL Total Protein 5.1 L (6.2-8.2) g/dL Albumin 3.2 L (3.8-4.9) g/dL
[2024-02-10] MEDS ORDERED: Potassium Replacement Protocol 1 EACH MISC MISCELLANE PRN (14:09)
[2024-02-10 14:31] LABS: Glucose,Whole Blood 125 mg/dL (70-110)
[2024-02-10 14:42] VITALS: BP 99/66
[2024-02-10] MEDS: POTASSIUM CHLORIDE ER 20 MEQ TAB.ER PO SCH (14:42)
--- NOTE | 2024-02-13 14:12 | P.DS ---
Providers Date of admission: 02/09/24 02:13 Expected date of discharge: 02/10/24 Attending physician: Kevin Marte Consults: 02/09/24 02:11 Consult Physician Routine Consulting Provider: Charity Upton Consult Reason/Comments: Possible small bowel obstruction Do you want consulting provider notified?: Yes Primary care physician: Physician Nonstaff Hospital Course: Final diagnosis Abdominal pain likely acute gastritis Status post EGD showing multiple acute on chronic gastric ulcers without any active bleeding with acute duodenitis and gastritis Acute erosive esophagitis with ulceration noted on EEG Hypokalemia, likely secondary to fluid loss, improved after replacement Obesity with a BMI 37.8 Hypertension history History of migraines History of PCOS History of anxiety/depression GI prophylaxis DVT prophylaxis Full code Discharge disposition Patient is being discharged in a stable condition with guarded prognosis to home. Patient will follow-up with her primary care provider in the outpatient setting upon discharge. Patient is to continue with Protonix and Carafate with outpatient follow-up with general surgery as scheduled. Total time taken is greater than 35 minutes. Hospital course This is a 48-year-old female who was recently admitted with nausea vomiting and abdominal pain likely secondary to acute gastritis. Patient was evaluated by general surgery underwent EGD showing multiple acute on chronic gastric ulcers without any evidence of bleeding along with acute duodenitis and gastritis. Patient also noted to have significant erosive esophagitis with ulcerations and general surgery recommending Protonix along with Carafate and close outpatient follow-up. Biopsies were obtained and pending at this time and patient will follow-up with general surgery for results. Patient is tolerating diet and has been encouraged to continue current diet and slowly advance over the next few days to weeks until abdomen pain is improved. Please refer to other consultation notes for further HPI. Currently no reports of chest pain, shortness of breath, or palpitations. Patient is afebrile. No reports of nausea or vomiting and patient is tolerating diet. Patient will be discharged home today. Guarded prognosis and high risk for readmissions given patient's noncompliance. Also recommend pain management consult outpatient and follow-up as patient chronically takes narcotic medications and reports these have not been helping her pain. Physical exam: Gen: This is a 48-year-old female who is awake, alert and oriented x 3, well-developed, appears older than stated age, obese HEENT: Head is atraumatic, normocephalic. Pupils equal, round. Sclerae is anicteric. NECK: Supple. No JVD. No lymphadenopathy. No thyromegaly. LUNGS: Diminished breath sounds bilaterally otherwise clear to auscultation. No wheezes or rhonchi. No intercostal retractions. HEART: Regular rate and rhythm. No murmur. ABDOMEN: Soft. Obese. Bowel sounds are present. No masses. Mild epigastric tenderness on deep palpation. EXTREMITIES: No pedal edema. No calf tenderness. NEUROLOGICAL: Patient is awake, alert and oriented x3. Cranial nerves 2 through 12 are grossly intact. Please refer to medication reconciliation sheet for a list of medications. The impression and plan of care has been dictated by Mey Clifton, Nurse Practitioner as directed. Dr. Ponce MD I have performed a history and examination and MDM of this patient, discussed the same with the dictator, and agree with the dictator's assessment and plan as written ,documented as a scribe. Based on total visit time, I have performed more than 50% of the visit. Patient Condition at Discharge: Stable Plan - Discharge Summary Discharge Rx Participant: Yes New Discharge Prescriptions: New Sucralfate [Carafate] 1 gm PO TID #90 ml Pantoprazole [Protonix] 40 mg PO BID #60 tab Losartan [Cozaar] 50 mg PO DAILY #30 tab oxyCODONE-APAP 10-325MG [Percocet 10-325 mg] 1 tab PO Q6HR PRN 3 Days #9 tab PRN Reason: Pain Continue Zolpidem [Ambien] 10 mg PO HS Gabapentin [Neurontin] 100 mg PO DAILY clonazePAM [KlonoPIN] 0.5 mg PO DAILY tiZANidine HCL 2 mg PO TID PRN PRN Reason: Muscle Spasm Galcanezumab-Gnlm [Emgality Pen] 120 mg SQ QMONTHLY Scopolamine 1 mg/72 Hr Patch [TransDerm Scop] 1 patch TRANSDERM Q72H PRN PRN Reason: Nausea Desvenlafaxine Succinate [Pristiq ER] 50 mg PO DAILY Metoclopramide [Reglan] 5 mg PO BID PRN PRN Reason: Nausea SUMAtriptan succinate [Imitrex] 100 mg PO BID PRN PRN Reason: Migraine Headache Discontinued Losartan-Hctz 50-12.5 mg [Hyzaar 50-12.5] 1 tab PO DAILY oxyCODONE-APAP 10-325MG [Percocet 10-325 mg] 1 tab PO BID PRN PRN Reason: Pain Discharge Medication List Zolpidem [Ambien] 10 mg PO HS 09/02/17 [History] Gabapentin [Neurontin] 100 mg PO DAILY 05/19/20 [History] Scopolamine 1 mg/72 Hr Patch [TransDerm Scop] 1 patch TRANSDERM Q72H PRN 08/28/21 [History] clonazePAM [KlonoPIN] 0.5 mg PO DAILY 06/18/22 [History] Desvenlafaxine Succinate [Pristiq ER] 50 mg PO DAILY 02/09/24 [History] Galcanezumab-Gnlm [Emgality Pen] 120 mg SQ QMONTHLY 02/09/24 [History] Metoclopramide [Reglan] 5 mg PO BID PRN 02/09/24 [History] SUMAtriptan succinate [Imitrex] 100 mg PO BID PRN 02/09/24 [History] tiZANidine HCL 2 mg PO TID PRN 02/09/24 [History] Losartan [Cozaar] 50 mg PO DAILY #30 tab 02/10/24 [Rx] Pantoprazole [Protonix] 40 mg PO BID #60 tab 02/10/24 [Rx] Sucralfate [Carafate] 1 gm PO TID #90 ml 02/10/24 [Rx] oxyCODONE-APAP 10-325MG [Percocet 10-325 mg] 1 tab PO Q6HR PRN 3 Days #9 tab 02/10/24 [Rx] Follow up Appointment(s)/Referral(s): Charity Upton MD [STAFF PHYSICIAN] - 02/21/24 [facility] [NON-STAFF] - 1 Week Nonstaff,Physician [Primary Care Provider] - 1-2 days Patient Instructions/Handouts: Peptic Ulcer (DC), Acute Abdominal Pain (DC) Activity/Diet/Wound Care/Special Instructions: Activity limited until follow-up Follow-up with primary care provider on discharge Follow-up with general surgery outpatient as scheduled Continue on Protonix and Carafate and current diet and slowly advance as tolerated over the next few days to weeks Follow-up with pain management outpatient sent to [facility] as [facility] is now closed Discharge Disposition: HOME SELF-CARE
== END 2024-02-10 18:33 | disposition home or self-care (01) ==
LOC: EC 22:54 → 4SSUR 02-09 02:13
PROVIDERS: ADMIT Family Medicine; ATTEND Family Medicine
DX: R10.13 Epigastric pain (principal); R11.2 Nausea with vomiting, unspecified; G89.4 Chronic pain syndrome; K25.7 Chronic gastric ulcer without hemorrhage or perforation; K25.3 Acute gastric ulcer without hemorrhage or perforation; K29.80 Duodenitis without bleeding; K59.09 Other constipation; K22.10 Ulcer of esophagus without bleeding; K21.9 Gastro-esophageal reflux disease without esophagitis; Z79.1 Long term (current) use of non-steroidal anti-inflammatories (NSAID); E86.9 Volume depletion, unspecified; E87.6 Hypokalemia; E66.01 Morbid (severe) obesity due to excess calories; Z68.37 Body mass index [BMI] 37.0-37.9, adult; I10 Essential (primary) hypertension; G43.909 Migraine, unspecified, not intractable, without status migrainosus; E28.2 Polycystic ovarian syndrome; F32.A Depression, unspecified; F41.9 Anxiety disorder, unspecified; Z91.199 Patient's noncompliance with other medical treatment and regimen due to unspecified reason; Z79.899 Other long term (current) drug therapy; Z80.3 Family history of malignant neoplasm of breast
CPT/HCPCS: 96376; 96365; 96366; 96375; 99285; 36415; 93005; 88305; 80053 ×2; 82150; 83605; 83690; 83735; 84484; 85025 ×2; 81001; 71046; 74018; 74177; 43239; G0378 ×2; J1200; J2765; J3480; J2704; J1171 ×2; Q9967; J2003; J2470 ×2

== ENCOUNTER 2024-08-18 15:04 | Observation (INO) | payer OTHER ==
--- NOTE | 2024-08-18 15:43 | ED ---
Back Pain HPI - General Chief Complaint: Back Pain/Injury Stated Complaint: back pain Time Seen by Provider: 08/18/24 15:40 Source: patient, RN notes reviewed, old records reviewed Limitations: no limitations - History of Present Illness Initial Comments: This is a 49 female for intractable back pain and weakness 3 days of worsening back pain and weakness presenting in fall which increased her back pain and further increased her weakness. History of back pain back surgery a year and a half ago. This was done at a different hospital in [place]. Patient has no loss of bowel or bladder full sensation in lower extremities is able to bear weight here in the ER while going to the bathroom MD Complaint: back pain, back injury, fall -: days(s) Similar Symptoms Previously: Yes Place: home Radiation: buttocks, left leg, right leg Severity: moderate Severity scale (1-10): 6 Quality: sharp, stabbing, aching Consistency: constant Improves With: none Worsens With: none Associated Symptoms: weakness Treatments Prior to Arrival: heat therapy - Related Data Home Medications Medication Instructions Recorded Confirmed Zolpidem [Ambien] 10 mg PO HS 09/02/17 08/18/24 Scopolamine 1 mg/72 Hr Patch 1 patch TRANSDERM Q72H PRN 08/28/21 08/18/24 [TransDerm Scop] Galcanezumab-Gnlm [Emgality Pen] 120 mg SQ QMONTHLY 02/09/24 08/18/24 SUMAtriptan succinate [Imitrex] 100 mg PO BID PRN 02/09/24 08/18/24 Clotrimazole Cream [Lotrimin Cream] 1 applic TOPICAL DIRECTED 08/18/24 08/18/24 clonazePAM [KlonoPIN] 1 mg PO DAILY 08/18/24 08/18/24 Previous Rx's Medication Instructions Recorded Docusate [Colace] 100 mg PO BID cap 08/21/24 Morphine Sulfate ER [Ms Contin] 15 mg PO Q12HR #6 tab 08/21/24 carisoprodoL [Soma] 350 mg PO TID PRN #30 tab 08/21/24 oxyCODONE-APAP 10-325MG [Percocet 1 each PO TID PRN tab 08/21/24 10-325 mg] Allergies Allergy/AdvReac Type Severity Reaction Status Date / Time acetaminophen [From Ofirmev] Allergy Rash/Hives Verified 08/18/24 19:13 from IV only hydroxyzine [From Vistaril] Allergy Rash/Hives Verified 08/18/24 19:13 ketorolac tromethamine Allergy Rash/Hives Verified 08/18/24 19:13 [From Toradol] & Migraines naproxen sodium [From Aleve] Allergy Rash/Hives Verified 08/18/24 19:13 & Migraines Penicillins Allergy Swelling Verified 08/18/24 19:13 at suture site pregabalin [From Lyrica] Allergy Swelling Verified 08/18/24 19:13 from knees to feet & hives tramadol HCl [From Ultram] Allergy Rash/Hives Verified 08/18/24 19:13 & Migraines doxycycline AdvReac Nausea & Verified 08/18/24 19:13 Vomiting levofloxacin [From Levaquin] AdvReac Swelling Verified 08/18/24 19:13 from knees to feet morphine AdvReac Lowers BP Verified 08/18/24 19:13 ondansetron [From Zofran] AdvReac Nausea & Verified 08/18/24 19:13 Vomiting oxybutynin [From Ditropan] AdvReac Rapid Verified 08/18/24 19:13 Heart Rate Review of Systems ROS Statement: Those systems with pertinent positive or pertinent negative responses have been documented in the HPI. ROS Other: All systems not noted in ROS Statement are negative. Past Medical History Past Medical History: Hypertension, Respiratory Disorder Additional Past Medical History / Comment(s): LUNG ABSCESS 2013. Migraine headache. HX ABD HERNIAS, diverticulitis, PCOS History of Any Multi-Drug Resistant Organisms: None Reported Past Surgical History: Adenoidectomy, Back Surgery, Breast Surgery, Cholecystectomy, Hernia Repair, Hysterectomy, Orthopedic Surgery Additional Past Surgical History / Comment(s): TYRA KNEE arthroscopic. LOW BACK SURGERY. L BREAST LUMPECTOMY, BENIGN. Colonoscopy-Colitis September 2016. hernia surgery x2 with mesh, diverticulitis, Recent lysis of adhesions, colon surgery 2021 Past Anesthesia/Blood Transfusion Reactions: Postoperative Nausea & Vomiting (PONV) Additional Past Anesthesia/Blood Transfusion Reaction / Comment(s): PT HAS NEVER RECIEVED BLOOD. Past Psychological History: Anxiety, Depression Smoking Status: Never smoker Past Alcohol Use History: None Reported Past Drug Use History: None Reported, Marijuana - Past Family History Mother Family Medical History: Cancer Additional Family Medical History / Comment(s): breast ca Father Family Medical History: AFIB, COPD General Exam Limitations: no limitations General appearance: alert, in no apparent distress Head exam: Present: atraumatic, normocephalic, normal inspection Eye exam: Present: normal appearance, PERRL, EOMI. Absent: scleral icterus, conjunctival injection, periorbital swelling ENT exam: Present: normal exam, mucous membranes moist Neck exam: Present: normal inspection. Absent: tenderness, meningismus, lymphadenopathy Respiratory exam: Present: normal lung sounds bilaterally. Absent: respiratory distress, wheezes, rales, rhonchi, stridor Cardiovascular Exam: Present: regular rate, normal rhythm, normal heart sounds. Absent: systolic murmur, diastolic murmur, rubs, gallop, clicks GI/Abdominal exam: Present: soft, normal bowel sounds. Absent: distended, tenderness, guarding, rebound, rigid Extremities exam: Present: normal inspection, full ROM, normal capillary refill. Absent: tenderness, pedal edema, joint swelling, calf tenderness Back exam: Present: normal inspection Neurological exam: Present: alert, oriented X3, CN II-XII intact Psychiatric exam: Present: normal affect, normal mood Skin exam: Present: warm, dry, intact, normal color. Absent: rash Course Vital Signs 08/18/24 08/18/24 08/19/24 15:10 20:55 00:39 Temperature 98.2 F Pulse Rate 86 92 83 Respiratory 18 17 18 Rate Blood Pressure 130/87 118/84 117/79 O2 Sat by Pulse 100 99 97 Oximetry 08/19/24 08/19/24 08/19/24 04:22 05:13 07:49 Temperature Pulse Rate 60 75 Respiratory 18 18 Rate Blood Pressure 78/58 128/89 125/80 O2 Sat by Pulse 100 97 Oximetry 08/19/24 08/19/24 08/19/24 11:00 12:00 13:51 Temperature 97.8 F Pulse Rate 66 73 80 Respiratory 18 16 18 Rate Blood Pressure 103/83 113/72 148/94 O2 Sat by Pulse 100 98 98 Oximetry - Reevaluation(s) Reevaluation #1: 08/18/24 18:24 Medical records reviewed Reevaluation #2: 08/18/24 18:24 Patient symptoms unchanged states she cannot walk or get up or stand secondary to severe weakness patient states she cannot take care of herself at home Reevaluation #3: 08/18/24 18:24 Patient informed of results and questions answered Reevaluation #4: Was pt. sent in by a medical professional or institution (, [facility], [employer], urgent care, hospital, or longterm...) When possible be specific @ -no Did you speak to anyone other than the patient for history (EMS, parent, family, police, friend...)? What history was obtained from this source @ -no Did you review nursing and triage notes (agree or disagree)? Why? @ -agree Are old charts reviewed (outside hosp., previous admission, EMS record, old EKG, old radiological studies, urgent care reports/EKG's, longterm records)? Report findings @ -yes Differential Diagnosis (chest pain, altered mental status, abdominal pain women, abdominal pain men, vaginal bleeding, weakness, fever, dyspnea, syncope, headache, dizziness, GI bleed, back pain, seizure, CVA, palpatations, mental health, musculoskeletal)? @ -prior EKG interpreted by me (3pts min.). @ -yes X-rays interpreted by me (1pt min.). @ -no CT interpreted by me (1pt min.). @ -yes negative for acute disease U/S interpreted by me (1pt. min.). @ -no What testing was considered but not performed or refused? (CT, X-rays, U/S, labs)? Why? @ -none What meds were considered but not given or refused? Why? @ -none Did you discuss the management of the patient with other professionals (xi rivero i.e. , [facility], [employer], lab, RT, psych nurse, social services manager, passenger elevator operator, teacher, disciplinary hearing officer, case monitor)? Give summary @ -no Was smoking cessation discussed for >3mins.? @ -no Was critical care preformed (if so, how long)? @ -no Were there social determinants of health that impacted care today? How? (Homelessness, low income, unemployed, alcoholism, drug addiction, transportation, low edu. Level, literacy, decrease access to med. care, fdc, rehab)? @ -none Was there de-escalation of care discussed even if they declined (Discuss DNR or withdrawal of care, Hospice)? DNR status @ -no What co-morbidities impacted this encounter? (DM, HTN, Smoking, COPD, CAD, Cancer, CVA, ARF, Chemo, Hep., AIDS, mental health diagnosis, sleep apnea, morbid obesity)? @ -none Was patient admitted / discharged? Hospital course, mention meds given and route, prescriptions, significant lab abnormalities, going to OR and other pertinent info. @ - 49 female for intractable pain severe and worsening back pain after a stated recent fall there is no evidence of traumatic injury to the back on the skin or the CT scan, patient states she is too weak to be able to go home she cannot hold herself up cannot bear her own weight and will be placed in observation for PT OT Admitted Undiagnosed new problem with uncertain prognosis? @ -no Drug Therapy requiring intensive monitoring for toxicity (Heparin, Nitro, Insulin, Cardizem)? @ -no Were any procedures done? @ -no Diagnosis/symptom? @ -Back Pain Acute, or Chronic, or Acute on Chronic? @ -Acute Uncomplicated (without systemic symptoms) or Complicated (systemic symptoms)? @ -Complicated Side effects of treatment? @ -no Exacerbation, Progression, or Severe Exacerbation? @ -exacerbation Poses a threat to life or bodily function? How? (Chest pain, USA, CA, pneumonia, PE, COPD, DKA, ARF, appy, cholecystitis, CVA, Diverticulitis, Homicidal, Suicidal, threat to staff... and all critical care pts) @ -no Reevaluation #5: Differential Back Pain: Strain, zoster, cauda equina syndrome, epidural abscess, vertebral os teomyelitis, discitis, fracture, subluxation, disc herniation, DJD, spinal stenosis, dissection, AAA, pancreatitis, peptic ulcer disease, pyelonephritis, kidney stone, this is not meant to be an all-inclusive list. - Consultations Consultation #1: Spoke with juli who agrees to admit the patient Medical Decision Making - Medical Decision Making 49 female for intractable pain severe and worsening back pain after a stated recent fall there is no evidence of traumatic injury to the back on the skin or the CT scan, patient states she is too weak to be able to go home she cannot hold herself up cannot bear her own weight and will be placed in observation for PT OT - Lab Data Result diagrams: 08/20/24 11:08 08/19/24 08:18 Lab Results 08/18/24 08/18/24 08/18/24 Range/Units 16:31 16:31 17:45 WBC 7.23 (4.50-10.00) 10*3/uL RBC 3.95 L (4.10-5.20) 10*6/uL Hgb 11.3 L (12.0-15.0) g/dL Hct 33.9 L (37.2-46.3) % MCV 85.8 (80.0-97.0) fL MCH 28.6 (27.0-32.0) pg MCHC 33.3 (32.0-37.0) g/dL Plt Count 257 (140-440) 10*3/uL MPV 10.7 (9.5-12.2) fL Immature Gran % (Auto) 0.1 % Neutrophils % 45.6 % Lymphocytes % 46.5 % Monocytes % 5.0 % Eosinophils % 1.8 % Basophils % 1.0 % Immature Gran # 0.01 (0.00-0.04) 10*3/uL Neutrophils # 3.30 (1.80-7.70) 10*3/uL Lymphocytes # 3.36 (0.90-5.00) 10*3/uL Monocytes # 0.36 (0.20-1.00) 10*3/uL Eosinophils # 0.13 (0.04-0.35) 10*3/uL Basophils # 0.07 (0.00-0.10) 10*3/uL Sodium 141 (137-145) mmol/L Potassium 4.1 (3.5-5.1) mmol/L Chloride 108 H (98-107) mmol/L Carbon Dioxide 18 L (22-30) mmol/L Anion Gap 15 mmol/L BUN 25 H (7-17) mg/dL Creatinine 1.25 H (0.52-1.04) mg/dL Est GFR (CKD-EPI)AfAm 59 (>60 ml/min/1.73 sqM) Est GFR (CKD-EPI)NonAf 51 (>60 ml/min/1.73 sqM) Glucose 85 (74-99) mg/dL Calcium 9.5 (8.4-10.2) mg/dL Phosphorus 4.2 (2.5-4.5) mg/dL Magnesium 1.7 (1.6-2.3) mg/dL Total Bilirubin 0.4 (0.2-1.3) mg/dL AST 50 H (14-36) U/L ALT 65 H (4-34) U/L Alkaline Phosphatase 62 (38-126) U/L Total Protein 6.8 (6.3-8.2) g/dL Albumin 4.0 (3.5-5.0) g/dL Urine Color Colorless Urine Appearance Clear (Clear) Urine pH 5.5 (5.0-8.0) Ur Specific [place] 1.008 (1.001-1.035) Urine Protein Negative (Negative) Urine Glucose (UA) Negative (Negative) Urine Ketones Negative (Negative) Urine Blood Negative (Negative) Urine Nitrite Negative (Negative) Urine Bilirubin Negative (Negative) Urine Urobilinogen <2.0 (<2.0) mg/dL Ur Leukocyte Esterase Negative (Negative) - Radiology Data Radiology results: report reviewed (CT LS spine negative for acute disease), image reviewed Disposition Clinical Impression: Weakness generalized, Intractable back pain Disposition: ADMITTED IP TO THIS [facility] Condition: Stable Is patient prescribed a controlled substance at d/c from ED?: No Time of Disposition: 18:00
[2024-08-18 16:38] LABS: Basophils # (A) 0.07 10*3/uL (0.00-0.10); Eosinophils # (A) 0.13 10*3/uL (0.04-0.35); Eosinophils % (A) 1.8 %; HCT 33.9 % (37.2-46.3); HGB 11.3 g/dL (12.0-15.0); Lymphocytes # (A) 3.36 10*3/uL (0.90-5.00); Lymphocytes % (A) 46.5 %; MCH 28.6 pg (27.0-32.0); MCHC 33.3 g/dL (32.0-37.0); MCV 85.8 fL (80.0-97.0); Mean Platelet Volume 10.7 fL (9.5-12.2); Monocytes # (A) 0.36 10*3/uL (0.20-1.00); Neutrophils % (A) 45.6 %; Platelet Count 257 10*3/uL (140-440); RBC 3.95 10*6/uL (4.10-5.20); RDW 13.5 % (11.5-14.5); WBC 7.23 10*3/uL (4.50-10.00)
[2024-08-18] MEDS: HYDROmorphone 2 MG/ML 1 ML SYRINGE IVP STA (16:53)
[2024-08-18] MEDS: diphenhydrAMINE 50 MG/ML 1 ML VIAL IVP STA (16:54)
[2024-08-18] MEDS: SODIUM CHLORIDE 0.9% 1,000 ML IV ONE (16:54)
[2024-08-18 16:59] LABS: ALT 65 U/L (4-34); AST 50 U/L (14-36); African American GFR (CKD) 59 (>60 ml/min/1.73 sqM); Alkaline Phosphatase 62 U/L (38-126); Anion Gap 15 mmol/L; Blood Urea Nitrogen 25 mg/dL (7-17); Calcium 9.5 mg/dL (8.4-10.2); Carbon Dioxide 18 mmol/L (22-30); Chloride 108 mmol/L (98-107); Glucose 85 mg/dL (74-99); Magnesium 1.7 mg/dL (1.6-2.3); Non-African American GFR(CKD) 51 (>60 ml/min/1.73 sqM); Phosphorus 4.2 mg/dL (2.5-4.5); Potassium 4.1 mmol/L (3.5-5.1); Sodium 141 mmol/L (137-145); Total Bilirubin 0.4 mg/dL (0.2-1.3); Total Protein 6.8 g/dL (6.3-8.2)
--- NOTE | 2024-08-18 17:50 | CT ---
EXAMINATION TYPE: CT lumbar spine wo con DATE OF EXAM: 08/18/2024 5:39 PM COMPARISON: 12/11/2023 CLINICAL INDICATION: Female, 49 years old with history of pain; PHH, Chronic lower back pain, increas ing pain TECHNIQUE: Unenhanced CT of the lumbar spine was performed. Bone and soft tissue window settings are submitted as well as coronal and sagittal reconstructions. CT DLP: 1030.[address] CTDI: mGy Automated exposure control for dose reduction was used. FINDINGS: L1-L2: Normal disc space height. No disc herniation protrusion or central stenosis. No facet joint arthropathy. No evidence for foraminal encroachment. L2-L3: Normal disc space height. No disc herniation protrusion or central stenosis. No facet joint arthropathy. No evidence for foraminal encroachment. L3-L4: Grade 1 anterolisthesis of L3 on L4 measuring 5 mm. Severe facet joint arthropathy with modera te bilateral foraminal encroachment. There is [id number] degenerative disc space narrowing with posterior disc bulge mild central stenosis is difficult to exclude. L4-L5: Stable decompressive laminectomy changes with pedicular screws in place and intervertebral bod y spacer noted. There is 9 mm anterolisthesis of L4 and L5 unchanged from prior study. Lack of contra st limits evaluation for recurrent or residual disease. Granulation tissue is suspected. In hardening artifact limits portions of the study. L5-S1: Moderate disc desiccation with 3 mm retrolisthesis of L5 on S1 unchanged from prior study. The re is posterior disc bulge noted. There is evidence of left hemilaminectomy at this level. No evidenc e for definite central stenosis or disc herniation. IMPRESSION: 1. Multilevel degenerative disc disease with multilevel spondylolisthesis as discussed above. Borderl ine central stenosis at L3-4. Neural foraminal encroachment as noted. [facility], , 08/18/2024 5:48 PM
[2024-08-18 18:09] LABS: Appearance,Urine Clear (Clear); Bilirubin,Urine Negative (Negative); Blood,Urine Negative (Negative); Color,Urine Colorless; Glucose,Urine (UA) Negative (Negative); Ketones,Urine Negative (Negative); Leukocyte Esterase,Urine Negative (Negative); Nitrite,Urine Negative (Negative); PH, Urine 5.5 (5.0-8.0); Protein,Urine Negative (Negative); Specific Gravity,Urine 1.008 (1.001-1.035); Urobilinogen,Urine <2.0 mg/dL (<2.0)
[2024-08-18] MEDS ORDERED: ONDANSETRON 4 MG/2 ML VIAL IVP PRN (18:21)
[2024-08-18] MEDS ORDERED: NALOXONE 0.4 MG/ML 1 ML VIAL IV PRN (18:21)
[2024-08-18] MEDS: SODIUM CHLORIDE 0.9% 1,000 ML IV SCH (18:58)
[2024-08-18] MEDS: HYDROmorphone 2 MG/ML 1 ML SYRINGE IVP PRN (18:59)
[2024-08-18] MEDS: DEXAMETHASONE SOD PHOSPHATE 10 MG/ML 1 ML VIAL IVP STA (20:55)
[2024-08-18] MEDS: tiZANidine 4 MG TAB PO SCH (23:25)
[2024-08-18] MEDS: ZOLPIDEM 5 MG TAB PO SCH (23:25)
[2024-08-19] MEDS: oxyCODONE-APAP 10-325MG 1 EACH TAB PO PRN (00:46)
--- NOTE | 2024-08-19 01:02 | P.HPIM ---
History of Present Illness H&P Date: 08/18/24 49 year old female with chronic low back pain and multiple surgeries in the past she is coming in for worsening lower back pain over the past 2-3 days , resulting in multiple falls which made her lower back even worse. she denies any new onset numbness or saddle parasthesia , denies bowel or bladder incontinence she is chronically on opioids , and suffers from constipation. she had multiple back surgeries in the past. now she claims since the falls , she became weaker in bilateral legs , to the point she cant walk to the bathroom even with a walker. normally she can ambulate without assistance she is tearful , and reports that pain meds are not enough and not helping with her pain at this time review of systems Pertinent positives as noted in HPI. All other systems were reviewed and are negative on exam Constitutional: No acute distress, tearful Eyes: Anicteric sclerae, moist conjunctiva, Pupils equal round reactive to light ENMT: NC/AT Oropharynx clear, no erythema, or exudates Neck: Supple, no masses, or JVD No carotid bruits No thyromegaly Lungs: Clear to auscultation Clear to percussion Normal respiratory effort, no accessory muscle use Cardiovascular: Heart regular in rate and rhythm, No murmurs, gallops, or rubs No peripheral edema Abdominal: Soft Nontender, no guarding, rebound or rigidity Abdomen moving with respiration Normoactive bowel sounds Extremities: No digital cyanosis No clubbing Pedal pulses intact and symmetrical Radial pulses intact and symmetrical No calf tenderness Psychiatric: Alert and oriented to person, place and time Appropriate affect fair judgement Neuro Muscles Strength 5/5 in bilateral upper extremities , and 3/5 in bilateral lower extremities Sensation to light touch grossly present throughout Cranial nerves II-XII grossly intact Past Medical History Past Medical History: Hypertension, Respiratory Disorder Additional Past Medical History / Comment(s): LUNG ABSCESS 2013. Migraine headache. HX ABD HERNIAS, diverticulitis, PCOS History of Any Multi-Drug Resistant Organisms: None Reported Past Surgical History: Adenoidectomy, Back Surgery, Breast Surgery, Cholecystectomy, Hernia Repair, Hysterectomy, Orthopedic Surgery Additional Past Surgical History / Comment(s): TYRA KNEE arthroscopic. LOW BACK SURGERY. L BREAST LUMPECTOMY, BENIGN. Colonoscopy-Colitis September 2016. hernia surgery x2 with mesh, diverticulitis, Recent lysis of adhesions, colon surgery 2021 Past Anesthesia/Blood Transfusion Reactions: Postoperative Nausea & Vomiting (PONV) Additional Past Anesthesia/Blood Transfusion Reaction / Comment(s): PT HAS NEVER RECIEVED BLOOD. Past Psychological History: Anxiety, Depression Smoking Status: Never smoker Past Alcohol Use History: None Reported Past Drug Use History: None Reported, Marijuana - Past Family History Mother Family Medical History: Cancer Additional Family Medical History / Comment(s): breast ca Father Family Medical History: AFIB, COPD Medications and Allergies Home Medications Medication Instructions Recorded Confirmed Type Zolpidem [Ambien] 10 mg PO HS 09/02/17 08/18/24 History Scopolamine 1 mg/72 Hr Patch 1 patch TRANSDERM Q72H PRN 08/28/21 08/18/24 History [TransDerm Scop] Galcanezumab-Gnlm [Emgality Pen] 120 mg SQ QMONTHLY 02/09/24 08/18/24 History SUMAtriptan succinate [Imitrex] 100 mg PO BID PRN 02/09/24 08/18/24 History Clotrimazole Cream [Lotrimin Cream] 1 applic TOPICAL DIRECTED 08/18/24 08/18/24 History clonazePAM [KlonoPIN] 1 mg PO DAILY 08/18/24 08/18/24 History oxyCODONE-APAP 10-325MG [Percocet 1 tab PO TID 08/18/24 08/18/24 History 10-325 mg] tiZANidine HCL [Zanaflex] 4 mg PO BID 08/18/24 08/18/24 History Allergies Allergy/AdvReac Type Severity Reaction Status Date / Time acetaminophen [From Ofirmev] Allergy Rash/Hives Verified 08/18/24 19:13 from IV only hydroxyzine [From Vistaril] Allergy Rash/Hives Verified 08/18/24 19:13 ketorolac tromethamine Allergy Rash/Hives Verified 08/18/24 19:13 [From Toradol] & Migraines naproxen sodium [From Aleve] Allergy Rash/Hives Verified 08/18/24 19:13 & Migraines Penicillins Allergy Swelling Verified 08/18/24 19:13 at suture site pregabalin [From Lyrica] Allergy Swelling Verified 08/18/24 19:13 from knees to feet & hives tramadol HCl [From Ultram] Allergy Rash/Hives Verified 08/18/24 19:13 & Migraines doxycycline AdvReac Nausea & Verified 08/18/24 19:13 Vomiting levofloxacin [From Levaquin] AdvReac Swelling Verified 08/18/24 19:13 from knees to feet morphine AdvReac Lowers BP Verified 08/18/24 19:13 ondansetron [From Zofran] AdvReac Nausea & Verified 08/18/24 19:13 Vomiting oxybutynin [From Ditropan] AdvReac Rapid Verified 08/18/24 19:13 Heart Rate Physical Exam Vitals: Vital Signs Temp Pulse Resp BP Pulse Ox 08/18/24 15:10 98.2 F 86 18 130/87 100 Intake and Output 08/18/24 08/18/24 08/18/24 06:59 14:59 22:59 Other: Weight 96.162 kg Results CBC & Chem 7: 08/18/24 16:31 08/18/24 16:31 Labs: Abnormal Lab Results - Last 24 Hours (Table) 08/18/24 08/18/24 Range/Units 16:31 16:31 RBC 3.95 L (4.10-5.20) 10*6/uL Hgb 11.3 L (12.0-15.0) g/dL Hct 33.9 L (37.2-46.3) % Chloride 108 H (98-107) mmol/L Carbon Dioxide 18 L (22-30) mmol/L BUN 25 H (7-17) mg/dL Creatinine 1.25 H (0.52-1.04) mg/dL AST 50 H (14-36) U/L ALT 65 H (4-34) U/L Assessment and Plan Assessment: 49 year old female with chronic low back jonny , suffered from recent falls over the past couple days worsening her lower back pain and weakness I discussed the case with ED doc and I accepted the admission for pain control intractable low back pain CT of the back showed multilevel degenerative disc disease with multilevel s pondylolisthesis , borderline central stenosis at L 3-4 pain control with opioids PT /OT eval fall precautions lidocain patch on lower back multiple allergies to different meds resume home muscle relaxers per her request docusate BID [place] non oliguric renal function Na 141 wnl , K 4.1 wnl BUN 25 wnl, elevated Cr 1.25 IVF hydration with normal saline 100 cc per hour blood work over all unremarkable Hgb 11.3, WBC 7 UA negative full code DVY PPX heparin sc tid 5000 units
[2024-08-19] MEDS: LIDOCAINE 4% PATCH TOPICAL SCH (02:12)
[2024-08-19] MEDS: SODIUM CHLORIDE 0.9% 1,000 ML IV ONE (04:59)
[2024-08-19] MEDS: clonazePAM 1 MG TAB PO SCH (08:06)
[2024-08-19] MEDS: DOCUSATE 100 MG CAP PO SCH (08:06)
[2024-08-19] MEDS: HEPARIN SODIUM,PORCINE 5,000 UNIT/ML 1 ML VIAL SQ SCH (08:07)
[2024-08-19 08:25] LABS: Basophils # (A) 0.06 10*3/uL (0.00-0.10); Eosinophils % (A) 3.4 %; HCT 33.6 % (37.2-46.3); HGB 10.5 g/dL (12.0-15.0); Lymphocytes # (A) 3.27 10*3/uL (0.90-5.00); Lymphocytes % (A) 55.3 %; MCH 28.3 pg (27.0-32.0); MCHC 31.3 g/dL (32.0-37.0); MCV 90.6 fL (80.0-97.0); Mean Platelet Volume 10.7 fL (9.5-12.2); Monocytes # (A) 0.41 10*3/uL (0.20-1.00); Monocytes % (A) 6.9 %; Neutrophils % (A) 32.2 %; Platelet Count 212 10*3/uL (140-440); RBC 3.71 10*6/uL (4.10-5.20); RDW 13.9 % (11.5-14.5); WBC 5.91 10*3/uL (4.50-10.00)
[2024-08-19 09:02] LABS: ALT 50 U/L (4-34); African American GFR (CKD) 85 (>60 ml/min/1.73 sqM); Albumin 3.4 g/dL (3.5-5.0); Albumin/Globulin Ratio 1.3; Anion Gap 10 mmol/L; Blood Urea Nitrogen 20 mg/dL (7-17); Calcium 8.6 mg/dL (8.4-10.2); Carbon Dioxide 20 mmol/L (22-30); Chloride 114 mmol/L (98-107); Globulin 2.7 g/dL; Glucose 96 mg/dL (74-99); Non-African American GFR(CKD) 74 (>60 ml/min/1.73 sqM); Phosphorus 3.5 mg/dL (2.5-4.5); Sodium 144 mmol/L (137-145); Total Bilirubin 0.6 mg/dL (0.2-1.3); Total Protein 6.1 g/dL (6.3-8.2)
[2024-08-19 09:04] LABS: AST 36 U/L (14-36); Alkaline Phosphatase 32 U/L (38-126); Magnesium 1.6 mg/dL (1.6-2.3); Potassium 4.3 mmol/L (3.5-5.1)
--- NOTE | 2024-08-19 12:17 | P.PN ---
Subjective Progress Note Date: 08/19/24 49 year old F with chronic lower back pain and multiple back surgeries presents to the ED for intractable back pain. Pain is lower back, described as band like, radiates down bilateral LE, 10/10 severity, spastic in nature. No bladder or bowel incontinence. No saddle anesthesia. In the ED she underwent extensive evaluation. BP 130/87, T 98.2F, HR 86, RR 18, 100% on RA. CBC, CMP significant for RBC 3.95, Hg 11.3, Hct 33.9, Cl 108, bicarb 18, BUN 25, Cr 1.25, AST 50, ALT 65. UA neg. CT L spine showing mild central stenosis L3-4 and multilevel DJD. She is admitted for intractable pain and Ortho evaluation. 08/19 Patient was seen and examined. She reports 10/10 back pain described as above. CBC and CMP significant for RBC 3.71, Hg 10.5, Hct 33.6, Cl 114, bicarb 20, BUN 20, AST 50, ALT 32, alb 3.4. General: non toxic, no distress, appears at stated age Derm: warm, dry Head: atraumatic, normocephalic, symmetric Mouth: no lip lesion, mucus membranes moist Cardiovascular: good distal perfusion in all 4 extremities Lungs: breathing comfortably, no accessory muscle use Ext: no gross muscle atrophy, no edema, no contractures Neuro: No focal neurologic deficits. Psych: Alert and oriented. Based on my assessment of this patient, this patient meets a high complexity level of care. Intractable back pain: Likely MSK. Dilaudid 1 mg IV Q3H PRN. Percocet 10-325 mg PO TID. Zanaflex 4 mg PO BID. Fall precautions. PT consult. Ortho and Pain management consulted. Transaminitis: Unknown etiology. Monitor. Normocytic anemia: Unknown etiology. Monitor. Resolved: [place] CODE STATUS: FULL CODE DVT Prophylaxis: Heparin SQ GI Prophylaxis: Designated medical POA if patient is not able to make medical decisions for themselves: I have reviewed the following library consultant notes: I have reviewed the results of the following tests: CBC, CMP. I have ordered the following tests: I have discussed the care of this patient with the following independent historian: EMILEE. I have independently interpreted the following test below: I have discussed the management of this patient with the following physician: Objective - Vital Signs Vital signs: Vital Signs Temp 98.2 F 08/18/24 15:10 Pulse 66 08/19/24 11:00 Resp 18 08/19/24 11:00 BP 103/83 08/19/24 11:00 Pulse Ox 100 08/19/24 11:00 FiO2 Intake & Output 08/18/24 08/19/24 08/19/24 18:59 06:59 18:59 Weight 96.162 kg - Labs CBC & Chem 7: 08/19/24 07:58 08/19/24 08:18 Labs: Abnormal Lab Results - Last 24 Hours (Table) 08/18/24 08/18/24 08/19/24 Range/Units 16:31 16:31 07:58 RBC 3.95 L 3.71 L (4.10-5.20) 10*6/uL Hgb 11.3 L 10.5 L (12.0-15.0) g/dL Hct 33.9 L 33.6 L (37.2-46.3) % MCHC 31.3 L (32.0-37.0) g/dL Immature Gran # 0.07 H (0.00-0.04) 10*3/uL Chloride 108 H (98-107) mmol/L Carbon Dioxide 18 L (22-30) mmol/L BUN 25 H (7-17) mg/dL Creatinine 1.25 H (0.52-1.04) mg/dL AST 50 H (14-36) U/L ALT 65 H (4-34) U/L Alkaline Phosphatase (38-126) U/L Total Protein (6.3-8.2) g/dL Albumin (3.5-5.0) g/dL 08/19/24 Range/Units 08:18 RBC (4.10-5.20) 10*6/uL Hgb (12.0-15.0) g/dL Hct (37.2-46.3) % MCHC (32.0-37.0) g/dL Immature Gran # (0.00-0.04) 10*3/uL Chloride 114 H (98-107) mmol/L Carbon Dioxide 20 L (22-30) mmol/L BUN 20 H (7-17) mg/dL Creatinine (0.52-1.04) mg/dL AST (14-36) U/L ALT 50 H (4-34) U/L Alkaline Phosphatase 32 L (38-126) U/L Total Protein 6.1 L (6.3-8.2) g/dL Albumin 3.4 L (3.5-5.0) g/dL
[2024-08-19] MEDS: oxyCODONE-APAP 10-325MG 1 EACH TAB PO SCH (15:16)
[2024-08-20 11:30] LABS: Basophils # (A) 0.05 10*3/uL (0.00-0.10); Basophils % (A) 0.7 %; Eosinophils # (A) 0.24 10*3/uL (0.04-0.35); Eosinophils % (A) 3.6 %; HGB 10.1 g/dL (12.0-15.0); Lymphocytes # (A) 2.91 10*3/uL (0.90-5.00); Lymphocytes % (A) 43.6 %; MCH 29.1 pg (27.0-32.0); MCHC 33.7 g/dL (32.0-37.0); MCV 86.5 fL (80.0-97.0); Mean Platelet Volume 10.6 fL (9.5-12.2); Monocytes # (A) 0.46 10*3/uL (0.20-1.00); Monocytes % (A) 6.9 %; Neutrophils % (A) 45.1 %; Platelet Count 267 10*3/uL (140-440); RBC 3.47 10*6/uL (4.10-5.20); RDW 13.7 % (11.5-14.5); WBC 6.67 10*3/uL (4.50-10.00)
--- NOTE | 2024-08-20 12:15 | P.PN ---
Subjective Progress Note Date: 08/20/24 49 year old F with chronic lower back pain and multiple back surgeries presents to the ED for intractable back pain. Pain is lower back, described as band like, radiates down bilateral LE, 10/10 severity, spastic in nature. No bladder or bowel incontinence. No saddle anesthesia. In the ED she underwent extensive evaluation. BP 130/87, T 98.2F, HR 86, RR 18, 100% on RA. CBC, CMP significant for RBC 3.95, Hg 11.3, Hct 33.9, Cl 108, bicarb 18, BUN 25, Cr 1.25, AST 50, ALT 65. UA neg. CT L spine showing mild central stenosis L3-4 and multilevel DJD. She is admitted for intractable pain and Ortho evaluation. 08/19 Patient was seen and examined. She reports 10/10 back pain described as above. CBC and CMP significant for RBC 3.71, Hg 10.5, Hct 33.6, Cl 114, bicarb 20, BUN 20, AST 50, ALT 32, alb 3.4. 08/20 Patient was seen and examined. Continued 10/10 back pain described as a band around her lower back. Reports 2 bloody bowel movements with history of hemorrhoids and diverticulosis. CBC significant for RBC 3.47, Hg 10.1, Hct 30. General: non toxic, no distress, appears at stated age Derm: warm, dry Head: atraumatic, normocephalic, symmetric Mouth: no lip lesion, mucus membranes moist Cardiovascular: good distal perfusion in all 4 extremities Lungs: breathing comfortably, no accessory muscle use Ext: no gross muscle atrophy, no edema, no contractures Neuro: No focal neurologic deficits. Psych: Alert and oriented. Based on my assessment of this patient, this patient meets a high complexity level of care. Intractable back pain: Likely MSK. Valium 5 mg IV x 1. Dilaudid 1 mg IV Q3H PRN. Percocet 10-325 mg PO TID. Lidocaine 4% patch daily. Zanaflex 4 mg PO BID. Fall precautions. PT on board working with patient. Ortho and Pain management consult pending. Lower GI bleed: Hg stable. History of hemorrhoids and diverticulosis. Monitor for further episodes. Transaminitis: Unknown etiology. Monitor. Resolved: [place] CODE STATUS: FULL CODE DVT Prophylaxis: Heparin SQ GI Prophylaxis: Designated medical POA if patient is not able to make medical decisions for themselves: I have reviewed the following clinical sales consultant notes: I have reviewed the results of the following tests: CBC. I have ordered the following tests: I have discussed the care of this patient with the following independent historian: EMILEE. I have independently interpreted the following test below: I have discussed the management of this patient with the following physician: Objective - Vital Signs Vital signs: Vital Signs Temp 97.8 F 08/20/24 07:25 Pulse 76 08/20/24 07:25 Resp 18 08/20/24 07:25 BP 102/69 08/20/24 07:25 Pulse Ox 96 08/20/24 07:25 FiO2 Intake & Output 08/19/24 08/20/24 08/20/24 18:59 06:59 18:59 Intake Total 60 Balance 60 Weight 96.162 kg Intake: Oral 60 Other: # Voids 2 - Labs CBC & Chem 7: 08/20/24 11:08 08/19/24 08:18 Labs: Abnormal Lab Results - Last 24 Hours (Table) 08/20/24 Range/Units 11:08 RBC 3.47 L (4.10-5.20) 10*6/uL Hgb 10.1 L (12.0-15.0) g/dL Hct 30.0 L (37.2-46.3) %
[2024-08-20] MEDS: HYDROmorphone 2 MG/ML 1 ML SYRINGE IVP PRN (14:42)
--- NOTE | 2024-08-20 17:49 | P.CNOR ---
History of Present Illness - [facility] Consult date: 08/20/24 Consult reason: low back pain History of present illness: Patient seen at bedside this afternoon in consultation for low back pain and bilateral lower extremity weakness and radicular symptoms. She states she has h ad chronic back pain since having a lumbar fusion at L4-5 a few years ago in [place] by Dr. Bassett. She also states that she has had chronic weakness and bilateral lower extremity symptoms for several years. She states that she fell backwards on her back a few weeks ago increasing her pain. She states that she has been on chronic opioids and has been taking Percocet 10 three times a day for several years. She currently denies loss of bowel or bladder function or saddle anesthesia. She states that she has difficulty ambulating and moving her legs due to pain and weakness Review of Systems All systems: negative Constitutional: Denies chills, Denies fever Eyes: denies blurred vision, denies pain Ears, nose, mouth and throat: Denies headache, Denies sore throat Cardiovascular: Denies chest pain, Denies shortness of breath Respiratory: Denies cough Gastrointestinal: Denies abdominal pain, Denies diarrhea, Denies nausea, Denies vomiting Genitourinary: Denies dysuria, Denies hematuria Musculoskeletal: Denies myalgias Integumentary: Denies pruritus, Denies rash Neurological: Denies numbness, Denies weakness Psychiatric: Denies anxiety, Denies depression Endocrine: Denies fatigue, Denies weight change Past Medical History Past Medical History: Hypertension, Respiratory Disorder Additional Past Medical History / Comment(s): LUNG ABSCESS 2013. Migraine headache. HX ABD HERNIAS, diverticulitis, PCOS 06/2024- GI biopsy History of Any Multi-Drug Resistant Organisms: None Reported Past Surgical History: Adenoidectomy, Back Surgery, Breast Surgery, Cholecystectomy, Hernia Repair, Hysterectomy, Orthopedic Surgery Additional Past Surgical History / Comment(s): TYRA KNEE arthroscopic. LOW BACK SURGERY. L BREAST LUMPECTOMY, BENIGN. Colonoscopy-Colitis September 2016. hernia surgery x2 with mesh, diverticulitis, Recent lysis of adhesions, colon surgery 2021 Past Anesthesia/Blood Transfusion Reactions: Postoperative Nausea & Vomiting (PONV) Additional Past Anesthesia/Blood Transfusion Reaction / Comm: PT HAS NEVER RECIEVED BLOOD. Past Psychological History: Anxiety, Depression Additional Psychological History / Comment(s): Pt resides with her spouse of 25 years and son department helper (college student). Pt is independent. Smoking Status: Never smoker Past Alcohol Use History: None Reported Past Drug Use History: None Reported, Marijuana - Past Family History Mother Family Medical History: Cancer Additional Family Medical History / Comment(s): breast ca Father Family Medical History: AFIB, COPD Medications and Allergies Home Medications Medication Instructions Recorded Confirmed Type Zolpidem [Ambien] 10 mg PO HS 09/02/17 08/18/24 History Scopolamine 1 mg/72 Hr Patch 1 patch TRANSDERM Q72H PRN 08/28/21 08/18/24 History [TransDerm Scop] Galcanezumab-Gnlm [Emgality Pen] 120 mg SQ QMONTHLY 02/09/24 08/18/24 History SUMAtriptan succinate [Imitrex] 100 mg PO BID PRN 02/09/24 08/18/24 History Clotrimazole Cream [Lotrimin Cream] 1 applic TOPICAL DIRECTED 08/18/24 08/18/24 History clonazePAM [KlonoPIN] 1 mg PO DAILY 08/18/24 08/18/24 History tiZANidine HCL [Zanaflex] 4 mg PO BID 08/18/24 08/18/24 History oxyCODONE-APAP 10-325MG [Percocet 1 each PO TID tab 08/20/24 Rx 10-325 mg] oxyCODONE-APAP 10-325MG [Percocet 1 tab PO TID #9 tab 08/20/24 Rx 10-325 mg] Allergies Allergy/AdvReac Type Severity Reaction Status Date / Time acetaminophen [From Ofirmev] Allergy Rash/Hives Verified 08/18/24 19:13 from IV only hydroxyzine [From Vistaril] Allergy Rash/Hives Verified 08/18/24 19:13 ketorolac tromethamine Allergy Rash/Hives Verified 08/18/24 19:13 [From Toradol] & Migraines naproxen sodium [From Aleve] Allergy Rash/Hives Verified 08/18/24 19:13 & Migraines Penicillins Allergy Swelling Verified 08/18/24 19:13 at suture site pregabalin [From Lyrica] Allergy Swelling Verified 08/18/24 19:13 from knees to feet & hives tramadol HCl [From Ultram] Allergy Rash/Hives Verified 08/18/24 19:13 & Migraines doxycycline AdvReac Nausea & Verified 08/18/24 19:13 Vomiting levofloxacin [From Levaquin] AdvReac Swelling Verified 08/18/24 19:13 from knees to feet morphine AdvReac Lowers BP Verified 08/18/24 19:13 ondansetron [From Zofran] AdvReac Nausea & Verified 08/18/24 19:13 Vomiting oxybutynin [From Ditropan] AdvReac Rapid Verified 08/18/24 19:13 Heart Rate Physical Examination Inspection of the lumbar spine shows no deformity, stepoff, edema, erythema or wounds. There is some bilateral spasm. It is nontender midline, Lower extremitie s are difficult to exam due to pain and patient effort however there appears to be gross motor and sensation to touch intact L2-S1. She is able to wiggle all toes and some degree of plantar flexion and dorsiflexion in both feet. She has difficulty with quads and hip flexors due to pain, weakness or effort. KJ and AJ reflexes are 1+. There is no hyperreflexia. No clonus. Babinski is normal. Calves are SNT. 2+ DP pulse and less than 2 sec cap refill present Results CT of lumbar spine shows pedicle screws at L4-5. There may be loosenin at the left L4 screw. The interbody graft appears that it may not fully fused. There is an anterolisthesis at L3-4 with DDD and facet arthrosis. There is mild-mod stenosis at this level. There is DDD and retrolisthesis at L5-S1. No severe canal stenosis seen throughout the lumbar spine. There are no fractures - Labs Labs: Abnormal Lab Results - Last 24 Hours (Table) 08/20/24 Range/Units 11:08 RBC 3.47 L (4.10-5.20) 10*6/uL Hgb 10.1 L (12.0-15.0) g/dL Hct 30.0 L (37.2-46.3) % H & H 08/18/24 08/19/24 08/20/24 Range/Units 16:31 07:58 11:08 Hgb 11.3 L 10.5 L 10.1 L (12.0-15.0) g/dL Hct 33.9 L 33.6 L 30.0 L (37.2-46.3) % Result Diagrams: 08/20/24 11:08 08/19/24 08:18 - Diagnostic results CT Scan - lumbar: report reviewed, image reviewed Assessment and Plan (1) Status post lumbar spinal fusion Narrative/Plan: Will request Thoracic and Lumbar MRI to assess for nerve impingement or lesions to further investigate cause of lower extremity symptoms and weakness. Will add Soma for muscle spasm/pain. Would consider adding Oxy ER in lieu of Dilaudid but defer to primary team. Continue PT/OT. Will follow and make further recommendations pending her findings and clinical course. Current Visit: Yes Status: Acute Priority: Medium Code(s): Z98.1 - ARTHRODESIS STATUS SNOMED Code(s): 87938158248841 (2) Intractable back pain Current Visit: Yes Status: Acute Priority: Medium Code(s): M54.9 - DORSALGIA, UNSPECIFIED SNOMED Code(s): 095617717 Time with Patient: Greater than 30 (Reviewing records/chart, studies, interviewing patient and examining patient)
--- NOTE | 2024-08-20 18:23 | XR ---
EXAMINATION TYPE: XR thoracic spine complete DATE OF EXAM: 08/20/2024 6:19 PM COMPARISON: None CLINICAL INDICATION: Female, 49 years old with history of Bilateral lower extremity weakness radicula r sx; PHH, pain TECHNIQUE: XR thoracic spine complete views of the spine in Frontal, swimmers and lateral projections . FINDINGS: No evidence of acute fracture. There is scattered multilevel disk space narrowing without loss of ve rtebral body height. There is normal alignment of the thoracic vertebral bodies. Mild osteophyte form ation along the anterior and lateral aspects of the vertebral bodies. Neural foramen are patent given limitations of this exam. Spinal canal appears patent. Right upper quadrant cholecystectomy clips. IMPRESSION: 1. No acute osseous pathology. 2. [id number] multilevel degeneration changes of the spine. [facility], , 08/20/2024 6:21 PM
[2024-08-20] MEDS: carisoprodoL 350 MG TAB PO PRN (20:44)
[2024-08-21 08:04] VITALS: TEMP 98.5
--- NOTE | 2024-08-21 08:05 | P.PN ---
Progress Note - Text Progress Note Date: 08/21/24 Patient is seen and examined at bedside. She has a very long history regards to her back and her spine. She has had surgery about 12 years ago for laminectomy decompression L5-S1 and then again about 3 years ago at L4-5 for decompression and fusion with Dr. Bassett. She says that the. The surgery did not help her at all. She says that she has been managing and usually gets around okay without a walker at home but has occasionally had to use her walker. She says that this past week she has had severe increase exacerbation of her low back and lower extremity pain in her bilateral lower extremities worse on the right than the left. She feels weak in her lower extremities has not had to use her walker. She did not have a new incident or new trauma. She says that her legs are occasionally weak and this happens periodically with her and oftentimes settles down with medications. She feels that she has had some improvement here in the hospital with the Dilaudid. In the past she has had treatment with medication and interventional pain management but she says that that did not give her any significant relief in the past. She denies any changes in bowel or bladder function. She denies any new trauma. She did have a fall last week at home when transitioning from one room to another. She denies any loss conscious at that time. She is not sure if that exacerbated her some of her symptoms. I reviewed her consultation and I am in agreement with the dictation from yesterday. On exam she moves very gingerly. She is afebrile stable vital signs She is obese At her back is clear. Her abdomen soft nontender Her lower extremities she has very limited effort with movement. She is able to dorsiflex and plantarflex but has breakaway strength to about 4+ out of 5 with dorsiflexion plantarflexion EHL. Her calves and thighs soft nontender. There is no clonus. Negative Babinski. No upper motor neuron signs. No saddle paresthesias. Imaging with CT scan of her lumbar spine is reviewed. Thoracic imaging is reviewed as well The lumbar imaging shows prior decompression fusion and TLIF at L4-5. Is difficult to determine if is solidly fused. She has evidence of prior laminectomy on the left at L5-S1 which is well decompressed. There is evidence of significant stenosis L2-3 and L3-4 above her prior fusion with slight listhesis at L2-3 L3-4. Assessment and plan Acute on chronic low back pain with bilateral lower extremity radiculopathy History of prior fusion L4-5 History of laminectomy decompression L5-S1 Spinal stenosis L2-3 L3-4 and Spondylolisthesis L3-4 The patient has a number of chronic issues with her low back and lower extremities. She has not had an exacerbation of her symptoms currently. She is declining oral or IV steroid medication as she feels it makes her too jittery. I offered this to her and tried to discuss it that this can help decrease her acute exacerbation of her symptoms but she declines the steroids. I would like to have interventional pain management see her to discuss the possibility of medication management and the possibly of interventional pain management. She has had epidural steroid injections in the past without success but they can discuss other treatment options as well. I think new imaging is necessary with MRI of her lumbar spine and thoracic spine. These have been ordered and we will await those findings. At this point I do not have acute plans for surgical intervention. Surgery would be quite involved involving multilevel decompression and revision decompression and fusion. This would be quite extensive for her and she has not had any benefit with her treatments in the past. It is difficult to predict if she would be a good candidate for surgical intervention given her long track record and difficulty with pain management. I would like to try to exhaust all conservative treatments before considering surgical intervention and I discussed this with her. We will await further imaging and have further recommendations to follow. Pain management is consulted to see her as well. It is okay for her to try to mobilize and increase her ambulation to her tolerance.
[2024-08-21] MEDS: MORPHINE SULFATE ER 15 MG TABLET PO SCH (11:42)
--- NOTE | 2024-08-21 11:42 | P.DS ---
Providers Date of admission: 08/18/24 18:22 Expected date of discharge: 08/21/24 Attending physician: Aamir Lorenzana MD Consults: 08/18/24 18:21 Consult Physician Routine Consulting Provider: Jorge A Kent Consult Reason/Comments: back pain Do you want consulting provider notified?: Yes Primary care physician: Physician Nonstaff Hospital Course: 49 year old F with chronic lower back pain and multiple back surgeries presents to the ED for intractable back pain. Pain is lower back, described as band like, radiates down bilateral LE, 10/10 severity, spastic in nature. No bladder or bowel incontinence. No saddle anesthesia. In the ED she underwent extensive evaluation. BP 130/87, T 98.2F, HR 86, RR 18, 100% on RA. CBC, CMP significant for RBC 3.95, Hg 11.3, Hct 33.9, Cl 108, bicarb 18, BUN 25, Cr 1.25, AST 50, ALT 65. UA neg. CT L spine showing mild central stenosis L3-4 and multilevel DJD. She is admitted for intractable pain and Ortho evaluation. 08/19 Patient was seen and examined. She reports 10/10 back pain described as above. CBC and CMP significant for RBC 3.71, Hg 10.5, Hct 33.6, Cl 114, bicarb 20, BUN 20, AST 50, ALT 32, alb 3.4. 08/20 Patient was seen and examined. Continued 10/10 back pain described as a band around her lower back. Reports 2 bloody bowel movements with history of hemorrhoids and diverticulosis. CBC significant for RBC 3.47, Hg 10.1, Hct 30. 08/21 Patient was seen and examined. Continued 10/10 back pain. No more bloody bowel movements. Evaluated by Dr. Shaikh, MRI T-L spine scheduled for around 4PM today. Discharge Plan: Plans for discharge home after MRI T+L spine if results are benign. I discussed the case extensively with the PCP Bobby Steiner over the phone. They are in the process of finding patient a pain specialist. Regularly takes Percocet 10-325 mg PO TID and Clonazepam 1 mg PO QD. Patient reports having a Narcan prescription at home. Plans for discharge home on MS Continue 15 mg PO BID x 3 days. Continue Percocet 10-325 mg PO TID but only as PRN. Follow up with PCP within 1-2 days of discharge, Orthopedic Sx and Pain management within 1 week of discharge. General: non toxic, no distress, appears at stated age Derm: warm, dry Head: atraumatic, normocephalic, symmetric Mouth: no lip lesion, mucus membranes moist Cardiovascular: Normal S1 S2. No murmurs. Lungs: Clear to auscultation bilaterally, no accessory muscle use Ext: no gross muscle atrophy, no edema, no contractures Neuro: No focal neurologic deficits. Psych: Alert and oriented. Discharge Diagnosis: Intractable back pain Lower GI bleed Transaminitis Resolved: [place] This complex discharge took 35 minutes to complete. Patient Condition at Discharge: Stable Plan - Discharge Summary New Discharge Prescriptions: New oxyCODONE-APAP 10-325MG [Percocet 10-325 mg] 1 each PO TID tab Docusate [Colace] 100 mg PO BID cap Morphine Sulfate ER [Ms Contin] 15 mg PO Q12HR #6 tab Continue Zolpidem [Ambien] 10 mg PO HS Galcanezumab-Gnlm [Emgality Pen] 120 mg SQ QMONTHLY tiZANidine HCL [Zanaflex] 4 mg PO BID Scopolamine 1 mg/72 Hr Patch [TransDerm Scop] 1 patch TRANSDERM Q72H PRN PRN Reason: Nausea SUMAtriptan succinate [Imitrex] 100 mg PO BID PRN PRN Reason: Migraine Headache clonazePAM [KlonoPIN] 1 mg PO DAILY Clotrimazole Cream [Lotrimin Cream] 1 applic TOPICAL DIRECTED Discontinued oxyCODONE-APAP 10-325MG [Percocet 10-325 mg] 1 tab PO TID Discharge Medication List Zolpidem [Ambien] 10 mg PO HS 09/02/17 [History] Scopolamine 1 mg/72 Hr Patch [TransDerm Scop] 1 patch TRANSDERM Q72H PRN 08/28/21 [History] Galcanezumab-Gnlm [Emgality Pen] 120 mg SQ QMONTHLY 02/09/24 [History] SUMAtriptan succinate [Imitrex] 100 mg PO BID PRN 02/09/24 [History] Clotrimazole Cream [Lotrimin Cream] 1 applic TOPICAL DIRECTED 08/18/24 [History] clonazePAM [KlonoPIN] 1 mg PO DAILY 08/18/24 [History] tiZANidine HCL [Zanaflex] 4 mg PO BID 08/18/24 [History] Docusate [Colace] 100 mg PO BID cap 08/21/24 [Rx] Morphine Sulfate ER [Ms Contin] 15 mg PO Q12HR #6 tab 08/21/24 [Rx] oxyCODONE-APAP 10-325MG [Percocet 10-325 mg] 1 each PO TID tab 08/21/24 [Rx] Follow up Appointment(s)/Referral(s): Nonstaff,Physician [Primary Care Provider] - 1-2 days
--- NOTE | 2024-08-21 14:37 | P.PN ---
Progress Note - Text Going for MRI at 4 PM today. As per discharge note it appears patient is going home today after the MRI if it is benign. Patient may follow us in [facility] pain clinic as an outpatient basis if she goes home today.
[2024-08-21 15:45] VITALS: BP 122/84; PULSE 68; RESP 17
--- NOTE | 2024-08-21 19:00 | MR ---
EXAMINATION TYPE: MR kasi/lstasha wo con DATE OF EXAM: 08/21/2024 5:56 PM COMPARISON: Thoracic radiograph 08/20/2024, CT lumbar spine 08/18/2024, 01/02/2024, lumbar spine radiogra ph 06/16/2019 CLINICAL INDICATION: Female, 49 years old with history of Bilateral lower extremity weakness radicula r sx, Bilateral lower extremity weakness radicular sx TECHNIQUE: Multiplanar, multisequence imaging of the thoracolumbar spine is performed without IV cont rast. FINDINGS: The vertebral bodies have preserved heights. Mild levocurvature of the thoracolumbar spine. Fixed gra de 1 anterolisthesis of L4 on L5. Normal alignment of the thoracic spine. The conus medullaris and the distal spinal cord appear unremarkable with regards to their signal inte nsity and morphology. Postsurgical changes with bilateral pedicular screws and rods in intervertebral disc hardware at L4-L 5 and left-sided laminectomy defects. Bone signal is within normal limits. Anterior osteophytosis of the thoracic spine at T7-T8. Multilevel disc desiccation which is most pronounced involving the lumba r spine. No abnormal STIR signal identified. Posterior lower back subcutaneous edema. No evidence for disc herniation or significant central canal or neuroforaminal stenosis of the thorac ic spine. L1-L2: No significant disc pathology. Spinal canal is patent. The neural foramen are patent. L2-L3: Broad-based disc bulge resulting in mild central canal stenosis. Bilateral facet arthropathy. Mild to moderate bilateral neural foraminal stenosis. L3-L4: Broad-based disc bulge with annular fissure. Results in mild central canal stenosis. Ligamentu m flavum buckling with bilateral facet arthropathy demonstrated. Bilateral facet osteophytes extend i nto the bilateral neural foramen.Moderate bilateral neural foraminal stenosis. L4-L5: Fixed grade 1 anterolisthesis uncovering the disc. No significant central canal stenosis. Post surgical changes. Mild to moderate left and mild right neural foraminal stenosis. L5-S1: Left paracentral disc protrusion without significant effacement of the anterior thecal sac. Th ere is close abutment of the exiting left S1 nerve root. No significant central canal stenosis. Mild bilateral neural foraminal stenosis. IMPRESSION: 1. Post surgical changes for fixation of L4-L5 grade 1 anterolisthesis. Moderate multilevel degenera tive disease of the lumbar spine as described above. 2. No evidence for disc herniation or significant central canal or neuroforaminal stenosis of the tho racic spine. [facility], , 08/21/2024 6:58 PM
[2024-08-21] MEDS ORDERED: HYDROmorphone 1 MG/ML 1 ML SYRINGE IVP PRN (20:45)
== END 2024-08-21 18:46 | disposition home or self-care (01) ==
LOC: EC 15:04 → 6NMEDSUR 18:21 → INTOOBSV 18:22 → OBSVTOIN 18:22 → 6NMEDSUR 19:43
PROVIDERS: ADMIT Internal Medicine; ATTEND Internal Medicine
DX: M51.16 Intervertebral disc disorders with radiculopathy, lumbar region (principal); M48.061 Spinal stenosis, lumbar region without neurogenic claudication; M43.16 Spondylolisthesis, lumbar region; K92.2 Gastrointestinal hemorrhage, unspecified; R74.01 Elevation of levels of liver transaminase levels; N17.9 Acute kidney failure, unspecified; D64.9 Anemia, unspecified; I10 Essential (primary) hypertension; F32.A Depression, unspecified; F41.9 Anxiety disorder, unspecified; Z98.1 Arthrodesis status; Z79.899 Other long term (current) drug therapy; Z88.0 Allergy status to penicillin; Z88.1 Allergy status to other antibiotic agents; Z88.5 Allergy status to narcotic agent; Z88.6 Allergy status to analgesic agent
CPT/HCPCS: 96376 ×5; 96372 ×4; 96375 ×2; 96374 ×2; 99285; 36415; 97161; 97166; 80053 ×2; 83735 ×2; 84100 ×2; 85025 ×3; 81003; 72072; 72131; 72146; 72148; G0378 ×4; J1171 ×4; J1200; J1644 ×3; J3360; 96361